=== PATIENT | male | born 1950 | race Caucasian/White ===

== ENCOUNTER 2016-08-05 06:15 | Inpatient (IN) | payer OTHER ==
[2016-07-07 13:49] VITALS: BMI 31.0
--- NOTE | 2016-07-07 14:25 | PAT Medication Instructions ---
Service Date Jul 07, 2016. Current Home Medication List Amlodipine (Norvasc), 5 MG PO QAM Aspirin (Aspirin Ec), 81 MG PO QAM Clopidogrel (Plavix), 75 MG PO QAM Coenzyme Q10 (Ubidecarenone) (Co Q10), 400 MG PO QAM Escitalopram Oxalate (Lexapro), 10 MG PO HS Fish Oil (Strum-3), 1 CAP PO QAM Isosorbide Mononitrate Ext Rel (Imdur Ext Rel), 60 MG PO QAM Lisinopril (Zestril), 5 MG PO QAM Loratadine (Claritin), 10 MG PO QAM Lorazepam (Ativan *), 0.5 MG PO DAILY PRN for Anxiety Lovastatin (Lovastatin), 1 TAB PO HS Metoprolol Succinate (Toprol Xl), 50 MG PO QPM Tramadol (Ultram), 50 MG PO Q4-6HRS PRN Zolpidem Tartrate (Ambien *), 5 MG PO HS PRN Medication Instructions For Your Scheduled Surgery Clopidogrel (Plavix), 75 MG PO QAM (hold 7 days prior to surgery per cardio instructions) - Hold the following medications 2 weeks prior to surgery: Fish Oil (Strum-3), 1 CAP PO QAM Coenzyme Q10 (Ubidecarenone) (Co Q10), 400 MG PO QAM - Hold the following medications the morning of surgery: Lisinopril (Zestril), 5 MG PO QAM Loratadine (Claritin), 10 MG PO QAM - Take the following medications the morning of surgery with a sip of water: Tramadol (Ultram), 50 MG PO Q4-6HRS PRN (can take up to four hours prior to surgery if needed) Lorazepam (Ativan *), 0.5 MG PO DAILY PRN for Anxiety Isosorbide Mononitrate Ext Rel (Imdur Ext Rel), 60 MG PO QAM Amlodipine (Norvasc), 5 MG PO QAM Aspirin (Aspirin Ec), 81 MG PO QAM - Take the following medications as scheduled the night before surgery: Lovastatin (Lovastatin), 1 TAB PO HS Metoprolol Succinate (Toprol Xl), 50 MG PO QPM Tramadol (Ultram), 50 MG PO Q4-6HRS PRN Zolpidem Tartrate (Ambien *), 5 MG PO HS PRN Lorazepam (Ativan *), 0.5 MG PO DAILY PRN for Anxiety Escitalopram Oxalate (Lexapro), 10 MG PO HS If you have any questions please call us at [phone] or [phone] ( [place]) or [phone]
--- NOTE | 2016-07-07 14:54 | DIAGNOSTIC IMAGING REPORT ---
CHEST PREADMISSION(PA/LAT) CLINICAL HISTORY: Preoperative evaluation. COMPARISON STUDY: Chest radiograph April 26, 2013. FINDINGS: Lung volumes are normal. Lungs are clear. There is no pneumothorax or pleural effusion. Cardiac size is normal. Mediastinal contours are normal. There is no evidence of pulmonary edema. IMPRESSION: No acute cardiopulmonary findings. Electronically signed by: Ladarius Garcia M.D. 07/07/2016 2:52 PM Dictated Date/Time: 07/07/2016 2:52 PM
[2016-07-07 14:56] LABS: BASO % 0.3 %; BASO ABS # 0.02 K/uL (0-0.2); COMPLETE YES; EOS % 1.3 %; HEMATOCRIT 39.6 % (42-52); LYMPH % 36.6 %; LYMPH ABS # 2.21 K/uL (1.2-3.4); MEAN CORPUSCULAR HEMOGLOBIN 34.9 pg (25-34); MEAN CORPUSCULAR HGB CONC 34.6 g/dl (32-36); MONO % 7.3 %; NEUT % 54.5 %; PLATELET COUNT 205 K/uL (130-400); RED BLOOD COUNT 3.92 M/uL (4.7-6.1); WHITE BLOOD COUNT 6.04 K/uL (4.8-10.8)
[2016-07-07 15:10] LABS: PROTHROMBIN TIME (PATIENT) 10.7 SECONDS (9.0-12.0)
[2016-07-07 15:26] LABS: URINE APPEARANCE CLEAR (CLEAR); URINE BILIRUBIN NEG (NEG); URINE COLOR YELLOW; URINE NITRITE NEG (NEG); URINE PH 5.5 (4.5-7.5); URINE SPECIFIC GRAVITY 1.021 (1.000-1.030); UROBILINOGEN NEG (NEG)
[2016-07-07 15:30] LABS: MANUAL MICROSCOPIC REQUIRED? NO; REVIEW REQ? NO
[2016-07-07 16:20] LABS: BUN/CREATININE RATIO 13.1 (10-20); CREATININE 0.96 mg/dl (0.60-1.40); POTASSIUM 4.1 mmol/L (3.5-5.1)
[2016-07-08 06:22] LABS: ESTIMATED AVERAGE GLUCOSE 120 mg/dl; HA1C FLAG Normal (Normal)
--- NOTE | 2016-08-01 15:19 | HISTORY & PHYSICAL EXAMINATION ---
DATE OF ADMISSION: 08/05/2016 CHIEF COMPLAINT: Right shoulder pain. HISTORY OF PRESENT ILLNESS: The patient is a 66-year-old male who is here for right shoulder pain. Presents with, symptoms have been gradual in onset. He has no known injury. The symptoms occur constantly and are described as aching and sharp. He has tried cortisone injections with no relief. He has also tried physical therapy with no relief. He would like to proceed with a right reversed total shoulder arthroplasty. PAST MEDICAL HISTORY: Significant for heart attack in 2013, hypertension, hypercholesterolemia, and anxiety. PAST SURGICAL HISTORY: Stent placement 4-5, left TKA, right shoulder rotator cuff repair, hernia repair, right carpal tunnel release, tonsillectomy. SOCIAL HISTORY: He drinks alcohol occasionally. Denies smoking or tobacco use. Denies IV drug use. He lives in a 1-story house. He is currently retired. FAMILY HISTORY: He has a family history of his brother and sister having heart disease. ALLERGIES: IV DYE AND SIMVASTATIN. MEDICATIONS: Citalopram 10 mg once daily, Imdur 60 mg once daily, Norvasc 5 mg once daily, Ativan 0.5 mg as needed, Ultram 50 mg as needed, aspirin 81 mg daily, Plavix 75 mg daily, Ambien 5 mg at bedtime, lisinopril 5 mg daily, lovastatin 20 mg daily, Claritin 10 mg daily, metoprolol 25 mg daily. REVIEW OF SYSTEMS: He denies headaches, fevers, chills, double vision, blurry vision, sore throat, cough, chest pain, nausea, vomiting, diarrhea, constipation, numbness, tingling, tired or urinary problems, thoughts to harm himself or harm others or depression. He is positive for joint pain and stiffness of the right shoulder. OBJECTIVE: GENERAL APPEARANCE: The patient is a 66-year-old male that is sitting in no acute distress. He is well dressed, well nourished. He is awake, alert and oriented x3. VITAL SIGNS: He is 5 foot 6 inches tall, 195 pounds. Blood pressure 118/60. HEENT: Normocephalic, atraumatic. Extraocular movements are intact. PERRLA. Mucosa was moist. No septal deviation. NECK: Supple, no lymphadenopathy, no JVD, no thyromegaly. HEART: Regular rate and rhythm. No murmurs or gallops. LUNGS: Clear to auscultation. No wheezes or rhonchi. ABDOMEN: Soft, nontender, nondistended. Normal bowel sounds, no hepatosplenomegaly. EXTREMITIES: Paying particular attention to the right upper extremity, he is able to actively flex to 90 degrees, abduct to 90 degrees, externally rotate to 45 degrees. He has diffuse tenderness. He has a positive empty can. Positive impingement. NEUROLOGIC: Cranial nerves II through XII are intact. Pulses were compared bilaterally and were equal. IMAGING: X-ray of the right shoulder demonstrates osteophyte formation, joint space narrowing. 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 PLAN: The patient is scheduled for a right reverse total shoulder arthroplasty due to his retracted rotator cuff tear. The patient has tried cortisone injections and physical therapy with no relief. He would like to proceed with a right reverse total shoulder arthroplasty. Risks and benefits were discussed and included but not limited to infection, DVT, pain, stiffness, need for revision surgery, blood vessel damage, nerve damage, PE and and anesthesia risks. The patient wishes to proceed. All questions were answered to his satisfaction. He would like to go home with outpatient physical therapy. 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 As long as they are acceptable, the following recommendations are noted. Uninterrupted continuation of metoprolol, Norvasc and Imdur throughout the perioperative period. Uninterrupted continuation of his aspirin through the perioperative period. It is okay to hold the Plavix 5 days and resume medication as soon as possible postoperatively, hold fish oils for 10 days, hold lisinopril the morning of the surgery and resuming postoperatively as hemodynamics permit. FAWN
[~2016-08-05] VITALS: Ht 167.6 cm; Wt 88.6 kg
[2016-08-05] VITALS (9 sets, daily range): BP systolic 93–124; BP diastolic 54–82; PULSE 69–92; TEMP 36.2–37; O2SAT 92–96; Ht 167.6 cm; Wt 88.6 kg
[~2016-08-05 06:15] MED LIST: AMB5 PO; AMLO-110 PO; ASPI81TA28 PO; ATV5 PO; CEFAZOLIN 2000 MG/60 ML D5W IV SCH; CLOP1TAB15 PO; CLR10 PO; COEN1CAP28 PO; CeleBREX 200 MG CAP PO SCH; DEXAMETHASONE 4 MG TAB PO SCH; GABAPENTIN 300 MG CAP PO SCH; ISOS60TA25 PO; LACTATED RINGER'S 1000ML IV SCH; LISI-729 PO; LXP/10 PO; METO-217 PO; MVC20 PO; OMEG10007 PO; OXYCODONE HCL 10 MG TABCR (OXYCONTIN) PO SCH; ROPIVACAINE 5MG/ML 30 ML 150 MG, BUPIVACAINE/EPINEPHR 0.5% MPF 30 ML, KETOROLAC TROMETH... INFIL SCH; TRAM-10 PO
[2016-08-05] MEDS: TRANEXAMIC ACID INJ 1,000 MG in SODIUM CHLORIDE 0.9% 100ML 100 ML IV SCH ×2 (06:30→10:00)
--- NOTE | 2016-08-05 06:51 | History & Physical Bridge Note ---
H&P Re-Evaluation Bridge Note: I have examined the patient, reviewed the History & Physical and in the interval since the performance of the History & Physical I have noted the following changes of clinical significance: No changes noted
[2016-08-05] MEDS ORDERED: ROCURONIUM BROMIDE 10 MG/ML 5 ML VIAL ONE (08:07)
[2016-08-05] MEDS ORDERED: MIDAZOLAM HCL 1 MG/ML 2ML VIAL ONE (08:07)
[2016-08-05] MEDS ORDERED: FENTANYL CITRATE INJ 50 MCG/1 ML 2 ML VIAL ONE (08:07)
[2016-08-05] MEDS ORDERED: PROPOFOL IV EMULSION 10 MG/ML 20 ML VIAL IV ONE (08:07)
[2016-08-05] MEDS ORDERED: LIDOCAINE HCL 2% 2 ML VIAL (20MG/ML) ONE ×4 (08:07→09:31)
[2016-08-05] MEDS ORDERED: CLONIDINE HCL 100 MCG/ML SYRINGE ONE (08:21)
[2016-08-05] MEDS ORDERED: MEPIVACAINE HCL 1.5% 30 ML VIAL ONE (08:21)
[2016-08-05] MEDS ORDERED: BUPIVACAINE 0.5 % 5 MG/1 ML PF 10ML VIAL ONE ×2 (08:21→11:51)
[2016-08-05] MEDS ORDERED: BACITRACIN 50000 UNIT VIAL ONE (10:08)
[2016-08-05] MEDS ORDERED: POVIDONE-IODINE OP SOLN 30 ML BTL ONE (10:08)
[2016-08-05] MEDS ORDERED: ORTHO JOINT ANESTHETIC ONE (10:08)
[2016-08-05] MEDS ORDERED: FLUMAZENIL 0.1 MG/1 ML 10 ML VIAL IV PRN (10:30)
[2016-08-05] MEDS ORDERED: PROMETHAZINE HCL INJ 12.5 MG in SODIUM CHLORIDE 0.9% 50ML 50 ML IV PRN (10:30)
[2016-08-05] MEDS ORDERED: LABETALOL HCL IV 5 MG/ML 20ML IV PRN (10:30)
[2016-08-05] MEDS ORDERED: EpHEDrine SULFATE INJ 50 MG/ML AMP IV PRN (10:30)
[2016-08-05] MEDS ORDERED: NALOXONE HCL 0.4 MG/1 ML VIAL/CARP IV PRN (10:30)
[2016-08-05] MEDS ORDERED: ATROPINE SULFATE 0.1 MG/ML 5ML SYR IV PRN (10:30)
[2016-08-05] MEDS ORDERED: ONDANSETRON INJ 2 MG/ML 2 ML VIAL IV PRN (10:30)
[2016-08-05] MEDS ORDERED: ONDANSETRON INJ 2 MG/ML 2 ML VIAL ONE (11:26)
[2016-08-05] MEDS ORDERED: DEXAMETHASONE SOD INJ 4 MG/ML VIAL ONE ×2 (11:26→11:52)
[2016-08-05] MEDS ORDERED: ETOMIDATE 2 MG/ML 20 ML VIAL IV ONE (11:26)
[2016-08-05] MEDS ORDERED: PHENYLEPHRINE HCL INJ 10 MG/ML VIAL ONE (11:26)
[2016-08-05] MEDS ORDERED: PHENYLEPHRINE 100MCG/ML 5ML SYR ONE (11:26)
[2016-08-05] MEDS ORDERED: SUCCINYLCHOLINE 100MG/5ML SYR IV ONE (11:28)
[2016-08-05] MEDS ORDERED: GLYCOPYRROLATE INJ 0.2 MG/ML VIAL ONE (11:48)
[2016-08-05] MEDS ORDERED: NEOSTIGMINE METHYLSULFATE 5 MG/5 ML SYR ONE (11:48)
[2016-08-05] MEDS ORDERED: EpHEDrine SULFATE 50MG/5ML SYR ONE (12:04)
--- NOTE | 2016-08-05 12:09 | [facility] Post Operative Brief Note ---
Immediate Operative Summary Operative Date August 05, 2016. Pre-Operative Diagnosis Right shoulder rotator cuff arthropathy Post-Operative Diagnosis same Procedure(s) Performed Right Reverse Total Shoulder Arthroplasty; Uncemented Surgeon Dr. Moore Trim Machine Adjuster Surgeon(s) Vijay Terrazas Pa-C Estimated Blood Loss 50ml Findings above Specimens A. right humeral head Drains 1 hemovac Anesthesia geta, interscalene Complication(s) None Disposition Recovery Room / PACU
[2016-08-05] MEDS ORDERED: MoRPHine SULFATE 2 MG/ML CARP IV PRN (12:15)
[2016-08-05] MEDS ORDERED: ZOLPIDEM TARTRATE 5 MG TAB PO PRN (12:15)
[2016-08-05] MEDS ORDERED: LORAZEPAM 0.5 MG TAB PO PRN (12:15)
[2016-08-05] MEDS ORDERED: ALUMINUM/MAGNESIUM SUSP 30 ML UDC PO PRN (12:15)
--- NOTE | 2016-08-05 13:18 | Anesthesiology Progress Note ---
Anesthesia Post Op Note Date & Time August 05, 2016 at 13:18 Vital Signs Pain Intensity: 0 Vital Signs Past 12 Hours Date Time Temp Pulse Resp B/P Pulse Ox O2 Delivery O2 Flow Rate FiO2 08/05/16 13:05 76 14 101/69 100 Nasal Cannula 2 08/05/16 12:55 72 16 108/62 100 Mask 10 08/05/16 12:45 73 14 119/60 100 Mask 10 08/05/16 12:38 36.0 77 18 127/70 96 Mask 10 08/05/16 07:04 36.7 69 18 120/82 96 Room Air Notes Mental Status: alert / awake / arousable, participated in evaluation Pt Amnestic to Procedure: Yes Nausea / Vomiting: adequately controlled Pain: adequately controlled Airway Patency, RR, SpO2: stable & adequate BP & HR: stable & adequate Hydration State: stable & adequate Anesthetic Complications: no major complications apparent
--- NOTE | 2016-08-05 13:21 | DIAGNOSTIC IMAGING REPORT ---
RIGHT SHOULDER MIN 2 VIEWS ROUTINE CLINICAL HISTORY: Post shoulder surgery Right COMPARISON: None. DISCUSSION: Findings of a total right shoulder arthroplasty. Good contact between prosthetic and underlying bone. Alignment is anatomic. Surgical drains are present. There is no evidence for soft tissue swelling. IMPRESSION: Anatomic alignment status post total right shoulder arthroplasty. Electronically signed by: Branden Gibbons M.D. 08/05/2016 1:20 PM Dictated Date/Time: 08/05/2016 1:19 PM
--- NOTE | 2016-08-05 14:20 | OPERATIVE REPORT ---
DATE OF OPERATION: 08/05/2016 PREOPERATIVE DIAGNOSIS: Right shoulder rotator cuff arthropathy. POSTOPERATIVE DIAGNOSIS: Same. PROCEDURE: Right reverse total shoulder arthroplasty. SURGEON: Dr. Moore. COMPENSATION MANAGER: Vijay Terrazas PA-C who was necessary for assistance of procedure with positioning, prepping, draping, retraction and closure. ANESTHESIA: General endotracheal anesthesia with interscalene block. SPECIMEN: Bone and tissue. COMPLICATIONS: None. ESTIMATED BLOOD LOSS: 50 mL. IMPLANTS: Exactech Equinox 15 mm stem, +0 humeral tray, +2.5 mm humeral liner, 38 mm glenosphere and standard glenoid plate. DRAINS: One medium Hemovac. INDICATIONS: The patient is a 66-year-old male with longstanding pain in the right shoulder. He has massive retracted rotator cuff tear with humeral head elevation. He has failed conservative measures including cortisone injection, physical therapy, anti-inflammatory medications. Failing conservative measures, he wished to proceed with a right reverse total shoulder arthroplasty. Risks, benefits, and alternatives of surgery including but not limited to infection, DVT, pain, stiffness, need for urgent surgery, failure to relieve all symptoms, damage to blood vessels, damage to nerves, risks of anesthesia discussed with the patient and he wished to proceed. OPERATION AND FINDINGS: PROCEDURE: The patient was identified, laterality was confirmed and marked. He received a preoperative antibiotic as well as interscalene block. He was transferred to the operating room, placed in supine position, induced with general endotracheal anesthesia. He was safely transferred to the beach chair position. Right shoulder was prepped and draped in usual sterile manner with ChloraPrep. I made a longitudinal incision just lateral to coracoid, sharply incised the skin, utilized Bovie electrocautery to achieve hemostasis. I identified the cephalic vein, mobilized this laterally with the deltoid. Dissected down through the long head of biceps tendon, excised the tendinotic portion long head of biceps tendon and released the subscapularis and dislocated the shoulder anteriorly. He had a massive retracted rotator cuff tear of supraspinatus as well as evidence of a previous rotator cuff repair with Ethibond suture. These sutures were removed. I then pinned in place humeral version cutting guide, made my humeral head resection and then sequentially reamed and sequentially broached to a size 15 stem. I placed a size 13 stem into position and then placed retractors around the glenoid. I released the inferior capsule and the anterior insertion of the triceps and the glenoid labrum, debrided the glenoid cartilage. I then drilled for the central post, bone grafted the central post for the glenoid plate, impacted this into position. I then placed 4 compression screws and glenoid plate secured to the locking caps. I then placed a 38 mm glenosphere into position and held it in place with a set screw. I then placed the definitive stem with 15 mm stem and then sequentially trialed up to a size 2.5 mm liner. I then removed the trial components and locked the definitive +0 humeral tray into position with a torque-limiting screw and impacted the +2.5 [address] liner into place and then reduced the shoulder. Soft tissues were anesthetized with an Orthomix solution, wound was thoroughly irrigated. Deep drain was placed. The deltopectoral interval was closed with interrupted #1 Ethibond sutures, subcutaneous tissue with interrupted 2-0 Vicryl suture and skin with sho. Sterile dressing was applied and sling placed. All needle and sponge counts were correct at the end of the procedure. The patient was transferred to the PACU in stable condition without apparent complication. I attest to the content of the Intraoperative Record and any orders documented therein. Any exceptio ns are noted below.
[2016-08-05] MEDS: D5W AND 1/2NSS + 20MEQ KCL 1,000 ML IV SCH (14:51)
--- NOTE | 2016-08-05 16:40 | Medical Consult ---
Consultation Date of Consultation: August 05, 2016. Attending Physician: Marcos Moore M.D. Reason for Consultation: Medical management History of Present Illness This is a 66 yo M with PMHx of hx of NC in 2013, HTN, hyperlipidemia, depression and anxiety who was admitted under orthopedics services and underwent a R reverse shoulder arthroplasty due to retrated rotator cuff tear on 08/05/[address] Moore. The patient was seen at beside with his . He reports he is doing well since surgery today- his pain is well controlled and he does not have any acute complaints. He reports there is some numbness in his right pointer finger still. He has gotten up to walk without difficulty to urinate, although has not yet passed gas or had a bowel movement. Last BM was yesterday evening. Past Medical/Surgical History NC in 2013, HTN, hyperlipidemia, anxiety Social History Smoking Status: Former Smoker Smokeless Tobacco Use: No Alcohol Use: none Drug Use: none Marital Status: Housing Status: lives with family Occupation Status: retired Allergies Coded Allergies: Iodinated Diagnostic Agents (Verified Allergy, Intermediate, Hives, ) Atorvastatin (Verified Adverse Reaction, Intermediate, muscle pain, ) muscle pain Simvastatin (Verified Adverse Reaction, Mild, muscle pains, 07/07/16) Current Inpatient Medications Current Inpatient Medications Medications (Trade) Dose Ordered Sig/Jeni Route Start Time Stop Time Status Last Admin Dose Admin Cefazolin Sodium 60 ml @ 100 mls/hr PREOP IV 08/05/16 06:00 08/05/16 18:00 08/05/16 08:19 100 MLS/HR Lactated Ringer's (Lr 1000ml) 1,000 ml @ 60 mls/hr [id number] IV 08/05/16 06:00 08/05/16 22:39 08/05/16 06:40 60 MLS/HR Celecoxib (CeleBREX CAP) 200 mg PREOP PO 08/05/16 06:00 08/05/16 18:00 08/05/16 07:20 200 MG Dexamethasone (Decadron Tab) 8 mg PREOP PO 08/05/16 06:00 08/05/16 18:00 08/05/16 07:20 8 MG Gabapentin (Neurontin Cap) 300 mg PREOP PO 08/05/16 06:00 08/05/16 18:00 08/05/16 07:20 300 MG Oxycodone HCl 10 mg 10 mg PREOP PO 08/05/16 06:00 08/05/16 18:00 08/05/16 07:20 10 MG Lactated Ringer's (Lr 1000ml) 1,000 ml @ 15 mls/hr Q24H IV 08/05/16 06:00 08/06/16 05:59 Amlodipine Besylate (Norvasc Tab) 5 mg QAM PO 08/06/16 09:00 09/05/16 08:59 Aspirin (Ecotrin Tab) 81 mg QAM PO 08/06/16 09:00 09/05/16 08:59 Clopidogrel Bisulfate (plAVix TAB) 75 mg QAM PO 08/06/16 09:00 09/05/16 08:59 Escitalopram Oxalate (Lexapro Tab) 10 mg HS PO 08/05/16 21:00 09/04/16 20:59 Isosorbide Mononitrate (Imdur Ext Rel Tab) 60 mg QAM PO 08/06/16 09:00 09/05/16 08:59 Lisinopril (Zestril Tab) 5 mg QAM PO 08/06/16 09:00 09/05/16 08:59 Loratadine (Claritin Tab) 10 mg QAM PO 08/06/16 09:00 09/05/16 08:59 Lorazepam (Ativan Tab) 0.5 mg DAILY PRN PO 08/05/16 12:15 09/04/16 12:14 Lovastatin (Mevacor Tab) 20 mg HS PO 08/05/16 21:00 09/04/16 20:59 Metoprolol Succinate (Toprol Xl Tab) 50 mg QPM PO 08/05/16 21:00 09/04/16 20:59 Zolpidem Tartrate (Ambien Tab) 5 mg QPM PRN PO 08/05/16 12:15 09/04/16 12:14 Ketorolac Tromethamine (Toradol Inj) 30 mg Q6 IV. 08/05/16 18:00 08/06/16 17:59 Diphenhydramine HCl (Benadryl Cap) 25 mg Q8 PRN PO 08/05/16 12:15 09/04/16 12:14 Al Hydroxide/Mg Hydroxide (Maalox Susp) 30 ml Q4H PRN PO 08/05/16 12:15 09/04/16 12:14 Pantoprazole Sodium 40 mg 40 mg QAM PO 08/06/16 09:00 09/05/16 08:59 Potassium Chloride/Dextrose/ Sod Cl (D5W And 1/2nss + 20meq KCl) 1,000 ml @ 100 mls/hr Q10H IV 08/05/16 14:30 09/04/16 14:29 08/05/16 14:51 100 MLS/HR Oxycodone HCl (Roxicodone Immediate Rel Tab) `1-2 TABS FOR PAIN `1 TAB... Q4H PRN PO 08/05/16 12:15 08/19/16 12:14 Acetaminophen (Tylenol Tab) 1,000 mg Q8 PO 08/05/16 22:00 09/04/16 21:59 Pregabalin (Lyrica Cap) 75 mg BID PO 08/05/16 21:00 09/04/16 20:59 Morphine Sulfate (MoRPHine SULFATE INJ) 2 mg Q2H PRN IV 08/05/16 12:15 08/19/16 12:14 Multivitamins (Multivitamin Tab) 1 tab DAILY PO 08/06/16 09:00 09/05/16 08:59 Ferrous Gluconate 324 mg 324 mg TIDM PO 08/05/16 17:45 09/04/16 17:59 Cefazolin Sodium/ Dextrose (Ancef Iv/D5 50ml) 60 ml @ 100 mls/hr Q8H IV 08/05/16 18:00 08/06/16 02:35 Review of Systems Constitutional: No chills, No fever, No sweats Eyes: No diplopia, No problem reported ENT: No sore throat, No trouble swallowing Respiratory: No cough, No dyspnea on exertion, No shortness of breath Cardiovascular: No chest pain, No palpitations Abdomen: No constipation, No diarrhea, No nausea, No pain, No vomiting Musculoskeletal: No calf pain, No muscle pain, No swelling Genitourinary - Male: No dysuria, No hematuria Neurologic: + numbness/tingling (see HPI), No balance problems, No weakness Endocrine: No fatigue Integumentary: No itch, No rash Physical Exam Date Time Temp Pulse Resp B/P Pulse Ox O2 Delivery O2 Flow Rate FiO2 08/05/16 15:56 36.7 82 19 121/69 93 Room Air 08/05/16 14:54 36.5 83 19 99/61 95 Nasal Cannula 2.0 08/05/16 14:21 36.2 82 19 93/54 93 Nasal Cannula 2.0 08/05/16 13:50 Nasal Cannula 2.0 08/05/16 13:50 36.4 83 16 103/62 92 Nasal Cannula 2.0 08/05/16 13:30 79 13 109/62 99 Nasal Cannula 2 08/05/16 13:25 76 16 101/62 98 Nasal Cannula 2 08/05/16 13:15 36.0 88 12 106/65 99 Nasal Cannula 2 08/05/16 13:05 76 14 101/69 100 Nasal Cannula 2 08/05/16 12:55 72 16 108/62 100 Mask 10 08/05/16 12:45 73 14 119/60 100 Mask 10 08/05/16 12:38 36.0 77 18 127/70 96 Mask 10 08/05/16 07:04 36.7 69 18 120/82 96 Room Air General Appearance: WD/WN, no apparent distress Head: normocephalic, atraumatic Eyes: PERRL, EOMI ENT: hearing grossly normal, pharynx normal Neck: supple, no JVD Respiratory/Chest: chest non-tender, lungs clear, normal breath sounds, no respiratory distress, no accessory muscle use Cardiovascular: regular rate, rhythm, no JVD, no murmur Abdomen/GI: normal bowel sounds, non tender, soft, no organomegaly Back: normal inspection Extremities/Musculoskelatal: no calf tenderness, no pedal edema, normal range of motion, + pertinent finding (Left arm in sling, +drain with bloody outs in place. ) Neurologic/Psych: alert, normal mood/affect Skin: normal color, warm/dry Assessment & Plan 66 yo M with PMHx of hx of NC in 2013, HTN, hyperlipidemia, depression and anxiety who was admitted under orthopedics services and underwent a R reverse shoulder arthroplasty due to retrated rotator cuff tear on 08/05/[address] Moore. S/p Right reverse shoulder arthroplasty - Analgesia and DVT ppx per primary team - plavix restarted today - Bowel regimen on board Hx of NC Hypertension - Pt was slightly hypotensive after surgical procedure today so was started on NSS 100mL/hr. Now resolved - Watch overnight and reassess in AM to see if need to hold morning antihypertensives. 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 No shoulder pain. Ate without issue. No chest pain or SOB. Agree with HPI/ROS as noted. General Appearance: WD/WN, no apparent distress Respiratory: normal breath sounds, no respiratory distress Cardiovascular: normal peripheral pulses, regular rate, rhythm Gastrointestinal: non tender, soft Extremities: non-tender, no pedal edema Neurologic/Psychiatric: alert, oriented x 3 Skin Characteristics: normal color, warm/dry Assessment/Plan Agree with plan as outlined above Doing well post-op Plavix for hx of NC, resume as soon as able Pt states possible d/c home tomorrow
[2016-08-05] MEDS: CEFAZOLIN IV 2,000 MG in DEXTROSE 5% 50ML 50 ML IV SCH (17:56)
[2016-08-05] MEDS: FERROUS GLUCONATE 324 MG TAB PO SCH (17:56)
[2016-08-05] MEDS: KETOROLAC TROMETHAMINE 30 MG/ML VIAL IV. SCH (17:57)
[2016-08-05] MEDS: OXYCODONE HCL IR 5 MG TAB (IMMEDIATE RELEASE) PO PRN (19:01)
[2016-08-05] MEDS ORDERED: METOPROLOL SUCC 50MG EXT REL TAB PO SCH (21:00)
[2016-08-05] MEDS ORDERED: LOVASTATIN 20 MG TAB PO SCH (21:00)
[2016-08-05] MEDS ORDERED: ESCITALOPRAM OXALATE 10 MG TAB PO SCH (21:00)
[2016-08-05] MEDS: PREGABALIN 75 MG CAP PO SCH (21:42)
[2016-08-05] MEDS: ACETAMINOPHEN 500 MG TAB PO SCH (21:42)
[2016-08-06] MEDS: D5W AND 1/2NSS + 20MEQ KCL 1,000 ML IV SCH (00:36)
[2016-08-06] MEDS: KETOROLAC TROMETHAMINE 30 MG/ML VIAL IV. SCH ×3 (00:37→12:19)
[2016-08-06] MEDS: CEFAZOLIN IV 2,000 MG in DEXTROSE 5% 50ML 50 ML IV SCH (01:57)
[2016-08-06] MEDS: OXYCODONE HCL IR 5 MG TAB (IMMEDIATE RELEASE) PO PRN ×3 (01:58→12:38)
[2016-08-06 03:05] VITALS: BP 118/72; PULSE 70; TEMP 36.8; O2SAT 93
[2016-08-06] MEDS: ACETAMINOPHEN 500 MG TAB PO SCH (05:54)
[2016-08-06 06:30] LABS: HEMATOCRIT 31.7 % (42-52); MEAN CELL VOLUME 103.3 fL (80-100); MEAN CORPUSCULAR HEMOGLOBIN 34.2 pg (25-34); MEAN CORPUSCULAR HGB CONC 33.1 g/dl (32-36); MEAN PLATELET VOLUME 9.7 fL (7.4-10.4); PLATELET COUNT 193 K/uL (130-400); RED BLOOD COUNT 3.07 M/uL (4.7-6.1); WHITE BLOOD COUNT 8.57 K/uL (4.8-10.8)
[2016-08-06 06:57] VITALS: BP 108/60; PULSE 68; TEMP 36.4; O2SAT 94
[2016-08-06 07:06] LABS: BUN/CREATININE RATIO 15.8 (10-20); POTASSIUM 4.9 mmol/L (3.5-5.1)
[2016-08-06 07:30] VITALS: O2SAT 94
[2016-08-06] MEDS: PREGABALIN 75 MG CAP PO SCH (08:46)
[2016-08-06] MEDS: FERROUS GLUCONATE 324 MG TAB PO SCH ×2 (08:47→12:19)
--- NOTE | 2016-08-06 08:52 | Orthopedic Progress Note ---
Orthopedic Progress Note Date of Service August 06, 2016. Subjective Post OP Day: 1 Reports: feeling well, pain controlled w PO medications, Denies: SOB, chest pain , complaints Objective N/V intact, capillary refill less than 2 sec., dressing C/D/I, A&O x3 Right shoulder Silverlon dressing in place. Right arm in sling. Right hand fingers are mobile. Sensation intact distally RUE. Date Time Temp Pulse Resp B/P Pulse Ox O2 Delivery O2 Flow Rate FiO2 08/06/16 07:30 94 Room Air 08/06/16 06:57 36.4 68 19 108/60 94 Room Air 08/06/16 03:05 36.8 70 16 118/72 93 Room Air 08/06/16 00:30 Room Air 08/05/16 22:50 37.0 81 16 124/73 94 Room Air 08/05/16 19:18 36.7 92 19 119/70 93 Room Air 08/05/16 16:53 36.9 89 18 106/64 92 Room Air 08/05/16 15:56 36.7 82 19 121/69 93 Room Air 08/05/16 15:43 93 Room Air 08/05/16 14:54 36.5 83 19 99/61 95 Nasal Cannula 2.0 08/05/16 14:21 36.2 82 19 93/54 93 Nasal Cannula 2.0 08/05/16 13:50 Nasal Cannula 2.0 08/05/16 13:50 Nasal Cannula 2.0 08/05/16 13:50 36.4 83 16 103/62 92 Nasal Cannula 2.0 08/05/16 13:30 79 13 109/62 99 Nasal Cannula 2 08/05/16 13:25 76 16 101/62 98 Nasal Cannula 2 08/05/16 13:15 36.0 88 12 106/65 99 Nasal Cannula 2 08/05/16 13:05 76 14 101/69 100 Nasal Cannula 2 08/05/16 12:55 72 16 108/62 100 Mask 10 08/05/16 12:45 73 14 119/60 100 Mask 10 08/05/16 12:38 36.0 77 18 127/70 96 Mask 10 Laboratory Results 24 Hours: Test 08/06/16 05:46 Hematocrit 31.7 % Hemoglobin 10.5 g/dL Assessment & Plan Assessment: POD #1 s/p Right reverse total shoulder arthroplasty Plan: Pain control Plan for d/c home today. Inhouse Planning Pain Management: Toradol, Morphine, Oxy IR DVT Prophylaxis: ASA Discharge Planning Discharge Planning: home Pain Management: Oxycontin, Oxy IR DVT Prophylaxis: ASA
[2016-08-06] MEDS ORDERED: OXYSR10 PO (08:56)
[2016-08-06] MEDS ORDERED: RXC5 PO (08:56)
--- NOTE | 2016-08-06 08:58 | Discharge Instructions ---
Discharge Instructions Date of Service August 06, 2016. Admission Reason for Admission: Primary Osteoarthritis Right Shoulder Discharge Discharge Diagnosis / Problem: right shoulder osteoarthritis Discharge Goals Goal(s): Decrease discomfort, Improve function Activity Recommendations Activity Limitations: per Instructions/Follow-up section . Instructions / Follow-Up Instructions / Follow-Up ACTIVITY RECOMMENDATIONS: SELF CARE INSTRUCTIONS AFTER TOTAL SHOULDER ARTHROPLASTY REVERSE A. You may do daily exercises as taught in physical therapy while in hospital. No lifting with the operative arm. B. You are to wear your sling/immobilizer at all times EXCEPT when performing your daily exercises and for hygiene purposes. C. You may perform dry, daily dressing changes. Please keep your incision covered. You may shower 48 hours after surgery. Do not apply soap or any ointment/ lotions directly over incision. Do not soak incision in bath tub/swimming pool. D. You may use ice as needed to operative shoulder. SPECIAL CARE INSTRUCTIONS: VERY IMPORTANT TO READ AND REVIEW A. There are a few signs you need to watch for after you are home. Call [facility] at [phone] if you experience any of the followin. Increased severe shoulder pain. Some pain is expected especially when you exercise. 2. Increased swelling in you shoulder or arm; pain or swelling in either upper extremity. 3. Any fluid drainage from the incision. 4. Shortness of breath or chest pain. B. Please call [facility] at [phone] if you have any questions or concerns about your operation or recovery. C. Call your physician if: 1. Temperature is greater than 101 degrees (F). 2. Pain is not relieved by prescribed pain medications. 3. Increase drainage or redness from incision. 4. Unanswered questions or concerns. D. Silverlon- This is a large adhesive bandage that contains silver ions. This helps your incision heal by fighting off bacteria and protecting it from the outside environment. You are permitted to shower with this dressing. This will remain on your incision for 7 days and then should be removed. Some visible blood or drainage through the dressing window is normal. If there is significant drainage or leaking noted before the 7 days notify your doctor's office immediately. Once removed, keep incision clean and dry. If there is any drainage or redness noted, please call your surgeon. FOLLOW UP VISIT: Please call [facility] at [phone] to schedule a follow up appointment with Dr. Moore or his PA in 12-14 days from your surgery date. Current Hospital Diet Patient's current hospital diet: Regular Diet Discharge Diet Recommended Diet: Regular Diet Procedures Procedures Performed: Right Reverse Total Shoulder Arthroplasty; Uncemented Pending Studies Studies pending at discharge: no Laboratory Results Hemoglobin A1c Test 07/07/16 14:26 Range/Units Estimated Average Glucose 120 mg/dl Hemoglobin A1c 5.8 H 4.5-5.6 % Medical Emergencies . Who to Call and When: Medical Emergencies: If at any time you feel your situation is an emergency, please call 911 immediately. . Non-Emergent Contact Non-Emergency issues call your: Surgeon Call Non-Emergent contact if: temperature is above 101, your pain is not controlled, your pain is worsening, wound has increased drainage, wound has increased redness . "Provider Documentation" section prepared by Nasir Pressley. . VTE Core Measure Inpt VTE Proph given/why not?: Other Anticoagulation
[2016-08-06] MEDS ORDERED: PANTOprazole SOD 40 MG TAB PO SCH (09:00)
[2016-08-06] MEDS ORDERED: LORATADINE 10 MG TAB PO SCH (09:00)
[2016-08-06] MEDS ORDERED: LISINOPRIL 5 MG TAB PO SCH (09:00)
[2016-08-06] MEDS ORDERED: COENZYME Q10 400 MG PO SCH (09:00)
[2016-08-06] MEDS ORDERED: MULTIVITAMIN TAB PO SCH (09:00)
[2016-08-06] MEDS ORDERED: AMLODIPINE BESYLATE 5 MG TAB PO SCH (09:00)
[2016-08-06] MEDS ORDERED: ISOSORBIDE MONONITRATE 60 MG TABCR PO SCH (09:00)
[2016-08-06] MEDS ORDERED: ASPIRIN 81 MG ECTAB PO SCH (09:00)
[2016-08-06] MEDS ORDERED: CLOPIDOGREL BISULFATE 75 MG TAB PO SCH (09:00)
[2016-08-06 09:37] VITALS: BP 138/82; PULSE 82; O2SAT 96
[2016-08-06 12:02] VITALS: BP 138/82; PULSE 82; TEMP 36.4; O2SAT 96
--- NOTE | 2016-08-11 16:14 | DISCHARGE SUMMARY ---
ADMISSION DIAGNOSIS: Primary osteoarthritis of the right shoulder. DISCHARGE DIAGNOSIS: Status post right reverse total shoulder arthroplasty. CONSULTS: None. PROCEDURES: On 08/05/2016 the patient underwent a right reverse total shoulder arthroplasty. HISTORY OF PRESENT ILLNESS: The patient is a 66-year-old male who presented to the office with right shoulder pain. The symptoms were gradual in onset with no known injury. He states that the symptoms occur constantly and is described as aching and sharp. He has tried cortisone injections with no relief as well as physical therapy. He would like to proceed with a right reverse total shoulder arthroplasty. HOSPITAL COURSE: Postop day 1, the patient was feeling well. Pain was controlled with p.o. medications. He denied complaints of chest pain, shortness of breath, lightheadedness or dizziness. His Silverlon dressing was in place. He had normal sensation of the right upper extremity. Plan was to be discharged to home on 08/06/2016. DISCHARGE CONDITION: Stable. DISPOSITION: Home with self-care. MEDICATIONS: Oxycodone 5 mg every 4 hours as needed for pain, OxyContin 10 mg p.o. every 12 hours, amlodipine 5 mg q.a.m., aspirin 81 mg q.a.m., Plavix 75 mg q.a.m., Coenzyme Q10 400 mg p.o. q.a.m., Lexapro 10 mg p.o. at bedtime, fish oil 1 capsule p.o. q.a.m., Imdur 60 mg p.o. q.a.m., lisinopril 5 mg p.o. q.a.m., Claritin 10 mg p.o. q.a.m., Ativan 0.5 mg p.o. daily as needed for anxiety, Rosuvastatin 20 mg p.o. at bedtime, Toprol-XL 50 mg p.o. q.p.m., tramadol 50 mg p.o. q. 4-6 hours as needed for pain, Ambien 5 mg p.o. at bedtime p.r.n. sleep. The patient was instructed to do daily exercises and that were taught to him in physical therapy with no lifting of the operative arm. He is to wear a sling or immobilizer at all times except when performing daily exercises and hygiene purposes. Silverlon dressing was to be taken off 7 days after the surgery. He is allowed to apply ice to the operative shoulder. He is to call [facility] if he is experiencing an increase in pain, swelling or drainage from the operative shoulder. He is to maintain a regular diet. He is to follow up in 10-[address] Moore or his PA after surgery. FAWN
== END 2016-08-06 13:20 | disposition home or self-care (01) | DRG 483 ==
LOC: ENRESERVDT → ENRESERVTM → C.ACU 06:15 → C.3E 06:50
PROVIDERS: ADMIT Orthopaedic Surgery; ATTEND Orthopaedic Surgery
PROC: 0RRJ00Z Replacement of Right Shoulder Joint with Reverse Ball and Socket Synthetic Substitute, Open Approach (ICD-10-PCS; principal; 2016-08-05 09:20)
DX: M19.011 Primary osteoarthritis, right shoulder (principal); I25.2 Old myocardial infarction; I10 Essential (primary) hypertension; E78.00 Pure hypercholesterolemia, unspecified; Z95.5 Presence of coronary angioplasty implant and graft; Z96.652 Presence of left artificial knee joint; Z79.02 Long term (current) use of antithrombotics/antiplatelets; Z79.899 Other long term (current) drug therapy

== ENCOUNTER → 2016-10-03 | Outpatient (CLI) | payer OTHER ==
[~2016-10-03] MED LIST changes: -CEFAZOLIN 2000 MG/60 ML D5W IV SCH; -CeleBREX 200 MG CAP PO SCH; -DEXAMETHASONE 4 MG TAB PO SCH; -GABAPENTIN 300 MG CAP PO SCH; -LACTATED RINGER'S 1000ML IV SCH; -OXYCODONE HCL 10 MG TABCR (OXYCONTIN) PO SCH; +OXYSR10 PO; -ROPIVACAINE 5MG/ML 30 ML 150 MG, BUPIVACAINE/EPINEPHR 0.5% MPF 30 ML, KETOROLAC TROMETH... INFIL SCH; +RXC5 PO
[2016-10-03 12:26] LABS: BASO % 0.2 %; BASO ABS # 0.01 K/uL (0-0.2); COMPLETE YES; EOS % 3.1 %; HEMATOCRIT 39.2 % (42-52); IG% 0.2 %; LYMPH % 32.1 %; LYMPH ABS # 1.47 K/uL (1.2-3.4); MEAN CELL VOLUME 101.3 fL (80-100); MEAN CORPUSCULAR HEMOGLOBIN 33.6 pg (25-34); MEAN CORPUSCULAR HGB CONC 33.2 g/dl (32-36); MEAN PLATELET VOLUME 10.2 fL (7.4-10.4); MONO % 10.9 %; NEUT % 53.5 %; PLATELET COUNT 204 K/uL (130-400); RED BLOOD COUNT 3.87 M/uL (4.7-6.1); WHITE BLOOD COUNT 4.58 K/uL (4.8-10.8)
[2016-10-03 12:40] LABS: ALT/SGPT 19 U/L (12-78); BLOOD UREA NITROGEN 20 mg/dl (7-18); BUN/CREATININE RATIO 23.6 (10-20); CARBON DIOXIDE 28 mmol/L (21-32); CHLORIDE 108 mmol/L (98-107); CHOLESTEROL 185 mg/dl (0-200); CREATININE 0.84 mg/dl (0.60-1.40); GLUCOSE 100 mg/dl (70-99); POTASSIUM 4.2 mmol/L (3.5-5.1); SODIUM 143 mmol/L (136-145)
[2016-10-03 12:45] LABS: ALB/GLOB RATIO 1.1 (0.9-2); ALKALINE PHOSPHATASE 105 U/L (45-117); AST/SGOT 13 U/L (15-37); CHOLESTEROL/HDL RATIO 3.6; HDL CHOLESTEROL 51 mg/dl; LDL CHOLESTEROL CALCULATED 111 mg/dl; PROSTATE SPECIFIC ANTIGEN 0.764 ng/ml (0.000-4.000); TRIGLYCERIDES 113 mg/dl (0-150); VERY LOW DENSITY LIPOPROT CALC 23 mg/dl
[2016-10-03 13:09] LABS: ESTIMATED AVERAGE GLUCOSE 120 mg/dl; HA1C FLAG Normal (Normal)
--- NOTE | 2016-11-01 06:27 | CODING QUERY MEDICAL NECESSITY ---
CQSUPPORTING DIAGNOSIS NEEDED A supporting diagnosis is required for the test/procedure performed on this patient in order for us to be reimbursed by the patient's insurance. Please provide a supporting diagnosis for the following test/procedure listed below next to the test name along with your signature. *If there is no additional diagnosis for this patient that would support the following test/procedure please document that below next to the test/procedure. Test(s)/Procedure(s) that require a supporting diagnosis: DOS 10/03/16 GLYCATED HEMOGLOBIN TEST COMPLETE BLOOD COUNT PROSTATE SPECIFIC ANTIGEN (PSA) TEST Provider Signature: Date: Thank you Leesa [facility] Information [facility] Once completed, please kindly fax back to [phone] For questions please call [phone]
== END | disposition home or self-care (01) ==
LOC: C.LAB 09:39
PROVIDERS: ATTEND Internal Medicine
DX: M17.11 Unilateral primary osteoarthritis, right knee (principal); R73.01 Impaired fasting glucose; D64.9 Anemia, unspecified; Z12.5 Encounter for screening for malignant neoplasm of prostate

== ENCOUNTER → 2016-11-18 | Outpatient (CLI) | payer OTHER | END | disposition home or self-care (01) | LOC: C.PATHSPEC 17:27 | PROVIDERS: ATTEND Dentist General Practice | DX: D10.1 Benign neoplasm of tongue (principal) ==

== ENCOUNTER → 2017-07-10 | Outpatient (CLI) | payer OTHER ==
[~2017-07-10] MED LIST changes: +ACET-24 PO; -AMB5 PO; +ASPI-320 PO; -ASPI81TA28 PO; -ATV5 PO; +CLB200 PO; +LORA-741 PO; -METO-217 PO; +METO50TA17 PO; +ONDA-170 PO; -OXYSR10 PO; +ZOLP5TAB PO
== END | disposition home or self-care (01) ==
LOC: C.LAB 13:42
PROVIDERS: ATTEND Internal Medicine
DX: R31.29 Other microscopic hematuria (principal)

== ENCOUNTER 2018-05-29 00:10 | Inpatient (IN) ==
[2018-05-29] MEDS ORDERED: ASPIRIN 81 MG CHEW ONE (00:22)
[2018-05-29] MEDS ORDERED: NITROGLYCERIN SL 0.4 MG/TAB TAB ONE (00:22)
[2018-05-29] MEDS ORDERED: NITROGLYCERIN SL 0.4 MG/TAB TAB SL PRN ×2 (00:31→02:37)
[2018-05-29] MEDS ORDERED: ASPIRIN 81 MG CHEW PO STA (00:31)
[2018-05-29 00:32] LABS: Basophils # (auto) 0.01 K/uL (0-0.2); Basophils % (auto) 0.2 %; Eosinophils # (auto) 0.14 K/uL (0-0.5); Eosinophils % (auto) 2.6 %; Hematocrit (blood only) 43.7 % (42-52); Hemoglobin 15.3 g/dL (14.0-18.0); Immature Granulocytes # (auto) 0.01 K/uL (0.00-0.02); Immature Granulocytes % (auto) 0.2 %; Lymphocytes # (auto) 2.08 K/uL (1.2-3.4); Lymphocytes % (auto) 39.3 %; Mean Corpuscular Volume 101.4 fL (80-100); Mean Platelet Volume 10.1 fL (7.4-10.4); Monocytes % (auto) 9.5 %; Neutrophils # (auto) 2.55 K/uL (1.4-6.5); Neutrophils % (auto) 48.2 %; Platelet Count 197 K/uL (130-400); RDW Coefficient of Variation 12.4 % (11.5-14.5); RDW Standard Deviation 45.5 fL (36.4-46.3); Red Blood Count 4.31 M/uL (4.7-6.1); White Blood Count 5.29 K/uL (4.8-10.8)
[2018-05-29] MEDS ORDERED: fentaNYL citrate 100 MCG/2 ML VIAL IV ONE ×2 (00:38→01:21)
[2018-05-29] MEDS ORDERED: fentaNYL citrate 100 MCG/2 ML VIAL ONE (00:39)
[2018-05-29 00:42] LABS: Partial Thromboplastin Ratio 0.9; Partial Thromboplastin Time 25.7 Seconds (21.0-31.0); Prothrombin Time 10.6 Seconds (9.0-12.0)
[2018-05-29 00:54] LABS: Alanine Aminotransferase 25 U/L (12-78); Albumin Level 3.7 gm/dl (3.4-5.0); Aspartate Aminotransferase 14 U/L (15-37); BUN Creatinine Ratio 22.8 (10-20); Blood Urea Nitrogen 22 mg/dl (7-18); Calcium 8.3 mg/dl (8.5-10.1); Carbon Dioxide 29 mmol/L (21-32); Chloride 108 mmol/L (98-107); Creatinine Clr Calc Pharmacy 77.8 ml/min; Est GFR (African American) 95.6; Est GFR (Non-African American) 82.5; Glucose 106 mg/dl (70-99); Sodium 142 mmol/L (136-145)
[2018-05-29 00:59] LABS: Albumin Globulin Ratio 1.1 (0.9-2); Alkaline Phosphatase 100 U/L (45-117); Bilirubin,Total 0.3 mg/dl (0.2-1); Globulin 3.5 gm/dl (2.5-4.0); Total Protein 7.2 gm/dl (6.4-8.2); Troponin I < 0.015 ng/ml (0-0.045)
[2018-05-29] MEDS ORDERED: POLYETHYLENE (MIRALAX) 17 GM PACK PO PRN (02:37)
[2018-05-29] MEDS ORDERED: TRAMADOL HCL 50 MG TABLET PO PRN (02:37)
[2018-05-29] MEDS ORDERED: LORazepam 0.5 MG TAB PO PRN (02:37)
[2018-05-29] MEDS ORDERED: fentaNYL citrate 100 MCG/2 ML VIAL IV PRN (02:37)
[2018-05-29] MEDS ORDERED: ACETAMINOPHEN 325 MG TAB PO PRN (02:37)
[2018-05-29 03:00] LABS: Basophils # (auto) 0.01 K/uL (0-0.2); Basophils % (auto) 0.2 %; Eosinophils # (auto) 0.14 K/uL (0-0.5); Eosinophils % (auto) 3.1 %; Hematocrit (blood only) 40.1 % (42-52); Hemoglobin 13.5 g/dL (14.0-18.0); Lymphocytes # (auto) 1.66 K/uL (1.2-3.4); Lymphocytes % (auto) 36.3 %; Mean Corpuscular Hgb Conc 33.7 g/dL (32-36); Mean Corpuscular Volume 101.5 fL (80-100); Mean Platelet Volume 9.8 fL (7.4-10.4); Monocytes # (auto) 0.44 K/uL (0.11-0.59); Monocytes % (auto) 9.6 %; Neutrophils # (auto) 2.32 K/uL (1.4-6.5); Neutrophils % (auto) 50.8 %; Platelet Count 169 K/uL (130-400); RDW Coefficient of Variation 12.5 % (11.5-14.5); RDW Standard Deviation 45.5 fL (36.4-46.3); Red Blood Count 3.95 M/uL (4.7-6.1); White Blood Count 4.57 K/uL (4.8-10.8)
[2018-05-29 03:16] LABS: INR 1.1 (0.9-1.1); Partial Thromboplastin Ratio 0.9; Partial Thromboplastin Time 25.1 Seconds (21.0-31.0); Prothrombin Time 10.9 Seconds (9.0-12.0)
--- NOTE | 2018-05-29 03:16 | History & Physical Report ---
Date of Service May 29, 2018 Assessment & Plan (1) Left sided chest pain: Left-sided chest pain/CAD/hypertension/history of [place]/history of coronary artery stent/left bundle branch block-- The patient will be admitted to telemetry for serial cardiac enzymes, serial EKG's, cardiac rhythm monitoring and a 2-D echocardiogram with Dopplers. Patient's pain has significantly improved after NTG SL's and fentanyl IV and aspirin 324 mg. Placed on Nitropaste 1 inch to anterior chest wall every 6 hours. Continue aspirin 81 mg daily, clopidogrel 75 mg daily, isosorbide mononitrate 60 mg every morning, lisinopril 5 mg every morning and metoprolol tartrate 50 mg p.o. every evening. If his pain recurs overnight, will start heparin drip. Consult [facility] cardiology, patient follows with Branden Aparicio. Present on Admission?: Yes (2) Left bundle branch block (LBBB): As above. Present on Admission?: Yes (3) CAD (coronary artery disease): As above. Present on Admission?: Yes (4) H/O heart artery stent: As above. Present on Admission?: Yes (5) Myocardial infarct, old: As above. Present on Admission?: Yes (6) Hypertension: As above. Present on Admission?: Yes (7) Hyperlipidemia LDL goal <70: Continue lovastatin 40 mg daily. He has been intolerant of atorvastatin in the past. Present on Admission?: Yes (8) Anxiety and depression: Continue E citalopram 15 mg at bedtime, lorazepam 0.5 mg p.o. daily as needed and zolpidem 5 mg p.o. at bedtime. Present on Admission?: Yes History of Present Illness Chief Complaint: The patient presents to the emergency department with substernal chest pain that began as he was getting ready for bed this evening. Primary Care Provider: Marcos Calderon MD The patient is a 68-year-old male with a past medical history including CAD, history of [place], history of coronary artery stent and restenosis, left bundle branch block, hypertension, hyperlipidemia, anxiety with depression, insomnia who presents to the emergency department with substernal chest pain. He has had a total of 3 sublingual nitroglycerin, and fentanyl IV x3, that brought his pain from an 8/10 down to a 1/10 and continued to improve. He reports that he has not had any change in his usual activity pattern or eating pattern, or any other precipitating factors that brought this episode of chest pain forward. He follows routinely with Branden Aparicio at [facility] cardiology. Allergies Allergy/AdvReac Type Severity Reaction Status Date / Time Iodinated Contrast- Oral and Allergy Intermediate Hives Verified 05/29/18 00:54 IV Dye Home Medications Home Medications Medication Instructions Recorded Confirmed Type amlodipine 5 mg PO HS 05/29/18 05/29/18 History aspirin 81 mg PO QAM 05/29/18 05/29/18 History clopidogrel 75 mg PO DAILY 05/29/18 05/29/18 History coenzyme Q10 [Co Q-10] 400 mg PO QAM 05/29/18 05/29/18 History escitalopram oxalate 15 mg PO HS 05/29/18 05/29/18 History isosorbide mononitrate 60 mg PO QAM 05/29/18 05/29/18 History lisinopril 5 mg PO QAM 05/29/18 05/29/18 History loratadine [Claritin] 10 mg PO QAM 05/29/18 05/29/18 History lorazepam 0.5 mg PO DAILY PRN 05/29/18 05/29/18 History lovastatin 40 mg PO HS 05/29/18 05/29/18 History metoprolol tartrate 50 mg PO QPM 05/29/18 05/29/18 History omega 1-xrm-biw-fish oil [[place]-3 1 cap PO QAM 05/29/18 05/29/18 History Fish Oil] tramadol 50 mg PO Q8 PRN 05/29/18 05/29/18 History zolpidem 5 mg PO HS 05/29/18 05/29/18 History Past Med/Surg History Medical History Myocardial infarct, old (Resolved) Acute myocardial infarction (Acute) B12 deficiency (Acute) Folate deficiency (Acute) Macrocytic anemia (Acute) Right knee DJD Rotator cuff arthropathy Family History Other Family history non-contributory Social History Preferred Language: Lithuanian Communication Ability: Effective Replacer Required: No Beliefs That Will Affect Care: None Current Living Situation: Spouse Other Information That Helps Us Care for You: No Feels Safe at Home: Yes Safety Concerns: Feels Safe At This Time Smoking Status: Never smoker Hx Alcohol Use: No Hx Substance Use: No Review of Systems The patient denies palpitations, shortness of breath, dyspnea on exertion, cough, lower extremity swelling, sore throat, fevers, chills, sweats, weight change, nausea, vomiting, diarrhea , constipation, abdominal pain, pelvic pain, blood in urine or stool, dysuria, urinary frequency or urgency, lightheadedness, dizziness, headache, memory loss, loss of consciousness, rash, abnormal bruising or bleeding, imbalance, focal or generalized weakness, numbness or tingling in arms or legs, generalized arthralgias or myalgias, back or neck pain, or night sweats. The patient himself does not report fatigue, but his reports that she has noticed him being more tired over the past few days. The review of systems is otherwise negative other than for that already noted above, and at least 10 systems have been reviewed. Physical Exam Vital Signs (Past 24 Hours): Last Vital Signs Temp 36.5 C 05/29/18 02:34 Pulse 60 05/29/18 02:34 Resp 20 05/29/18 02:34 BP 124/72 05/29/18 02:34 Pulse Ox 94 05/29/18 02:34 Physical Exam: The patient is awake, alert and oriented 3, well developed and well nourished, normocephalic and atraumatic, lying in bed and in no acute distress. HEENT--PERRL, EOMI, mucous membranes and oropharynx normal. Neck--supple. No JVD. No bruits. Thyroid normal, trachea midline, no adenopathy. Heart--normal S1 and S2. No murmurs, rubs or gallops. Lungs--clear bilaterally, no respiratory distress, no accessory muscle use. Abdomen--normal bowel sounds and soft. Nontender. Nondistended. Mildly tympanitic. Extremities--no cyanosis or clubbing. No edema. There are good distal pulses b/l. Dermatologic--normal skin turgor, normal color, no abnormal lymph nodes, no rash. Neurologic--cranial nerves II through XII grossly intact. Rheumatologic--normal range of motion. Psychiatric--normal affect. Results & Data Laboratory Results Laboratory Results WBC 4.57 K/uL (4.8-10.8) L 05/29/18 02:50 RBC 3.95 M/uL (4.7-6.1) L 05/29/18 02:50 Hgb 13.5 g/dL (14.0-18.0) L 05/29/18 02:50 Hct 40.1 % (42-52) L 05/29/18 02:50 MCV 101.5 fL (80-100) H 05/29/18 02:50 MCH 34.2 pg (25-34) H 05/29/18 02:50 MCHC 33.7 g/dL (32-36) 05/29/18 02:50 RDW Std Deviation 45.5 fL (36.4-46.3) 05/29/18 02:50 RDW Coeff of Chuck 12.5 % (11.5-14.5) 05/29/18 02:50 Plt Count 169 K/uL (130-400) 05/29/18 02:50 MPV 9.8 fL (7.4-10.4) 05/29/18 02:50 Immature Gran % (Auto) 0.0 % 05/29/18 02:50 Neut % (Auto) 50.8 % 05/29/18 02:50 Lymph % (Auto) 36.3 % 05/29/18 02:50 [place] % (Auto) 9.6 % 05/29/18 02:50 Eos % (Auto) 3.1 % 05/29/18 02:50 Baso % (Auto) 0.2 % 05/29/18 02:50 Immature Gran # (Auto) 0.00 K/uL (0.00-0.02) 05/29/18 02:50 Neut # (Auto) 2.32 K/uL (1.4-6.5) 05/29/18 02:50 Lymph # (Auto) 1.66 K/uL (1.2-3.4) 05/29/18 02:50 [place] # (Auto) 0.44 K/uL (0.11-0.59) 05/29/18 02:50 Eos # (Auto) 0.14 K/uL (0-0.5) 05/29/18 02:50 Baso # (Auto) 0.01 K/uL (0-0.2) 05/29/18 02:50 PT 10.6 Seconds (9.0-12.0) 05/29/18 00:20 INR 1.0 (0.9-1.1) 05/29/18 00:20 APTT 25.7 Seconds (21.0-31.0) 05/29/18 00:20 PTT Ratio 0.9 05/29/18 00:20 Sodium 142 mmol/L (136-145) 05/29/18 00:20 Potassium 4.0 mmol/L (3.5-5.1) 05/29/18 00:20 Chloride 108 mmol/L (98-107) H 05/29/18 00:20 Carbon Dioxide 29 mmol/L (21-32) 05/29/18 00:20 Anion Gap 5.0 (3-11) 05/29/18 00:20 BUN 22 mg/dl (7-18) H 05/29/18 00:20 Creatinine 0.95 mg/dl (0.6-1.4) 05/29/18 00:20 Est Cr Clr Drug Dosing 77.8 ml/min 05/29/18 00:20 Est GFR ( Amer) 95.6 05/29/18 00:20 Est GFR (Non-Af Amer) 82.5 05/29/18 00:20 BUN/Creatinine Ratio 22.8 (10-20) H 05/29/18 00:20 Glucose 106 mg/dl (70-99) H 05/29/18 00:20 Calcium 8.3 mg/dl (8.5-10.1) L 05/29/18 00:20 Total Bilirubin 0.3 mg/dl (0.2-1) 05/29/18 00:20 AST 14 U/L (15-37) L 05/29/18 00:20 ALT 25 U/L (12-78) 05/29/18 00:20 Alkaline Phosphatase 100 U/L (45-117) 05/29/18 00:20 Troponin I < 0.015 ng/ml (0-0.045) 05/29/18 00:20 Total Protein 7.2 gm/dl (6.4-8.2) 05/29/18 00:20 Albumin 3.7 gm/dl (3.4-5.0) 05/29/18 00:20 Globulin 3.5 gm/dl (2.5-4.0) 05/29/18 00:20 Albumin/Globulin Ratio 1.1 (0.9-2) 05/29/18 00:20 Lipase 110 U/L (73-393) 05/29/18 00:20 Code Status & VTE Plan Code Status Full code VTE Prophylaxis Plan VTE Prophylaxis will be ordered: Yes
[2018-05-29 03:29] LABS: Alanine Aminotransferase 22 U/L (12-78); Albumin Level 3.3 gm/dl (3.4-5.0); Aspartate Aminotransferase 12 U/L (15-37); BUN Creatinine Ratio 24.5 (10-20); Blood Urea Nitrogen 22 mg/dl (7-18); Calcium 7.9 mg/dl (8.5-10.1); Carbon Dioxide 29 mmol/L (21-32); Chloride 111 mmol/L (98-107); Est GFR (African American) 100.7; Est GFR (Non-African American) 86.9; Glucose 104 mg/dl (70-99); Potassium 4.2 mmol/L (3.5-5.1); Sodium 142 mmol/L (136-145)
[2018-05-29 03:32] LABS: Albumin Globulin Ratio 1.1 (0.9-2); Alkaline Phosphatase 86 U/L (45-117); Bilirubin,Total 0.3 mg/dl (0.2-1); Globulin 3.1 gm/dl (2.5-4.0); Total Protein 6.4 gm/dl (6.4-8.2); Troponin I < 0.015 ng/ml (0-0.045)
[2018-05-29] MEDS ORDERED: NITROGLYCERIN 2% OINTMENT 30GM TUBE ONE (03:37)
[2018-05-29] MEDS: NITROGLYCERIN 2% OINTMENT 30GM TUBE EXT SCH ×3 (03:42→18:02)
[2018-05-29] MEDS: MoRPHine SULFATE 2 MG/ML CARP IV STA ×2 (03:43→03:56)
--- NOTE | 2018-05-29 04:56 | Emergency Department Note ---
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 He states that this occurred while he was getting ready to bed. The patient reports that he felt similar symptoms in 2013, noting that he was diagnosed with an DC. He states that he had 2 stents placed at that time. The patient complains of nausea. He denies any abdominal pain, diaphoresis, SOB, and cough. He reports that he has been feeling sick for the past week, noting that he's had body aches. The patient states that his pain was a 10/10 in severity, but it's now an 8/10 due to the one nitroglycerin tablet he took HISTOTECHNOLOGIST SUPERVISOR. He says that the last time he took a nitroglycerin was for the DC he had in 2013. Home Medications Home Medications Medication Instructions Recorded Confirmed Type amlodipine 5 mg PO HS 05/29/18 05/29/18 History aspirin 81 mg PO QAM 05/29/18 05/29/18 History clopidogrel 75 mg PO DAILY 05/29/18 05/29/18 History coenzyme Q10 [Co Q-10] 400 mg PO QAM 05/29/18 05/29/18 History escitalopram oxalate 15 mg PO HS 05/29/18 05/29/18 History isosorbide mononitrate 60 mg PO QAM 05/29/18 05/29/18 History lisinopril 5 mg PO QAM 05/29/18 05/29/18 History loratadine [Claritin] 10 mg PO QAM 05/29/18 05/29/18 History lorazepam 0.5 mg PO DAILY PRN 05/29/18 05/29/18 History lovastatin 40 mg PO HS 05/29/18 05/29/18 History metoprolol tartrate 50 mg PO QPM 05/29/18 05/29/18 History omega 5-lmm-xcv-fish oil [[place]-3 1 cap PO QAM 05/29/18 05/29/18 History Fish Oil] tramadol 50 mg PO Q8 PRN 05/29/18 05/29/18 History zolpidem 5 mg PO HS 05/29/18 05/29/18 History Allergies Allergy/AdvReac Type Severity Reaction Status Date / Time Iodinated Contrast- Oral and Allergy Intermediate Hives Verified 05/29/18 00:54 IV Dye Past Med/Surg History Medical History Myocardial infarct, old (Resolved) Acute myocardial infarction (Acute) B12 deficiency (Acute) Folate deficiency (Acute) Macrocytic anemia (Acute) Right knee DJD Rotator cuff arthropathy Family History Other Family history non-contributory Social History Preferred Language: Honduran Communication Ability: Effective 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 and A total of 10 systems reviewed and were otherwise negative Physical Exam Vital Signs Vital Signs - 24 hr 05/29/18 00:13 05/29/18 00:19 05/29/18 00:27 Temperature 36.7 C Temperature Source Oral Sepsis Recent Fever Within 48 Hours No Sepsis Action Taken by Nursing No Action Required Pulse Rate 63 Pulse Rate [Right Finger] 67 Pulse Rhythm [Right Finger] Regular Pulse Strength Normal Pulse Strength [Right Finger] Normal Respiratory Rate 16 18 Respiratory Effort / Characteristics Non-Labored Spontaneous Non-Labored Spontaneous Respiratory Depth Normal Normal Respiratory Pattern Regular Regular Blood Pressure 156/85 H Blood Pressure [Right Arm] 120/89 Blood Pressure Mean 108 Blood Pressure Mean [Right Arm] 99 Blood Pressure Position Sitting Blood Pressure Position [Right Arm] Pulse Oximetry 95 97 96 Oxygen Delivery Method Room Air Room Air Room Air 05/29/18 00:35 05/29/18 02:00 05/29/18 02:34 Temperature 36.5 C Temperature Source Oral Sepsis Recent Fever Within 48 Hours Sepsis Action Taken by Nursing Pulse Rate Pulse Rate [Right Finger] 79 61 60 Pulse Rhythm [Right Finger] Regular Regular Pulse Strength Pulse Strength [Right Finger] Normal Normal Normal Respiratory Rate 18 20 20 Respiratory Effort / Characteristics Non-Labored Spontaneous Non-Labored Spontaneous Non-Labored Spontaneous Respiratory Depth Normal Normal Normal Respiratory Pattern Regular Regular Blood Pressure Blood Pressure [Right Arm] 109/79 144/79 H 124/72 Blood Pressure Mean Blood Pressure Mean [Right Arm] 89 100 89 Blood Pressure Position Blood Pressure Position [Right Arm] Lying Pulse Oximetry 95 98 94 Oxygen Delivery Method Room Air Room Air Room Air HEENT: Head - normocephalic and atraumatic Pupils are equal, round, and reactive to light. Extraocular eye muscles are intact, and sclera are anicteric. Nose - moist nasal mucosa without discharge. Mouth - moist buccal mucosa. Oropharynx is nonerythematous and there is no tonsillar exudate or edema noted. Neck: Supple; no JVD, nuchal rigidity, cervical lymphadenopathy, or auscultated bruits. Heart: Regular rate and rhythm. There is a normal S1 and S2 with no murmurs, clicks, or gallops appreciated. Lungs: Clear to auscultation bilaterally with no wheezes, rales, or rhonchi. Abdomen: Soft, completely nontender, nondistended, with good bowel sounds. There are no palpable pulsatile masses or hepatosplenomegaly. There is no gua rding, rigidity, or rebound noted. Extremities: No evidence of cyanosis, clubbing, or edema. There are easily palpable peripheral pulses. Skin: warm and dry with good turgor and no rashes. Skin was pale. Course 0020: Past medical records reviewed. The patient was evaluated in room A11B, and a complete history and physical examination were performed. A saline lock was initiated and labs were drawn as above. A twelve-lead EKG was obtained as de scribed above. The patient was observed on the hall monitor and pulse oximeter. 0031: Nitroglycerin SI 0.4 mg SL, Aspirin Chew 324 mg PO. A portable chest x- ray was obtained 0038: Fentanyl citrate 75 mcg IV 0042: I checked on the patient. 0047: The patient stated that he took Ambien HISTOTECHNOLOGIST SUPERVISOR. He reported that he pain was a 3/10. 0120: I checked on the patient, and he stated that his pain was a 2/10. 0121: Fentanyl citrate 50 mcg IV 0122: Dr. Dominguez, [facility] hospitalist, was paged. 0134: I spoke with Dr. Dominguez, [facility] hospitalist, about the patients case. He will further evaluate the patient. Consultations Consultation #1: I spoke with Dr. Dominguez, [facility] hospitalist, about the patients case. He will further evaluate the patient. Time: 01:34 Administered Medications Nitroglycerin (Nitro-Bid 2%) 1 inch EXT Q6 DAVID Stop: 06/28/18 05:59 Last Admin: 05/29/18 03:42 Dose: 1 inch Documented by: [id number] Discontinued Medications Aspirin (Aspirin Chew) Confirm Administered Dose 324 mg .ROUTE .STK-MED ONE Stop: 05/29/18 00:23 Last Admin: 05/29/18 00:24 Dose: 324 mg Documented by: [id number] Aspirin (Aspirin Chew) 324 mg PO NOW STA Stop: 05/29/18 00:32 Last Admin: 05/29/18 00:33 Dose: Not Given Documented by: [id number] Fentanyl Citrate (Fentanyl Citrate) 75 mcg IV NOW ONE Stop: 05/29/18 00:39 Last Admin: 05/29/18 00:42 Dose: 75 mcg Documented by: [id number] Fentanyl Citrate (Fentanyl Citrate) Confirm Administered Dose 100 mcg .ROUTE .STK-MED ONE Stop: 05/29/18 00:40 Last Admin: 05/29/18 00:43 Dose: Not Given Documented by: [id number] Fentanyl Citrate (Fentanyl Citrate) 50 mcg IV NOW ONE Stop: 05/29/18 01:22 Last Admin: 05/29/18 01:26 Dose: 50 mcg Documented by: [id number] Morphine Sulfate (Morphine Sulfate) 2 mg IV NOW STA Stop: 05/29/18 02:48 Last Admin: 05/29/18 03:56 Dose: Not Given Documented by: [id number] Nitroglycerin (Nitrostat) Confirm Administered Dose 0.4 mg .ROUTE .STK-MED ONE Stop: 05/29/18 00:23 Last Admin: 05/29/18 00:24 Dose: 0.4 mg Documented by: [id number] Nitroglycerin (Nitrostat) 0.4 mg SL PRN PRN PRN Reason: Chest Pain Stop: 06/28/18 00:30 Last Admin: 05/29/18 00:30 Dose: 0.4 mg Documented by: [id number] Nitroglycerin (Nitro-Bid 2%) Confirm Administered Dose 18 inch .ROUTE .STK-MED ONE Stop: 05/29/18 03:38 Last Admin: 05/29/18 03:44 Dose: Not Given Documented by: [id number] Medical Decision Making Differential Diagnosis The differential diagnosis includes: ACS, STEMI, aortic dissection, GERD, and costochondritis. Medical Records Attestation: I reviewed the patient's medical records. Home Medications Current Medication List: was personally reviewed by me Laboratory Data Attestation: I reviewed the patient's lab results. Result diagrams: 05/29/18 02:50 05/29/18 02:50 Lab Results 05/29/18 05/29/18 05/29/18 Range/Units 00:20 00:20 00:20 WBC 5.29 (4.8-10.8) K/uL RBC 4.31 L (4.7-6.1) M/uL Hgb 15.3 (14.0-18.0) g/dL Hct 43.7 (42-52) % MCV 101.4 H (80-100) fL MCH 35.5 H (25-34) pg MCHC 35.0 (32-36) g/dL RDW Std Deviation 45.5 (36.4-46.3) fL RDW Coeff of Chuck 12.4 (11.5-14.5) % Plt Count 197 (130-400) K/uL MPV 10.1 (7.4-10.4) fL Immature Gran % (Auto) 0.2 % Neut % (Auto) 48.2 % Lymph % (Auto) 39.3 % Hopkins % (Auto) 9.5 % Eos % (Auto) 2.6 % Baso % (Auto) 0.2 % Immature Gran # (Auto) 0.01 (0.00-0.02) K/uL Neut # (Auto) 2.55 (1.4-6.5) K/uL Lymph # (Auto) 2.08 (1.2-3.4) K/uL Hopkins # (Auto) 0.50 (0.11-0.59) K/uL Eos # (Auto) 0.14 (0-0.5) K/uL Baso # (Auto) 0.01 (0-0.2) K/uL PT 10.6 (9.0-12.0) Seconds INR 1.0 (0.9-1.1) APTT 25.7 (21.0-31.0) Seconds PTT Ratio 0.9 Sodium 142 (136-145) mmol/L Potassium 4.0 (3.5-5.1) mmol/L Chloride 108 H (98-107) mmol/L Carbon Dioxide 29 (21-32) mmol/L Anion Gap 5.0 (3-11) BUN 22 H (7-18) mg/dl Creatinine 0.95 (0.6-1.4) mg/dl Est Cr Clr Drug Dosing 77.8 ml/min Est GFR ( Amer) 95.6 Est GFR (Non-Af Amer) 82.5 BUN/Creatinine Ratio 22.8 H (10-20) Glucose 106 H (70-99) mg/dl Calcium 8.3 L (8.5-10.1) mg/dl Total Bilirubin 0.3 (0.2-1) mg/dl AST 14 L (15-37) U/L ALT 25 (12-78) U/L Alkaline Phosphatase 100 (45-117) U/L Troponin I < 0.015 (0-0.045) ng/ml Total Protein 7.2 (6.4-8.2) gm/dl Albumin 3.7 (3.4-5.0) gm/dl Globulin 3.5 (2.5-4.0) gm/dl Albumin/Globulin Ratio 1.1 (0.9-2) Lipase 110 (73-393) U/L 05/29/18 05/29/18 05/29/18 Range/Units 02:50 02:50 02:50 WBC 4.57 L (4.8-10.8) K/uL RBC 3.95 L (4.7-6.1) M/uL Hgb 13.5 L (14.0-18.0) g/dL Hct 40.1 L (42-52) % MCV 101.5 H (80-100) fL MCH 34.2 H (25-34) pg MCHC 33.7 (32-36) g/dL RDW Std Deviation 45.5 (36.4-46.3) fL RDW Coeff of Chuck 12.5 (11.5-14.5) % Plt Count 169 (130-400) K/uL MPV 9.8 (7.4-10.4) fL Immature Gran % (Auto) 0.0 % Neut % (Auto) 50.8 % Lymph % (Auto) 36.3 % Hopkins % (Auto) 9.6 % Eos % (Auto) 3.1 % Baso % (Auto) 0.2 % Immature Gran # (Auto) 0.00 (0.00-0.02) K/uL Neut # (Auto) 2.32 (1.4-6.5) K/uL Lymph # (Auto) 1.66 (1.2-3.4) K/uL Hopkins # (Auto) 0.44 (0.11-0.59) K/uL Eos # (Auto) 0.14 (0-0.5) K/uL Baso # (Auto) 0.01 (0-0.2) K/uL PT 10.9 (9.0-12.0) Seconds INR 1.1 (0.9-1.1) APTT 25.1 (21.0-31.0) Seconds PTT Ratio 0.9 Sodium 142 (136-145) mmol/L Potassium 4.2 (3.5-5.1) mmol/L Chloride 111 H (98-107) mmol/L Carbon Dioxide 29 (21-32) mmol/L Anion Gap 2.0 L (3-11) BUN 22 H (7-18) mg/dl Creatinine 0.91 (0.6-1.4) mg/dl Est Cr Clr Drug Dosing 81.0 ml/min Est GFR ( Amer) 100.7 Est GFR (Non-Af Amer) 86.9 BUN/Creatinine Ratio 24.5 H (10-20) Glucose 104 H (70-99) mg/dl Calcium 7.9 L (8.5-10.1) mg/dl Total Bilirubin 0.3 (0.2-1) mg/dl AST 12 L (15-37) U/L ALT 22 (12-78) U/L Alkaline Phosphatase 86 (45-117) U/L Troponin I < 0.015 (0-0.045) ng/ml Total Protein 6.4 (6.4-8.2) gm/dl Albumin 3.3 L (3.4-5.0) gm/dl Globulin 3.1 (2.5-4.0) gm/dl Albumin/Globulin Ratio 1.1 (0.9-2) Lipase (73-393) U/L Imaging Data Attestation: I personally reviewed and interpreted this imaging study as follows: My Impression: XRAY Chest: No cardiomegaly. Narrow mediastinum. No pulmonary consolidation. 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 Patient states that he was preparing to go to bed when the discomfort started. He has not had pain like this since 2013 when he underwent cardiac catheterization. He has not used any nitroglycerin since that time. The patient has a history of left bundle branch block. There were no acute ischemic changes noted on EKG. Patient had moderate relief of the chest discomfort with nitroglycerin and fentanyl. Patient was given oral aspirin. Cardiac enzymes were negative. Chest x-ray was unremarkable. There is a narrow mediastinum. I do not suspect an an aortic dissection. The patient is resting comfortably at this time. I discussed the case with the [facility] Hospitalist and they will evaluate for further management. Impression & Plan Left sided chest pain, Left bundle branch block (LBBB) Discharge Plan Visit Data *Final* Discharge Date/Time: 05/29/18 02:14 Chief Complaint: Chest Pain Stated Complaint: LEFT ARM/CHEST/NECK PAIN ED Provider: Nerda Diamond Discharge Problem: Left sided chest pain, Left bundle branch block (LBBB) Patient Disposition: Admitted As Inpatient Discharge Instructions Interventions: ED Discharge Assessment Last Done: 05/29/18 02:14 The scribe's documentation has been prepared under my direction and personally reviewed by me in its entirety. I confirm that the note above accurately reflects all work, treatment, procedures, and medical decision making performed by me.
--- NOTE | 2018-05-29 06:40 | XRay Report ---
XR chest 1V portable HISTORY: 68 years-old Male Chest Pain acute atypical chest pain COMPARISON: Chest radiograph 07/07/2016 TECHNIQUE: Portable AP view of the chest FINDINGS: Cardiac mediastinal and hilar silhouettes are unchanged. Calcification the thoracic aortic arch. No p neumothorax, pleural effusion, focal airspace consolidation or overt pulmonary edema. Degenerative ch anges of the spine and left shoulder. Right shoulder arthroplasty partially imaged. IMPRESSION: No acute process. The above report was generated using voice recognition software. It may contain grammatical, syntax o r spelling errors. Electronically signed by: Patrick Gonzales M.D. 05/29/2018 6:38 AM
--- NOTE | 2018-05-29 08:12 | Hospitalist Progress Note ---
Date of Service May 29, 2018 Assessment & Plan (1) Left sided chest pain: Left-sided chest pain/CAD/hypertension/history of ND/history of coronary artery stent/left bundle branch block-- The patient will be admitted to telemetry for serial cardiac enzymes, serial EKG's, cardiac rhythm monitoring and a 2-D echocardiogram with Dopplers. Patient's pain has significantly improved after NTG SL's and aspirin 324 mg. Placed on Nitropaste 1 inch to anterior chest wall every 6 hours. Continue aspirin 81 mg daily, clopidogrel 75 mg daily, isosorbide mononitrate 60 mg every morning, lisinopril 5 mg every morning and metoprolol tartrate 50 mg p.o. every evening. Consult [facility] cardiology, patient follows with Branden Aparicio. Patient was seen in echocardiogram the echocardiogram did show some subtle wall motion changes and proceeding through stratification by cardiology with catheterization on 05/30 continue medications as above until that time (2) Left bundle branch block (LBBB): As above. (3) CAD (coronary artery disease): As above. (4) H/O heart artery stent: As above. (5) Myocardial infarct, old: As above. (6) Hypertension: As above. (7) Hyperlipidemia LDL goal <70: Continue lovastatin 40 mg daily. He has been intolerant of atorvastatin in the past. (8) Anxiety and depression: Continue citalopram 15 mg at bedtime, lorazepam 0.5 mg p.o. daily as needed and zolpidem 5 mg p.o. at bedtime. Subjective He said no further chest pain since admission however he is wearing nitroglycerin paste. He is being evaluated by cardiology and likely have a cardiac catheterization on 05/30 Review of Systems ROS: well nourished well developed. No double vision blurry vision No problems with speech or swallowing She had chest discomfort to admission reminiscent of his previous ND 2013 this was associate with some jaw pain but no diaphoresis or dyspnea No Wheezing or breathing issues No abdominal pain nausea vomiting diarrhea changes in appetite or weight No burning urine urine frequency or changes in color No focal joint pain or muscle pain No skin rashes or oral lesions No unusual bruising or bleeding No focused back pain or numbness or loss of strength No changes in memory or confusion Physical Exam Vital Signs (Past 24 Hours): Last Vital Signs Temp 36.7 C 05/29/18 07:18 Pulse 62 05/29/18 07:18 Resp 17 05/29/18 07:18 BP 111/63 05/29/18 07:18 Pulse Ox 94 05/29/18 07:18 the patient appeared well nourished and normally developed. Vital signs as documented. Head exam is unremarkable. normocephalic, atraumatic Neck is without jugular venous distension, thyromegaly, or lymphademopathy Lungs are clear to auscultation and percussion. Cardiac exam reveals Rhythm is regular. First and second heart sounds normal. Abdominal exam reveals normal bowel sounds, no masses, no organomegaly Extremities are nonedematous and both pedal pulses are present Neurologic exam is A&Ox3, no focal deficits, strength is equal bilateral Psychologically seems neither anxious or depressed Skin is warm Dry without bruises or lesions
[2018-05-29] MEDS ORDERED: NON-FORMULARY MEDICATION (Coenzyme Q10 [Co Q-10] 400 MG) PO SCH (09:00)
[2018-05-29] MEDS: ISOSORBIDE MONO EXTENDED REL 60 MG TABCR PO SCH (09:52)
[2018-05-29] MEDS: LISINOPRIL 5 MG TAB PO SCH (09:52)
[2018-05-29] MEDS: LORATADINE 10 MG TAB PO SCH (09:52)
[2018-05-29] MEDS: CLOPIDOGREL BISULFATE 75 MG TAB PO SCH (09:52)
[2018-05-29] MEDS: ASPIRIN 81 MG ECTAB PO SCH (09:52)
--- NOTE | 2018-05-29 13:36 | Medical Student Progress Note ---
Date of Service May 29, 2018 Assessment & Plan (1) Unstable angina: 68yo M with a past medical history of CAD, history of IA x 3 (1987, 1994, 2013), history of coronary artery stent (2013) and restenosis, left bundle branch block (dx in ), hypertension, hyperlipidemia, anxiety with dep ression, insomnia, who presented with an episode of left arm pain starting distal moving proximal to the neck and then substernal. Described substernal pain and pressure. Some nausea, no emesis, no diaphoresis. Some reduction in pain with SL nitro. Nitro and IV fentanyl reduced pain from 8/10 to 1/10. Pain lasted two hrs in total. clinical suspicion is high for acute IA given presentation similar to 2014 IA, hx of significant heart disease (CAD, IA x 3, stent placement), risk factors (12pk-yr smoking hx, HTN and HLD on risk reducing medications, BMI of 30). Yet, EKG shows no acute changes aside from some non-specific S-T and T wave changes. Negative troponins x 2. considering ddx: PE (no SOB, tachy, decreased 02 sat), GERD (no hx of reflux, last ate 6hrs prior to event), diffuse esophageal spasm (responded to nitro, but clinical presentation not consistent with diffuse esophageal spasm). cardiology recommending echo. If new wall motion abnormalities are seen will go for cath. If not, nuclear stress echo will be next. obtain one more troponin, another EKG. Subjective 68yo M with a past medical history of CAD, history of IA x 3 (1987, 1994, 2013), history of coronary artery stent (2013) and restenosis, left bundle branch block (dx in ), hypertension, hyperlipidemia, anxiety with depression, insomnia, who presented with an episode of left arm pain starting distal moving proximal to the neck and then substernal. Described substernal pain and pressure. Some nausea, no emesis, no diaphoresis. Some reduction in pain with SL nitro. Nitro and IV fentanyl reduced pain from 8/10 to 1/10. Pain lasted two hrs in total. No cp this AM No recurrence of cp Describes current episode of cp reminds him of IA in 2013; although no diaphoresis this time Says the cp occurred "out of the blue;" was resting in his chair at 23:00; occurred suddenly; had not had anything to eat since 17:00 no f/c/n/v; remaining ROS negative Physical Exam Vital Signs (Past 24 Hours): Last Vital Signs Temp 36.7 C 05/29/18 11:11 Pulse 67 05/29/18 11:11 Resp 20 05/29/18 11:11 BP 109/62 05/29/18 11:11 Pulse Ox 95 05/29/18 11:11 Physical Exam: GENERAL: WD/WN, alter, cooperative, no acute distress HEENT: Head: Atraumatic, normocephalic. Eyes: EOMI Nose: No nasal congestion. Mouth: Moist mucous membranes, no lesions. Neck: Supple, no JVD Nervous System: Mental status: Alert and oriented x 3, good concentration. Cranial nerves IIXII grossly intact. Motor: Strength 5/5 in all muscle groups. Chest/Lung: RLL crackles no ronchi or wheezing Heart: Regular rate and rhythm. Normal S1, S2. No murmurs, rubs, or gallops. Abdomen: Soft, nontender, nondistended, BS present, Extremities: No clubbing, cyanosis, or edema.
--- NOTE | 2018-05-29 15:33 | Cardiology Consultation ---
Date of Consultation May 29, 2018 Assessment & Plan (1) Left sided chest pain: while ischemic workup is thus far unremarkable, however, symptoms appear to be his anginal equivalent will perform resting transthoracic echocardiogram if new wall motion abnormality-cath in AM if no new abnormalities-Lexiscan nuclear stress in AM cont outpatient meds (2) CAD (coronary artery disease): hx of inferior scar on most recent Lexiscan nuclear stress (3) Hypertension: controlled (4) Left bundle branch block (LBBB): chronic EKG without ischemic changes. History of Present Illness Attending Physician: Antoine Arndt MD History of Present Illness Pt is a 68 yo M w/ a hx of multiple MA w/ stents in the RCA, LAD, and diagonal, a left bundle branch block, htn, hld, and bilateral stenosis of the carotids was admitted for L. sided chest pain that radiated to the L. shoulder and arm. Pt states the pain started as he was laying in bed ready to fall asleep. Pain was accompanied by nausea, no vomiting. Pt denies pain radiating to the jaw and denies feeling SOB. Pt cannot describe the pain as sharp or dull, best describing it as continuous and feeling similar to the pain he experienced during his last MA. Pt has not had any episodes of chest pain since his last MA in 2013. Pt has been SOB intermittently, but he attributes his SOB to a cold that he had a few weeks ago. 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 Upon ER admission, pts pain was an 8/10 and became a 3/10 after given nitroglycerin. Pt was also given Fentanyl following the nitroglycerin, but attributes his pain relief to the nitroglycerin as he states the fentanyl made him lethargic. Today, pt no longer feels any chest pain or pain in the arm and shoulder. Pt is resting in bed with a nitroglycerin patch. Past Medical/Surgical History: 1. Ischemic heart disease. 1. Anterior wall myocardial infarction in 1987. Subsequent PTCA without stent of LAD lesion. 2. RCA stenting in 1992 and 1998. 3. LAD and diagonal stenting in July 2002. 4. April 25, 2013 spermatocele surgery, after holding ASA and Plavix for 10 days, complicated postoperatively an inferior wall STEMI s/p PCI with 2 drug eluting stents to the RCA. Course complicated by atrial fibrillation with a RVR during the procedure then ventricular fibrillation arrest treated with defibrillation and brief CPR. Episodes of nonsustained ventricular tachycardia observed in the ICU necessitating use of amiodarone therapy. 2. Preserved LV systolic function. 3. Chronic left bundle branch block. 4. Hypertension 5. Dyslipidemia. LDL goal < 70 mg/dL. Statin intolerance noted. 6. Small abdominal aortic aneurysm per documentation. Abdominal CT scan in April, at [facility] revealed advance atherosclerotic calcification and ectasia of the abdominal aorta measuring up to 2.6 cm in diameter. July 2017 aortic duplex with no evidence of an abdominal aortic aneurysm 7. Mild bilateral internal carotid artery disease. 8. History of asthma. 9. Osteoarthritis 1. s/p total knee arthroplasty of the left knee, August 2008. 2. Status post August 05, 2016 right reverse total shoulder arthroplasty 3. Status post May 04, 2017 right knee replacement by Dr. Fowler. 10. Hernia surgeries in 2000 and 2003. Family History: Mother with lung cancer. Father had his first MA at 36. 18 siblings in total. Positive heart problems multiple siblings including a brother who was s/p heart transplant, passing with cancer in June 2013. Social History: Reformed smoker, 1/2 ppd x 25 years. Quit in 1987. No smokeless tobacco abuse. Rare alcohol. No illegal drug use. . Retired in September 2014 after 45+ years with the [employer]. Allergies Allergy/AdvReac Type Severity Reaction Status Date / Time Iodinated Contrast- Oral and Allergy Intermediate Hives Verified 05/29/18 00:54 IV Dye Home Medications Home Medications Medication Instructions Recorded Confirmed Type amlodipine 5 mg PO HS 05/29/18 05/29/18 History aspirin 81 mg PO QAM 05/29/18 05/29/18 History clopidogrel 75 mg PO DAILY 05/29/18 05/29/18 History coenzyme Q10 [Co Q-10] 400 mg PO QAM 05/29/18 05/29/18 History escitalopram oxalate 15 mg PO HS 05/29/18 05/29/18 History isosorbide mononitrate 60 mg PO QAM 05/29/18 05/29/18 History lisinopril 5 mg PO QAM 05/29/18 05/29/18 History loratadine [Claritin] 10 mg PO QAM 05/29/18 05/29/18 History lorazepam 0.5 mg PO DAILY PRN 05/29/18 05/29/18 History lovastatin 40 mg PO HS 05/29/18 05/29/18 History metoprolol tartrate 50 mg PO QPM 05/29/18 05/29/18 History omega 3-elk-muw-fish oil [[place]-3 1 cap PO QAM 05/29/18 05/29/18 History Fish Oil] tramadol 50 mg PO Q8 PRN 05/29/18 05/29/18 History zolpidem 5 mg PO HS 05/29/18 05/29/18 History Patient History Medical History Myocardial infarct, old (Resolved) Acute myocardial infarction (Acute) B12 deficiency (Acute) Folate deficiency (Acute) Macrocytic anemia (Acute) Right knee DJD Rotator cuff arthropathy Family History Other Family history non-contributory Social History Communication Ability: Effective Beliefs That Will Affect Care: None Current Living Situation: Spouse Other Information That Helps Us Care for You: No Feels Safe at Home: Yes Safety Concerns: Feels Safe At This Time Smoking Status: Never smoker Hx Alcohol Use: No Hx Substance Use: No Review of Systems As per HPI, all other systems reviewed and unremarkable. Physical Exam Vital Signs (Past 24 Hours): Last Vital Signs Temp 37.1 C 05/29/18 15:15 Pulse 69 05/29/18 15:15 Resp 18 05/29/18 15:15 BP 101/62 05/29/18 15:15 Pulse Ox 94 05/29/18 15:15 Physical Exam: General: Awake, alert and oriented x 3. No acute distress. HEENT: Normocephalic, atraumatic. Pupils equal, round and reactive to light and accommodation. Extraocular muscles are intact. Anicteric sclera. Moist mucous membranes. Neck: No JVD. No bruit. Cardiovascular: Regular. Positive S-4. Normal S-1 and S-2. No S-3. No murmurs or rubs. Pulmonary: Clear to auscultation B/L. No rales, rhonchi or wheezing Abdomen: Bowel sounds x 4, soft. No rebound, guarding or tenderness. No organomegaly. Extremities: No clubbing, cyanosis or edema. +2 pedal pulses bilaterally. Skin: Warm and dry.
[2018-05-29] MEDS: MoRPHine SULFATE 2 MG/ML CARP IV PRN (18:01)
[2018-05-29] MEDS: ZOLPIDEM TARTRATE 5 MG TAB PO SCH (21:47)
[2018-05-29] MEDS: LOVASTATIN 20 MG TAB PO SCH (21:47)
[2018-05-29] MEDS: AMLODIPINE BESYLATE 5 MG TAB PO SCH (21:48)
[2018-05-29] MEDS: METOPROLOL TARTRATE 50 MG TAB PO SCH (21:48)
[2018-05-29] MEDS: ESCITALOPRAM OXALATE 10 MG TAB PO SCH (21:48)
[2018-05-30] MEDS: NITROGLYCERIN 2% OINTMENT 30GM TUBE EXT SCH ×3 (01:28→13:12)
[2018-05-30 05:57] LABS: Basophils # (auto) 0.01 K/uL (0-0.2); Basophils % (auto) 0.2 %; Eosinophils # (auto) 0.19 K/uL (0-0.5); Eosinophils % (auto) 3.5 %; Hematocrit (blood only) 37.5 % (42-52); Hemoglobin 12.7 g/dL (14.0-18.0); Immature Granulocytes # (auto) 0.01 K/uL (0.00-0.02); Immature Granulocytes % (auto) 0.2 %; Lymphocytes # (auto) 1.37 K/uL (1.2-3.4); Lymphocytes % (auto) 25.4 %; Mean Corpuscular Hgb Conc 33.9 g/dL (32-36); Mean Corpuscular Volume 100.8 fL (80-100); Mean Platelet Volume 9.9 fL (7.4-10.4); Monocytes # (auto) 0.64 K/uL (0.11-0.59); Monocytes % (auto) 11.9 %; Neutrophils # (auto) 3.17 K/uL (1.4-6.5); Neutrophils % (auto) 58.8 %; Platelet Count 159 K/uL (130-400); RDW Coefficient of Variation 12.7 % (11.5-14.5); RDW Standard Deviation 46.3 fL (36.4-46.3); Red Blood Count 3.72 M/uL (4.7-6.1); White Blood Count 5.39 K/uL (4.8-10.8)
[2018-05-30 06:11] LABS: INR 1.1 (0.9-1.1)
[2018-05-30 06:33] LABS: Albumin Level 3.1 gm/dl (3.4-5.0); BUN Creatinine Ratio 20.8 (10-20); Calcium 7.8 mg/dl (8.5-10.1); Creatinine Clr Calc Pharmacy 92.1 ml/min; Est GFR (African American) 107.1; Est GFR (Non-African American) 92.4; Potassium 4.1 mmol/L (3.5-5.1)
[2018-05-30 06:36] LABS: Albumin Globulin Ratio 1.1 (0.9-2); Bilirubin,Total 0.4 mg/dl (0.2-1); Globulin 2.8 gm/dl (2.5-4.0); Total Protein 5.9 gm/dl (6.4-8.2)
[2018-05-30] MEDS: CLOPIDOGREL BISULFATE 75 MG TAB PO SCH (07:47)
[2018-05-30] MEDS: LORATADINE 10 MG TAB PO SCH (07:47)
[2018-05-30] MEDS: LISINOPRIL 5 MG TAB PO SCH (07:47)
[2018-05-30] MEDS: ISOSORBIDE MONO EXTENDED REL 60 MG TABCR PO SCH (07:47)
[2018-05-30] MEDS: ASPIRIN 81 MG ECTAB PO SCH (07:47)
--- NOTE | 2018-05-30 08:40 | Hospitalist Progress Note ---
Date of Service May 30, 2018 Physical Exam Vital Signs (Past 24 Hours): Last Vital Signs Temp 36.8 C 05/30/18 07:20 Pulse 62 05/30/18 07:20 Resp 20 05/30/18 07:20 BP 111/67 05/30/18 07:20 Pulse Ox 94 05/30/18 07:20
[2018-05-30] MEDS ORDERED: fentaNYL citrate 100 MCG/2 ML VIAL ONE ×2 (10:03→12:03)
[2018-05-30] MEDS ORDERED: NiCARDipine HCL INJ 2.5 MG/ML 10 ML AMP ONE (10:03)
[2018-05-30] MEDS ORDERED: HEPARIN (PORCINE) 1000 UNIT/ML 10 ML (CATH LAB USE ONLY) ONE ×2 (10:03→11:17)
[2018-05-30] MEDS ORDERED: MIDAZOLAM HCL 1 MG/ML 2ML VIAL ONE ×2 (10:03→11:37)
[2018-05-30] MEDS ORDERED: NITROGLYCERIN/D5W 100MCG/ML 20ML SYR ONE (10:05)
[2018-05-30] MEDS ORDERED: methylPREDNISolone 125 MG/2 ML VIAL ONE (10:24)
[2018-05-30] MEDS ORDERED: raNITIdine HCl 25 MG/ML VIAL ONE (10:24)
[2018-05-30] MEDS ORDERED: DiphenhydrAMINE HCL 50 MG/ML VIAL ONE (10:24)
[2018-05-30] MEDS ORDERED: SODIUM CHLORIDE 0.9% 1000ML 1,000 ML IV SCH ×2 (10:30→12:45)
--- NOTE | 2018-05-30 11:05 | Cardiac Catheterization ---
Date of Service May 30, 2018 Cardiac Cath Report Cardiac Cath Report Procedure: 1. Left heart catheterization 2. Coronary angiography 3. Left ventriculogram History: This is a 68-year-old male patient with a long history of coronary artery disease and previous coronary stents. He presented with new onset angina. Procedure summary: After informed consent was obtained the patient was taken the cardiac catheterization lab where he was prepped and draped in the usual manner for right transradial approach. Preformed 5 Mosotho diagnostic catheters were utilized for the coronary angiograms. A 5 Mosotho pigtail catheter was utilized for the left ventriculogram. Following the procedure the patient underwent coronary intervention and then was admitted in stable condition. The patient did receive a dye prep due to allergy. ACC data: AUC score 8 Start time 10:30 AM End time 10:54 AM Aortic opening pressure 92/60 Left ventricular pressure 117/8 Aortic closing pressure 115/52 Sedation Benadryl IV fluid 100 cc normal saline Contrast 114 cc Optiray Fluoroscopy time 4.5 minutes Radiation 1348 mGy DAP 9115 cGy Right dominant system Coronary angiography: Selective injections of the left coronary artery revealed the left main trunk to be patent. The left circumflex is large and consists principally of a large lateral marginal branch. In the midportion of the artery there is a high-grade ulcerated 80-90% stenoses. In the LAD there are stents located distally. There is late in-stent restenosis reaching 80-90%. The remainder of the LAD is patent. Selective injections of the right coronary artery reveal it to be dominant. Right coronary artery has luminal irregularities but is patent. Right coronary artery also has previous stent distally. Left ventriculogram: The left ventricle is of normal size. There is hypokinesis of the proximal anterior wall with the estimated left ventricular ejection fraction of around 45-50%. The mitral valve is competent. The aortic root and ascending aorta have normal morphology. Summary: The patient has late in-stent restenosis of the LAD and a new area of high-grade stenosis in the left circumflex artery. Recommendations: The patient will be evaluated for coronary intervention on the left circumflex and LAD.
[2018-05-30] MEDS ORDERED: CLOPIDOGREL BISULFATE 300 MG TAB ONE (12:22)
--- NOTE | 2018-05-30 12:23 | Post Anesthesia Assessment ---
Date of Service May 30, 2018 Post Sedation Assessment Vital Signs Temp Pulse Pulse Resp BP BP Pulse Ox 05/30/18 08:00 59 L 05/30/18 07:20 36.8 C 62 20 111/67 94 05/30/18 03:30 36.8 C 61 16 106/62 94 05/29/18 23:44 36.6 C 60 17 96/59 L 96 05/29/18 19:33 36.7 C 70 18 118/64 92 05/29/18 15:15 37.1 C 69 18 101/62 94 Recovery Score Activity: Moves 4 extremities Respiration: Deep Breath/Cough Circulation: +/-20% PreAnes Value Consciousness: Fully Awake Oxygen Saturation: O2 needed for >90% Discharge Sedation Level of Care: Fast Track Phase II Post Sedation Plan On clinical assessment, the patient appears to have tolerated the sedation without complications. Patient is recovering as anticipated. Patient will continue to be monitored by nursing and may be discharged when sedation discharge criteria are met per below protocol. Upon Completions of procedure and additional 15 minutes continue every 5 minute vital signs and the P.A.R. score; then discharge to a Phase I or Fast Track to Phase II per the following guidelines: * Discharge Patient to appropriate Phase II area if PAR is 8 or greater or return to pre- procedure baseline. The post - procedure orders will be as directed. * If PAR score is less than 8 or not return to pre-procedure baseline then patient will follow Phase I monitoring till PAR is reached for Phase II. The Phase I may be done in procedure room or may call to secure a Phase I area. * If naloxone or flumazenil are used for reversal, hold in Phase I for continued monitoring from when last reversal dose was given for a minimum of 60 minutes or longer pending the nurse and/or physician discretion of patient condition before discharge to Phase II. Please call the Sedation Physician to re-evaluate and complete post-note for discharge to Phase II area. Do NOT discharge from procedure sedation or Phase 1 until post- sedation evaluation note is complete by procedure /sedation MD Sedation Discharge Instructions to be given to the patient at discharge to home.
--- NOTE | 2018-05-30 12:34 | Cardiac Catheterization ---
Cardiac Cath Procedure Full Procedure Date May 30, 2018 Pre-Procedure Diagnosis Pre-Procedure Diagnosis: Angina and Cardiomyopathy AUC Score AUC Score: 7 Post-Procedure Diagnosis Post-Procedure Diagnosis: Severe CAD and Successful PCI Procedure(s) Performed Procedure(s) Performed: Coronary Angiography and Drug Eluting Stent Track Manager Srini Owen MD State Tested Nursing Assistant(s) Betty Gomez Estimated Blood Loss Estimated Blood Loss: 20 Medication(s) Medication(s): Fentanyl, Heparin, Nicardipine, Nitroglycerin and Versed Summary of Findings Indication: Accelerating angina, cardiomyopathy Access: 6 Fr right radial artery Catheters: EBU 3.5 guide, guide liner Findings: For full details of patient's coronary angiography please cath report dictated by Dr. Silverio. Briefly, patient found to have severe multi-vessel disease including a 80-90 % in-stent restenosis in the mid LAD and 70-80% stenosis in mid circumflex. Decision to proceed with multivessel PCI. -- PCI -- Antithrombotic therapy: Heparin, clopidogrel Procedure: Left main cannulated with EBU 3.5 guide Whisper wire passed across lesion into distal vessel Mid LAD lesion predilated with 2.5 compliant balloon and 3.0 noncompliant balloon With the aid of a guide liner dilated lesion stented with 3.0 x 18 mm Harmony drug- eluting stent Stent post-dilated with 3.0 noncompliant balloon Post stent dilation noted to have edge dissection extending proximally from placed stent Second drug-eluting stent (3.0 x 15 mm Harmony overlapped across proximal aspect of initial stent and ostium of second diagonal Stent postdilated with stent balloon IC vasodilators administered for spasm Post procedure MOISES 3 flow, stent well expanded with minimal residual stenosis and no apparent cardiac complications. Whisper wire removed. Match Up Worker 50 wire directed into circumflex across mid segment lesion. Mid circumflex stenosis dilated with 2.5 compliant balloon Mid circumflex stented with 4.0 x 18 mm Pilo drug-eluting stent Stent postdilated with 4.0 NC balloon IC vasodilators administered for spasm Post procedure MOISES 3 flow, stent well expanded with minimal residual stenosis and no apparent cardiac complications. Arterial Closure: TR band Summary: 1. Successful PCI of mid LAD in-stent restenosis with 2 overlapping drug-eluting stents (3.0 x 18 Harmony completely overlapping prior stent, 2nd TRENTON 3.0x15 Pilo placed proximally in setting of edge dissection). 2. Successful PCI of mid circumflex with single drug-eluting stent (4.0 x 18 mm Harmony). 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 Continue dual-antiplatelet therapy for at least one year, likely indefinitely Continue statin, and ASCVD risk factor modification Consult cardiac Rehab Hemodynamics Rest Ao:: 105/55/74 Final Ao: 159/81/112 LV: -- Recommendations Recommendations: PCI without planned CABG Specimens Specimens: None Radiation Exposure (mGy) 5134 Contrast (mls) 244 Fluids (cc crystalloids) Fluids (cc crystalloids): 200 Drains Drains: None Anesthesia Moderate Procedural Complication(s) None Disposition PCU 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 Cardiac 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 Clinical evaluation leading to the procedure CAD Presenation: Unstable angina Anginal Classification: CCS III Heart Failure: No Cardiogenic Shock within 24 Hours: No Cardiac Arrest within 24 Hours: No Imaging Studies Past 6 Months: Yes Stress Studies Past 6 Months: No Diagnostic Physicians Name: Srini Owen MD Status: Elective Closure Device Percutaneous Entry Location: Radial Closure Device: Radial Band Recommendations: PCI without planned CABG PCI Indication: Unstable Angina Lesion Segment Name: Mid LAD Culprit Artery: Yes Stenosis Prior to Rx (%): 90 Chronic Total Occlusion: No IVUS: No FFR: No Pre-Procedure MOISES Flow: 3 Previously Treated Lesion: Timeframe: greater than 2 years Treated with Stent: Yes In-Stent Restenosis: Yes Stent Type: Non-TRENTON Yes Lesion Complexity: High/C Lesion Length (mm): 15 Thrombus Present: No Bifurcation Lesion: Yes Guidewire Across Lesion: Stenosis Post-Procedure (%): 0 Post-Procedure MOISES Flow: 3 Devices(s) Deployed: Yes Yes Lesion #2 Segment Name: Mid circumflex Culprit Artery: Yes Stenosis Prior to Rx (%): 70 Chronic Total Occlusion: No IVUS: No FFR: No Pre-Procedure MOISES Flow: 3 Previously Treated Lesion: No Lesion Complexity: Non-High/Non-C Lesion Length (mm): 15 Thrombus Present: No Bifurcation Lesion: No Guidewire Across Lesion: Yes Stenosis Post-Procedure (%): 0 Post-Procedure MOISES Flow: 3 Devices(s) Deployed: Yes Intraprocedure Events Significant Disection: No Perforation: No
[2018-05-30] MEDS: MoRPHine SULFATE 2 MG/ML CARP IV PRN (12:39)
--- NOTE | 2018-05-30 15:49 | Hospitalist Progress Note ---
Date of Service May 30, 2018 Assessment & Plan (1) Unstable angina: (1) Left sided chest pain: Left-sided chest pain/CAD/hypertension/history of CO/history of coronary artery stent/left bundle branch block-- Patient had an echocardiogram with suggestions of new regional wall motion left heart catheterization and stenting in the LAD and circumflex. Doing well post stent Continue aspirin 81 mg daily, clopidogrel 75 mg daily, isosorbide mononitrate 60 mg every morning, lisinopril 5 mg every morning and metoprolol tartrate 50 mg p.o. every evening. Interesting the patient had intolerance to many statins in the past and currently takes Mevacor. The patient states he is open to attempting to try different statins in the future however since he is followed by [facility] cardiology will allow them to make the choice whether to convert him from Mevacor to atorvastatin or rosuvastatin at this point time the patient will feel more comfortable speaking to his primary site specialist rather than making the change now (2) Left bundle branch block (LBBB): As above. (3) CAD (coronary artery disease): As above. (4) H/O heart artery stent: As above. (5) Myocardial infarct, old: As above. (6) Hypertension: As above. (7) Hyperlipidemia LDL goal <70: Continue lovastatin 40 mg daily. We did discuss changing to a more potent statin which would be more within the guidelines however the patient wishes to discuss this with his primary site specialist He has been intolerant of atorvastatin in the past. (8) Anxiety and depression: Continue citalopram 15 mg at bedtime, lorazepam 0.5 mg p.o. daily as needed and zolpidem 5 mg p.o. at bedtime. Subjective Patient is seen is seen status post cardiac catheterization he had entrance to his right wrist he had 3 drug-eluting stents placed to in the mid LAD 1 in the mid circumflex artery this was based upon new wall motion abnormalities seen on echocardiogram and patient having clinical symptoms consistent with his previous CO and anginal equivalent. Patient doing well post procedure is noted issues with his hand is no incidence of increased chest pain he said no shortness of breath Review of Systems ROS: well nourished well developed. No double vision blurry vision No problems with speech or swallowing No palpitations, chest pain or pressure since admission No Wheezing or breathing issues No abdominal pain nausea vomiting diarrhea changes in appetite or weight No burning urine urine frequency or changes in color No focal joint pain or muscle pain has minor pain in his cath site No skin rashes or oral lesions No unusual bruising or bleeding No focused back pain or numbness or loss of strength No changes in memory or confusion Physical Exam Vital Signs (Past 24 Hours): Last Vital Signs Temp 36.6 C 05/30/18 15:25 Pulse 80 05/30/18 15:25 Resp 16 05/30/18 15:25 BP 120/62 05/30/18 15:25 Pulse Ox 94 05/30/18 15:25 The patient appeared well nourished and normally developed. Vital signs as documented. Head exam is unremarkable. normocephalic, atraumatic Neck is without jugular venous distension, thyromegaly, or lymphademopathy Lungs are clear to auscultation and percussion. Cardiac exam reveals Rhythm is regular. First and second heart sounds normal. Abdominal exam reveals normal bowel sounds, no masses, no organomegaly Extremities are nonedematous and right hand is good distal peripheral pulses and capillary refill he also has intact sensation Neurologic exam is A&Ox3, no focal deficits, strength is equal bilateral Psychologically seems neither anxious or depressed Skin is warm Dry without bruises or lesions
--- NOTE | 2018-05-30 16:40 | Medical Student Progress Note ---
Date of Service May 30, 2018 Assessment & Plan (1) Unstable angina: 68yo M with a past medical history of CAD, history of IL x 3 (1987, 1994, 2013), history of coronary artery stent (2013) and restenosis, left bundle branch block (dx in ), hypertension, hyperlipidemia, anxiety with dep ression, insomnia, who presented with an episode of left arm pain starting distal moving proximal to the neck and then substernal. Described substernal pain and pressure. Some nausea, no emesis, no diaphoresis. Some reduction in pain with SL nitro. Nitro and IV fentanyl reduced pain from 8/10 to 1/10. Pain lasted two hrs in total. clinical suspicion is high for acute IL given presentation similar to 2014 IL, hx of significant heart disease (CAD, IL x 3, stent placement), risk factors (12pk-yr smoking hx, HTN and HLD on risk reducing medications, BMI of 30). Yet, EKG shows no acute changes aside from some non-specific S-T and T wave changes. Negative troponins x 2. echo showed new anterior wall abnormalities-- pt underwent cath and stent placement. Cardiac cath and TRENTON placement x 3 this AM; 2 overlapping stents placed in mid- LAD (80-90% stenosis) and one in circumflex (70-80% stenosis) pt will be monitored for 24hr b/f d/c antiplatelet therapy for 1 yr with TRENTON placement, but pt already on clopidogrel. discussed high intensity statin with pt, but current regime is a result of trial and error to find a statin w/o undesirable side effects Subjective 68yo M with a past medical history of CAD, history of IL x 3 (1987, 1994, 2013), history of coronary artery stent (2013) and restenosis, left bundle branch block (dx in ), hypertension, hyperlipidemia, anxiety with depression, insomnia, who presented with an episode of left arm pain starting distal moving proximal to the neck and then substernal. Described substernal pain and pressure. Some nausea, no emesis, no diaphoresis. Some reduction in pain with SL nitro. Nitro and IV fentanyl reduced pain from 8/10 to 1/10. Pain lasted two hrs in total. No recurrence of original cp Cardiac cath and TRENTON placement x 3 this AM; 2 overlapping stents placed in mid- LAD (80-90% stenosis) and one in circumflex (70-80% stenosis) 6/10 cp (no pressure) after procedure but described as pain consistent with that experienced after previous stent placement procedures. localized, no radiation of pain pain improved with morphine no n/v/sob Physical Exam Vital Signs (Past 24 Hours): Last Vital Signs Temp 36.6 C 05/30/18 15:25 Pulse 80 05/30/18 15:25 Resp 16 05/30/18 15:25 BP 120/62 05/30/18 15:25 Pulse Ox 94 05/30/18 15:25 Physical Exam: GENERAL: WD/WN, alter, cooperative, no acute distress HEENT: Head: Atraumatic, normocephalic. Eyes: EOMI Nose: No nasal congestion. Mouth: Moist mucous membranes, no lesions. Neck: Supple, no JVD Nervous System: Mental status: Alert and oriented x 3, good concentration. Cranial nerves IIXII grossly intact. Motor: Strength 5/5 in all muscle groups. Chest/Lung: RLL crackles no ronchi or wheezing Heart: Regular rate and rhythm. Normal S1, S2. No murmurs, rubs, or gallops. Abdomen: Soft, nontender, nondistended, BS present, Extremities: No clubbing, cyanosis, or edema.
--- NOTE | 2018-05-30 20:55 | Cardiology Progress Note ---
Date of Service May 30, 2018 Assessment & Plan (1) Left sided chest pain: while ischemic workup is thus far unremarkable, however, symptoms appear to be his anginal equivalent echo showed new anterior wall hypokinesis cardiac cath revealed in stent restenosis of LAD along with de sharon lesion of LCx underwent successful PCI to both (2 overlapping TRENTON to LAD and 1 to LCx). cont aspirin and plavix repeat echo in 1 month to follow wall motion (2) CAD (coronary artery disease): hx of inferior scar on most recent Lexiscan nuclear stress (3) Hypertension: controlled (4) Left bundle branch block (LBBB): chronic EKG without ischemic changes. Subjective Pt seen and examined, s/p PCI, at bedside. State that he feels well. Denies cp, sob, palpitations, lightheadedness or dizziness. Tolerate procedure well. Tele reviewed: sinus rhythm without arrhythmia or significant ectopy. Review of Systems All systems reviewed & are unremarkable except as noted in HPI & below Physical Exam Vital Signs (Past 24 Hours): Last Vital Signs Temp 36.8 C 05/30/18 18:58 Pulse 81 05/30/18 18:58 Resp 18 05/30/18 18:58 BP 113/58 L 05/30/18 18:58 Pulse Ox 95 05/30/18 18:58
[2018-05-30] MEDS: ZOLPIDEM TARTRATE 5 MG TAB PO SCH (21:38)
[2018-05-30] MEDS: METOPROLOL TARTRATE 50 MG TAB PO SCH (21:39)
[2018-05-30] MEDS: ESCITALOPRAM OXALATE 10 MG TAB PO SCH (21:39)
[2018-05-30] MEDS: LOVASTATIN 20 MG TAB PO SCH (21:39)
[2018-05-30] MEDS: AMLODIPINE BESYLATE 5 MG TAB PO SCH (21:39)
[2018-05-31 06:05] LABS: Hematocrit (blood only) 36.6 % (42-52); Hemoglobin 12.7 g/dL (14.0-18.0); Immature Granulocytes # (auto) 0.02 K/uL (0.00-0.02); Immature Granulocytes % (auto) 0.2 %; Lymphocytes # (auto) 1.02 K/uL (1.2-3.4); Lymphocytes % (auto) 10.6 %; Mean Corpuscular Hgb Conc 34.7 g/dL (32-36); Mean Corpuscular Volume 98.9 fL (80-100); Mean Platelet Volume 10.3 fL (7.4-10.4); Monocytes # (auto) 0.64 K/uL (0.11-0.59); Monocytes % (auto) 6.6 %; Neutrophils # (auto) 7.97 K/uL (1.4-6.5); Neutrophils % (auto) 82.6 %; Platelet Count 190 K/uL (130-400); RDW Coefficient of Variation 12.5 % (11.5-14.5); RDW Standard Deviation 45.3 fL (36.4-46.3); White Blood Count 9.65 K/uL (4.8-10.8)
[2018-05-31 06:18] LABS: INR 1.1 (0.9-1.1); Prothrombin Time 11.2 Seconds (9.0-12.0)
[2018-05-31 06:41] LABS: Albumin Level 3.2 gm/dl (3.4-5.0); BUN Creatinine Ratio 19.5 (10-20); Calcium 8.2 mg/dl (8.5-10.1); Creatinine Clr Calc Pharmacy 82.7 ml/min; Est GFR (African American) 102.5; Est GFR (Non-African American) 88.5; Magnesium 2.1 mg/dl (1.8-2.4)
[2018-05-31 06:44] LABS: Albumin Globulin Ratio 1.1 (0.9-2); Bilirubin,Total 0.3 mg/dl (0.2-1); Globulin 2.9 gm/dl (2.5-4.0); Total Protein 6.1 gm/dl (6.4-8.2)
[2018-05-31] MEDS: ASPIRIN 81 MG ECTAB PO SCH (07:56)
[2018-05-31] MEDS: CLOPIDOGREL BISULFATE 75 MG TAB PO SCH (07:56)
[2018-05-31] MEDS: LISINOPRIL 5 MG TAB PO SCH (07:56)
[2018-05-31] MEDS: ISOSORBIDE MONO EXTENDED REL 60 MG TABCR PO SCH (07:56)
[2018-05-31] MEDS: LORATADINE 10 MG TAB PO SCH (07:56)
--- NOTE | 2018-05-31 09:51 | Cardiology Progress Note ---
Date of Service May 31, 2018 Assessment & Plan (1) Left sided chest pain: while ischemic workup is thus far unremarkable, however, symptoms appear to be his anginal equivalent echo showed new anterior wall hypokinesis cardiac cath revealed in stent restenosis of LAD along with de sharon lesion of LCx underwent successful PCI to both (2 overlapping TRENTON to LAD and 1 to LCx). cont aspirin and plavix repeat echo in 1 month to follow wall motion and follow up with Branden Aparicio PA-C at that time, my office will arrange will increase lovastatin to 80mg daily (no other med changes) will consider addition of PCSK9 inhibitor as outpatient. (2) CAD (coronary artery disease): hx of inferior scar on most recent Lexiscan nuclear stress (3) Hypertension: controlled (4) Left bundle branch block (LBBB): chronic EKG without ischemic changes. Subjective Pt seen and examined, oob in chair eating breakfast. States that he feels well. Denies cp, sob, palpitations, lightheadedness or dizziness. tele reviewed: sinus rhythm without arrhythmia or significant ectopy. Review of Systems All systems reviewed & are unremarkable except as noted in HPI & below Physical Exam Vital Signs (Past 24 Hours): Last Vital Signs Temp 37.2 C 05/31/18 07:24 Pulse 68 05/31/18 08:00 Resp 18 05/31/18 07:24 BP 104/58 L 05/31/18 07:24 Pulse Ox 95 05/31/18 07:24 Physical Exam: General: Awake, alert and oriented x 3. No acute distress. HEENT: Normocephalic, atraumatic. Pupils equal, round and reactive to light and accommodation. Extraocular muscles are intact. Anicteric sclera. Moist mucous membranes. Neck: No JVD. No bruit. Cardiovascular: Regular. Positive S-4. Normal S-1 and S-2. No S-3. No murmurs or rubs. Pulmonary: Clear to auscultation B/L. No rales, rhonchi or wheezing Abdomen: Bowel sounds x 4, soft. No rebound, guarding or tenderness. No organomegaly. Extremities: No clubbing, cyanosis or edema. +2 pedal pulses bilaterally. Skin: Warm and dry.
--- NOTE | 2018-05-31 13:58 | Medical Student Progress Note ---
Date of Service May 31, 2018 Assessment & Plan (1) Unstable angina: 68yo M with a past medical history of CAD, history of PA x 3 (1987, 1994, 2013), history of coronary artery stent (2013) and restenosis, left bundle branch block (dx in ), hypertension, hyperlipidemia, anxiety with dep ression, insomnia, who presented with an episode of left arm pain starting distal moving proximal to the neck and then substernal. Described substernal pain and pressure. Some nausea, no emesis, no diaphoresis. Some reduction in pain with SL nitro. Nitro and IV fentanyl reduced pain from 8/10 to 1/10. Pain lasted two hrs in total. clinical suspicion is high for acute PA given presentation similar to 2014 PA, hx of significant heart disease (CAD, PA x 3, stent placement), risk factors (12pk-yr smoking hx, HTN and HLD on risk reducing medications, BMI of 30). Yet, EKG shows no acute changes aside from some non-specific S-T and T wave changes. Negative troponins x 2. echo showed new anterior wall abnormalities-- pt underwent cath and stent placement. Cardiac cath and TRENTON placement x 3 on 05/30; 2 overlapping stents placed in mid- LAD (80-90% stenosis) and one in circumflex (70-80% stenosis) pt will be d/c early this afternoon. antiplatelet therapy for 1 yr with TRENTON placement, but pt already on clopidogrel. discussed high intensity statin with pt, but current regime is a result of trial and error to find a statin w/o undesirable side effects; cardiology recommended increasing lovastatin from 40mg to 80mg Subjective 68yo M with a past medical history of CAD, history of PA x 3 (1987, 1994, 2013), history of coronary artery stent (2013) and restenosis, left bundle branch block (dx in ), hypertension, hyperlipidemia, anxiety with depression, insomnia, who presented with an episode of left arm pain starting distal moving proximal to the neck and then substernal. Described substernal pain and pressure. Some nausea, no emesis, no diaphoresis. Some reduction in pain with SL nitro. Nitro and IV fentanyl reduced pain from 8/10 to 1/10. Pain lasted two hrs in total. Pain experienced after cath and stent placement x3 has resolved. ambulating in the hallway w/o cp or sob right radial cath site w/o pain or erythema no n/v/f/c Physical Exam Vital Signs (Past 24 Hours): Last Vital Signs Temp 37.2 C 05/31/18 10:45 Pulse 74 05/31/18 10:45 Resp 18 05/31/18 10:45 BP 111/67 05/31/18 10:45 Pulse Ox 95 05/31/18 10:45 Physical Exam: GENERAL: WD/WN, alter, cooperative, no acute distress HEENT: Head: Atraumatic, normocephalic. Eyes: EOMI Nose: No nasal congestion. Mouth: Moist mucous membranes, no lesions. Neck: Supple, no JVD Nervous System: Mental status: Alert and oriented x 3, good concentration. Cranial nerves IIXII grossly intact. Motor: Strength 5/5 in all muscle groups. Chest/Lung: RLL crackles no ronchi or wheezing Heart: Regular rate and rhythm. distant heart sounds. Normal S1, S2. No murmurs, rubs, or gallops. Abdomen: Soft, nontender, nondistended, BS present, Extremities: No clubbing, cyanosis, or edema. 2+ radial pulses b/l
--- NOTE | 2018-05-31 17:18 | Discharge Summary ---
Date of Service May 31, 2018 Admission HPI Per Admitting Provider The patient is a 68-year-old male with a past medical history including CAD, history of ID, history of coronary artery stent and restenosis, left bundle branch block, hypertension, hyperlipidemia, anxiety with depression, insomnia who presents to the emergency department with substernal chest pain. He has had a total of 3 sublingual nitroglycerin, and fentanyl IV x3, that brought his pain from an 8/10 down to a 1/10 and continued to improve. He reports that he has not had any change in his usual activity pattern or eating pattern, or any other precipitating factors that brought this episode of chest pain forward. He follows routinely with Branden Aparicio at [facility] cardiology. Principal Diagnosis Unstable angina Cardiac catheterization with 2 stents in the mid LAD and one stent in the circumflex artery these are drug-eluting stents Discharge Exam Constitutional well developed and average body habitus Eyes no conjunctival abnormality and no scleral abnormality Neck normal visual inspection and trachea midline Respiratory normal respiratory effort; no respiratory distress Auscultation: lungs clear to auscultation bilaterally Cardiovascular RRR, no murmur, no edema Gastrointestinal (Abdomen) normal bowel sounds, soft, nontender, no hepatosplenomegaly Musculoskeletal no cyanosis or clubbing, extremities motor strength 5/5 Discharge Data Allergies Allergy/AdvReac Type Severity Reaction Status Date / Time Iodinated Contrast- Oral and Allergy Intermediate Hives Verified 05/29/18 00:54 IV Dye Consultations 05/29/18 02:03 ED Decision to Admit Stat 05/29/18 02:37 Consult Cardiology Routine Consult Case Management - Discharge Planning Routine 05/29/18 16:31 Consult Cardiac Catheterization Routine Procedures Performed Operation Date: 05/30/18 10:10 Actual Procedures p Cath, Left with Cors and Vent - Jasmeet Owen MD s Cineradiography w/Routine Exam - Adalberto Silverio DO s Drug Eluting Stent SGl Vessel - Jasmeet Owen MD s Drug Eluting Stent each ADDTL Vessel - Jasmeet Owen MD Ordered Studies 05/30/18 10:09 CL Cath Imgs for PACS use only Routine Hospital Course (1) Unstable angina: (1) Left sided chest pain: Left-sided chest pain/CAD/hypertension/history of ID/history of coronary artery stent/left bundle branch block--cardiac catheterization on 05/30 shows significant lesions in the LAD at the previous stenting location and also the circumflex drug-eluting stents were deployed to in the LAD which are overlapping and 1 of the circumflex Patient had an echocardiogram with suggestions of new regional wall motion left heart catheterization and stenting in the LAD and circumflex. Doing well post stent Continue aspirin 81 mg daily, clopidogrel 75 mg daily, isosorbide mononitrate 60 mg every morning, lisinopril 5 mg every morning and metoprolol tartrate 50 mg p.o. every evening. Interesting the patient had intolerance to many statins in the past and currently takes Mevacor. 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 (3) CAD (coronary artery disease): As above. (4) H/O heart artery stent: As above. (5) Myocardial infarct, old: As above. (6) Hypertension: As above. (7) Hyperlipidemia LDL goal <70: Continue lovastatin 80 mg daily. (8) Anxiety and depression: Continue citalopram 15 mg at bedtime, lorazepam 0.5 mg p.o. daily as needed and zolpidem 5 mg p.o. at bedtime. Total Time Total Time Spent Total Time Spent (In Minutes): greater than 30 minutes were required to prepare discharge Discharge Plan Discharge Items Patient Disposition: Home - Self-Care Reason For Visit: CHEST PAIN Discharge Diagnosis: unstable angina, heart cath and 3 stents placed Discharge Goals: Decrease discomfort, Diagnostic testing and Improve disease control Activity: As commented below Activity Comment: no intentional exercise until you follow up with cardiology Non-emergency contact: Primary Care Provider and Pattern Lease Inspector Call non-emergency contact if: you have any medication questions Follow-up/Referrals: Marcos Calderon MD [Primary Care Provider] - 06/06/18 8:30 am (Please, follow up at Dr. Marcos Calderon's office with his associate, Dr. Mcfarland, on MondayJune 06 at 8:30 am. *If you need to change this appointment, call the office at [phone].) Jake Porter, DO [Physician] - (Please, follow up at [facility] with Dr. Jake Porter. His nurse will call you with the appointment details. *This office is located at [address] [place] [address] in [place]. If you have any questions, call the office at [phone].) Diet: Heart Healthy Addtl Provider Instructions: please rest and be sure to follow up with cardiology to discuss a change of your mevacor to a different cholesterol lowering agent Prescriptions: Continued clopidogrel 75 mg tablet 75 mg PO DAILY RF: 0 amlodipine 5 mg tablet 5 mg PO HS RF: 0 escitalopram oxalate 10 mg tablet 15 mg PO HS RF: 0 lorazepam 0.5 mg tablet 0.5 mg PO DAILY PRN (Reason: Anxiety) RF: 0 tramadol 50 mg tablet 50 mg PO Q8 PRN (Reason: Pain) RF: 0 isosorbide mononitrate 60 mg tablet extended release 24 hr 60 mg PO QAM RF: 0 metoprolol tartrate 50 mg tablet 50 mg PO QPM RF: 0 lisinopril 5 mg tablet 5 mg PO QAM RF: 0 aspirin 81 mg Tablet,Delayed Release (Dr/Ec) 81 mg PO QAM RF: 0 zolpidem 5 mg tablet 5 mg PO HS RF: 0 loratadine [Claritin] 10 mg Tablet 10 mg PO QAM RF: 0 coenzyme Q10 [Co Q-10] 400 mg Capsule 400 mg PO QAM RF: 0 [place]-3 Fish Oil 910-1,400 mg Capsule 1 cap PO QAM RF: 0 Changed lovastatin 40 mg tablet 80 mg PO HS Qty: 60 RF: 3 Stand-Alone Forms: Call Back Authorization, [facility]/Other Patient Handouts: Foods Heart Healthy Discharge Orders: Discharge Order (Routine); Ordered 05/31/18 Ordered By: Antoine Arndt Admission Data Admit Date/Time: 05/29/18 01:55 Attending Provider: Antoine Arndt Admit Provider: Zachery Dominguez Primary Care Provider: Marcos Calderon Other Providers: Zachery Dominguez ; Philippe Patten ; Adalberto Silverio Service: Telemetry Other Interventions: Discharge Summary Assessment (RN) Last Done: 05/31/18 10:45 DC Date/Time DO NOT enter until pt leaves facility: 05/31/18 11:15
== END 2018-05-31 11:15 | disposition home or self-care (01) | DRG 247 ==
LOC: ED 00:10 → SUATTDRO 01:55 → 2S 01:55

== ENCOUNTER 2020-03-01 07:52 | Observation (INO) ==
[2020-03-01] MEDS ORDERED: ASPIRIN 81 MG CHEW PO STA (08:12)
[2020-03-01] MEDS ORDERED: ONDANSETRON INJ 2 MG/ML 2 ML VIAL IV STA (08:12)
[2020-03-01] MEDS ORDERED: fentaNYL citrate 100 MCG/2 ML VIAL IV STA (08:12)
[2020-03-01] MEDS ORDERED: NITROGLYCERIN SL 0.4 MG/TAB TAB SL STA ×2 (08:12→10:13)
--- NOTE | 2020-03-01 08:15 | Emergency Department Note ---
History of Present Illness General Chief Complaint: Chest Pain Stated Complaint: CHEST PAIN Time Seen by Provider: 03/01/20 08:05 History of Present Illness Maximum Pain Intensity: 8 This is a 69-year-old male with an extensive cardiac history that presents to the emergency department via private vehicle with complaints of "chest pain". The patient states that around 3:30 AM he awoke and went to the bathroom, and then laid back down and developed chest pain as well as pain in the left shoulder region and left side of the neck. He does note that the symptoms are similar to previous MN. The patient denies any trauma or injury. No fevers or chills. Discomfort 10/20. He follows with [facility] cardiology. Of additional note, he did develop a cough today. Patient did take 2 nitro prior to arrival with minimal relief of his discomfort. Current pain 10/20. Patient also recentl y underwent a left shoulder surgery about 1 month ago. Home Medications Medication Instructions Recorded Confirmed Type aspirin 81 mg PO QAM 05/29/18 03/01/20 History clopidogrel 75 mg PO QAM 05/29/18 03/01/20 History loratadine [Claritin] 10 mg PO QAM 05/29/18 03/01/20 History amoxicillin 500 mg capsule See Rx Instructions .ROUTE 10/02/18 03/01/20 History .COMPLEX PRN cap isosorbide mononitrate 60 mg 60 mg PO QAM #90 tab 03/25/19 03/01/20 Rx tablet,extended release 24 hr rosuvastatin 20 mg tablet 20 mg PO HS 04/10/19 03/01/20 History coenzyme Q10 400 mg capsule 400 mg PO QAM 10/30/19 03/01/20 History omega-3 fatty acids 1,000 mg 1,000 mg PO QAM 10/30/19 03/01/20 History capsule lorazepam 0.5 mg tablet 0.5 mg PO DAILY PRN #30 tab 12/12/19 03/01/20 Rx zolpidem 5 mg tablet See Rx Instructions .ROUTE 12/17/19 03/01/20 Rx .COMPLEX #90 tab escitalopram oxalate 10 mg tablet 15 mg PO HS #45 tab 02/10/20 03/01/20 Rx lisinopril 5 mg tablet 5 mg PO QAM #90 tab 11/30/20 12/20/20 Rx metoprolol tartrate 50 mg tablet 50 mg PO QPM #90 tab 02/10/20 03/01/20 Rx tramadol 50 mg tablet 50 mg PO Q8H PRN #90 tab 02/21/20 03/01/20 Rx amlodipine 5 mg PO HS 03/01/20 03/01/20 History Allergies Allergy/AdvReac Type Severity Reaction Status Date / Time Iodinated Contrast Media Allergy Intermediate Hives Verified 03/01/20 09:30 atorvastatin [From Lipitor] AdvReac Unknown . Verified 03/01/20 09:30 simvastatin [From Zocor] AdvReac Unknown . Verified 03/01/20 09:30 Past Med/Surg History Medical History (Updated 03/01/20 @ 16:59 by Hardy Hyde PA-C) Acute myocardial infarction Arteriosclerotic cardiovascular disease (ASCVD) B12 deficiency CAD (coronary artery disease) Depression Folate deficiency Hematuria, microscopic Hyperlipidemia Impaired fasting glucose Insomnia Left sided chest pain Macrocytic anemia Macrocytosis Mild intermittent asthma Myocardial infarct, old Need for hepatitis C screening test Right knee DJD Rotator cuff arthropathy Unstable angina Surgical History H/O heart artery stent drug eluting stent placed 05/30/2018 prior balloon angioplasty in 1987 after [place] History of hernia repair History of knee replacement History of total knee arthroplasty Status post reverse total arthroplasty of right shoulder Family History Unknown Acute myocardial infarction Lung cancer Atherosclerosis Other Hypertension Myocardial infarction Denies family history of Ovarian cancer Prostate cancer Diabetes Breast cancer Colorectal cancer Stroke Social History Smoking Status: Former smoker Tobacco Type: Cigarettes Second Hand Exposure: No; Hx Alcohol Use: Yes Alcohol Intake Frequency: Monthly or Less Hx Substance Use: No Preferred Language: [place] Communication Ability: Effective 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 Beliefs That Will Affect Care: None marital status: Current Living Situation: Spouse current occupational status: retired Other Information That Helps Us Care for You: No Feels Safe at Home: Yes Safety Concerns: Feels Safe At This Time Childhood Exposure to Second-Hand Smoke: Yes caffeine: Yes Dental Care, Regularly: Yes Physical Activity Frequency: 1-2 Times per Week Seatbelt Use: always Sunscreen Use: Yes Assistive Devices: Denture - Upper, Denture - Lower, Glasses and Hearing Aid - Bilateral Review of Systems A total of 10 systems reviewed and were otherwise negative Physical Exam Vital Signs Vital Signs - 24 hr 03/01/20 07:56 03/01/20 08:12 03/01/20 08:32 Temperature 36.1 C L Temperature Source Skin Pulse Rate 72 Pulse Rate [Apical] 65 Respiratory Rate 20 18 Respiratory Effort / Characteristics Non-Labored Respiratory Depth Normal Blood Pressure 146/86 H Blood Pressure [Left Arm] 144/72 H Blood Pressure Mean 106 Blood Pressure Mean [Left Arm] 96 Blood Pressure Position [Left Arm] Pulse Oximetry 95 95 89 L Oxygen Delivery Method Room Air Nasal Cannula Room Air Nasal Cannula Oxygen Flow Rate 2 0 Sepsis Recent Fever Within 48 Hours No Sepsis New/Unexplained Change in Mental Status N/A Sepsis Action Taken by Nursing No Action Required Oxygen Flow Rate - Titration 2 Pulse Oximetry Post Tiitration 95 03/01/20 08:58 03/01/20 10:00 03/01/20 11:00 Temperature Temperature Source Pulse Rate Pulse Rate [Apical] 60 70 60 Respiratory Rate 18 18 18 Respiratory Effort / Characteristics Respiratory Depth Blood Pressure Blood Pressure [Left Arm] 126/67 137/73 126/69 Blood Pressure Mean Blood Pressure Mean [Left Arm] 86 94 88 Blood Pressure Position [Left Arm] Pulse Oximetry 97 97 96 Oxygen Delivery Method Nasal Cannula Nasal Cannula Nasal Cannula Oxygen Flow Rate 2 2 2 Sepsis Recent Fever Within 48 Hours Sepsis New/Unexplained Change in Mental Status Sepsis Action Taken by Nursing Oxygen Flow Rate - Titration Pulse Oximetry Post Tiitration 03/01/20 13:41 03/01/20 13:56 03/01/20 13:57 Temperature 36.8 C 36.8 C Temperature Source Oral Oral Pulse Rate Pulse Rate [Apical] 65 66 62 Respiratory Rate 18 18 18 Respiratory Effort / Characteristics Respiratory Depth Blood Pressure Blood Pressure [Left Arm] 172/84 H 172/84 H 171/81 H Blood Pressure Mean Blood Pressure Mean [Left Arm] 113 113 111 Blood Pressure Position [Left Arm] Lying Sitting Lying Pulse Oximetry 96 96 95 Oxygen Delivery Method Room Air Room Air Oxygen Flow Rate Sepsis Recent Fever Within 48 Hours Sepsis New/Unexplained Change in Mental Status Sepsis Action Taken by Nursing Oxygen Flow Rate - Titration Pulse Oximetry Post Tiitration 03/01/20 14:00 Temperature Temperature Source Pulse Rate 63 Pulse Rate [Apical] Respiratory Rate Respiratory Effort / Characteristics Respiratory Depth Blood Pressure Blood Pressure [Left Arm] Blood Pressure Mean Blood Pressure Mean [Left Arm] Blood Pressure Position [Left Arm] Pulse Oximetry Oxygen Delivery Method Oxygen Flow Rate Sepsis Recent Fever Within 48 Hours Sepsis New/Unexplained Change in Mental Status Sepsis Action Taken by Nursing Oxygen Flow Rate - Titration Pulse Oximetry Post Tiitration VITAL SIGNS - Vital signs and nursing notes were reviewed. Stable and afebrile. GENERAL -69-year-old male appearing his stated age who is in no acute distress. Communicates well with provider and answers questions appropriately. SKIN - Without rashes. No meningeal or petechial rash. HEAD - NC/AT. CARDIAC - RRR with S1/S2. No definite murmur, rubs, or gallops appreciated. ABDOMEN - Abdominal contour normal without pulsations or visible masses. BS normoactive all four quadrants. No tenderness, palpable masses, hepatosplenomegaly, or ascites noted. EXTREMITIES - No clubbing or peripheral cyanosis. No pretibial edema present. +5/5 strength noted in UE/LE bilaterally. There is evidence of recent left shoulder surgery with well-healing surgical incisions. No evidence of infection. NEUROLOGIC - Cranial nerves II through XII grossly intact. PSYCH - A&O, and cooperates fully with examiner. Pt is very pleasant and interacts well with examiner. Course Administered Medications Clopidogrel Bisulfate (Clopidogrel Bisulfate 75 Mg Tab) 75 mg PO QAM [facility] Stop: 03/31/20 10:14 Last Admin: 03/01/20 13:00 Dose: Not Given Documented by: [id number] Sodium Chloride (Nss 1000ml) 1,000 mls @ 100 mls/hr IV .Q10H DAVID Stop: 03/01/20 21:14 Last Admin: 03/01/20 13:55 Dose: 100 mls/hr Documented by: [id number] Morphine Sulfate (Morphine Sulfate 2 Mg/Ml Carp) 1 mg IV Q3H PRN PRN Reason: Pain Stop: 03/15/20 14:01 Last Admin: 03/01/20 14:09 Dose: 1 mg Documented by: [id number] Discontinued Medications Aspirin (Aspirin 81 Mg Chew) 324 mg PO NOW STA Stop: 03/01/20 08:13 Last Admin: 03/01/20 08:18 Dose: 324 mg Documented by: [id number] Clopidogrel Bisulfate (Clopidogrel Bisulfate 300 Mg Tab) Confirm Administered Dose 300 mg .ROUTE .STK-MED ONE Stop: 03/01/20 12:00 Last Admin: 03/01/20 12:00 Dose: 300 mg Documented by: [id number] Diphenhydramine HCl (Diphenhydramine 50 Mg/Ml Vial) 50 mg IV NOW STA Stop: 03/01/20 11:20 Last Admin: 03/01/20 11:27 Dose: 50 mg Documented by: [id number] Fentanyl Citrate (Fentanyl Citrate 100 Mcg/2 Ml Vial) 50 mcg IV NOW STA Stop: 03/01/20 08:13 Last Admin: 03/01/20 08:19 Dose: 50 mcg Documented by: [id number] Fentanyl Citrate (Fentanyl Citrate 100 Mcg/2 Ml Vial) Confirm Administered [facility] Stop: 03/01/20 11:36 Last Admin: 03/01/20 13:08 Dose: 50 mcg Documented by: [id number] Heparin Sodium (Porcine) (Heparin (Porcine) 1000 Unit/Ml 10 Ml (Chief Load Dispatcher Use Only)) Confirm Administered Dose 10,000 units .ROUTE .[facility]-MED ONE Stop: 03/01/20 11:36 Last Admin: 03/01/20 13:09 Dose: 9,000 units Documented by: [id number] Heparin Sodium/Sodium Chloride (Heparin In Nss Infusion 1000 Unit/500 Ml (2 U/Ml) Bag) Confirm Administered Dose 3,000 units [facility] Stop: 03/01/20 11:37 Last Admin: 03/01/20 12:58 Dose: 3,000 units Documented by: [id number] Hydrocortisone Sodium Succinate (Hydrocortisone Sod Succinate 100 Mg/2 Ml Vial) 100 mg IV NOW STA Stop: 03/01/20 11:19 Last Admin: 03/01/20 11:28 Dose: 100 mg Documented by: [id number] Hydromorphone HCl (Hydromorphone Inj 0.5 Mg/0.5 Ml Syr) 0.5 mg IV NOW STA Stop: 03/01/20 09:18 Last Admin: 03/01/20 09:21 Dose: 0.5 mg Documented by: [id number] Famotidine (Pepcid 20mg Iv Push) 20 mg in 5 mls @ 2.5 mls/min IV NOW STA Stop: 03/01/20 11:21 Last Admin: 03/01/20 11:27 Dose: 2.5 mls/min Documented by: [id number] Isosorbide Mononitrate (Isosorbide [place] Extended Rel 60 Mg Tabcr) 60 mg PO ONE ONE Stop: 03/01/20 14:03 Last Admin: 03/01/20 15:17 Dose: 60 mg Documented by: [id number] Midazolam HCl (Midazolam Hcl 1 Mg/Ml 2ml Vial) Confirm Administered Dose 2 mg .ROUTE .STK-MED ONE Stop: 03/01/20 11:36 Last Admin: 03/01/20 13:08 Dose: 1 mg Documented by: [id number] Morphine Sulfate (Morphine Sulfate 4 Mg/Ml 1 Ml Carp\\Vial) 4 mg IV NOW STA Stop: 03/01/20 08:55 Last Admin: 03/01/20 08:57 Dose: 4 mg Documented by: [id number] Nicardipine HCl (Nicardipine Hcl Inj 2.5 Mg/Ml 10 Ml Amp) Confirm Administered Dose 25 mg .ROUTE .STK-MED ONE Stop: 03/01/20 11:36 Last Admin: 03/01/20 12:58 Dose: 25 mg Documented by: [id number] Nitroglycerin (Nitroglycerin Sl 0.4 Mg/Tab Tab) 0.4 mg SL NOW STA Stop: 03/01/20 08:13 Last Admin: 03/01/20 08:19 Dose: 0.4 mg Documented by: [id number] Nitroglycerin (Nitroglycerin Sl 0.4 Mg/Tab Tab) 0.4 mg SL NOW STA Stop: 03/01/20 10:14 Last Admin: 03/01/20 10:30 Dose: 0.4 mg Documented by: [id number] Nitroglycerin/Dextrose (Nitroglycerin/D5w 100mcg/Ml 20ml Syr) Confirm Administered Dose 2,000 mcg .ROUTE .STK-MED ONE Stop: 03/01/20 11:37 Last Admin: 03/01/20 12:58 Dose: 2,000 mcg Documented by: [id number] Ondansetron HCl (Ondansetron Inj 2 Mg/Ml 2 Ml Vial) 4 mg IV NOW STA Stop: 03/01/20 08:13 Last Admin: 03/01/20 08:18 Dose: 4 mg Documented by: [id number] Medical Decision Making Laboratory Data Result diagrams: 03/01/20 08:15 03/01/20 08:15 Labs: Lab Results 03/01/20 03/01/20 03/01/20 Range/Units 08:15 08:15 08:15 WBC 4.34 L (4.8-10.8) K/uL RBC 3.87 L (4.7-6.1) M/uL Hgb 13.3 L (14.0-18.0) g/dL Hct 40.1 L (42-52) % MCV 103.6 H (80-100) fL MCH 34.4 H (25-34) pg MCHC 33.2 (32-36) g/dL RDW Std Deviation 49.0 H (36.4-46.3) fL RDW Coeff of Chuck 13.0 (11.5-14.5) % Plt Count 192 (130-400) K/uL MPV 10.2 (7.4-10.4) fL Immature Gran % (Auto) 0.2 % Neut % (Auto) 53.3 % Lymph % (Auto) 31.3 % [place] % (Auto) 11.5 % Eos % (Auto) 3.5 % Baso % (Auto) 0.2 % Neut # (Auto) 2.31 (1.4-6.5) K/uL Lymph # (Auto) 1.36 (1.2-3.4) K/uL [place] # (Auto) 0.50 (0.11-0.59) K/uL Eos # (Auto) 0.15 (0-0.5) K/uL Baso # (Auto) 0.01 (0-0.2) K/uL Immature Gran # (Auto) 0.01 (0.00-0.02) K/uL PT 11.0 (9.0-12.0) Seconds INR 1.0 (0.9-1.1) APTT 27.3 (21.0-31.0) Seconds PTT Ratio 1.0 Activ Coag Time Kaolin (94-140) SECONDS Sodium 141 (136-145) mmol/L Potassium 4.4 (3.5-5.1) mmol/L Chloride 108 H (98-107) mmol/L Carbon Dioxide 28 (21-32) mmol/L Anion Gap 5.0 (3-11) BUN 17 (7-18) mg/dl Creatinine 0.99 (0.6-1.4) mg/dl Est Cr Clr Drug Dosing 75.4 ml/min Est GFR ( Amer) 90.3 Est GFR (Non-Af Amer) 77.9 BUN/Creatinine Ratio 17.0 (10-20) Glucose 108 H (70-99) mg/dl Calcium 8.5 (8.5-10.1) mg/dl Magnesium 2.2 (1.8-2.4) mg/dl Total Bilirubin 0.3 (0.2-1) mg/dl AST 26 (15-37) U/L ALT 28 (12-78) U/L Alkaline Phosphatase 78 (45-117) U/L Troponin I < 0.015 (0-0.045) ng/ml Total Protein 6.8 (6.4-8.2) gm/dl Albumin 3.5 (3.4-5.0) gm/dl Globulin 3.3 (2.5-4.0) gm/dl Albumin/Globulin Ratio 1.1 (0.9-2) Lipase 128 (73-393) U/L COVID-19 Eval Order SARS-CoV-2, RNA, NAAT (NEGATIVE) 03/01/20 03/01/20 03/01/20 Range/Units 09:15 09:15 10:13 WBC (4.8-10.8) K/uL RBC (4.7-6.1) M/uL Hgb (14.0-18.0) g/dL Hct (42-52) % MCV (80-100) fL MCH (25-34) pg MCHC (32-36) g/dL RDW Std Deviation (36.4-46.3) fL RDW Coeff of Chuck (11.5-14.5) % Plt Count (130-400) K/uL MPV (7.4-10.4) fL Immature Gran % (Auto) % Neut % (Auto) % Lymph % (Auto) % [place] % (Auto) % Eos % (Auto) % Baso % (Auto) % Neut # (Auto) (1.4-6.5) K/uL Lymph # (Auto) (1.2-3.4) K/uL [place] # (Auto) (0.11-0.59) K/uL Eos # (Auto) (0-0.5) K/uL Baso # (Auto) (0-0.2) K/uL Immature Gran # (Auto) (0.00-0.02) K/uL PT (9.0-12.0) Seconds INR (0.9-1.1) APTT (21.0-31.0) Seconds PTT Ratio Activ Coag Time Kaolin (94-140) SECONDS Sodium (136-145) mmol/L Potassium (3.5-5.1) mmol/L Chloride (98-107) mmol/L Carbon Dioxide (21-32) mmol/L Anion Gap (3-11) BUN (7-18) mg/dl Creatinine (0.6-1.4) mg/dl Est Cr Clr Drug Dosing ml/min Est GFR ( Amer) Est GFR (Non-Af Amer) BUN/Creatinine Ratio (10-20) Glucose (70-99) mg/dl Calcium (8.5-10.1) mg/dl Magnesium (1.8-2.4) mg/dl Total Bilirubin (0.2-1) mg/dl AST (15-37) U/L ALT (12-78) U/L Alkaline Phosphatase (45-117) U/L Troponin I < 0.015 (0-0.045) ng/ml Total Protein (6.4-8.2) gm/dl Albumin (3.4-5.0) gm/dl Globulin (2.5-4.0) gm/dl Albumin/Globulin Ratio (0.9-2) Lipase (73-393) U/L COVID-19 Eval Order Covid19 IDNow [id number] SARS-CoV-2, RNA, NAAT NEGATIVE (NEGATIVE) 03/01/20 03/01/20 Range/Units 12:44 13:01 WBC (4.8-10.8) K/uL RBC (4.7-6.1) M/uL Hgb (14.0-18.0) g/dL Hct (42-52) % MCV (80-100) fL MCH (25-34) pg MCHC (32-36) g/dL RDW Std Deviation (36.4-46.3) fL RDW Coeff of Chuck (11.5-14.5) % Plt Count (130-400) K/uL MPV (7.4-10.4) fL Immature Gran % (Auto) % Neut % (Auto) % Lymph % (Auto) % [place] % (Auto) % Eos % (Auto) % Baso % (Auto) % Neut # (Auto) (1.4-6.5) K/uL Lymph # (Auto) (1.2-3.4) K/uL [place] # (Auto) (0.11-0.59) K/uL Eos # (Auto) (0-0.5) K/uL Baso # (Auto) (0-0.2) K/uL Immature Gran # (Auto) (0.00-0.02) K/uL PT (9.0-12.0) Seconds INR (0.9-1.1) APTT (21.0-31.0) Seconds PTT Ratio Activ Coag Time Kaolin 274 H 252 H (94-140) SECONDS Sodium (136-145) mmol/L Potassium (3.5-5.1) mmol/L Chloride (98-107) mmol/L Carbon Dioxide (21-32) mmol/L Anion Gap (3-11) BUN (7-18) mg/dl Creatinine (0.6-1.4) mg/dl Est Cr Clr Drug Dosing ml/min Est GFR ( Amer) Est GFR (Non-Af Amer) BUN/Creatinine Ratio (10-20) Glucose (70-99) mg/dl Calcium (8.5-10.1) mg/dl Magnesium (1.8-2.4) mg/dl Total Bilirubin (0.2-1) mg/dl AST (15-37) U/L ALT (12-78) U/L Alkaline Phosphatase (45-117) U/L Troponin I (0-0.045) ng/ml Total Protein (6.4-8.2) gm/dl Albumin (3.4-5.0) gm/dl Globulin (2.5-4.0) gm/dl Albumin/Globulin Ratio (0.9-2) Lipase (73-393) U/L COVID-19 Eval Order SARS-CoV-2, RNA, NAAT (NEGATIVE) Imaging Data Chest x-ray: Radiologist's impression: XR chest 1V portable HISTORY: 69 years-old Male chest pain, cough acute atypical chest pain with cough COMPARISON: Chest radiograph 05/29/2018 TECHNIQUE: Portable AP view of the chest FINDINGS: Cardiac silhouette is mildly enlarged, unchanged. Calcified plaque the thoracic aorta. No pneumothorax, pleural effusion, airspace consolidation or overt pulmonary edema. Mild right hemidiaphragmatic elevation. Degenerative changes of the spine and left shoulder. Reverse right shoulder total joint arthroplasty. IMPRESSION: No acute process. ACT 112: Negative or not required by law. The above report was generated using voice recognition software. It may contain grammatical, syntax or spelling errors. Electronically signed by: Patrick Gonzales M.D. 03/01/2020 8:47 AM MDM Narrative Patient was seen and evaluated as above in room A9. Review was performed of nursing notes and vital signs. I did review pertinent previous visits and patient history. After obtaining a thorough history and physical examination the above work up was performed. He presents to us today with chest pain that began around 6:30 AM shortly after ambulating to the bathroom when he awoke. Pain radiates to the left arm and left neck. He does feel that this is similar to previous MN in regard to his symptoms. He has had 2 nitro prior to arrival. IV access established. Labs were drawn. EKG was obtained. EKG at this time reveals sinus rhythm with first-degree AV block. At a rate of 61 bpm. QTc 448. Left bundle branch block noted. This was compared to EKG of December 17, 2019. No significant change was found. It should be noted that given his history of left bundle branch block the EKG can be somewhat unhelpful. The patient was given sublingual nitroglycerin here as well as p.o. aspirin, as well as IV analgesics. Patient did have some improvement of his discomfort and rated as a 4/10. I did discuss the presentation with the attending physician as well as the on-call supply chain project manager, Dr. Owen. Laboratory studies reveal pancytopenia this is somewhat similar to previous. Patient's creatinine and li zach function tests are within normal limits. Troponin negative x2. Given the patient's extensive cardiac history it was felt that further evaluation and management in the inpatient setting is warranted. I did discuss this with Dr. Sevilla. Please refer to further documentation regarding his stay. While in the department, I personally reevaluated the patient several times and each time the patient was found to be resting comfortably. Patient was seen during the COVID-19 pandemic during a period of high volume and acuity. An order was placed for continuous cardiac monitoring. The monitor shows a rate of 61 with sinus rhythm. I attest that I have personally reviewed the patient medication list. GCS: 15 In the evaluation and treatment of this patient, the following differential diag noses were considered: MN, ASC, Dysrhythmia, Angina, Mediastinitis, GERD, Esophagitis, PE, Pneumonia, Bronchitis, Costochondritis, Rib Fracture, Zoster. Impression & Plan Unstable angina pectoris Discharge Plan Visit Data Chief Complaint: Chest Pain Stated Complaint: CHEST PAIN ED Provider: Bhavya Eubanks ED Midlevel Provider: Hardy Hyde Discharge Problem: Unstable angina pectoris Patient Disposition: Admitted As Inpatient Condition: Good Discharge Instructions Interventions: ED Discharge Assessment Last Done: 03/01/20 11:06
[2020-03-01 08:34] LABS: Basophils # (auto) 0.01 K/uL (0-0.2); Basophils % (auto) 0.2 %; Eosinophils # (auto) 0.15 K/uL (0-0.5); Eosinophils % (auto) 3.5 %; Hematocrit (blood only) 40.1 % (42-52); Hemoglobin 13.3 g/dL (14.0-18.0); Immature Granulocytes # (auto) 0.01 K/uL (0.00-0.02); Immature Granulocytes % (auto) 0.2 %; Lymphocytes # (auto) 1.36 K/uL (1.2-3.4); Lymphocytes % (auto) 31.3 %; Mean Corpuscular Hemoglobin 34.4 pg (25-34); Mean Corpuscular Hgb Conc 33.2 g/dL (32-36); Mean Corpuscular Volume 103.6 fL (80-100); Mean Platelet Volume 10.2 fL (7.4-10.4); Monocytes % (auto) 11.5 %; Neutrophils # (auto) 2.31 K/uL (1.4-6.5); Neutrophils % (auto) 53.3 %; Platelet Count 192 K/uL (130-400); Red Blood Count 3.87 M/uL (4.7-6.1); White Blood Count 4.34 K/uL (4.8-10.8)
[2020-03-01 08:42] LABS: Partial Thromboplastin Time 27.3 Seconds (21.0-31.0)
--- NOTE | 2020-03-01 08:48 | XRay Report ---
XR chest 1V portable HISTORY: 69 years-old Male chest pain, cough acute atypical chest pain with cough COMPARISON: Chest radiograph 05/29/2018 TECHNIQUE: Portable AP view of the chest FINDINGS: Cardiac silhouette is mildly enlarged, unchanged. Calcified plaque the thoracic aorta. No pneumothora x, pleural effusion, airspace consolidation or overt pulmonary edema. Mild right hemidiaphragmatic el evation. Degenerative changes of the spine and left shoulder. Reverse right shoulder total joint arth roplasty. IMPRESSION: No acute process. ACT 112: Negative or not required by law. The above report was generated using voice recognition software. It may contain grammatical, syntax o r spelling errors. Electronically signed by: Patrick Gonzales M.D. 03/01/2020 8:47 AM
[2020-03-01] MEDS ORDERED: MoRPHine SULFATE 4 MG/ML 1 ML CARP\\VIAL IV STA (08:54)
[2020-03-01 08:55] LABS: Alanine Aminotransferase 28 U/L (12-78); Albumin Level 3.5 gm/dl (3.4-5.0); Aspartate Aminotransferase 26 U/L (15-37); Blood Urea Nitrogen 17 mg/dl (7-18); Calcium 8.5 mg/dl (8.5-10.1); Carbon Dioxide 28 mmol/L (21-32); Chloride 108 mmol/L (98-107); Creatinine Clr Calc Pharmacy 75.4 ml/min; Est GFR (African American) 90.3; Est GFR (Non-African American) 77.9; Glucose 108 mg/dl (70-99); Lipase 128 U/L (73-393); Magnesium 2.2 mg/dl (1.8-2.4); Potassium 4.4 mmol/L (3.5-5.1); Sodium 141 mmol/L (136-145)
[2020-03-01 09:00] LABS: Albumin Globulin Ratio 1.1 (0.9-2); Alkaline Phosphatase 78 U/L (45-117); Bilirubin,Total 0.3 mg/dl (0.2-1); Globulin 3.3 gm/dl (2.5-4.0); Total Protein 6.8 gm/dl (6.4-8.2); Troponin I < 0.015 ng/ml (0-0.045)
[2020-03-01] MEDS ORDERED: HYDROmorphone INJ 0.5 MG/0.5 ML SYR IV STA (09:17)
--- NOTE | 2020-03-01 10:03 | Emergency Department Note ---
ED Visit Note I have personally seen and evaluated the patient with the PA. I agree with the diagnosis and management decisions and have been personally involved in the case. Upon my evaluation the patient, he was complaining of an 8/10 pain. He was given a sublingual nitroglycerin which would be his third for the day. He was also given 4 mg of IV morphine with a modest improvement of pain to a 6/10. EKGs were reviewed and significant for a left bundle branch block with no significant change from previous 12/17/2019. Patient's chest x-ray and initial t roponin are negative. Patient did require additional pain medication for relief. Dr. Owen of interventional cardiology was notified as the patient does have a significant cardiac history. A repeat troponin will be performed. Consultation with the hospitalist will be placed. Please see LLOYD Vu's notes for further details of the history, physical and visit. .
[2020-03-01] MEDS ORDERED: traMADol HCL 50 MG TABLET PO PRN (10:13)
[2020-03-01] MEDS ORDERED: HYDROCORTISONE SOD SUCCINATE 100 MG/2 ML VIAL IV STA (11:18)
[2020-03-01] MEDS ORDERED: diphenhydrAMINE 50 MG/ML VIAL IV STA (11:19)
[2020-03-01] MEDS ORDERED: FAMOTIDINE 20MG IV PUSH 20 MG/5 ML SYR IV STA (11:20)
[2020-03-01] MEDS ORDERED: fentaNYL citrate 100 MCG/2 ML VIAL ONE (11:35)
[2020-03-01] MEDS ORDERED: niCARdipine HCL INJ 2.5 MG/ML 10 ML AMP ONE (11:35)
[2020-03-01] MEDS ORDERED: HEPARIN (PORCINE) 1000 UNIT/ML 10 ML (CATH LAB USE ONLY) ONE (11:35)
[2020-03-01] MEDS ORDERED: MIDAZOLAM HCL 1 MG/ML 2ML VIAL ONE (11:35)
[2020-03-01] MEDS ORDERED: NITROGLYCERIN/D5W 100MCG/ML 20ML SYR ONE (11:36)
--- NOTE | 2020-03-01 11:37 | Cardiology Consultation ---
Date of Consultation March 01, 2020 Assessment & Plan (1) Unstable angina pectoris: Patient presents with resting chest discomfort, reminiscent of his prior anginal equivalent, with history of multivessel coronary heart disease for which she has had multiple percutaneous coronary interventions, the most recent of which took place in May,. As noted, when he presented at that time, cardiac enzymes had been negative then, similar to the pattern noted now. EKG is somewhat unhelpful as he has a chronic left bundle branch block. He is on chronic aspirin and clopidogrel and has not missed any doses. His most recent outpatient echocardiogram dated 11/05/2019 revealed low normal LVEF of 50 to 54% with septal motion consistent with left bundle branch block, but kinesis to akinesis of the basal portion of the inferior wall. Mild tricuspid valve regurgitation was noted. The patient is not in acute distress at present, and his symptoms have improved after sublingual nitroglycerin, and analgesics. Still very concerned however about the nature of his discomfort. At present, recommend proceeding with coronary angiography sooner rather than later, as this is a Monday morning, the emergency cardiac catheterization team will be activated via the "Heart Alert" protocol. Case discussed with Dr. Owen original cardiology by phone. Patient does have a contrast allergy, will therefore proceed with prophylaxis to include 100 mg of IV Solu-Cortef, 50 mg IV Benadryl, 20 mg of IV Pepcid. Mr Hyde of the ED updated. Dr Sevilla updated. Transfer from ED to telemetry placed on hold in favor of proceeding directly to catheterization lab. History of Present Illness History of Present Illness Emile Zelaya is a 69 year old male seen in cardiology consultation in the emergency department per the request of Dr Sevilla for the evaluation of unstable angina. The patient states that he was in his normal state of health yesterday, feeling well. This morning, at 6:30 AM, he awoke from sleep with discomfort in his left arm that radiated to his chest and neck and was reminiscent of his prior anginal symptoms that prompted his past cardiac stents. He has a history of chronic shoulder discomfort for which he underwent left shoulder arthroscopic subacromial decompression in December,, and does have a known history of chronic residual shoulder discomfort, but he states that this is different than his typical musculoskeletal shoulder discomfort. On arrival to the emergency department he describes having had 8-9/10 intensity discomfort, which has since decreased to 4/10 intensity having received sublingual nitroglycerin, IV fentanyl, IV morphine, and Dilaudid. At present the patient is in no acute distress. EKG reveals sinus rhythm with left bundle branch block which is a chronic finding for him. Troponin I has been negative x2 measurements thus far is performed at 8:15 AM and again at 10:13 AM. The patient is well-known to our cardiology practice. He has a history of complex multivessel coronary heart disease for which he has had multiple interventions, the most recent of which took place in May, in the setting of unstable angina and prompted PCI with placement of 2 drug-eluting stents to the LAD and 1 drug-eluting stent to the circumflex coronary artery. Additional details outlined below. Past Medical/Surgical History: 1.Ischemic heart disease. 1.Anterior wall myocardial infarction in 1987. Subsequent PTCA without stent of LAD lesion. 2.RCA stenting in 1992 and 1998. 3.LAD and diagonal stenting in July 2002. 4.April 25, 2013 spermatocele surgery, after holding ASA and Plavix for 10 days, complicated postoperatively an inferior wall STEMI s/p PCI with 2 drug eluting stents to the RCA. Course complicated by atrial fibrillation with a RVR during the procedure then ventricular fibrillation arrest treated with defibrillation and brief CPR. Episodes of nonsustained ventricular tachycardia observed in the ICU necessitating use of amiodarone therapy. 5.Presentation to [facility] May 2018 with unstable angina, status post PCI of the LAD with 2 drug-eluting stents and PCI of the left circumflex with 1 drug-eluting stent. 2.Chronic left bundle branch block. 3.Hypertension 4.Dyslipidemia. LDL goal < 70 mg/dL. Statin intolerance noted, tolerating rosuvastatin 5.Small abdominal aortic aneurysm per documentation. Abdominal CT scan in April, at [facility] revealed advance atherosclerotic calcification and ectasia of the abdominal aorta measuring up to 2.6 cm in diameter. July 2017 aortic duplex with no evidence of an abdominal aortic aneurysm 6.Mild bilateral internal carotid artery disease. 7.History of asthma. 8.Osteoarthritis 1.s/p total knee arthroplasty of the left knee, August 2008. 2.Status post August 05, 2016 right reverse total shoulder arthroplasty 3.Status post May 04, 2017 right knee replacement by Dr. Fowler. 9.Hernia surgeries in 2000 and 2003. Family History: Mother with lung cancer. Father had his first RI at 36. 18 siblings in total. Positive heart problems multiple siblings including a brother who was s/p heart transplant, passing with cancer in June 2013. Social History: Reformed smoker, 1/2 ppd x 25 years. Quit in 1987. No smokeless tobacco abuse. Rare alcohol. No illegal drug use. . Retired in September 2014 after 45+ years with the [employer]. Allergies Allergy/AdvReac Type Severity Reaction Status Date / Time Iodinated Contrast Media Allergy Intermediate Hives Verified 03/01/20 09:30 atorvastatin [From Lipitor] AdvReac Unknown . Verified 03/01/20 09:30 simvastatin [From Zocor] AdvReac Unknown . Verified 03/01/20 09:30 Home Medications Medication Instructions Recorded Confirmed Type aspirin 81 mg PO QAM 05/29/18 03/01/20 History clopidogrel 75 mg PO QAM 05/29/18 03/01/20 History loratadine [Claritin] 10 mg PO QAM 05/29/18 03/01/20 History amoxicillin 500 mg capsule See Rx Instructions .ROUTE 10/02/18 03/01/20 History .COMPLEX PRN cap isosorbide mononitrate 60 mg 60 mg PO QAM #90 tab 03/25/19 03/01/20 Rx tablet,extended release 24 hr rosuvastatin 20 mg tablet 20 mg PO HS 04/10/19 03/01/20 History coenzyme Q10 400 mg capsule 400 mg PO QAM 10/30/19 03/01/20 History omega-3 fatty acids 1,000 mg 1,000 mg PO QAM 10/30/19 03/01/20 History capsule lorazepam 0.5 mg tablet 0.5 mg PO DAILY PRN #30 tab 12/12/19 03/01/20 Rx zolpidem 5 mg tablet See Rx Instructions .ROUTE 12/17/19 03/01/20 Rx .COMPLEX #90 tab escitalopram oxalate 10 mg tablet 15 mg PO HS #45 tab 02/10/20 03/01/20 Rx lisinopril 5 mg tablet 5 mg PO QAM #90 tab 02/10/20 03/01/20 Rx metoprolol tartrate 50 mg tablet 50 mg PO QPM #90 tab 02/10/20 03/01/20 Rx tramadol 50 mg tablet 50 mg PO Q8H PRN #90 tab 02/21/20 03/01/20 Rx amlodipine 5 mg PO HS 03/01/20 03/01/20 History Patient History Medical History (Updated 03/01/20 @ 11:33 by Davis Bear DO) Acute myocardial infarction Arteriosclerotic cardiovascular disease (ASCVD) B12 deficiency CAD (coronary artery disease) Depression Folate deficiency Hematuria, microscopic Hyperlipidemia Impaired fasting glucose Insomnia Left sided chest pain Macrocytic anemia Macrocytosis Mild intermittent asthma Myocardial infarct, old Need for hepatitis C screening test Right knee DJD Rotator cuff arthropathy Unstable angina Surgical History H/O heart artery stent drug eluting stent placed 05/30/2018 prior balloon angioplasty in 1987 after RI History of hernia repair History of knee replacement History of total knee arthroplasty Status post reverse total arthroplasty of right shoulder Family History Unknown Acute myocardial infarction Lung cancer Atherosclerosis Other Hypertension Myocardial infarction Denies family history of Ovarian cancer Prostate cancer Diabetes Breast cancer Colorectal cancer Stroke Social History Smoking Status: Former smoker Tobacco Type: Cigarettes Second Hand Exposure: No; Hx Alcohol Use: Yes Alcohol Intake Frequency: Monthly or Less Hx Substance Use: No Preferred Language: Ukrainian Communication Ability: Effective Yoga Instructor Required: No Beliefs That Will Affect Care: None marital status: Current Living Situation: Spouse current occupational status: retired Feels Safe at Home: Yes Childhood Exposure to Second-Hand Smoke: Yes caffeine: Yes Dental Care, Regularly: Yes Physical Activity Frequency: 1-2 Times per Week Seatbelt Use: always Sunscreen Use: Yes Assistive Devices: None Review of Systems Review of Systems: All systems reviewed & are unremarkable except as noted in HPI & below Physical Exam Physical Exam: Temp Pulse Resp BP Pulse Ox 36.1 C L 60 18 126/69 96 03/01/20 07:56 03/01/20 11:00 03/01/20 11:00 03/01/20 11:00 03/01/20 11:00 Constitutional: WD/WN, vitals as above Respiratory: normal respiratory effort, lungs clear to auscultation Cardiovascular: RRR, no murmur, no edema Gastrointestinal (Abdomen): normal bowel sounds, soft, nontender, no hepatosplenomegaly Neurologic: PERRL, EOMI, accommodation nl, no face palsy, no dysarthria Results & Data ([facility]) Vital Signs (Past 12 Hours) Vital Signs Temp Pulse Pulse Resp BP BP Pulse Ox 03/01/20 11:00 60 18 126/69 96 03/01/20 10:00 70 18 137/73 97 03/01/20 08:58 60 18 126/67 97 03/01/20 08:32 89 L 03/01/20 08:12 65 18 144/72 H 95 03/01/20 07:56 36.1 C L 72 20 146/86 H 95 Laboratory Results Cardiac Enzymes 03/01/20 03/01/20 Range/Units 08:15 10:13 AST 26 (15-37) U/L Troponin I < 0.015 < 0.015 (0-0.045) ng/ml Coagulation 03/01/20 Range/Units 08:15 PT 11.0 (9.0-12.0) Seconds APTT 27.3 (21.0-31.0) Seconds CBC 03/01/20 Range/Units 08:15 WBC 4.34 L (4.8-10.8) K/uL RBC 3.87 L (4.7-6.1) M/uL Hgb 13.3 L (14.0-18.0) g/dL Hct 40.1 L (42-52) % Plt Count 192 (130-400) K/uL Neut # (Auto) 2.31 (1.4-6.5) K/uL Lymph # (Auto) 1.36 (1.2-3.4) K/uL Nolan # (Auto) 0.50 (0.11-0.59) K/uL Eos # (Auto) 0.15 (0-0.5) K/uL Baso # (Auto) 0.01 (0-0.2) K/uL Comprehensive Metabolic Panel 03/01/20 Range/Units 08:15 Sodium 141 (136-145) mmol/L Potassium 4.4 (3.5-5.1) mmol/L Chloride 108 H (98-107) mmol/L Carbon Dioxide 28 (21-32) mmol/L BUN 17 (7-18) mg/dl Creatinine 0.99 (0.6-1.4) mg/dl Glucose 108 H (70-99) mg/dl Calcium 8.5 (8.5-10.1) mg/dl AST 26 (15-37) U/L ALT 28 (12-78) U/L Alkaline Phosphatase 78 (45-117) U/L Total Protein 6.8 (6.4-8.2) gm/dl Albumin 3.5 (3.4-5.0) gm/dl Intake and Output 02/29/20 03/01/20 03/01/20 22:59 06:59 14:59 Other: Weight 91 kg Weight Measurement Method Chair Scale Patient Weight 03/02/20 06:59 Weight 91 kg Diagnostic Findings EKG performed 03/01/2020, 807 revealed sinus rhythm at 61 bpm with first-degree AV block, left bundle branch block, QRS duration 152 ms, unchanged compared to 12/17/2019, chronic left bundle branch block
[2020-03-01] MEDS ORDERED: CLOPIDOGREL BISULFATE 300 MG TAB ONE (11:59)
--- NOTE | 2020-03-01 12:02 | Pre Anesthesia Assessment ---
Date of Service March 01, 2020 Pre Sedation Assessment Vital Signs Temp Pulse Pulse Resp BP BP Pulse Ox 03/01/20 11:00 60 18 126/69 96 03/01/20 10:00 70 18 137/73 97 03/01/20 08:58 60 18 126/67 97 03/01/20 08:32 89 L 03/01/20 08:12 65 18 144/72 H 95 03/01/20 07:56 97.0 F L 72 20 146/86 H 95 Cardiovascular RRR, no murmur, no edema Respiratory normal respiratory effort, lungs clear to auscultation Pre-Sedation Airway Assessment Smoking Status: Former smoker Hx Sleep Apnea: No Hx Difficult Intubation: No Short, Thick Neck: No Thyromental Distance: > or= 3.5 Finger Breadths Oral Cavity: + WNL Mallampati Class: III ASA: ASA3 Procedure Planning Contraindications for Sedation: none Current Medications Reviewed: Yes Notes The planned sedation has been discussed with the patient. Informed Consent was obtained. I have identified the patient, determined the appropriateness of sedation and have assessed the patient immediately prior to the procedure. All medicine(s) and interventions are by my order.
[2020-03-01] MEDS: CLOPIDOGREL BISULFATE 75 MG TAB PO SCH (13:00)
--- NOTE | 2020-03-01 13:15 | Electrocardiogram Report ---
Test Reason : Blood Pressure : / mmHG Vent. Rate : 061 BPM Atrial Rate : 061 BPM P-R Int : 228 ms QRS Dur : 152 ms QT Int : 446 ms P-R-T Axes : 051 049 028 degrees QTc Int : 448 ms Sinus rhythm with 1st degree A-V block Left bundle branch block Abnormal ECG When compared with ECG of 17-DEC-2019 10:31, No significant change was found Confirmed by Srini Byers ([id number]) on 03/01/2020 1:15:20 PM Referred By: ED Confirmed By:Oneil Byers
--- NOTE | 2020-03-01 13:30 | Cardiac Catheterization ---
[facility] Data: Entry Level Account Executive Cardiac Status Clinical evaluation leading to the procedure CAD Presenation: Unstable angina Anginal Classification: CCS IV Heart Failure: No Cardiogenic Shock within 24 Hours: No Cardiac Arrest within 24 Hours: No Imaging Studies Past 6 Months: No Stress Studies Past 6 Months: No Diagnostic Physicians Name: Srini Owen MD Closure Device Percutaneous Entry Location: Radial Closure Device: Radial Band Recommendations: PCI without planned CABG PCI Indication: Unstable Angina Lesion Segment Name: mid LAD Culprit Artery: Yes Stenosis Prior to Rx (%): 70 Chronic Total Occlusion: No IVUS: Yes FFR: No Pre-Procedure MOISES Flow: 3 Previously Treated Lesion: No Lesion Complexity: High/C Lesion Length (mm): 30 Thrombus Present: Yes Bifurcation Lesion: Yes Guidewire Across Lesion: Stenosis Post-Procedure (%): 0 Post-Procedure MOISES Flow: 3 Devices(s) Deployed: Yes Yes Intraprocedure Events Significant Disection: No Perforation: No Cardiac Cath Procedure Full Procedure Date March 01, 2020 Pre-Procedure Diagnosis Pre-Procedure Diagnosis: Acute Coronary Syndrome AUC Score AUC Score: 8 Post-Procedure Diagnosis Post-Procedure Diagnosis: Severe CAD, Successful PCI and Normal Intracardiac Pressures Procedure(s) Performed Procedure(s) Performed: Coronary Angiography, Left Heart Cath, Drug Eluting Stent and IVUS Commissary Representative Srini Owen MD Skip Loader(s) Vincent Estimated Blood Loss Estimated Blood Loss: 15 Medication(s) Medication(s): Fentanyl, Heparin, Lidocaine 1%, Nicardipine, Nitroglycerin and Versed Summary of Findings Indication: Acute coronary syndrome/unstable angina Access: 6 Fr slender right radial artery Catheters: [place], JR4, diagnostic JL 3.5, EBU 3.5 guide Findings: LM -calcified, medium caliber, eccentric calcified plaque with 30 to 40% ostial stenosis by IVUS LAD -medium caliber vessel, 60% hazy earlymid segment disease after takeoff of D1 and prior to previous stents. Previous mid segment stents widely patent. Spasm in mid segment after stents. Distal vessel without significant disease. D2 stent widely patent. Circumflex -large caliber vessel, proximal irregularities, mid segment stent with minimal in-stent restenosis, large left PLB without significant disease. RCA -dominant, large caliber, widely patent proximal stent, latemid stent with 20 to 30% in-stent restenosis, 40 to 50% distal stenosis prior to bifurcation with PDA. PDA, PLBs without significant disease. LVEDP -9 --IVUS of LAD -- Left main cannulated with EBU 3.5 guide BMW wire placed into distal LAD [place] IVUS placed into distal LAD. Pullback revealed no significant disease in the midsegment after prior stent. Stents widely patent without significant in-stent restenosis. Severe stenosis just proximal to prior stents with acute thrombus. Heavily calcified, circumferential stenosis in mid segment just after takeoff of D1. Left main with mild to moderate ostial disease and eccentric calcified plaque. -- PCI of LAD-- Antithrombotic therapy: Heparin, clopidogrel Procedure: Mid LAD lesion predilated with 2.5 compliant balloon Dilated lesion stented with 3.5 x 38 mm [place] drug-eluting stent overlapping with proximal aspect of prior stent. Stent post-dilated with 4.0 noncompliant balloon IC vasodilators administered for spasm Repeat IVUS assessment showed well apposed, well-expanded proximal to mid stent. No apparent edge complication, left main injury. Post procedure MOISES 3 flow, stent well expanded with minimal residual stenosis and no apparent cardiac complications. Arterial Closure: TR Band Summary: 1. Multi-vessel coronary artery disease - 60-70% acute thrombotic mid LAD stenosis proximal to prior stents - Mid LAD, D2 stents widely patent - Mid circumflex stent widely patent - Proximal, mid RCA stents widely patent. - 30-40% ostial left main 2. Normal intracardiac filling pressure 3. Successful PCI of proximal to mid LAD with a single [place] overlapping proximal aspect of prior stent (3.5 x 38 mm [place]; post-dilated with 4.0 NC). Recommendations: To PCU for continued monitoring Reloaded with clopidogrel 300mg in lab head Continue extended dual-antiplatelet therapy Consult cardiac Rehab Hemodynamics Rest Ao:: 108/60/88 Final Ao: 132/60/88 LV: 118/9 Recommendations Recommendations: PCI without planned CABG Specimens Specimens: None Radiation Exposure (mGy) 3547 Contrast (mls) 120 Fluids (cc crystalloids) Fluids (cc crystalloids): 105 Drains Drains: none Anesthesia moderate Procedural Complication(s) None Disposition PCU I attest to the content of the Intraoperative Record and any orders documented therein. Any exceptions are noted below. ZhaogangG Card Cath Procedure Codes Cardiac Catheterization Procedure 1: Cardiovascular Cath Procedures: 55061 Coronaries and LHC (+/-LV) Therapeutic Services & Ancillary Proc Procedure 1: Cardiovascular Tx and Anc Procedures: 78955 IV Ultrasound (Coronary or Graft) Moderate Sedation Procedure 1: Sedation/Anesthesia: 47103 Mod Sedation by the same physician;Init15 Min Child Age 5 & Up Procedure 2: Sedation/Anesthesia: 20539 Mod Sedation by the same physician; Ea [id number] Minutes Stenting Procedure 1: Cardiovascular Stent Procedures: 39789 Perc transcatheter placement of intracoronary stent(s), with ang PG Care Time/CCT Total # of Minutes Spent Total Time Spent with Patient: Total time spent is greater than 50% in coordination of care (as documented) at patient's floor/unit and/or counseling patient:
[2020-03-01] MEDS ORDERED: SODIUM CHLORIDE 0.9% 1000ML 1,000 ML IV SCH (13:45)
--- NOTE | 2020-03-01 13:54 | Communication Note ---
Date of Service: March 01, 2020 I called pt's spouse and updated her on cardiac catheterization results and transfer to PCU room 242-1. Visitation limited due to COVID-19 policies, th tyshawnfore provided her update by phone.
[2020-03-01] MEDS ORDERED: ISOSORBIDE MONO EXTENDED REL 30 MG TABCR PO ONE (14:00)
[2020-03-01] MEDS ORDERED: MoRPHine SULFATE 2 MG/ML CARP IV PRN (14:02)
[2020-03-01] MEDS ORDERED: ISOSORBIDE MONO EXTENDED REL 60 MG TABCR PO ONE (14:02)
[2020-03-01] MEDS ORDERED: INFLUENZA ADMINISTRATION CHARGE ONE (14:06)
[2020-03-01] MEDS ORDERED: INFLUENZA VACCINE HIGH DOSE 65+ 0.7 ML SYR IM ONE (14:06)
--- NOTE | 2020-03-01 14:20 | Post Anesthesia Assessment ---
Date of Service March 01, 2020 Post Sedation Assessment Vital Signs Temp Pulse Pulse Resp BP BP Pulse Ox 03/01/20 14:00 63 03/01/20 13:57 98.2 F 62 18 171/81 H 95 03/01/20 13:56 66 18 172/84 H 96 03/01/20 13:41 98.2 F 65 18 172/84 H 96 03/01/20 11:00 60 18 126/69 96 03/01/20 10:00 70 18 137/73 97 03/01/20 08:58 60 18 126/67 97 03/01/20 08:32 89 L 03/01/20 08:12 65 18 144/72 H 95 03/01/20 07:56 97.0 F L 72 20 146/86 H 95 Recovery Score Activity: Moves 4 extremities Respiration: Deep Breath/Cough Circulation: +/-20% PreAnes Value Consciousness: Fully Awake Oxygen Saturation: O2 needed for >90% Discharge Sedation Level of Care: Fast Track Phase II Post Sedation Plan On clinical assessment, the patient appears to have tolerated the sedation without complications. Patient is recovering as anticipated. Patient will continue to be monitored by nursing and may be discharged when sedation discharge criteria are met per below protocol. Upon Completions of procedure up to 15 minutes continue every 5 minute vital signs and the P.A.R. score; then discharge to a Phase I or Fast Track to Phase II per the following guidelines: * Discharge Patient to appropriate Phase II area if PAR is 8 or greater or return to pre- procedure baseline. The post - procedure orders will be as directed. * If PAR score is less than 8 or not return to pre-procedure baseline then patient will follow Phase I monitoring till PAR is reached for Phase II. The Phase I may be done in procedure room or may call to secure a Phase I area. * If naloxone or flumazenil are used for reversal, hold in Phase I for continued monitoring from when last reversal dose was given for a minimum of 60 minutes or longer pending the nurse and/or physician discretion of patient condition before discharge to Phase II. Please call the Sedation Physician to re-evaluate and complete post-note for discharge to Phase II area. Do NOT discharge from procedure sedation or Phase 1 until post- sedation evaluation note is complete by procedure /sedation MD Sedation Discharge Instructions to be given to the patient at discharge to home.
[2020-03-01] MEDS ORDERED: ESCITALOPRAM OXALATE 10 MG TAB PO SCH (21:00)
[2020-03-01] MEDS ORDERED: amLODIPine BESYLATE 5 MG TAB PO SCH (21:00)
[2020-03-01] MEDS ORDERED: METOPROLOL TARTRATE 50 MG TAB PO SCH (21:00)
[2020-03-01] MEDS ORDERED: ROSUVASTATIN CALCIUM 20 MG TAB PO SCH (21:00)
--- NOTE | 2020-03-01 22:18 | Hospitalist Progress Note ---
Date of Service March 01, 2020 Assessment & Plan Admission and Anticipated Discharge Date Admission Date: March 01, 2020 Results & Data Results & Data ([facility]) Vital Signs (Past 12 Hours) Vital Signs Temp Pulse Pulse Resp BP Pulse Ox 03/01/20 19:07 36.8 C 65 18 112/60 94 03/01/20 18:26 70 142/70 H 95 03/01/20 17:26 85 130/66 93 03/01/20 16:34 75 03/01/20 16:26 68 18 130/74 93 03/01/20 15:26 18 152/77 H 93 03/01/20 14:56 63 155/78 H 92 03/01/20 14:45 75 03/01/20 14:26 67 16 163/79 H 93 03/01/20 14:11 62 18 171/81 H 96 03/01/20 14:00 63 03/01/20 13:57 36.8 C 62 18 171/81 H 95 03/01/20 13:56 66 18 172/84 H 96 03/01/20 13:41 36.8 C 65 18 172/84 H 96 03/01/20 11:00 60 18 126/69 96 PG Care Time/CCT Total # of Minutes Spent Total Time Spent with Patient: Total time spent is greater than 50% in coordination of care (as documented) at patient's floor/unit and/or counseling patient: Coding
--- NOTE | 2020-03-01 22:21 | History & Physical Report ---
Date of Service March 01, 2020 Assessment & Plan (1) Unstable angina pectoris: Patient will be admitted for unstable angina. Vikas consult cardio. May need an emergent cardiac cath. will resume home meds. will order another dose of nitro. First set of troponin was negative. (2) Hyperlipidemia: Will resume home meds. (3) Hypertension: will resume home meds. Admission and Anticipated Discharge Date Admission Date: March 01, 2020 History of Present Illness Chief Complaint: left sided chest pain Primary Care Provider: Marcos Calderon MD Emile Zelaya is a 69 year old male arrives to the hospital for left sided chest pain. The patient reports feeling well but this morning after going to the bathroom, as he was walking back, he had sharp pain in his left arm that radiated to his left shoulder and chest. He reports this is similar to his previous episodes of chest pain. This is accompanied by SOB. Patient reports he continues to have chest pain. Pain has improved with ni troglycerin but it has not gone away. Patient has history of 3 stents in the past: 2 drug-eluting stents to the LAD and 1 drug-eluting stent to the circumflex coronary artery. Allergies Allergy/AdvReac Type Severity Reaction Status Date / Time Iodinated Contrast Media Allergy Intermediate Hives Verified 03/01/20 09:30 atorvastatin [From Lipitor] AdvReac Unknown . Verified 03/01/20 09:30 simvastatin [From Zocor] AdvReac Unknown . Verified 03/01/20 09:30 Home Medications Medication Instructions Recorded Confirmed Type aspirin 81 mg PO QAM 05/29/18 03/01/20 History clopidogrel 75 mg PO QAM 05/29/18 03/01/20 History loratadine [Claritin] 10 mg PO QAM 05/29/18 03/01/20 History amoxicillin 500 mg capsule See Rx Instructions .ROUTE 10/02/18 03/01/20 History .COMPLEX PRN cap isosorbide mononitrate 60 mg 60 mg PO QAM #90 tab 03/25/19 03/01/20 Rx tablet,extended release 24 hr rosuvastatin 20 mg tablet 20 mg PO HS 04/10/19 03/01/20 History coenzyme Q10 400 mg capsule 400 mg PO QAM 10/30/19 03/01/20 History omega-3 fatty acids 1,000 mg 1,000 mg PO QAM 10/30/19 03/01/20 History capsule lorazepam 0.5 mg tablet 0.5 mg PO DAILY PRN #30 tab 12/12/19 03/01/20 Rx zolpidem 5 mg tablet See Rx Instructions .ROUTE 12/17/19 03/01/20 Rx .COMPLEX #90 tab escitalopram oxalate 10 mg tablet 15 mg PO HS #45 tab 02/10/20 03/01/20 Rx lisinopril 5 mg tablet 5 mg PO QAM #90 tab 02/10/20 03/01/20 Rx metoprolol tartrate 50 mg tablet 50 mg PO QPM #90 tab 02/10/20 03/01/20 Rx tramadol 50 mg tablet 50 mg PO Q8H PRN #90 tab 02/21/20 03/01/20 Rx amlodipine 5 mg PO HS 03/01/20 03/01/20 History Past Med/Surg History Medical History Acute myocardial infarction Arteriosclerotic cardiovascular disease (ASCVD) B12 deficiency CAD (coronary artery disease) Depression Folate deficiency Hematuria, microscopic Hyperlipidemia Impaired fasting glucose Insomnia Left sided chest pain Macrocytic anemia Macrocytosis Mild intermittent asthma Myocardial infarct, old Need for hepatitis C screening test Right knee DJD Rotator cuff arthropathy Unstable angina Surgical History H/O heart artery stent drug eluting stent placed 05/30/2018 prior balloon angioplasty in 1987 after [place] History of hernia repair History of knee replacement History of total knee arthroplasty Status post reverse total arthroplasty of right shoulder Family History Unknown Acute myocardial infarction Lung cancer Atherosclerosis Other Hypertension Myocardial infarction Denies family history of Ovarian cancer Prostate cancer Diabetes Breast cancer Colorectal cancer Stroke Social History Smoking Status: Former smoker Tobacco Type: Cigarettes Second Hand Exposure: No; Hx Alcohol Use: Yes Alcohol Intake Frequency: Monthly or Less Hx Substance Use: No Preferred Language: Moldovan Communication Ability: Effective Edger Liner Required: No Beliefs That Will Affect Care: None marital status: Current Living Situation: Spouse current occupational status: retired Other Information That Helps Us Care for You: No Feels Safe at Home: Yes Safety Concerns: Feels Safe At This Time Childhood Exposure to Second-Hand Smoke: Yes caffeine: Yes Dental Care, Regularly: Yes Physical Activity Frequency: 1-2 Times per Week Seatbelt Use: always Sunscreen Use: Yes Assistive Devices: None Review of Systems Constitutional: no fever and no sweats Eyes: no diplopia Ear, Nose, Mouth, Throat: no ear trauma Respiratory: no change in sputum Cardiovascular: + chest pain, + chest pain with activity and + dyspnea at rest Gastrointestinal: no abdominal pain and no bloating Genitourinary: no urinary frequency Musculoskeletal: no radicular pain Integumentary: no rash and no lesions Neurologic: no falls Psychiatric: no behavioral changes and no hopelessness Endocrine: no polydipsia Hematologic / Lymphatic: no coagulopathy Allergy / Immunological: no GI upset with certain foods and no seasonal rhinorrhea Physical Exam Constitutional: WD/WN, vitals as above Eyes: PERRL, conjunctivae normal, anicteric sclerae ENMT: external ear and nose normal, oropharynx normal Neck: trachea midline, no thyromegaly Respiratory: normal respiratory effort, lungs clear to auscultation Cardiovascular: RRR, no murmur, no edema Gastrointestinal (Abdomen): normal bowel sounds, soft, nontender, no hepatosplenomegaly Musculoskeletal: Head/Neck/Chest: + head abnormal to inspection Skin: no rashes, warm and dry Neurologic: PERRL, EOMI, accommodation nl, no face palsy, no dysarthria Psychiatric: A+Ox3, euthymic affect Lymphatic: no cervical or axillary lymphadenopathy Results & Data Results & Data ([facility]) Vital Signs (Past 12 Hours) Vital Signs Temp Pulse Pulse Resp BP Pulse Ox 03/01/20 19:07 36.8 C 65 18 112/60 94 03/01/20 18:26 70 142/70 H 95 03/01/20 17:26 85 130/66 93 03/01/20 16:34 75 03/01/20 16:26 68 18 130/74 93 03/01/20 15:26 18 152/77 H 93 03/01/20 14:56 63 155/78 H 92 03/01/20 14:45 75 03/01/20 14:26 67 16 163/79 H 93 03/01/20 14:11 62 18 171/81 H 96 03/01/20 14:00 63 03/01/20 13:57 36.8 C 62 18 171/81 H 95 03/01/20 13:56 66 18 172/84 H 96 03/01/20 13:41 36.8 C 65 18 172/84 H 96 03/01/20 11:00 60 18 126/69 96 PG Care Time/CCT Total # of Minutes Spent Total Time Spent with Patient: Total time spent is greater than 50% in coordination of care (as documented) at patient's floor/unit and/or counseling patient: Coding Level of Care Code 13633 Initial Inpt Care Lvl 3 Diagnoses Unstable angina pectoris I20.0 Hyperlipidemia E78.5 Hyperlipidemia type: unspecified Hypertension I10 Hypertension type: essential hypertension Time Spent (min) 55 (1) Hyperlipidemia Hyperlipidemia type: unspecified Qualified Code(s): E78.5 - Hyperlipidemia, unspecified (2) Hypertension Hypertension type: essential hypertension Qualified Code(s): I10 - Essential (primary) hypertension
[2020-03-02] MEDS ORDERED: ZOLPIDEM TARTRATE 5 MG TAB PO PRN (00:03)
[2020-03-02 07:44] LABS: Basophils # (auto) 0.01 K/uL (0-0.2); Basophils % (auto) 0.1 %; Eosinophils % (auto) 1.4 %; Hematocrit (blood only) 35.2 % (42-52); Hemoglobin 11.5 g/dL (14.0-18.0); Immature Granulocytes # (auto) 0.01 K/uL (0.00-0.02); Immature Granulocytes % (auto) 0.1 %; Lymphocytes # (auto) 1.36 K/uL (1.2-3.4); Lymphocytes % (auto) 18.8 %; Mean Corpuscular Hgb Conc 32.7 g/dL (32-36); Mean Corpuscular Volume 104.1 fL (80-100); Mean Platelet Volume 10.1 fL (7.4-10.4); Monocytes % (auto) 8.3 %; Neutrophils # (auto) 5.15 K/uL (1.4-6.5); Neutrophils % (auto) 71.3 %; Platelet Count 173 K/uL (130-400); RDW Coefficient of Variation 12.9 % (11.5-14.5); RDW Standard Deviation 48.7 fL (36.4-46.3); Red Blood Count 3.38 M/uL (4.7-6.1); White Blood Count 7.23 K/uL (4.8-10.8)
[2020-03-02] MEDS: CLOPIDOGREL BISULFATE 75 MG TAB PO SCH (08:19)
[2020-03-02 08:23] LABS: BUN Creatinine Ratio 16.9 (10-20); Creatinine Clr Calc Pharmacy 79.7 ml/min; Est GFR (African American) 97.4; Est GFR (Non-African American) 84.1; Potassium 4.1 mmol/L (3.5-5.1)
[2020-03-02 08:40] LABS: Albumin Globulin Ratio 1.1 (0.9-2); Bilirubin,Total 0.3 mg/dl (0.2-1); Globulin 2.8 gm/dl (2.5-4.0); Total Protein 5.8 gm/dl (6.4-8.2); Troponin I 6.14 ng/ml (0-0.045)
[2020-03-02] MEDS ORDERED: lisinopril 5 MG TAB PO SCH (09:00)
[2020-03-02] MEDS ORDERED: OMEGA-3 (PURIFIED FISH OIL) 1 GM CAP PO SCH (09:00)
[2020-03-02] MEDS ORDERED: HEPARIN SOD 5,000 UNIT/0.5 ML VIAL SQ SCH (09:00)
[2020-03-02] MEDS ORDERED: LORATADINE 10 MG TAB PO SCH (09:00)
[2020-03-02] MEDS ORDERED: ISOSORBIDE MONO EXTENDED REL 60 MG TABCR PO SCH (09:00)
[2020-03-02] MEDS ORDERED: ASPIRIN 81 MG ECTAB PO SCH (09:00)
--- NOTE | 2020-03-02 11:03 | Cardiology Progress Note ---
Date of Service March 02, 2020 Assessment & Plan (1) NSTEMI (non-ST elevated myocardial infarction): Patient presented with symptoms of unstable angina. Underwent emergent cardiac catheterization 03/02/20 with findings of at 60% hazy early-mid segment thrombotic LAD lesion which was assess via IVUS. The previously placed LAD, diagonal, circumflex and RCA stents were patent. Underwent successful complex PCI of proximal to mid LAD with a single [place] overlapping proximal aspect of prior stent (3.5 x 38 mm [place]; post-dilated with 4.0 NC). -Post procedure , symptoms had resolved. -Some degree of spasm of the distal LAD noted at time of cardiac cath, for which ongoing treatment with prior to hospital doses of Imdur and amlodipine to be continued. Continue chronic ASA 81 mg daily, clopidogrel 75 mg daily. (2) Left bundle branch block (LBBB): Chronic LBBB. Echo performed 03/02/20 reveals stable findings, LVEF ~50%, abnormal septal motion consistent with LBBB, chronic RCA territory wall motion abnormality. (3) Hypertension: BP elevated immediately post procedure yesterday. Improved now. Continue SEGREGATOR metoprolol, lisinopril, Imdur, amlodipine (4) Hyperlipidemia LDL goal <70: LDL ideally controlled at 61 mg /dl 12/17/19. Continue rosuvastatin 20 mg. DISPOSITION: -ambulate in strauss this am. -Troponin trended up to 6 ng/ml this am- not surprising given the IVUS findings. -Repeat Troponin at 12 noon. If patient feeling well and troponin is stable, will consider discharge later today. Admission and Anticipated Discharge Date Admission Date: March 01, 2020 Subjective Patient seen and examined. No recurrent angina overnight or thus far this am. Telemetry reveals SR in the 70s without arrhythmia. Review of Systems Review of Systems: All systems reviewed & are unremarkable except as noted in HPI & below Physical Exam Physical Exam: Temp Pulse Resp BP Pulse Ox 36.5 C 64 18 114/68 95 03/02/20 07:54 03/02/20 08:00 03/02/20 07:54 03/02/20 07:54 03/02/20 07:54 Constitutional: WD/WN, vitals as above Respiratory: normal respiratory effort, lungs clear to auscultation Cardiovascular: RRR, no murmur, no edema Vessels: no JVD Mild ecchymosis surrounding right radial access site. Gastrointestinal (Abdomen): normal bowel sounds, soft, nontender, no hepatosplenomegaly Neurologic: PERRL, EOMI, accommodation nl, no face palsy, no dysarthria Results & Data ([facility]) Vital Signs (Past 12 Hours) Vital Signs Temp Pulse Pulse Resp BP BP Pulse Ox 03/02/20 08:00 64 03/02/20 07:54 36.5 C 62 18 114/68 95 03/02/20 04:14 36.8 C 63 18 100/63 98 03/01/20 23:32 36.8 C 63 18 111/61 94 Laboratory Results Cardiac Enzymes 03/02/20 Range/Units 06:55 AST 50 H (15-37) U/L Troponin I 6.140 H* (0-0.045) ng/ml CBC 03/02/20 Range/Units 06:55 WBC 7.23 (4.8-10.8) K/uL RBC 3.38 L (4.7-6.1) M/uL Hgb 11.5 L (14.0-18.0) g/dL Hct 35.2 L (42-52) % Plt Count 173 (130-400) K/uL Neut # (Auto) 5.15 (1.4-6.5) K/uL Lymph # (Auto) 1.36 (1.2-3.4) K/uL [place] # (Auto) 0.60 H (0.11-0.59) K/uL Eos # (Auto) 0.10 (0-0.5) K/uL Baso # (Auto) 0.01 (0-0.2) K/uL Comprehensive Metabolic Panel 03/02/20 Range/Units 06:55 Sodium 140 (136-145) mmol/L Potassium 4.1 (3.5-5.1) mmol/L Chloride 106 (98-107) mmol/L Carbon Dioxide 28 (21-32) mmol/L BUN 16 (7-18) mg/dl Creatinine 0.93 (0.6-1.4) mg/dl Glucose 95 (70-99) mg/dl Calcium 8.0 L (8.5-10.1) mg/dl AST 50 H (15-37) U/L ALT 22 (12-78) U/L Alkaline Phosphatase 68 (45-117) U/L Total Protein 5.8 L (6.4-8.2) gm/dl Albumin 3.0 L (3.4-5.0) gm/dl Intake and Output 03/01/20 03/02/20 03/02/20 22:59 06:59 14:59 Intake Total 1200 / 1400 100 / 1400 Output Total 350 / 700 Balance 850 / 700 100 / 700 Intake: IV 1000 / 1000 Nss 1000ML 1,000 ml @ 100 mls/ 1000 / 1000 hr IV .Q10H [facility] Rx#:[id number] Oral 200 / 400 100 / 400 Output: Urine 350 / 700 Other: Weight 89.6 kg Weight Measurement Method Standing Scale (1) Hypertension Hypertension type: essential hypertension Qualified Code(s): I10 - Essential (primary) hypertension
--- NOTE | 2020-03-02 11:58 | Electrocardiogram Report ---
Test Reason : Blood Pressure : / mmHG Vent. Rate : 060 BPM Atrial Rate : 060 BPM P-R Int : 202 ms QRS Dur : 154 ms QT Int : 454 ms P-R-T Axes : 045 007 016 degrees QTc Int : 454 ms Normal sinus rhythm Left bundle branch block Abnormal ECG When compared with ECG of 01-MAR-2020 08:07, No significant change was found Confirmed by Beau Ortiz ([id number]) on 03/02/2020 11:58:16 AM Referred By: REFERRED SELF Confirmed By:Beau Ortiz
--- NOTE | 2020-03-02 13:54 | Communication Note ---
Date of Service: March 02, 2020 Patient reassessed. SR on telemetry without arrhythmia. EKG performed in follow up at 13:03 revealed SR at 73 with LBBB, unchanged compared to prior. Troponin I 6.14 this am at 6:55 , 7.65 on repeat at 11:48 am. Patient has been walking in the hallway with no recurrent angina. Echo with stable findings. Impression: Despite mild elevation in troponin, patient doing well clinically with multiple markers of reassurance. Plan: stable for discharge to home on medication program as discussed in my progress note this am. Has cardio follow up 05/22/20, I will request another visit in 2-3 weeks.
--- NOTE | 2020-03-03 15:54 | Electrocardiogram Report ---
Test Reason : Blood Pressure : / mmHG Vent. Rate : 073 BPM Atrial Rate : 073 BPM P-R Int : 200 ms QRS Dur : 146 ms QT Int : 426 ms P-R-T Axes : 043 034 038 degrees QTc Int : 469 ms Normal sinus rhythm Left bundle branch block Abnormal ECG When compared with ECG of 01-MAR-2020 13:29, No significant change was found Confirmed by Beau Ortiz ([id number]) on 03/03/2020 3:54:12 PM Referred By: REFERRED SELF Confirmed By:Beau Ortiz
--- NOTE | 2020-03-09 15:26 | Discharge Summary ---
Date of Service March 02, 2020 Admission HPI Per Admitting Provider Emile Zelaya is a 69 year old male arrives to the hospital for left sided chest pain. The patient reports feeling well but this morning after going to the bathroom, as he was walking back, he had sharp pain in his left arm that radiated to his left shoulder and chest. He reports this is similar to his previous episodes of chest pain. This is accompanied by SOB. Patient reports he continues to have chest pain. Pain has improved with nitroglycerin but it has not gone away. Patient has history of 3 stents in the past: 2 drug-eluting stents to the LAD and 1 drug-eluting stent to the circumflex coronary artery. Principal Diagnosis unstable angina Discharge Exam Constitutional WD/WN, vitals as above Eyes PERRL, conjunctivae normal, anicteric sclerae ENMT external ear and nose normal, oropharynx normal Neck trachea midline, no thyromegaly Respiratory normal respiratory effort, lungs clear to auscultation Cardiovascular RRR, no murmur, no edema Gastrointestinal (Abdomen) normal bowel sounds, soft, nontender, no hepatosplenomegaly Musculoskeletal Head/Neck/Chest: + head abnormal to inspection Skin no rashes, warm and dry Neurologic PERRL, EOMI, accommodation nl, no face palsy, no dysarthria Psychiatric A+Ox3, euthymic affect Lymphatic no cervical or axillary lymphadenopathy Discharge Data Allergies Allergy/AdvReac Type Severity Reaction Status Date / Time Iodinated Contrast Media Allergy Intermediate Hives Verified 03/01/20 09:30 atorvastatin [From Lipitor] AdvReac Unknown . Verified 03/01/20 09:30 simvastatin [From Zocor] AdvReac Unknown . Verified 03/01/20 09:30 Consultations 03/01/20 09:13 ED Decision to Admit Stat 03/01/20 11:07 Consult Cardiology Routine 03/01/20 13:43 Consult Cardiac Rehabilitation Routine Procedures Performed Operation Date: 03/01/20 11:40 Actual Procedures s Cineradiography w/Routine Exam - Jasmeet Owen MD s Drug Eluting Stent SGl Vessel - Jasmeet Owen MD s IVUS Coronary Single Vessel - Jasmeet Owen MD p Cath, Left with Cors and Vent - Jasmeet Owen MD Ordered Studies 03/01/20 11:41 CL Cath Imgs for PACS use only Stat 03/01/20 13:19 CL IVUS Coronary Single Vessel Routine Hospital Course (1) Unstable angina pectoris: Patient presented with symptoms of unstable angina. Underwent emergent cardiac catheterization 03/02/20 with findings of at 60% hazy early-mid segment thrombotic LAD lesion which was assess via IVUS. The previously placed LAD, diagonal, circumflex and RCA stents were patent. AAppreciate input from CARDIO. Underwent successful complex PCI of proximal to mid LAD with a single [place] overlapping proximal aspect of prior stent (3.5 x 38 mm [place]; post-dilated with 4.0 NC). -Post procedure , symptoms had resolved. -Some degree of spasm of the distal LAD noted at time of cardiac cath, for which ongoing treatment with prior to hospital doses of Imdur and amlodipine to be continued. Continue chronic ASA 81 mg daily, clopidogrel 75 mg daily. (2) Left bundle branch block (LBBB): Chronic LBBB. Echo performed 03/02/20 reveals stable findings, LVEF ~50%, abnormal septal motion consistent with LBBB, chronic RCA territory wall motion abnormality. Given that patient had mild elevation of troponin, and he is doing well ambulated halls. Cardio felt he was ready for discharge. Will recommend close followup with cardio in 2-3 weeks. (2) Hyperlipidemia: Will resume home meds. (3) Hypertension: will resume home meds. Total Time Total Time Spent Total Time Spent (In Minutes): 32 Discharge Plan Discharge Items Patient Disposition: Home - Self-Care Reason For Visit: CHEST PAIN Discharge Diagnosis: chest pain Condition on Discharge: Good Activity: Resume your previous activity Non-emergency contact: Primary Care Provider Call non-emergency contact if: you have any medication questions Follow-up/Referrals: Marcos Calderon MD [Primary Care Provider] - Diet: Heart Healthy Addtl Attending Provider Instructions: Home Care: * Take your medications exactly as directed. Don't skip doses. * Remember that recovery after a heart attack takes time. Plan to rest for at lease 4-8 weeks while you recover. Then return to normal activity when your doctor says it's okay. * Ask your doctor about joining a heart rehabilitation program. * Tell your doctor if you are feeling depressed. Feelings of sadness are common after a heart attack, but it is important that you speak to someone if you are feeling overwhelmed by these feelings. * If you are having chest pain, call 911 for an ambulance. Do NOT drive yourself to the hospital. * Ask your family members to learn CPR. * Learn to take your own blood pressure and pulse. Keep a record of your results. Ask your doctor when you should seek emergency medical attention. He or she will tell you which blood pressure reading is dangerous. Lifestyle Changes: * Maintain a healthy weight. Get help to lose any extra pounds. * Cut back on salt. * Limit canned, dried, packaged, and fast foods. * Don't add salt to your food. * Season foods with herbs instead of salt when you cook. * Break the smoking habit. Enroll in a stop-smoking program to improve your chances of success. * Limit fatty foods. * Ask your doctor about having your lipid levels checked regularly. * Build up your activity according to your doctor's recommendation. * Ask your doctor when it's okay to resume sexual activity. * Tell your doctor about any erectile dysfunction (ED) medication you are taking. Some ED medications are not safe if you take certain heart medications. * Try to manage stress. Follow Up: It is important for you to keep your follow up appointments with your medical provider. Pending Studies at Discharge: No Stand-Alone Forms: My [facility], Smoking Cessation Medications and DC Order Prescriptions: Continued isosorbide mononitrate 60 mg tablet extended release 24 hr 60 mg PO QAM Qty: 90 RF: 3 lorazepam 0.5 mg tablet 0.5 mg PO DAILY PRN (Reason: anxiety) Qty: 30 RF: 0 zolpidem 5 mg tablet See Rx Instructions .ROUTE .COMPLEX Qty: 90 RF: 1 escitalopram oxalate 10 mg tablet 15 mg PO HS Qty: 45 RF: 6 lisinopril 5 mg tablet 5 mg PO QAM Qty: 90 RF: 3 metoprolol tartrate 50 mg tablet 50 mg PO QPM Qty: 90 RF: 3 tramadol 50 mg tablet 50 mg PO Q8H PRN (Reason: Pain) Qty: 90 RF: 1 rosuvastatin 20 mg tablet 20 mg PO HS RF: 0 amoxicillin 500 mg capsule See Rx Instructions .ROUTE .COMPLEX PRN (Reason: Prior to Dental Appointment) RF: 0 omega-3 fatty acids [Fish Oil Concentrate] 1,000 mg capsule 1,000 mg PO QAM RF: 0 amlodipine 5 mg tablet 5 mg PO HS RF: 0 clopidogrel 75 mg tablet 75 mg PO QAM RF: 0 aspirin 81 mg Tablet,Delayed Release (Dr/Ec) 81 mg PO QAM RF: 0 loratadine [Claritin] 10 mg Tablet 10 mg PO QAM RF: 0 coenzyme Q10 [Co Q-10] 400 mg capsule 400 mg PO QAM RF: 0 Discharge Orders: Discharge Order (Routine); Ordered 03/02/20 Ordered By: Emile Sevilla Admission Data Admit Date/Time: 03/01/20 14:02 Attending Provider: Emile Sevilla Admit Provider: Emile Sevilla Primary Care Provider: Marcos Calderon Other Providers: Emile Sevilla ; Davis Bear Other Interventions: Discharge Summary Assessment (RN) Last Done: 03/02/20 15:33 Coding Level of Care Code D/C Day Management >30 mins Diagnoses Unstable angina pectoris I20.0 Hyperlipidemia E78.5 Hyperlipidemia type: unspecified Hypertension I10 Hypertension type: essential hypertension Time Spent (min) 32
== END 2020-03-02 16:08 | disposition home or self-care (01) | DRG 247 ==
LOC: ED 07:52 → CC 10:26 → 2S 10:26

== ENCOUNTER 2020-06-13 10:25 | Inpatient (IN) ==
[2020-06-13] MEDS ORDERED: NITROGLYCERIN 2% OINTMENT 30GM TUBE EXT STA (10:48)
--- NOTE | 2020-06-13 10:51 | Emergency Department Note ---
Impression & Plan Chest pain, NSTEMI (non-ST elevated myocardial infarction) ED Provider Note NAME: TRAVIS HOLT AGE: 70 SEX: M : 1950 ARRIVES VIA: Walk-In INFORMANT: Patient, ED PROVIDER(S): Parker Nguyen MD CHIEF COMPLAINT: chest pain HPI: This is a 70-year-old male who presents emergency department complaining of chest pain that radiates up into his jaw and his arm that started at 2 AM this morning. The patient reports he initially took nitro for the pain and this resolved the pain however the pain has come back. He reports nothing seems to make the pain better or worse except for the nitro. He describes the pain as a burning sensation. The patient reports he has had similar pain previously when he has needed stents. ROS: See above HPI for pertinent positives & negatives. A total of 10 systems reviewed and were otherwise negative. PAST MEDICAL HISTORY: See Below PAST SURGICAL HISTORY: See Below FAMILY HISTORY: See Below SOCIAL HISTORY: See Below HOME MEDICATIONS: See Below ALLERGIES: See Below VITALS: See Below PHYSICAL EXAMINATION: VITAL SIGNS - Vital signs and nursing notes were reviewed. GENERAL - 70-year-old male appearing stated age who is in no acute distress. Communicates well with provider and answers questions appropriately. SKIN - Without rashes. HEAD - NC/AT. EYES - PERRL with EOMI bilaterally. Sclera anicteric. Palpebral conjunctiva pink and moist with no injection noted. EARS - No deformities of external structures noted on gross examination bilaterally. NOSE - Midline and without cyanosis. No epistaxis or purulent drainage noted. Septum midline without deviation or septal hematoma noted. MOUTH/OROPHARYNX - Without perioral cyanosis. Buccal mucosa pink and moist and without leukoplakia. Tongue midline with equal elevation of palate bilaterally. No tonsillar hypertrophy, erythema, or exudates noted. dentition noted. NECK - Neck with FROM. Supple to palpation. lymphadenopathy noted. No nuchal rigidity. LUNGS - Chest wall symmetric without accessory muscle use, intercostals retractions, or central cyanosis. Normal vesicular breath sounds CTA B/L. No wheezes, rales, or rhonchi appreciated. CARDIAC - RRR with S1/S2. No murmur, rubs, or gallops appreciated. ABDOMEN - Abdominal contour without pulsations or visible masses. BS normoactive all four quadrants. No tenderness, palpable masses, hepatosplenomegaly, or ascites noted. EXTREMITIES - No clubbing or peripheral cyanosis. No pretibial edema present. +3/5 radial, posterior tibial, and dorsalis pedis pulses palpated throughout. +5/5 strength noted in UE/LE bilaterally. NEUROLOGIC - Cranial nerves II through XII grossly intact. Sensory intact to light touch throughout. Patellar reflexes +2/4. PSYCH - A&Ox3 and cooperates fully with examiner. Pt is very pleasant and interacts well with examiner. MEDICAL DECISION MAKING: Patient was seen and evaluated as above in room A3. Review was performed of nursing notes and vital signs. I did review pertinent previous visits and patient history. After obtaining a thorough history and physical examination the above work up was performed. This 70-year-old male who presents emergency department complaining of chest pain. The patient was originally pain-free when he arrived in the emergency department however the chest pain did come back despite receiving nitroglycerin ointment. Based on this the patient was then given morphine as well as Zofran. Due to the complicated nature of the patient's past medical history I did discuss the case with the satellite television installer on-call and noted that the patient's troponin is not 0. The decision was made to take the patient to the cardiac Route Salesperson. Prior to the Route Salesperson the patient was pretreated with Solu-Medrol Pepcid as well as Benadryl due to the patient's dye allergy. While in the department, I personally reevaluated the patient several times and each time the patient was found to be resting comfortably. The patient was educated upon management, educated upon todays findings/results, educated upon importance of follow up from today's visit, educated upon symptoms in which to return, had questions answered prior to discharge, verbalized understanding, and was discharged home in good condition. An order was placed for continuous cardiac monitoring. The monitor shows a rate of 79 with Normal SInus rhythm. The patient was evaluated during a period of high volume and high acuity during the global COVID-19 pandemic, and that diagnosis was suspected/considered upon their initial presentation. Their evaluation, treatment and testing was consis tent with current guidelines for patients who present with complaints or symptoms that may be related to COVID-19. Patient was seen while provider was wearing PPE. Triage Nursing notes reviewed. Prior medical records reviewed Vital Signs: reviewed and remarkable for no significant abnormalities Differential diagnosis: Cardiac ischemia, aortic dissection, pulmonary embolism, pneumothorax, pneumonia, pericarditis, myocarditis, esophageal rupture, GERD, cholecystitis, pancreatitis, musculoskeletal, as well as other pathologies. ER treatment provided: See below Diagnostics interpreted by me: ECG: Normal sinus rhythm left bundle branch block QTC is 461 ventricular rate of [address] elevation or depression EKG is compared to April 06, 2020 no significant change was found Laboratory studies: As stated above and show below. Imaging studies: See below Consultation(s): Cardiology, interventional cardiology, Internal Medicine Critical Care: I have personally spent greater than 30 minutes of critical care time in the direct management of this patient. This includes bedside care, interpretation of diagnostic studies, and testing, discussion with consultants, patient, and family members, and other required patient management activities. This 30 minutes is in excess of all separately billable procedures. Past Med/Surg History Medical History Acute myocardial infarction Anxiety and depression Arteriosclerotic cardiovascular disease (ASCVD) B12 deficiency CAD (coronary artery disease) Depression Folate deficiency Hematuria, microscopic Hyperlipidemia Hypertension Impaired fasting glucose Insomnia Left bundle branch block (LBBB) Left sided chest pain Macrocytic anemia Macrocytosis Mild intermittent asthma Myocardial infarct, old Need for hepatitis C screening test Right knee DJD Rotator cuff arthropathy Unstable angina Surgical History H/O heart artery stent drug eluting stent placed 05/30/2018 prior balloon angioplasty in 1987 after [place] History of hernia repair History of knee replacement History of total knee arthroplasty Status post reverse total arthroplasty of right shoulder Family History Unknown Acute myocardial infarction Lung cancer Atherosclerosis Other Hypertension Myocardial infarction Denies family history of Ovarian cancer Prostate cancer Diabetes Breast cancer Colorectal cancer Stroke Social History Smoking Status: Former smoker Tobacco Type: Cigarettes Second Hand Exposure: No; Hx Alcohol Use: Yes Alcohol Intake Frequency: Monthly or Less Hx Substance Use: No Preferred Language: Yi Communication Ability: Effective Egg Gatherer Required: No Beliefs That Will Affect Care: None marital status: Current Living Situation: Spouse current occupational status: retired Other Information That Helps Us Care for You: No Feels Safe at Home: Yes Safety Concerns: Feels Safe At This Time Childhood Exposure to Second-Hand Smoke: Yes caffeine: Yes Dental Care, Regularly: Yes Physical Activity Frequency: 1-2 Times per Week Seatbelt Use: always Sunscreen Use: Yes Assistive Devices: Denture - Upper, Denture - Lower, Hearing Aid - Left and Hearing Aid - Right Allergies Allergies Allergy/AdvReac Type Severity Reaction Status Date / Time Iodinated Contrast Media Allergy Intermediate Hives Verified 06/13/20 11:28 atorvastatin [From Lipitor] AdvReac Unknown . Verified 06/13/20 11:28 simvastatin [From Zocor] AdvReac Unknown . Verified 06/13/20 11:28 Home Meds Home Medications Medication Instructions Recorded Confirmed aspirin 81 mg PO QAM 05/29/18 06/13/20 clopidogrel 75 mg PO QAM 05/29/18 06/13/20 loratadine [Claritin] 10 mg PO QAM 05/29/18 06/13/20 amoxicillin 500 mg capsule See Rx Instructions .ROUTE 10/02/18 06/13/20 .COMPLEX PRN cap rosuvastatin 20 mg tablet 20 mg PO HS 04/10/19 06/13/20 coenzyme Q10 400 mg capsule 400 mg PO QAM 10/30/19 06/13/20 omega-3 fatty acids 1,000 mg 1,000 mg PO QAM 10/30/19 06/13/20 capsule amlodipine 5 mg PO HS 03/01/20 06/13/20 zolpidem 5 mg tablet 5 mg PO HS 05/07/20 06/13/20 Previous Rx's Medication Instructions Recorded escitalopram oxalate 10 mg tablet 15 mg PO HS #45 tab 02/10/20 lisinopril 5 mg tablet 5 mg PO QAM #90 tab 02/10/20 metoprolol tartrate 50 mg tablet 50 mg PO QPM #90 tab 02/10/20 isosorbide mononitrate 60 mg 60 mg PO QAM #90 tab 03/23/20 tablet,extended release 24 hr famotidine 20 mg PO BID #20 tab 04/06/20 tramadol 50 mg tablet 50 mg PO Q8H PRN #90 tab 04/20/20 lorazepam 0.5 mg tablet 0.5 mg PO DAILY PRN #30 tab 05/18/20 Results & Data (ED) Vital Signs Vital Signs - 24 hr 06/13/20 10:35 06/13/20 13:34 06/13/20 13:42 Temperature 36.7 C 37 C Temperature Source Oral Oral Pulse Rate 91 H Pulse Rate from SpO2 Sensor Respiratory Rate 18 16 Respiratory Effort / Characteristics Non-Labored Spontaneous Respiratory Depth Normal Respiratory Pattern Regular Blood Pressure 108/68 78/56 L Blood Pressure [Left Arm] 78/56 L Blood Pressure Mean 81 63 Blood Pressure Mean [Left Arm] 63 Blood Pressure Position [Left Arm] Lying Pulse Oximetry 97 93 Oxygen Delivery Method Room Air Room Air Sepsis Recent Fever Within 48 Hours No Sepsis New/Unexplained Change in Mental Status N/A Sepsis Action Taken by Nursing No Action Required 06/13/20 13:43 06/13/20 13:45 06/13/20 13:49 Temperature 37 C Temperature Source Oral Pulse Rate 67 70 76 Pulse Rate from SpO2 Sensor 66 69 75 Respiratory Rate 16 17 17 Respiratory Effort / Characteristics Respiratory Depth Respiratory Pattern Blood Pressure 130/71 144/68 H Blood Pressure [Left Arm] Blood Pressure Mean 90 93 Blood Pressure Mean [Left Arm] Blood Pressure Position [Left Arm] Pulse Oximetry 94 92 92 Oxygen Delivery Method Sepsis Recent Fever Within 48 Hours Sepsis New/Unexplained Change in Mental Status Sepsis Action Taken by Nursing 06/13/20 14:00 06/13/20 14:04 Temperature 37 C Temperature Source Oral Pulse Rate 71 79 Pulse Rate from SpO2 Sensor 71 78 Respiratory Rate 16 17 Respiratory Effort / Characteristics Respiratory Depth Respiratory Pattern Blood Pressure 142/98 H Blood Pressure [Left Arm] Blood Pressure Mean 112 Blood Pressure Mean [Left Arm] Blood Pressure Position [Left Arm] Pulse Oximetry 91 91 Oxygen Delivery Method Sepsis Recent Fever Within 48 Hours Sepsis New/Unexplained Change in Mental Status Sepsis Action Taken by Nursing Laboratory Data Result diagrams: 06/13/20 10:45 06/13/20 10:45 Lab Results 06/13/20 06/13/20 06/13/20 Range/Units 10:45 10:45 10:45 WBC 7.02 (4.8-10.8) K/uL RBC 4.34 L (4.7-6.1) M/uL Hgb 15.0 (14.0-18.0) g/dL Hct 44.3 (42-52) % MCV 102.1 H (80-100) fL MCH 34.6 H (25-34) pg MCHC 33.9 (32-36) g/dL RDW Std Deviation 47.8 H (36.4-46.3) fL RDW Coeff of Chuck 12.8 (11.5-14.5) % Plt Count 196 (130-400) K/uL MPV 10.2 (7.4-10.4) fL Immature Gran % (Auto) 0.3 % Neut % (Auto) 64.0 % Lymph % (Auto) 26.4 % Edmonson % (Auto) 7.5 % Eos % (Auto) 1.7 % Baso % (Auto) 0.1 % Neut # (Auto) 4.49 (1.4-6.5) K/uL Lymph # (Auto) 1.85 (1.2-3.4) K/uL [place]on # (Auto) 0.53 (0.11-0.59) K/uL Eos # (Auto) 0.12 (0-0.5) K/uL Baso # (Auto) 0.01 (0-0.2) K/uL Immature Gran # (Auto) 0.02 (0.00-0.02) K/uL PT 10.5 (9.0-12.0) Seconds INR 1.0 (0.9-1.1) APTT 25.1 (21.0-31.0) Seconds PTT Ratio 1.0 Activ Coag Time Kaolin (94-140) SECONDS Sodium 140 (136-145) mmol/L Potassium 4.2 (3.5-5.1) mmol/L Chloride 110 H (98-107) mmol/L Carbon Dioxide 25 (21-32) mmol/L Anion Gap 5.0 (3-11) BUN 25 H (7-18) mg/dl Creatinine 1.01 (0.6-1.4) mg/dl Est Cr Clr Drug Dosing Not Reportable Est GFR ( Amer) 87.6 Est GFR (Non-Af Amer) 75.5 BUN/Creatinine Ratio 24.9 H (10-20) Glucose 119 H (70-99) mg/dl Calcium 8.6 (8.5-10.1) mg/dl Total Bilirubin 0.4 (0.2-1) mg/dl AST 11 L (15-37) U/L ALT 21 (12-78) U/L Alkaline Phosphatase 79 (45-117) U/L Total Creatine Kinase 130 (39-308) U/L CK-MB (CK-2) 1.7 (0.5-3.6) ng/ml CK/CKMB % Calc 1.3 (0-3.0) Troponin I 0.016 (0-0.045) ng/ml Total Protein 7.2 (6.4-8.2) gm/dl Albumin 3.7 (3.4-5.0) gm/dl Globulin 3.5 (2.5-4.0) gm/dl Albumin/Globulin Ratio 1.1 (0.9-2) Lipase 75 (73-393) U/L COVID-19 Eval Order SARS-CoV-2 (PCR) (Negative) Influenza Type A (PCR) (Neg) Influenza Type B (PCR) (Neg) RSV (RT-PCR) (Neg) 06/13/20 06/13/20 06/13/20 Range/Units 10:55 10:55 13:15 WBC (4.8-10.8) K/uL RBC (4.7-6.1) M/uL Hgb (14.0-18.0) g/dL Hct (42-52) % MCV (80-100) fL MCH (25-34) pg MCHC (32-36) g/dL RDW Std Deviation (36.4-46.3) fL RDW Coeff of Chuck (11.5-14.5) % Plt Count (130-400) K/uL MPV (7.4-10.4) fL Immature Gran % (Auto) % Neut % (Auto) % Lymph % (Auto) % Ed[place] % (Auto) % Eos % (Auto) % Baso % (Auto) % Neut # (Auto) (1.4-6.5) K/uL Lymph # (Auto) (1.2-3.4) K/uL [place] # (Auto) (0.11-0.59) K/uL Eos # (Auto) (0-0.5) K/uL Baso # (Auto) (0-0.2) K/uL Immature Gran # (Auto) (0.00-0.02) K/uL PT (9.0-12.0) Seconds INR (0.9-1.1) APTT (21.0-31.0) Seconds PTT Ratio Activ Coag Time Kaolin 230 H (94-140) SECONDS Sodium (136-145) mmol/L Potassium (3.5-5.1) mmol/L Chloride (98-107) mmol/L Carbon Dioxide (21-32) mmol/L Anion Gap (3-11) BUN (7-18) mg/dl Creatinine (0.6-1.4) mg/dl Est Cr Clr Drug Dosing Est GFR ( Amer) Est GFR (Non-Af Amer) BUN/Creatinine Ratio (10-20) Glucose (70-99) mg/dl Calcium (8.5-10.1) mg/dl Total Bilirubin (0.2-1) mg/dl AST (15-37) U/L ALT (12-78) U/L Alkaline Phosphatase (45-117) U/L Total Creatine Kinase (39-308) U/L CK-MB (CK-2) (0.5-3.6) ng/ml CK/CKMB % Calc (0-3.0) Troponin I (0-0.045) ng/ml Total Protein (6.4-8.2) gm/dl Albumin (3.4-5.0) gm/dl Globulin (2.5-4.0) gm/dl Albumin/Globulin Ratio (0.9-2) Lipase (73-393) U/L COVID-19 Eval Order CovFluRsv at [facility] SARS-CoV-2 (PCR) NEGATIVE (Negative) Influenza Type A (PCR) Negative (Neg) Influenza Type B (PCR) Negative (Neg) RSV (RT-PCR) Negative (Neg) Administered Medications Discontinued Medications Aspirin (Aspirin 81 Mg Chew) 243 mg PO NOW STA Stop: 06/13/20 12:03 Last Admin: 06/13/20 12:13 Dose: Not Given Documented by: [id number] Aspirin (Aspirin Chew 324 Mg) Confirm Administered Dose 324 mg .ROUTE .STK-MED ONE Stop: 06/13/20 12:06 Last Admin: 06/13/20 12:07 Dose: 243 mg Documented by: [id number] Diphenhydramine HCl (Diphenhydramine 50 Mg/Ml Vial) 50 mg IV NOW STA Stop: 06/13/20 12:06 Last Admin: 06/13/20 12:13 Dose: Not Given Documented by: [id number] Diphenhydramine HCl (Diphenhydramine 50 Mg/Ml Vial) Confirm Administered Dose 50 mg .ROUTE .[facility] ONE Stop: 06/13/20 12:10 Last Admin: 06/13/20 12:10 Dose: 50 mg Documented by: [id number] Famotidine (Famotidine 20mg/5ml Iv Push) Confirm Administered Dose 20 mg IV .Aras ONE Stop: 06/13/20 12:10 Last Admin: 06/13/20 12:10 Dose: 20 mg Documented by: [id number] Hydrocortisone Sodium Succinate (Hydrocortisone Sod Succinate 100 Mg/2 Ml Vial) 100 mg IV NOW STA Stop: 06/13/20 12:05 Last Admin: 06/13/20 12:13 Dose: Not Given Documented by: [id number] Hydrocortisone Sodium Succinate (Hydrocortisone Sod Succinate 100 Mg/2 Ml Vial) Confirm Administered Dose 100 mg .ROUTE .Aras ONE Stop: 06/13/20 12:10 Last Admin: 06/13/20 12:10 Dose: 100 mg Documented by: [id number] Famotidine (Pepcid 20mg Iv Push) 20 mg in 5 mls @ 2.5 mls/min IV NOW STA Stop: 06/13/20 12:06 Last Admin: 06/13/20 12:13 Dose: Not Given Documented by: [id number] Morphine Sulfate (Morphine Sulfate 10 Mg/Ml Carp/Vial) 8 mg IV NOW STA Stop: 06/13/20 11:18 Last Admin: 06/13/20 11:33 Dose: 8 mg Documented by: [id number] Nitroglycerin (Nitroglycerin 2% Ointment 30gm Tube) 1 inch EXT NOW STA Stop: 06/13/20 10:49 Last Admin: 06/13/20 10:59 Dose: 1 inch Documented by: [id number] Ondansetron HCl (Ondansetron Inj 2 Mg/Ml 2 Ml Vial) 4 mg IV NOW STA Stop: 06/13/20 11:18 Last Admin: 06/13/20 11:32 Dose: 4 mg Documented by: [id number] Ticagrelor (Ticagrelor 90 Mg Tab) Confirm Administered Dose 180 mg PO .Aras ONE Stop: 06/13/20 13:12 Last Admin: 06/13/20 13:28 Dose: 180 mg Documented by: [id number] Imaging Data Radiologist's Impression: Chest X-Ray 06/13/20 10:47 XR chest 1V portable CLINICAL HISTORY: Atypical chest pain COMPARISON STUDY: 04/06/2020 FINDINGS: The cardiac and mediastinal contours remain stable. There is no failure. There is no focal pulmonary consolidation. There are no pleural effusions. There are postsurgical changes of a reverse total right shoulder arthroplasty.[ IMPRESSION: No active disease in the chest. ACT 112: Negative or not required by law. Electronically signed by: Ra Correia M.D. 06/13/2020 10:58 AM Discharge Plan Visit Data Chief Complaint: Cardiac Assessment Stated Complaint: CHEST PAIN,SOB ED Provider: Parker Nguyen Discharge Problem: Chest pain, NSTEMI (non-ST elevated myocardial infarction) Patient Disposition: Admitted As Inpatient Discharge Instructions Interventions: ED Discharge Assessment Last Done: 06/13/20 12:45 Discharge Problem: Chest pain Qualifiers: Chest pain type: unspecified Qualified Code(s): R07.9 - Chest pain, unspecified
--- NOTE | 2020-06-13 11:00 | XRay Report ---
XR chest 1V portable CLINICAL HISTORY: Atypical chest pain COMPARISON STUDY: 04/06/2020 FINDINGS: The cardiac and mediastinal contours remain stable. There is no failure. There is no focal pulmonary consolidation. There are no pleural effusions. There are postsurgical changes of a reverse total right shoulder arthroplasty.[ IMPRESSION: No active disease in the chest. ACT 112: Negative or not required by law. Electronically signed by: Ra Correia M.D. 06/13/2020 10:58 AM
[2020-06-13 11:02] LABS: Basophils # (auto) 0.01 K/uL (0-0.2); Basophils % (auto) 0.1 %; Eosinophils # (auto) 0.12 K/uL (0-0.5); Eosinophils % (auto) 1.7 %; Hematocrit (blood only) 44.3 % (42-52); Immature Granulocytes # (auto) 0.02 K/uL (0.00-0.02); Immature Granulocytes % (auto) 0.3 %; Lymphocytes # (auto) 1.85 K/uL (1.2-3.4); Lymphocytes % (auto) 26.4 %; Mean Corpuscular Hemoglobin 34.6 pg (25-34); Mean Corpuscular Hgb Conc 33.9 g/dL (32-36); Mean Corpuscular Volume 102.1 fL (80-100); Mean Platelet Volume 10.2 fL (7.4-10.4); Monocytes # (auto) 0.53 K/uL (0.11-0.59); Monocytes % (auto) 7.5 %; Neutrophils # (auto) 4.49 K/uL (1.4-6.5); Platelet Count 196 K/uL (130-400); RDW Coefficient of Variation 12.8 % (11.5-14.5); RDW Standard Deviation 47.8 fL (36.4-46.3); Red Blood Count 4.34 M/uL (4.7-6.1); White Blood Count 7.02 K/uL (4.8-10.8)
[2020-06-13] MEDS ORDERED: ONDANSETRON INJ 2 MG/ML 2 ML VIAL IV STA (11:17)
[2020-06-13] MEDS ORDERED: MoRPHine SULFATE 10 MG/ML CARP/VIAL IV STA (11:17)
[2020-06-13 11:19] LABS: Alanine Aminotransferase 21 U/L (12-78); Albumin Level 3.7 gm/dl (3.4-5.0); Aspartate Aminotransferase 11 U/L (15-37); BUN Creatinine Ratio 24.9 (10-20); Blood Urea Nitrogen 25 mg/dl (7-18); Calcium 8.6 mg/dl (8.5-10.1); Carbon Dioxide 25 mmol/L (21-32); Chloride 110 mmol/L (98-107); Est GFR (African American) 87.6; Est GFR (Non-African American) 75.5; Glucose 119 mg/dl (70-99); Lipase 75 U/L (73-393); Potassium 4.2 mmol/L (3.5-5.1); Sodium 140 mmol/L (136-145)
[2020-06-13 11:21] LABS: Partial Thromboplastin Time 25.1 Seconds (21.0-31.0); Prothrombin Time 10.5 Seconds (9.0-12.0)
[2020-06-13 11:24] LABS: Albumin Globulin Ratio 1.1 (0.9-2); Alkaline Phosphatase 79 U/L (45-117); Bilirubin,Total 0.4 mg/dl (0.2-1); Creatine Kinase 130 U/L (39-308); Creatine Kinase MB 1.7 ng/ml (0.5-3.6); Globulin 3.5 gm/dl (2.5-4.0); Total Protein 7.2 gm/dl (6.4-8.2); Troponin I 0.016 ng/ml (0-0.045)
[2020-06-13 11:57] LABS: Influenza A virus by PCR Negative (Neg); Influenza B virus by PCR Negative (Neg); RSV by PCR Negative (Neg); SARS CoV2 RNA(COVID-19) InHosp NEGATIVE (Negative)
[2020-06-13] MEDS ORDERED: ASPIRIN 81 MG CHEW PO STA (12:02)
[2020-06-13] MEDS ORDERED: HYDROCORTISONE SOD SUCCINATE 100 MG/2 ML VIAL IV STA (12:04)
[2020-06-13] MEDS ORDERED: FAMOTIDINE 20MG IV PUSH 20 MG/5 ML SYR IV STA (12:05)
[2020-06-13] MEDS ORDERED: ASPIRIN CHEW 324 MG ONE (12:05)
[2020-06-13] MEDS ORDERED: diphenhydrAMINE 50 MG/ML VIAL IV STA (12:05)
[2020-06-13] MEDS ORDERED: HYDROCORTISONE SOD SUCCINATE 100 MG/2 ML VIAL ONE (12:09)
[2020-06-13] MEDS ORDERED: diphenhydrAMINE 50 MG/ML VIAL ONE (12:09)
[2020-06-13] MEDS ORDERED: FAMOTIDINE 20MG/5ML IV PUSH IV ONE (12:09)
--- NOTE | 2020-06-13 12:20 | History & Physical Report ---
Date of Service June 13, 2020 Assessment & Plan (1) Acute coronary syndrome: Heart alert called. Patient taken emergently to cardiac cath. Discussed findings with Dr Bear - recommended admission to ICU. Cardiac cath - ruptures mid LAD plaque responsible for ACS s/p PCI with TRENTON to distal LAD ASA, started on Brilinta (switched from clopidogrel) Metoprolol tartrate 50mg PO HS (consider BID dosing or switching to succinate) Lisinopril 5mg PO daily Rosuvastatin 20mg PO daily Appreciate ICU and cardiology management of this complex patient (2) Hypertension: Continue his usual medications with amlodipine 5mg HS, ISMN ER 60mg PO daily, lisinopril 5mg PO daily and metoprolol tartrate 50mg PO daily (3) Left bundle branch block (LBBB): Chronic (4) Anxiety and depression: Lexapro 15mg PO HS (5) Macrocytosis: B12 def. listed but not on supplementation Consider repeating as outpatient if not recently performed (6) Hyperlipidemia: Continue rosuvastatin 20mg PO HS, consider increasing to 40mg regardless of LDL given continued plaque ruptures. 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 Pain is substernal in the center of his chest radiating to his left jaw, left arm with shortness of breath, started while walking to the bathroom at 3am this morning, severity 8/10, currently 2/10 when seen. He has a history of 9 stents placed, most recently in February 2020 He has an extensive coronary artery disease history starting in 1987 with an anterior wall myocardial infarction and subsequent PTCA without stent of an LAD lesion. RCA stenting in 1992 and 1998, LAD and diagonal stenting in July 2002. 2014 inferior wall STEMI after holding aspirin and Plavix for 10 days for a surgery requiring 2 drug-eluting stents to RCA. Complicated by ventricular fibrillation arrest. Most recently presented to the ER in February 2020 with unstable angina and NSTEMI. Catheterization revealed a 60% early mid segment thrombotic LAD lesion requiring PCI of the proximal to mid LAD with a single drug-eluting stent. The patient has a chronic left bundle branch block. Of note the patient was seen in the ER in March 2020 with cardiac sounding chest pain and negative troponins x2 at that time. He was given a regimen for reflux at that time including a GI cocktail, Compazine 5 mg, famotidine 20 mg IV although also given nitroglycerin at that time but per note his symptoms do not improve with this. He feels his pain in February, and now are all very similar. In the ER he is having continued chest pain, initial troponin negative. Dr Bear (cardiology) already contacted and has seen patient and heart alert called when seen. Allergies Allergy/AdvReac Type Severity Reaction Status Date / Time Iodinated Contrast Media Allergy Intermediate Hives Verified 06/13/20 11:28 atorvastatin [From Lipitor] AdvReac Unknown . Verified 06/13/20 11:28 simvastatin [From Zocor] AdvReac Unknown . Verified 06/13/20 11:28 Home Medications Medication Instructions Recorded Confirmed Type aspirin 81 mg PO QAM 05/29/18 06/13/20 History clopidogrel 75 mg PO QAM 05/29/18 06/13/20 History loratadine [Claritin] 10 mg PO QAM 05/29/18 06/13/20 History amoxicillin 500 mg capsule See Rx Instructions .ROUTE 10/02/18 06/13/20 History .COMPLEX PRN cap rosuvastatin 20 mg tablet 20 mg PO HS 04/10/19 06/13/20 History coenzyme Q10 400 mg capsule 400 mg PO QAM 10/30/19 06/13/20 History omega-3 fatty acids 1,000 mg 1,000 mg PO QAM 10/30/19 06/13/20 History capsule escitalopram oxalate 10 mg tablet 15 mg PO HS #45 tab 02/10/20 06/13/20 Rx lisinopril 5 mg tablet 5 mg PO QAM #90 tab 02/10/20 06/13/20 Rx metoprolol tartrate 50 mg tablet 50 mg PO QPM #90 tab 02/10/20 06/13/20 Rx amlodipine 5 mg PO HS 03/01/20 06/13/20 History isosorbide mononitrate 60 mg 60 mg PO QAM #90 tab 03/23/20 06/13/20 Rx tablet,extended release 24 hr famotidine 20 mg PO BID #20 tab 01/25/21 04/03/21 Rx tramadol 50 mg tablet 50 mg PO Q8H PRN #90 tab 04/20/20 06/13/20 Rx zolpidem 5 mg tablet 5 mg PO HS 05/07/20 06/13/20 History lorazepam 0.5 mg tablet 0.5 mg PO DAILY PRN #30 tab 05/18/20 06/13/20 Rx Past Med/Surg History Medical History Acute myocardial infarction Anxiety and depression Arteriosclerotic cardiovascular disease (ASCVD) B12 deficiency CAD (coronary artery disease) Depression Folate deficiency Hematuria, microscopic Hyperlipidemia Hypertension Impaired fasting glucose Insomnia Left bundle branch block (LBBB) Left sided chest pain Macrocytic anemia Macrocytosis Mild intermittent asthma Myocardial infarct, old Need for hepatitis C screening test Right knee DJD Rotator cuff arthropathy Unstable angina Surgical History H/O heart artery stent drug eluting stent placed 05/30/2018 prior balloon angioplasty in 1987 after [place] History of hernia repair History of knee replacement History of total knee arthroplasty Status post reverse total arthroplasty of right shoulder Family History Unknown Acute myocardial infarction Lung cancer Atherosclerosis Other Hypertension Myocardial infarction Denies family history of Ovarian cancer Prostate cancer Diabetes Breast cancer Colorectal cancer Stroke Social History Smoking Status: Former smoker Tobacco Type: Cigarettes Second Hand Exposure: No; Hx Alcohol Use: Yes Alcohol Intake Frequency: Monthly or Less Hx Substance Use: No Preferred Language: Slovak Communication Ability: Effective 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: No Beliefs That Will Affect Care: None marital status: Current Living Situation: Spouse current occupational status: retired Other Information That Helps Us Care for You: No Feels Safe at Home: Yes Safety Concerns: Feels Safe At This Time Childhood Exposure to Second-Hand Smoke: Yes caffeine: Yes Dental Care, Regularly: Yes Physical Activity Frequency: 1-2 Times per Week Seatbelt Use: always Sunscreen Use: Yes Assistive Devices: Denture - Upper, Hearing Aid - Left and Hearing Aid - Right Physical Exam Constitutional: well developed, well nourished and + obese; no acute distress Eyes: + anicteric sclerae; normal pupil size ENMT: external ear and nose normal, oropharynx normal Neck: trachea midline Respiratory: normal respiratory effort, lungs clear to auscultation Cardiovascular: RRR, no murmur, no edema Gastrointestinal (Abdomen): normal bowel sounds, soft, nontender, no hepatosplenomegaly Musculoskeletal: no cyanosis or clubbing, extremities motor strength 5/5 Skin: no rashes, warm and dry Neurologic: moves all extremities and awake; not confused Psychiatric: A+Ox3, euthymic affect Results & Data Results & Data ([facility]) Vital Signs (Past 12 Hours) Vital Signs Temp Pulse Resp BP Pulse Ox 06/13/20 10:35 36.7 C 91 H 18 108/68 97 Diagnostic Findings XR chest 1V portable IMPRESSION: No active disease in the chest. US venous doppler LE BI IMPRESSION: No evidence of lower extremity DVT Medications Administered ER Medications Given: Nitro 2% 1 inch paste Morphine 8mg IV Ondansetron 4mg IV Aspirin 243mg PO ECG Indication: chest pain Rate (beats per minute): 77 Rhythm: normal sinus Findings: + other (modified Sgarbossa's criteria not met) and + LBBB Comparison ECG Date: from (Apr 06, 2020) Change: no significant change Code Status & VTE Plan Code Status Full VTE Prophylaxis Plan VTE Prophylaxis will be ordered: Yes PG Care Time/CCT Total # of Minutes Spent Total Time Spent with Patient: Total time spent is greater than 50% in coordination of care (as documented) at patient's floor/unit and/or counseling patient: Coding Level of Care Code 19820 Initial Inpt Care Lvl 3 Diagnoses Acute coronary syndrome I24.9 Hypertension I10 Hypertension type: essential hypertension Left bundle branch block (LBBB) I44.7 Anxiety and depression F41.9; F32.9 Macrocytosis D75.89 Hyperlipidemia E78.5 Hyperlipidemia type: unspecified DVT prophylaxis Z29.9 (1) Hyperlipidemia Hyperlipidemia type: unspecified Qualified Code(s): E78.5 - Hyperlipidemia, unspecified (2) Hypertension Hypertension type: essential hypertension Qualified Code(s): I10 - Essential (primary) hypertension
[2020-06-13] MEDS ORDERED: niCARdipine HCL INJ 2.5 MG/ML 10 ML AMP ONE (12:29)
[2020-06-13] MEDS ORDERED: HEPARIN (PORCINE) 1000 UNIT/ML 10 ML (CATH LAB USE ONLY) ONE (12:29)
[2020-06-13] MEDS ORDERED: fentaNYL citrate 100 MCG/2 ML VIAL ONE (12:30)
[2020-06-13] MEDS ORDERED: MIDAZOLAM HCL 1 MG/ML 2ML VIAL ONE (12:30)
[2020-06-13] MEDS ORDERED: NITROGLYCERIN/D5W 100MCG/ML 20ML SYR ONE (12:30)
[2020-06-13] MEDS ORDERED: PHENYLEPHRINE HCL INJ 10 MG/ML VIAL (CATH LAB USE ONLY) ONE (12:45)
--- NOTE | 2020-06-13 13:03 | Cardiology Consultation ---
Date of Consultation June 13, 2020 Assessment & Plan (1) Unstable angina pectoris: Patient with symptoms of chest, neck, arm discomfort , similar to his prior angina. Has been on chronic ASA and clopidogrel. Abrupt onset, 3 am and has persisted. EKG without acute changes. Troponin not undetectable, but not elevated. Recommend emergent cardiac catheterization. slab polisher activated per "Heart Alert" protocol. Case discussed with the interventional cardiology provider senior contracts administrator. Will accompany patient to the catheterizaiton lab. History of Present Illness History of Present Illness Mr Zelaya is a 70 year old male seen in emergent cardiology consultation in the ED per the request of Dr Nguyen for the evaluation of chest discomfort. Pt describes acute onset of left chest , neck, shoulder, and arm discomfort at 3 am when he got up to use the bathroom, 8/10 severity. Discomfort improved to a 2/10 after IV morphine, nitropaste, and zofran. BP well controlled. He feels symptoms are similar to those noted at time of presentation in 03/01/20 at which time complex PCI performed for a thrombotic LAD occlusion as noted below. Past Medical/Surgical History: 1.Ischemic heart disease. Anterior wall myocardial infarction in 1987. Subsequent PTCA without stent of LAD lesion. RCA stenting in 1992 and 1998. LAD and diagonal stenting in July 2002. April 25, 2013 spermatocele surgery, after holding ASA and Plavix for 10 days, complicated postoperatively an inferior wall STEMI s/p PCI with 2 drug eluting stents to the RCA. Course complicated by atrial fibrillation with a RVR during the procedure then ventricular fibrillation arrest treated with defibrillation and brief CPR. Episodes of nonsustained ventricular tachycardia observed in the ICU necessitating use of amiodarone therapy. Presentation to [facility] [address] May 2018 with unstable angina, status post PCI of the LAD with 2 drug-eluting stents and PCI of the left circumflex with 1 drug-eluting stent. 03/01/2020:60-70% hazy ,acute thrombotic mid LAD stenosis proximal to prior stents Successful PCI of proximal to mid LAD with a single TRENTON overlapping proximal aspect of prior stent (3.5 x 38 mm Pilo; post-dilated with 4.0 NC). 2.Chronic left bundle branch block, LVEF , 50% 3.Hypertension 4.Dyslipidemia. LDL goal < 70 mg/dL. Statin intolerance noted, tolerating rosuvastatin 5.Small abdominal aortic aneurysm per documentation. Abdominal CT scan in April, at [facility] [address] revealed advance atherosclerotic calcification and ectasia of the abdominal aorta measuring up to 2.6 cm in diameter. July 2017 aortic duplex with no evidence of an abdominal aortic aneurysm 6.Mild bilateral internal carotid artery disease. 7.History of asthma. 8.Osteoarthritis 1.s/p total knee arthroplasty of the left knee, August 2008. 2.Status post August 05, 2016 right reverse total shoulder arthroplasty 3.Status post May 04, 2017 right knee replacement by Dr. Fowler. 9.Hernia surgeries in 2000 and 2003. Allergies Allergy/AdvReac Type Severity Reaction Status Date / Time Iodinated Contrast Media Allergy Intermediate Hives Verified 06/13/20 11:28 atorvastatin [From Lipitor] AdvReac Unknown . Verified 06/13/20 11:28 simvastatin [From Zocor] AdvReac Unknown . Verified 06/13/20 11:28 Home Medications Medication Instructions Recorded Confirmed Type aspirin 81 mg PO QAM 05/29/18 06/13/20 History clopidogrel 75 mg PO QAM 05/29/18 06/13/20 History loratadine [Claritin] 10 mg PO QAM 05/29/18 06/13/20 History amoxicillin 500 mg capsule See Rx Instructions .ROUTE 10/02/18 06/13/20 History .COMPLEX PRN cap rosuvastatin 20 mg tablet 20 mg PO HS 04/10/19 06/13/20 History coenzyme Q10 400 mg capsule 400 mg PO QAM 10/30/19 06/13/20 History omega-3 fatty acids 1,000 mg 1,000 mg PO QAM 10/30/19 06/13/20 History capsule escitalopram oxalate 10 mg tablet 15 mg PO HS #45 tab 02/10/20 06/13/20 Rx lisinopril 5 mg tablet 5 mg PO QAM #90 tab 02/10/20 06/13/20 Rx metoprolol tartrate 50 mg tablet 50 mg PO QPM #90 tab 02/10/20 06/13/20 Rx amlodipine 5 mg PO HS 03/01/20 06/13/20 History isosorbide mononitrate 60 mg 60 mg PO QAM #90 tab 03/23/20 06/13/20 Rx tablet,extended release 24 hr famotidine 20 mg PO BID #20 tab 04/06/20 06/13/20 Rx tramadol 50 mg tablet 50 mg PO Q8H PRN #90 tab 04/20/20 06/13/20 Rx zolpidem 5 mg tablet 5 mg PO HS 05/07/20 06/13/20 History lorazepam 0.5 mg tablet 0.5 mg PO DAILY PRN #30 tab 05/18/20 06/13/20 Rx Patient History Medical History Acute myocardial infarction Anxiety and depression Arteriosclerotic cardiovascular disease (ASCVD) B12 deficiency CAD (coronary artery disease) Depression Folate deficiency Hematuria, microscopic Hyperlipidemia Hypertension Impaired fasting glucose Insomnia Left bundle branch block (LBBB) Left sided chest pain Macrocytic anemia Macrocytosis Mild intermittent asthma Myocardial infarct, old Need for hepatitis C screening test Right knee DJD Rotator cuff arthropathy Unstable angina Surgical History H/O heart artery stent drug eluting stent placed 05/30/2018 prior balloon angioplasty in 1987 after [place] History of hernia repair History of knee replacement History of total knee arthroplasty Status post reverse total arthroplasty of right shoulder Family History Unknown Acute myocardial infarction Lung cancer Atherosclerosis Other Hypertension Myocardial infarction Denies family history of Ovarian cancer Prostate cancer Diabetes Breast cancer Colorectal cancer Stroke Social History Smoking Status: Never smoker Tobacco Type: Cigarettes Second Hand Exposure: No; Hx Alcohol Use: Yes Alcohol Intake Frequency: Monthly or Less Hx Substance Use: No Preferred Language: Nigerian Communication Ability: Effective Financial Systems Administrator Required: No Beliefs That Will Affect Care: None marital status: Current Living Situation: Spouse current occupational status: retired Feels Safe at Home: Yes Childhood Exposure to Second-Hand Smoke: Yes caffeine: Yes Dental Care, Regularly: Yes Physical Activity Frequency: 1-2 Times per Week Seatbelt Use: always Sunscreen Use: Yes Assistive Devices: None Review of Systems Review of Systems: All systems reviewed & are unremarkable except as noted in HPI & below Physical Exam Physical Exam: Temp Pulse Resp BP Pulse Ox 36.7 C 91 H 18 108/68 97 06/13/20 10:35 06/13/20 10:35 06/13/20 10:35 06/13/20 10:35 06/13/20 10:35 Constitutional: WD/WN, vitals as above Respiratory: normal respiratory effort, lungs clear to auscultation Cardiovascular: RRR, no murmur, no edema Gastrointestinal (Abdomen): normal bowel sounds, soft, nontender, no hepatosplenomegaly Neurologic: PERRL, EOMI, accommodation nl, no face palsy, no dysarthria Results & Data ([facility]) Vital Signs (Past 12 Hours) Vital Signs Temp Pulse Resp BP Pulse Ox 06/13/20 10:35 36.7 C 91 H 18 108/68 97 Laboratory Results Cardiac Enzymes 06/13/20 Range/Units 10:45 AST 11 L (15-37) U/L CK-MB (CK-2) 1.7 (0.5-3.6) ng/ml Troponin I 0.016 (0-0.045) ng/ml Coagulation 06/13/20 Range/Units 10:45 PT 10.5 (9.0-12.0) Seconds APTT 25.1 (21.0-31.0) Seconds CBC 06/13/20 Range/Units 10:45 WBC 7.02 (4.8-10.8) K/uL RBC 4.34 L (4.7-6.1) M/uL Hgb 15.0 (14.0-18.0) g/dL Hct 44.3 (42-52) % Plt Count 196 (130-400) K/uL Neut # (Auto) 4.49 (1.4-6.5) K/uL Lymph # (Auto) 1.85 (1.2-3.4) K/uL [place] # (Auto) 0.53 (0.11-0.59) K/uL Eos # (Auto) 0.12 (0-0.5) K/uL Baso # (Auto) 0.01 (0-0.2) K/uL Comprehensive Metabolic Panel 06/13/20 Range/Units 10:45 Sodium 140 (136-145) mmol/L Potassium 4.2 (3.5-5.1) mmol/L Chloride 110 H (98-107) mmol/L Carbon Dioxide 25 (21-32) mmol/L BUN 25 H (7-18) mg/dl Creatinine 1.01 (0.6-1.4) mg/dl Glucose 119 H (70-99) mg/dl Calcium 8.6 (8.5-10.1) mg/dl AST 11 L (15-37) U/L ALT 21 (12-78) U/L Alkaline Phosphatase 79 (45-117) U/L Total Protein 7.2 (6.4-8.2) gm/dl Albumin 3.7 (3.4-5.0) gm/dl Diagnostic Findings EKG performed at 11:32 revealed SR at 75 bpm with LBBB, first degree AV block, unchanged compared to prior.
[2020-06-13] MEDS ORDERED: NITROGLYCERIN/D5W 100 MCG/ML BTL ONE ×3 (13:10→13:13)
[2020-06-13] MEDS ORDERED: TICAGRELOR 90 MG TAB PO ONE (13:11)
--- NOTE | 2020-06-13 13:24 | Pre Anesthesia Assessment ---
Date of Service June 13, 2020 Pre Sedation Assessment Vital Signs Temp Pulse Resp BP Pulse Ox 06/13/20 10:35 36.7 C 91 H 18 108/68 97 Pre-Sedation Airway Assessment Smoking Status: Never smoker Hx Sleep Apnea: No Hx Difficult Intubation: No Notes The planned sedation has been discussed with the patient. Informed Consent was obtained. I have identified the patient, determined the appropriateness of sedation and have assessed the patient immediately prior to the procedure. All medicine(s) and interventions are by my order.
--- NOTE | 2020-06-13 13:25 | Post Anesthesia Assessment ---
Date of Service June 13, 2020 Post Sedation Assessment Vital Signs Temp Pulse Resp BP Pulse Ox 06/13/20 10:35 36.7 C 91 H 18 108/68 97 Discharge Sedation Level of Care: Higher Level of Care Post Sedation Plan On clinical assessment, the patient appears to have tolerated the sedation without complications. Patient is recovering as anticipated. Patient will continue to be monitored by nursing and may be discharged when sedation discharge criteria are met per below protocol. Upon Completions of procedure up to 15 minutes continue every 5 minute vital sig ns and the P.A.R. score; then discharge to a Phase I or Fast Track to Phase II per the following guidelines: * Discharge Patient to appropriate Phase II area if PAR is 8 or greater or return to pre- procedure baseline. The post - procedure orders will be as directed. * If PAR score is less than 8 or not return to pre-procedure baseline then patient will follow Phase I monitoring till PAR is reached for Phase II. The Phase I may be done in procedure room or may call to secure a Phase I area. * If naloxone or flumazenil are used for reversal, hold in Phase I for continued monitoring from when last reversal dose was given for a minimum of 60 minutes or longer pending the nurse and/or physician discretion of patient condition before discharge to Phase II. Please call the Sedation Physician to re-evaluate and complete post-note for discharge to Phase II area. Do NOT discharge from procedure sedation or Phase 1 until post- sedation evaluation note is complete by procedure /sedation MD Sedation Discharge Instructions to be given to the patient at discharge to home.
--- NOTE | 2020-06-13 13:30 | Cardiac Catheterization ---
[facility] Data: Counter Molder Cardiac Status Clinical evaluation leading to the procedure CAD Presenation: Unstable angina Diagnostic Physicians Name: Adalberto Drake MD Closure Device Recommendations: None (Given the recurrent events on Plavix, will switch to Brilinta Beta-saúl High intensity statin Cardiac rehab will be of tremendous benefit for this individual) Cardiac Cath Procedure Full Procedure Date June 13, 2020 Pre-Procedure Diagnosis Pre-Procedure Diagnosis: Acute Coronary Syndrome AUC Score AUC Score: 8 Post-Procedure Diagnosis Post-Procedure Diagnosis: Severe CAD, Successful PCI and Normal Intracardiac Pressures Procedure(s) Performed Procedure(s) Performed: Coronary Angiography, Left Heart Cath, Drug Eluting Stent and IVUS Seasonal Driver Adalberto Drake MD Cardiac catheterization Percutaneous coronary prevention of the LAD Indication unstable angina Patient was brought to the cardiac Counter Molder urgently Patient was prepped and draped in sterile fashion Conscious sedation was administered Local anesthetic was administered to the right radial site Using the Seldinger technique, a 6 Kittitian sheath was secured into the right radial artery using a micropuncture needle. 6 Kittitian JR4 was used for hemodynamic measurement and right coronary angiography An EBU 3.5 guide catheter was used for left coronary angiography and percutaneous core intervention of the LAD Hemodynamics Left ventricle 123/0/5 Aortic pressure 104/54/139 Coronary angiography Right coronary system Dominance The very proximal RCA is free of disease A patent stent is visualized in the proximal to mid RCA There is a portion of the RCA that is unstented that area is free of disease A patent stent is visualized in the mid to distal RCA The PDA and the PLV branches have mild luminal irregularities Left coronary system The left main is of normal caliber, it is short in length It bifurcates into the LAD and the circumflex The proximal circumflex is free of disease A patent stent is visualized in the midportion of the circumflex The distal circumflex and its small obtuse marginal branch are free of disease. A patent stent is visualized in the proximal LAD further stents are visualized in the mid LAD The distal edge of the mid LAD stent appears hazy with a 50 to 60% luminal narrowing however this lesion has characteristics suggestive of a ruptured plaque. In my clinical judgment this seems to be the culprit lesion The distal LAD has mild luminal irregularities The 2 diagonal branches are generally free of disease Intervention Heparin was given to achieve therapeutic ACT DAPT was administered An EBU 3.5 guide was used to engage the left main followed by successfully wiring the LAD using a run-through wire Direct stenting was performed using a 3.0 x 15 mm Medtronic Pilo stent with resolution of the stenosis Some spasm was noted distal to the newly deployed stent which resolved with intracoronary nitroglycerin 2 orthogonal shots without a wire across showed appropriate stent apposition no loss of paralysis dissections or perforations TR band was then used to secure hemostasis. Conclusion Ruptured mid LAD plaque responsible for acute coronary syndrome; successful PCI as described above Patent RCA stents Patent circumflex and proximal LAD stents Recommendation Given the recurrent events on Plavix, will switch to Brilinta Beta-saúl High intensity statin Cardiac rehab will be of tremendous benefit for this individual Estimated Blood Loss Estimated Blood Loss: None (5cc) Summary of Findings Adalberto Drake MD Cardiac catheterization Percutaneous coronary prevention of the LAD Indication unstable angina Patient was brought to the cardiac Counter Molder urgently Patient was prepped and draped in sterile fashion Conscious sedation was administered Local anesthetic was administered to the right radial site Using the Seldinger technique, a 6 Kittitian sheath was secured into the right radial artery using a micropuncture needle. 6 Kittitian JR4 was used for hemodynamic measurement and right coronary angiography An EBU 3.5 guide catheter was used for left coronary angiography and percutaneous core intervention of the LAD Hemodynamics Left ventricle 123/0/5 Aortic pressure 104/54/139 Coronary angiography Right coronary system Dominance The very proximal RCA is free of disease A patent stent is visualized in the proximal to mid RCA There is a portion of the RCA that is unstented that area is free of disease A patent stent is visualized in the mid to distal RCA The PDA and the PLV branches have mild luminal irregularities Left coronary system The left main is of normal caliber, it is short in length It bifurcates into the LAD and the circumflex The proximal circumflex is free of disease A patent stent is visualized in the midportion of the circumflex The distal circumflex and its small obtuse marginal branch are free of disease. A patent stent is visualized in the proximal LAD further stents are visualized in the mid LAD The distal edge of the mid LAD stent appears hazy with a 50 to 60% luminal narrowing however this lesion has characteristics suggestive of a ruptured plaque. In my clinical judgment this seems to be the culprit lesion The distal LAD has mild luminal irregularities The 2 diagonal branches are generally free of disease Intervention Heparin was given to achieve therapeutic ACT DAPT was administered An EBU 3.5 guide was used to engage the left main followed by successfully wiring the LAD using a run-through wire Direct stenting was performed using a 3.0 x 15 mm Medtronic Pilo stent with resolution of the stenosis Some spasm was noted distal to the newly deployed stent which resolved with intracoronary nitroglycerin 2 orthogonal shots without a wire across showed appropriate stent apposition no loss of paralysis dissections or perforations TR band was then used to secure hemostasis. Conclusion Ruptured mid LAD plaque responsible for acute coronary syndrome; successful PCI as described above Patent RCA stents Patent circumflex and proximal LAD stents Recommendation Given the recurrent events on Plavix, will switch to Brilinta Beta-saúl High intensity statin Cardiac rehab will be of tremendous benefit for this individual Hemodynamics Rest Ao:: 117/59/103 Final Ao: 104/54/139 LV: 123/0/5 Recommendations Recommendations: None (Given the recurrent events on Plavix, will switch to Brilinta Beta-saúl High intensity statin Cardiac rehab will be of tremendous benefit for this individual) Radiation Exposure (mGy) 1253 Contrast (mls) 105 I attest to the content of the Intraoperative Record and any orders documented therein. Any exceptions are noted below. PG Care Time/CCT Total # of Minutes Spent Total Time Spent with Patient: Total time spent is greater than 50% in coordination of care (as documented) at patient's floor/unit and/or counseling patient:
--- NOTE | 2020-06-13 13:58 | Critical Care Consultation ---
Date of Consultation June 13, 2020 Assessment & Plan (1) Unstable angina pectoris: 70-year-old male with complex coronary artery history including multiple stents who was admitted due to CC of central, substernal chest pain radiating to his left jaw and left arm with shortness of breath. Neuro CAM ICU: NEGATIVE Sedation: None - Patient neurologically intact currently. No acute neuro concerns. Cardiac - S/p PCI w/ drug-eluting stent placement at [id number] LAD - Plavix discontinued in favor of Brilinta - Continue ASA - Continue beta saúl--will continue tartrate for now but likely switch to succinate going forward - Continue high-intensity statin - Continue home hypertension meds - Will obtain echocardiogram Respiratory - Saturating well on room air. No current respiratory concerns. GI - Heart healthy diet--no GI concerns currently. Renal/Lytes - No renal concerns currently. No significant electrolyte derangement. - Replace lytes as needed. - No concerns at this time. Endo No concerns currently. BSG management per ICU protocol. Heme - Stable H&H. No current concerns. ID - No concerns for infection at this point. Integumentary No concerns currently DVT Prophylaxis - Lovenox 40mg SQ daily Dispo: Remain in ICU for post-cardiac procedure monitoring Thank you for allowing us to be part of this patient's care. Please refer to Dr. Moreau's documentation for any further recommendations. (2) Anxiety and depression: (3) Hypertension: Supervising Physician Co-Signing Physician Notes Dr. Perdue was the resident-physician during care of patient. I separately evaluated patient for mcmahon portions of the history and the exam. I was present during the critical portion of medical decision making, and I discussed the case with the resident. I generally agree with the findings and plan except for any additions/exceptions noted. 70-year-old male presenting to the hospital with STEMI and underwent PCI to the mid to distal LAD. Currently on nitroglycerin drip which has been weaned off. We will escalate therapy from aspirin and Plavix to aspirin and Brilinta. Continue beta-blockade and high intensity statin. Discussed with bioinformaticist at bedside, Dr. Weber. Patient is hemodynamically stable. Obtain echocardiogram. We will restart metoprolol, but likely switch to succinate. Continue isosorbide mononitrate 60 mg every morning, rosuvastatin 20 mg, amlodipine 5 mg nightly and lisinopril 5 mg daily. Remain in the ICU for 12 to 24 hours to monitor for post STEMI complications. History of Present Illness Attending Physician: Davis Bear DO History of Present Illness Emile Zelaya is a 70-year-old male with complex coronary artery history including multiple stents who was admitted due to CC of central, substernal chest pain radiating to his left jaw and left arm with shortness of breath. Also reported nausea with this event. Took two doses of nitroglycerin at home, which he says helped to some degree but did not fully resolve the pain. He was seen by cardiology who recommended cardiac catheterization emergently. He underwent PCI with placement of drug eluting stent at [id number] LAD. Was on nitroglycerin drip on arrival to ICU, which has since been weaned off. He tolerated the procedure well and is denying any further symptoms. Says his chest pain is now resolved and not feeling short of breath. Allergies Allergy/AdvReac Type Severity Reaction Status Date / Time Iodinated Contrast Media Allergy Intermediate Hives Verified 06/13/20 11:28 atorvastatin [From Lipitor] AdvReac Unknown . Verified 06/13/20 11:28 simvastatin [From Zocor] AdvReac Unknown . Verified 06/13/20 11:28 Home Medications Medication Instructions Recorded Confirmed Type aspirin 81 mg PO QAM 05/29/18 06/13/20 History clopidogrel 75 mg PO QAM 05/29/18 06/13/20 History loratadine [Claritin] 10 mg PO QAM 05/29/18 06/13/20 History amoxicillin 500 mg capsule See Rx Instructions .ROUTE 10/02/18 06/13/20 History .COMPLEX PRN cap rosuvastatin 20 mg tablet 20 mg PO HS 04/10/19 06/13/20 History coenzyme Q10 400 mg capsule 400 mg PO QAM 10/30/19 06/13/20 History omega-3 fatty acids 1,000 mg 1,000 mg PO QAM 10/30/19 06/13/20 History capsule escitalopram oxalate 10 mg tablet 15 mg PO HS #45 tab 02/10/20 06/13/20 Rx lisinopril 5 mg tablet 5 mg PO QAM #90 tab 02/10/20 06/13/20 Rx metoprolol tartrate 50 mg tablet 50 mg PO QPM #90 tab 02/10/20 06/13/20 Rx amlodipine 5 mg PO HS 03/01/20 06/13/20 History isosorbide mononitrate 60 mg 60 mg PO QAM #90 tab 03/23/20 06/13/20 Rx tablet,extended release 24 hr famotidine 20 mg PO BID #20 tab 04/06/20 06/13/20 Rx tramadol 50 mg tablet 50 mg PO Q8H PRN #90 tab 04/20/20 06/13/20 Rx zolpidem 5 mg tablet 5 mg PO HS 05/07/20 06/13/20 History lorazepam 0.5 mg tablet 0.5 mg PO DAILY PRN #30 tab 05/18/20 06/13/20 Rx Patient History Medical History Acute myocardial infarction Anxiety and depression Arteriosclerotic cardiovascular disease (ASCVD) B12 deficiency CAD (coronary artery disease) Depression Folate deficiency Hematuria, microscopic Hyperlipidemia Hypertension Impaired fasting glucose Insomnia Left bundle branch block (LBBB) Left sided chest pain Macrocytic anemia Macrocytosis Mild intermittent asthma Myocardial infarct, old Need for hepatitis C screening test Right knee DJD Rotator cuff arthropathy Unstable angina Surgical History H/O heart artery stent drug eluting stent placed 05/30/2018 prior balloon angioplasty in 1987 after [place] History of hernia repair History of knee replacement History of total knee arthroplasty Status post reverse total arthroplasty of right shoulder Family History Unknown Acute myocardial infarction Lung cancer Atherosclerosis Other Hypertension Myocardial infarction Denies family history of Ovarian cancer Prostate cancer Diabetes Breast cancer Colorectal cancer Stroke Social History Smoking Status: Former smoker Tobacco Type: Cigarettes Second Hand Exposure: No; Hx Alcohol Use: Yes Alcohol Intake Frequency: Monthly or Less Hx Substance Use: No Preferred Language: Chinese Communication Ability: Effective Customer Service Trainer Required: No Beliefs That Will Affect Care: None marital status: Current Living Situation: Spouse current occupational status: retired Other Information That Helps Us Care for You: No Feels Safe at Home: Yes Safety Concerns: Feels Safe At This Time Childhood Exposure to Second-Hand Smoke: Yes caffeine: Yes Dental Care, Regularly: Yes Physical Activity Frequency: 1-2 Times per Week Seatbelt Use: always Sunscreen Use: Yes Assistive Devices: Denture - Upper, Denture - Lower, Hearing Aid - Left and Hearing Aid - Right Review of Systems Review of Systems: All systems reviewed & are unremarkable except as noted in Subjective Physical Exam Constitutional: WD/WN, vitals as above + obese; no acute distress Eyes: PERRL, conjunctivae normal, anicteric sclerae ENMT: external ear and nose normal, oropharynx normal Neck: trachea midline, no thyromegaly normal visual inspection Respiratory: normal respiratory effort, lungs clear to auscultation Cardiovascular: RRR, no murmur, no edema Heart Sounds: normal S1 and normal S2 Gastrointestinal (Abdomen): normal bowel sounds, soft, nontender, no hepatosplenomegaly Musculoskeletal: no cyanosis or clubbing, extremities motor strength 5/5 Skin: no rashes, warm and dry Neurologic: patellar DTR's 2+ bilat, sensation intact CN's II-XI intact bilaterally Psychiatric: A+Ox3, euthymic affect Results & Data Results & Data ([facility]) Vital Signs (Past 12 Hours) Vital Signs Temp Pulse Resp BP BP Pulse Ox 06/13/20 13:42 37 C 16 78/56 L 93 06/13/20 10:35 36.7 C 91 H 18 108/68 97 Resident Activity Tracking Resident Involvement: Resident Care Provided Care Provided: Adult Hospital Medicine (1) Hypertension Hypertension type: essential hypertension Qualified Code(s): I10 - Essential (primary) hypertension
--- NOTE | 2020-06-13 14:02 | Billing Data ---
Date of Service June 13, 2020 Coding Level of Care Code 56828 Initial Inpt Care Lvl 3
[2020-06-13] MEDS ORDERED: ICU PROTOCOL FOR HYPERGLYCEMIA PRN (15:10)
[2020-06-13] MEDS ORDERED: traMADol HCL 50 MG TABLET PO PRN (15:10)
--- NOTE | 2020-06-13 16:44 | Communication Note ---
Date of Service: June 13, 2020 Pt reassessed in ICU post cardiac cath, PCI. CP resolved. BP stable. Tolerated contrast well.
--- NOTE | 2020-06-13 17:48 | Ultrasound Report ---
US venous doppler LE BI CLINICAL HISTORY: Pt c/o b/l leg pain COMPARISON STUDY: 09/05/2008 FINDINGS: Real-time and color flow Doppler imaging were performed. Flow was seen within the femoral, popliteal and calf veins with no intraluminal thrombus demonstrated. The saphenous vein is patent. IMPRESSION: No evidence of lower extremity DVT ACT 112: Negative or not required by law. Electronically signed by: Ra Correia M.D. 06/13/2020 5:47 PM
[2020-06-13] MEDS: FAMOTIDINE 20 MG TAB PO SCH (20:47)
[2020-06-13] MEDS ORDERED: METOPROLOL TARTRATE 50 MG TAB PO SCH (21:00)
[2020-06-13] MEDS ORDERED: ROSUVASTATIN CALCIUM 20 MG TAB PO SCH (21:00)
[2020-06-13] MEDS ORDERED: amLODIPine BESYLATE 5 MG TAB PO SCH (21:00)
[2020-06-13] MEDS ORDERED: ESCITALOPRAM OXALATE 10 MG TAB PO SCH (21:00)
[2020-06-13] MEDS ORDERED: ZOLPIDEM TARTRATE 5 MG TAB PO SCH (22:00)
[2020-06-14] MEDS: TICAGRELOR 90 MG TAB PO SCH ×2 (01:27→11:55)
[2020-06-14 05:30] LABS: Basophils # (auto) 0.01 K/uL (0-0.2); Basophils % (auto) 0.2 %; Eosinophils # (auto) 0.08 K/uL (0-0.5); Eosinophils % (auto) 1.3 %; Hematocrit (blood only) 37.3 % (42-52); Hemoglobin 12.7 g/dL (14.0-18.0); Immature Granulocytes # (auto) 0.01 K/uL (0.00-0.02); Immature Granulocytes % (auto) 0.2 %; Lymphocytes # (auto) 1.84 K/uL (1.2-3.4); Lymphocytes % (auto) 30.3 %; Mean Corpuscular Hemoglobin 34.7 pg (25-34); Mean Corpuscular Volume 101.9 fL (80-100); Mean Platelet Volume 9.9 fL (7.4-10.4); Monocytes # (auto) 0.69 K/uL (0.11-0.59); Monocytes % (auto) 11.3 %; Neutrophils # (auto) 3.45 K/uL (1.4-6.5); Neutrophils % (auto) 56.7 %; Platelet Count 174 K/uL (130-400); RDW Standard Deviation 47.3 fL (36.4-46.3); Red Blood Count 3.66 M/uL (4.7-6.1); White Blood Count 6.08 K/uL (4.8-10.8)
[2020-06-14 06:03] LABS: BUN Creatinine Ratio 22.8 (10-20); Creatinine Clr Calc Pharmacy 80.4 ml/min; Est GFR (African American) 99.3; Est GFR (Non-African American) 85.7; Magnesium 2.2 mg/dl (1.8-2.4); Potassium 4.1 mmol/L (3.5-5.1)
[2020-06-14 06:08] LABS: Phosphorus 2.9 mg/dl (2.5-4.9); Troponin I 0.033 ng/ml (0-0.045)
--- NOTE | 2020-06-14 08:12 | Electrocardiogram Report ---
Test Reason : Blood Pressure : / mmHG Vent. Rate : 077 BPM Atrial Rate : 077 BPM P-R Int : 204 ms QRS Dur : 150 ms QT Int : 408 ms P-R-T Axes : 047 -09 070 degrees QTc Int : 461 ms Normal sinus rhythm Left bundle branch block Abnormal ECG When compared with ECG of 06-APR-2020 09:11, No significant change was found Confirmed by Kody Macedo ([id number]) on 06/14/2020 8:12:09 AM Referred By: REFERRED SELF Confirmed By:Kody Macedo
--- NOTE | 2020-06-14 08:12 | Electrocardiogram Report ---
Test Reason : Blood Pressure : / mmHG Vent. Rate : 075 BPM Atrial Rate : 075 BPM P-R Int : 202 ms QRS Dur : 150 ms QT Int : 418 ms P-R-T Axes : 038 -18 036 degrees QTc Int : 466 ms Normal sinus rhythm Left bundle branch block Abnormal ECG When compared with ECG of 13-JUN-2020 10:39, No significant change was found Confirmed by Kody Macedo ([id number]) on 06/14/2020 8:12:16 AM Referred By: REFERRED SELF Confirmed By:Kody Macedo
[2020-06-14] MEDS: FAMOTIDINE 20 MG TAB PO SCH (08:26)
[2020-06-14] MEDS ORDERED: LORATADINE 10 MG TAB PO SCH (09:00)
[2020-06-14] MEDS ORDERED: ASPIRIN 81 MG ECTAB PO SCH (09:00)
[2020-06-14] MEDS ORDERED: lisinopril 5 MG TAB PO SCH (09:00)
[2020-06-14] MEDS ORDERED: ENOXAPARIN INJ 40 MG/0.4 ML SYR SQ SCH (09:00)
[2020-06-14] MEDS ORDERED: ISOSORBIDE MONO EXTENDED REL 60 MG TABCR PO SCH (09:00)
[2020-06-14] MEDS ORDERED: TICAGRELOR 90 MG Homepack PO STA (09:44)
--- NOTE | 2020-06-14 09:44 | Cardiology Progress Note ---
Date of Service June 14, 2020 Assessment & Plan (1) Unstable angina pectoris: s/p emergent cardiac cath, [place] for thrombotic mid LAD lesion consistent with acute plaque rupture. EKG this am reveals SR , LBBB, unchanged compared to prior. Echo reveals abnormal septal motion, otherwise normal, LVEF 55%. DC lovenox, ambulate in unit to ensure no exertional angina. If no angina with walking trial, stable for discharge on ASA 81 mg daily, Brilinta 90 mg BID. Brilinta replaces clopidogrel. 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 Discussed with Dr Schultz. Admission and Anticipated Discharge Date Admission Date: June 13, 2020 Subjective Patient seen in follow up of chest pain. Feels well. CP resolved. Telemetry reveals SR , no arrhythmias. Review of Systems Review of Systems: All systems reviewed & are unremarkable except as noted in HPI & below Physical Exam Physical Exam: Temp Pulse Resp BP Pulse Ox 36.8 C 67 18 119/66 94 06/14/20 03:45 06/14/20 09:00 06/14/20 09:00 06/14/20 08:45 06/14/20 09:00 Constitutional: WD/WN, vitals as above Respiratory: normal respiratory effort, lungs clear to auscultation Cardiovascular: RRR, no murmur, no edema R radial access, without hematoma Gastrointestinal (Abdomen): normal bowel sounds, soft, nontender, no hepatosplenomegaly Neurologic: patellar DTR's 2+ bilat, sensation intact and PERRL, EOMI, accommodation nl, no face palsy, no dysarthria Results & Data ([facility]) Vital Signs (Past 12 Hours) Vital Signs Temp Pulse Resp BP Pulse Ox 06/14/20 09:00 67 18 94 06/14/20 08:45 67 119/66 92 06/14/20 08:35 112 H 22 123/59 L 94 06/14/20 08:00 77 16 95 06/14/20 07:45 75 15 134/65 94 06/14/20 07:00 58 L 06/14/20 05:45 56 L 12 101/50 L 92 06/14/20 04:45 54 L 12 90/51 L 92 06/14/20 03:45 36.8 C 52 L 15 121/65 95 06/14/20 02:45 54 L 13 99/45 L 94 06/14/20 02:00 58 L 14 92 06/14/20 01:45 62 20 112/65 94 06/14/20 00:45 56 L 16 111/60 94 06/13/20 23:45 64 20 92/59 L 93 06/13/20 22:45 62 16 112/70 94 06/13/20 21:45 67 17 128/68 94 Laboratory Results Cardiac Enzymes 06/13/20 06/14/20 Range/Units 10:45 05:10 AST 11 L (15-37) U/L CK-MB (CK-2) 1.7 (0.5-3.6) ng/ml Troponin I 0.016 0.033 (0-0.045) ng/ml Coagulation 06/13/20 Range/Units 10:45 PT 10.5 (9.0-12.0) Seconds APTT 25.1 (21.0-31.0) Seconds Lipids 06/14/20 Range/Units 05:10 Triglycerides 143 (0-150) mg/dl Cholesterol 131 (0-200) mg/dl HDL Cholesterol 45 mg/dl Cholesterol/HDL Ratio 3 CBC 06/13/20 06/14/20 Range/Units 10:45 05:10 WBC 7.02 6.08 (4.8-10.8) K/uL RBC 4.34 L 3.66 L (4.7-6.1) M/uL Hgb 15.0 12.7 L (14.0-18.0) g/dL Hct 44.3 37.3 L (42-52) % Plt Count 196 174 (130-400) K/uL Neut # (Auto) 4.49 3.45 (1.4-6.5) K/uL Lymph # (Auto) 1.85 1.84 (1.2-3.4) K/uL [place] # (Auto) 0.53 0.69 H (0.11-0.59) K/uL Eos # (Auto) 0.12 0.08 (0-0.5) K/uL Baso # (Auto) 0.01 0.01 (0-0.2) K/uL Comprehensive Metabolic Panel 06/13/20 06/14/20 Range/Units 10:45 05:10 Sodium 140 140 (136-145) mmol/L Potassium 4.2 4.1 (3.5-5.1) mmol/L Chloride 110 H 108 H (98-107) mmol/L Carbon Dioxide 25 27 (21-32) mmol/L BUN 25 H 21 H (7-18) mg/dl Creatinine 1.01 0.91 (0.6-1.4) mg/dl Glucose 119 H 93 (70-99) mg/dl Calcium 8.6 8.0 L (8.5-10.1) mg/dl AST 11 L (15-37) U/L ALT 21 (12-78) U/L Alkaline Phosphatase 79 (45-117) U/L Total Protein 7.2 (6.4-8.2) gm/dl Albumin 3.7 (3.4-5.0) gm/dl Intake and Output 06/13/20 06/14/20 06/14/20 22:59 06:59 14:59 Intake Total 450 / 700 250 / 700 200 / 200 Output Total 650 / 850 200 / 850 400 / 400 Balance -200 / -150 50 / -150 -200 / -200 Intake: Oral 450 / 700 250 / 700 200 / 200 Output: Urine 650 / 850 200 / 850 Other 400 / 400 Other: Weight 88.6 kg Weight Measurement Method Built in [facility]
--- NOTE | 2020-06-14 10:45 | Critical Care Progress Note ---
Date of Service June 14, 2020 Assessment & Plan (1) Acute coronary syndrome: Patient is stable status post PCI. No further chest pain. Continue aspirin, Brilinta, home antihypertensive regimen, and high-dose statin with rosuvastatin 20 mg. Cardiology following. Stable for transfer to floor with telemetry at this time. ICU will sign off. Thank you for the consultation. (2) Unstable angina pectoris: (3) NSTEMI (non-ST elevated myocardial infarction): (4) Arteriosclerotic cardiovascular disease (ASCVD): Admission and Anticipated Discharge Date Admission Date: June 13, 2020 Subjective Patient seen and examined this morning. He is ambulating around the ICU. No complaints. Vital signs stable. Review of Systems Review of Systems: All systems reviewed & are unremarkable except as noted in HPI & below Physical Exam Constitutional: WD/WN, vitals as above + obese; no acute distress Eyes: PERRL, conjunctivae normal, anicteric sclerae ENMT: external ear and nose normal, oropharynx normal Neck: trachea midline, no thyromegaly normal visual inspection Respiratory: normal respiratory effort, lungs clear to auscultation Cardiovascular: RRR, no murmur, no edema Heart Sounds: normal S1 and normal S2 Gastrointestinal (Abdomen): normal bowel sounds, soft, nontender, no hepatosplenomegaly Musculoskeletal: no cyanosis or clubbing, extremities motor strength 5/5 Skin: no rashes, warm and dry Neurologic: patellar DTR's 2+ bilat, sensation intact CN's II-XI intact bilaterally Psychiatric: A+Ox3, euthymic affect Results & Data Results & Data ([facility]) Vital Signs (Past 12 Hours) Vital Signs Temp Pulse Resp BP Pulse Ox 06/14/20 09:57 98.6 F 06/14/20 09:45 69 9 L 102/61 93 06/14/20 09:00 67 18 94 06/14/20 08:45 67 119/66 92 06/14/20 08:35 112 H 22 123/59 L 94 06/14/20 08:00 77 16 95 06/14/20 07:45 75 15 134/65 94 06/14/20 07:00 58 L 06/14/20 05:45 56 L 12 101/50 L 92 06/14/20 04:45 54 L 12 90/51 L 92 06/14/20 03:45 98.2 F 52 L 15 121/65 95 06/14/20 02:45 54 L 13 99/45 L 94 06/14/20 02:00 58 L 14 92 06/14/20 01:45 62 20 112/65 94 06/14/20 00:45 56 L 16 111/60 94 06/13/20 23:45 64 20 92/59 L 93 06/13/20 22:45 62 16 112/70 94 I reviewed the vital signs, labs and imaging Coding Level of Care Code 56184 Subseq Hosp Care Lvl 2 Diagnoses Acute coronary syndrome I24.9 Unstable angina pectoris I20.0 NSTEMI (non-ST elevated myocardial infarction) I21.4 Arteriosclerotic cardiovascular disease (ASCVD) I25.10
--- NOTE | 2020-06-14 12:58 | Discharge Summary ---
Date of Service June 14, 2020 Admission HPI Per Admitting Provider Emile Zelaya is a 70-year-old male with complex coronary artery history who presents to the ER with chest pain since 3 AM this morning. Pain is substernal in the center of his chest radiating to his left jaw, left arm with shortness of breath, started while walking to the bathroom at 3am this morning, severity 8/10, currently 2/10 when seen. He has a history of 9 stents placed, most recently in February 2020 He has an extensive coronary artery disease history starting in 1987 with an anterior wall myocardial infarction and subsequent PTCA without stent of an LAD lesion. RCA stenting in 1992 and 1998, LAD and diagonal stenting in July 2002. 2014 inferior wall STEMI after holding aspirin and Plavix for 10 days for a surgery requiring 2 drug-eluting stents to RCA. Complicated by ventricular fibrillation arrest. Most recently presented to the ER in February 2020 with unstable angina and NSTEMI. Catheterization revealed a 60% early mid segment thrombotic LAD lesion requiring PCI of the proximal to mid LAD with a single drug-eluting stent. The patient has a chronic left bundle branch block. Of note the patient was seen in the ER in March 2020 with cardiac sounding chest pain and negative troponins x2 at that time. He was given a regimen for reflux at that time including a GI cocktail, Compazine 5 mg, famotidine 20 mg IV although also given nitroglycerin at that time but per note his symptoms do not improve with this. He feels his pain in February, March and now are all very similar. In the ER he is having continued chest pain, initial troponin negative. Dr Bear (cardiology) already contacted and has seen patient and heart alert called when seen. Admission Exam Per Admitting Provider Constitutional: well developed, well nourished and + obese; no acute distress Eyes: + anicteric sclerae; normal pupil size ENMT: external ear and nose normal, oropharynx normal Neck: trachea midline Respiratory: normal respiratory effort, lungs clear to auscultation Cardiovascular: RRR, no murmur, no edema Gastrointestinal (Abdomen): normal bowel sounds, soft, nontender, no hepatosplenomegaly Musculoskeletal: no cyanosis or clubbing, extremities motor strength 5/5 Skin: no rashes, warm and dry Neurologic: moves all extremities and awake; not confused Psychiatric: A+Ox3, euthymic affect Principal Diagnosis Acute coronary syndrome status post emergent cardiac catheterization with drug- eluting stent placement to distal LAD Discharge Exam GENERAL : No acute distress EYES: No icterus, gaze conjugate NOSE: No evidence of epistaxis MOUTH: No lesions or candidiasis NECK: Supple LUNGS: CTA B/L, no wheezes, rales or rhonchi HEART: Regular, rate controlled ABDOMEN: Soft, NT, ND, BS Present EXTREMITIES: No LE edema, pedal pulses intact NEURO: A&OX3 Discharge Data Allergies Allergy/AdvReac Type Severity Reaction Status Date / Time Iodinated Contrast Media Allergy Intermediate Hives Verified 06/13/20 11:28 atorvastatin [From Lipitor] AdvReac Unknown . Verified 06/13/20 11:28 simvastatin [From Zocor] AdvReac Unknown . Verified 06/13/20 11:28 Consultations 06/13/20 11:33 Consult Cardiology Stat 06/13/20 12:08 ED Decision to Admit Stat 06/13/20 15:10 Consult Potline Monitor Routine Procedures Performed Operation Date: 06/13/20 12:35 Actual Procedures s Cineradiography w/Routine Exam - Jasmeet Owen MD p Aspiration/PCI w/TRENTON for Stemi - Jasmeet Owen MD Ordered Studies 06/13/20 12:00 US venous doppler LE BI Stat 06/13/20 12:36 CL Cath Imgs for PACS use only Stat Hospital Course (1) Acute coronary syndrome: (1) Acute coronary syndrome: Heart alert called and patient taken emergently to cardiac cath. Cardiac cath - ruptures mid LAD plaque responsible for ACS PCI with TRENTON to distal LAD ASA, started on Brilinta (switched from clopidogrel) Metoprolol Lisinopril 5mg PO daily Rosuvastatin 20mg PO daily (2) Hypertension: Continue his usual medications with amlodipine 5mg HS, ISMN ER 60mg PO daily, lisinopril 5mg PO daily and metoprolol tartrate (3) Left bundle branch block (LBBB): Chronic (4) Anxiety and depression: Lexapro 15mg PO HS (5) Macrocytosis: B12 def. 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 You had a stent placed to your left anterior descending artery (LAD) of your heart. You are also being placed on a new medication named Brilinta to keep the stents form developing clots. It is very important that you take all medications strictly as prescribed to avoid further heart attacks or problems with your stents working properly. Please keep all appointments will all of your doctors. Do not use any tobacco products. Pending Studies at Discharge: No Stand-Alone Forms: My [employer], Smoking Cessation Medications and DC Order Prescriptions: New Brilinta 90 mg Tablet 90 mg PO BID Qty: 60 RF: 0 Continued escitalopram oxalate 10 mg tablet 15 mg PO HS Qty: 45 RF: 6 lisinopril 5 mg tablet 5 mg PO QAM Qty: 90 RF: 3 metoprolol tartrate 50 mg tablet 50 mg PO QPM Qty: 90 RF: 3 isosorbide mononitrate 60 mg tablet extended release 24 hr 60 mg PO QAM Qty: 90 RF: 3 rosuvastatin 20 mg tablet 20 mg PO HS RF: 0 amoxicillin 500 mg capsule See Rx Instructions .ROUTE .COMPLEX PRN (Reason: Prior to Dental Appointment) RF: 0 omega-3 fatty acids [Fish Oil Concentrate] 1,000 mg capsule 1,000 mg PO QAM RF: 0 amlodipine 5 mg tablet 5 mg PO HS RF: 0 aspirin 81 mg Tablet,Delayed Release (Dr/Ec) 81 mg PO QAM RF: 0 loratadine [Claritin] 10 mg Tablet 10 mg PO QAM RF: 0 coenzyme Q10 [Co Q-10] 400 mg capsule 400 mg PO QAM RF: 0 Discontinued clopidogrel 75 mg tablet 75 mg PO QAM RF: 0 No Action zolpidem 5 mg tablet See Rx Instructions .ROUTE .COMPLEX Qty: 90 RF: 1 tramadol 50 mg tablet 50 mg PO Q8H PRN (Reason: Pain) Qty: 90 RF: 1 lorazepam 0.5 mg tablet 0.5 mg PO DAILY PRN (Reason: anxiety) Qty: 30 RF: 0 Discharge Orders: Discharge Order (Routine); Ordered 06/14/20 Ordered By: Germán Redd/Other Patient Handouts: Heart Attack: Leaving the Hospital, Ticagrelor oral tablet Admission Data Admit Date/Time: 06/13/20 14:06 Attending Provider: Brian Schultz Admit Provider: Damir Sierra Primary Care Provider: Marcos Calderon Other Providers: Davis Bear ; Damir Sierra ; Benjy Moreau Other Interventions: Discharge Summary Assessment (RN) Last Done: 06/14/20 13:14 Supervising Physician Co-Signing Physician Notes Patient seen and examined at bedside. Obtained brief history and physical examination. I agree with ROMAN Og. Patient will be discharged. Patient admitted with ACS. PCI with TRENTON to distal LAD Will discharge on the following: ASA, started on Brilinta (switched from clopidogrel) Metoprolol Lisinopril 5mg PO daily Rosuvastatin 20mg PO daily Coding Level of Care Code D/C Day Management >30 mins Diagnoses Acute coronary syndrome I24.9 Time Spent (min) 35
--- NOTE | 2020-06-14 13:25 | Electrocardiogram Report ---
Test Reason : Blood Pressure : / mmHG Vent. Rate : 079 BPM Atrial Rate : 079 BPM P-R Int : 192 ms QRS Dur : 146 ms QT Int : 406 ms P-R-T Axes : 033 032 075 degrees QTc Int : 465 ms Poor data quality, interpretation may be adversely affected Normal sinus rhythm Left bundle branch block Abnormal ECG When compared with ECG of 13-JUN-2020 11:32, No significant change Confirmed by Kody Macedo ([id number]) on 06/14/2020 1:24:52 PM Referred By: REFERRED SELF Confirmed By:Kody Macedo
--- NOTE | 2020-06-14 13:43 | Electrocardiogram Report ---
Test Reason : Blood Pressure : / mmHG Vent. Rate : 059 BPM Atrial Rate : 059 BPM P-R Int : 264 ms QRS Dur : 164 ms QT Int : 468 ms P-R-T Axes : 065 049 058 degrees QTc Int : 463 ms Sinus bradycardia with 1st degree A-V block Left bundle branch block Abnormal ECG When compared with ECG of 13-JUN-2020 11:32, MA interval has increased Confirmed by Kody Macedo ([id number]) on 06/14/2020 1:42:58 PM Referred By: REFERRED SELF Confirmed By:Kody Macedo
[2020-06-14] MEDS ORDERED: ZOLPIDEM TARTRATE 5 MG TAB PO SCH (21:00)
== END 2020-06-14 13:50 | disposition home or self-care (01) | DRG 247 ==
LOC: ED 10:25 → 1E 12:45 → CC 12:45 → SUATTDRO 14:06 → 1E 14:06

== ENCOUNTER 2020-11-06 09:36 | Inpatient (IN) ==
[2020-11-06] MEDS ORDERED: SODIUM CHLORIDE 0.9% 1000ML 1,000 ML IV SCH (10:15)
[2020-11-06 10:16] LABS: White Blood Count 8.56 K/uL (4.8-10.8)
[2020-11-06 10:17] LABS: Basophils # (auto) 0.01 K/uL (0-0.2); Basophils % (auto) 0.1 %; Eosinophils # (auto) 0.05 K/uL (0-0.5); Eosinophils % (auto) 0.6 %; Hematocrit (blood only) 30.2 % (42-52); Hemoglobin 10.6 g/dL (14.0-18.0); Immature Granulocytes # (auto) 0.01 K/uL (0.00-0.02); Immature Granulocytes % (auto) 0.1 %; Lymphocytes # (auto) 2.33 K/uL (1.2-3.4); Lymphocytes % (auto) 27.2 %; Mean Corpuscular Hemoglobin 36.4 pg (25-34); Mean Corpuscular Hgb Conc 35.1 g/dL (32-36); Mean Corpuscular Volume 103.8 fL (80-100); Monocytes # (auto) 0.41 K/uL (0.11-0.59); Monocytes % (auto) 4.8 %; Neutrophils # (auto) 5.75 K/uL (1.4-6.5); Neutrophils % (auto) 67.2 %; Platelet Count 223 K/uL (130-400); RDW Coefficient of Variation 12.5 % (11.5-14.5); RDW Standard Deviation 46.8 fL (36.4-46.3); Red Blood Count 2.91 M/uL (4.7-6.1)
[2020-11-06 10:29] LABS: INR 1.1 (0.9-1.1); Partial Thromboplastin Ratio 0.8; Partial Thromboplastin Time 20.8 Seconds (21.0-31.0); Prothrombin Time 10.9 Seconds (9.0-12.0)
[2020-11-06] MEDS ORDERED: SODIUM CHLORIDE 0.9% 1000ML 500 ML IV ONE (10:29)
[2020-11-06] MEDS ORDERED: PANTOprazole 80 MG in DEXTROSE 5% 100 ML IV STA (10:29)
[2020-11-06 10:32] LABS: Alanine Aminotransferase 18 U/L (12-78); Albumin Level 3.3 gm/dl (3.4-5.0); Aspartate Aminotransferase 10 U/L (15-37); BUN Creatinine Ratio 40.9 (10-20); Blood Urea Nitrogen 42 mg/dl (7-18); Calcium 8.2 mg/dl (8.5-10.1); Carbon Dioxide 25 mmol/L (21-32); Chloride 108 mmol/L (98-107); Creatinine Clr Calc Pharmacy 68.9 ml/min; Est GFR (African American) 84.5 ml/min; Est GFR (Non-African American) 72.9 ml/min; Glucose 221 mg/dl (70-99); Potassium 4.3 mmol/L (3.5-5.1); Sodium 140 mmol/L (136-145)
[2020-11-06] MEDS ORDERED: SODIUM CHLORIDE 0.9% 250 ML IV PRN ×2 (10:35→12:50)
[2020-11-06 10:37] LABS: Albumin Globulin Ratio 1.1 (0.9-2); Alkaline Phosphatase 58 U/L (45-117); Bilirubin,Total 0.3 mg/dl (0.2-1); Total Protein 6.3 gm/dl (6.4-8.2); Troponin I < 0.015 ng/ml (0-0.045)
[2020-11-06] MEDS ORDERED: diphenhydrAMINE 50 MG/ML VIAL IV STA (10:46)
--- NOTE | 2020-11-06 11:02 | XRay Report ---
XR chest 1V portable CLINICAL HISTORY: Chest Pain COMPARISON STUDY: Chest radiograph June 13, 2020. FINDINGS: Lung volumes are normal. Lungs are clear. There is no pneumothorax or pleural effusion. Car diac size is normal. Mediastinal contours are normal. There is no evidence for pulmonary edema. A rev erse total right shoulder arthroplasty is partially imaged. IMPRESSION: No acute cardiopulmonary findings. ACT 112: Negative or not required by law. Electronically signed by: Ladarius Garcia M.D. 11/06/2020 11:01 AM
[2020-11-06] MEDS ORDERED: OPTIRAY 320 125ml IV ONE (11:22)
--- NOTE | 2020-11-06 11:35 | CT Scan Report ---
CT ANGIOGRAPHY OF THE CHEST DISSECTION PROTOCOL CLINICAL HISTORY: Chest pain. Syncope. Evaluate for dissection. COMPARISON STUDY: Chest radiograph June 13, 2020 and chest radiograph performed earlier today. TECHNIQUE: Patient was premedicated for IV dye allergy as per ER protocol. Before and following the I V administration of 119 mL of Optiray, helical axial images of the chest were obtained. Maximal inte nsity projections and sagittal and coronal reformats were viewed on an independent 3D workstation. I V contrast was administered without complication. Automated exposure control was utilized for the st udy. A dose lowering technique was utilized adhering to the principles of ALARA. CT DOSE: 1105.54 mGycm FINDINGS: Caliber of the thoracic aorta is normal. There is no intramural hematoma or thoracic aorti c dissection. There is extensive coronary artery calcification. There is evidence for an old infarct of the interventricular septum. No pulmonary emboli are identified. There is no thoracic lymphadenopa thy. No pneumothorax or pleural effusion is noted. There are no suspicious pulmonary nodules. No cons olidation is identified to suggest pneumonia. No acute fracture is identified within visualized porti ons of the bony thorax. Upper abdomen is unremarkable. IMPRESSION: 1. No thoracic aortic dissection. 2. No pulmonary emboli identified. 3. Extensive coronary artery calcification. Old infarct of the interventricular septum. ACT 112: Negative or not required by law. Electronically signed by: Ladarius Garcia M.D. 11/06/2020 11:33 AM
--- NOTE | 2020-11-06 11:39 | History & Physical Report ---
Date of Service November 06, 2020 Assessment & Plan (1) Acute coronary syndrome: Plan: 70 y/o M Hx HTN, HLD, depression, LBBB, CAD - multiple MIs and multiple stents. Presenting with central CP radiating to the L arm and neck. He denies SOB, nausea, diaphoresis. He states that the symptoms were similar to prior MIs. The pt responded to NTG in the ER, however, his blood pressure significantly decreased into the 70s before recovering with IVF. He had a bowel movement which was reported as melanotic by the attending nurse. Initial labs are notable for hyperglycemia and macrocytic anemia with a hemoglobin of 10.6. He was sent for a CTA to r/o dissection which proved negative. It is noted that the pt recently transitioned from Brilinta to Effient. 1) CAD/CP - the pt has proceeded to the rn cardiac cath almost invariably when presenting for CP, and has subsequently been stented. Currently his first trop is negative and an EKG is unchanged although he does have an LBBB limiting diagnostic utility. We cannot currently anticoagulate the pt due to a likely ac tive bleed. He will cont a statin and beta saúl if tolerated. We have held Effient and ASA. Cardiology consult is pending on admission. 2) GI bleed - PPi provided, IVF, NPO, GI service contacted. He should likely proceed for endoscopy if deemed stable by cardiology. 3) HTN, HLD - cont statin - all antihypertensives asdie from his beta saúl with parameters held due to hypotension with administration of NTG and active bleeding. 4) Depression - cont Lexapro Full code - SCDs Total time for this admit including review of labs, meds, imaging, records - discussion with pt and ER attending - including critical care time - 50 min (2) GI bleed: (3) Hyperlipidemia: (4) Depression: (5) Anxiety and depression: History of Present Illness Chief Complaint: Chest pain Primary Care Provider: Marcos Calderon MD 70 y/o M Hx HTN, HLD, depression, LBBB, CAD - multiple MIs and multiple stents. Presenting with central CP radiating to the L arm and neck. He denies SOB, nausea, diaphoresis. He states that the symptoms were similar to prior MIs. The pt responded to NTG in the ER, however, his blood pressure significantly decreased into the 70s before recovering with IVF. He had a bowel movement which was reported as melanotic by the attending nurse. Initial labs are notable for hyperglycemia and macrocytic anemia with a hemoglobin of 10.6. He was sent for a CTA to r/o dissection which proved negative. It is noted that the pt recently transitioned from Brilinta to Effient. PMH: 1) HTN 2) HLD 3) Depression 4) CAD - 1987 - ant wall [place] - LAD stent - 1992 - RCA stent - 1998 - RCA stent - 2002 - LAD/diagonal stent - 2013 - inf [place] - 2 x RCA stents - 2018 - 2 LAD stents, 1 L circ stent - 2019 - mid LAD stent Surgical: 1) Hernia repair 2000, 2003 2) L TKA 2016 3) R total shoulder 2016 4) R TKA 2017 Social: Quit smoking 2017, does not drink alcohol. Family: Father - had first TX age 36 Mother - lung CA Multiple siblings with CAD Allergies Allergy/AdvReac Type Severity Reaction Status Date / Time Iodinated Contrast Media Allergy Intermediate Hives Verified 11/06/20 12:06 atorvastatin [From Lipitor] AdvReac Unknown . Verified 11/06/20 12:06 simvastatin [From Zocor] AdvReac Unknown . Verified 11/06/20 12:06 Home Medications Medication Instructions Recorded Confirmed Type aspirin 81 mg tablet,delayed 81 mg PO QAM 05/29/18 11/06/20 History release (Aspirin Low Dose) loratadine 10 mg tablet (Claritin) 10 mg PO QAM 05/29/18 11/06/20 History amoxicillin 500 mg capsule See Rx Instructions .ROUTE 10/02/18 11/06/20 History .COMPLEX PRN cap rosuvastatin 20 mg tablet (Crestor) 20 mg PO HS 04/10/19 11/06/20 History coenzyme Q10 400 mg capsule (Co 400 mg PO QAM 10/30/19 11/06/20 History Q-10) omega-3 fatty acids 1,000 mg 1,000 mg PO QAM 10/30/19 11/06/20 History capsule (Fish Oil Concentrate) isosorbide mononitrate 60 mg 60 mg PO QAM #90 tab 03/23/20 11/06/20 Rx tablet,extended release 24 hr amlodipine 5 mg tablet (Norvasc) 5 mg PO HS 11/06/20 11/06/20 History escitalopram oxalate 10 mg tablet 15 mg PO HS 11/06/20 11/06/20 History (Lexapro) lisinopril 5 mg tablet (Zestril) 5 mg PO QAM 11/06/20 11/06/20 History lorazepam 0.5 mg tablet (Ativan) 0.5 mg PO DAILY PRN 11/06/20 11/06/20 History metoprolol tartrate 50 mg tablet 50 mg PO QPM 11/06/20 11/06/20 History (Lopressor) prasugrel 10 mg tablet (Effient) 10 mg PO QAM 11/06/20 11/06/20 History tramadol 50 mg tablet (Ultram) 50 mg PO Q8H PRN 11/06/20 11/06/20 History zolpidem 5 mg tablet (Ambien) 5 mg PO HS 11/06/20 11/06/20 History Past Med/Surg History Medical History (Updated 11/06/20 @ 13:02 by Robin Lopez MD) Acute myocardial infarction Arteriosclerotic cardiovascular disease (ASCVD) B12 deficiency CAD (coronary artery disease) Chest pain Depression Folate deficiency Hematuria, microscopic Hyperlipidemia Hypertension Impaired fasting glucose Insomnia Left bundle branch block (LBBB) Left sided chest pain Macrocytic anemia Macrocytosis Mild intermittent asthma Myocardial infarct, old Need for hepatitis C screening test Right knee DJD Rotator cuff arthropathy Unstable angina Surgical History H/O heart artery stent drug eluting stent placed 05/30/2018 prior balloon angioplasty in 1987 after [place] History of hernia repair History of knee replacement History of total knee arthroplasty Status post reverse total arthroplasty of right shoulder Family History Unknown Acute myocardial infarction Lung cancer Atherosclerosis Other Hypertension Myocardial infarction Denies family history of Ovarian cancer Prostate cancer Diabetes Breast cancer Colorectal cancer Stroke Social History Smoking Status: Unknown if ever smoked Tobacco Type: Cigarettes Second Hand Exposure: No; Hx Alcohol Use: Yes Alcohol Intake Frequency: Monthly or Less Hx Substance Use: No Preferred Language: Malian Communication Ability: Effective Automotive Parts Manager Required: No Beliefs That Will Affect Care: None marital status: Current Living Situation: Spouse current occupational status: retired Feels Safe at Home: Yes Childhood Exposure to Second-Hand Smoke: Yes caffeine: Yes Dental Care, Regularly: Yes Physical Activity Frequency: 1-2 Times per Week Seatbelt Use: always Sunscreen Use: Yes Assistive Devices: Denture - Upper, Hearing Aid - Left and Hearing Aid - Right Review of Systems Review of Systems: Gen: Denies fevers, night sweats, rigors, fatigue, malaise, weight loss/gain ENT: Denies congestion, throat pain, hearing loss Eyes: Denies acute visual changes CV: Denies CP, palpitations Pulmonary: Denies SOB, cough, wheezing GI: Melanotic stool reported in the ER Neuro: Denies acute or unilateral weakness, acute gait impairment, headache or acute visual changes Musculoskeletal: Denies joint pain, inflammation Endocrine: Denies polydipsia, polyuria Skin: Denies acute rashes or ulcers Physical Exam Physical Exam: General: AAO x 3, no distress ENT: No erythema or exudates, no thrush Eyes: VILLA, EOMI Head and neck: Normocephalic, atraumatic, No JVD, neck is supple. Chest/heart: Nontender, S1,2, RRR, no murmurs, no gallops Lungs: CTAB, no wheezing or crackles Abdomen: Nontender, nondistended, BS+ Neuro: AAO x 3, speech is clear, no unilateral weakness or loss of sensation, coordination intact Musculoskeletal: No joint inflammation, muscle tenderness, FROM Skin: No acute rashes or ulcers Extremities: No clubbing, cyanosis, edema Results & Data Results & Data ([facility]) Vital Signs (Past 12 Hours) Vital Signs Temp Pulse Resp BP Pulse Ox 11/06/20 10:12 106 H 16 95 11/06/20 09:55 98.1 F 105 H 15 99/70 L 95 PG Care Time/CCT Total # of Minutes Spent Total Time Spent with Patient: Total time spent is greater than 50% in coordination of care (as documented) at patient's floor/unit and/or counseling patient: Coding Level of Care Code 95745 Initial Inpt Care Lvl 3 Diagnoses Acute coronary syndrome I24.9 GI bleed K92.2 Hyperlipidemia E78.5 Hyperlipidemia type: unspecified Depression F32.9 Anxiety and depression F41.9; F32.9 (1) Hyperlipidemia Hyperlipidemia type: unspecified Qualified Code(s): E78.5 - Hyperlipidemia, unspecified
[2020-11-06] MEDS: PANTOprazole 40 MG in DEXTROSE 5% 100 ML IV SCH ×4 (11:44→20:08)
--- NOTE | 2020-11-06 13:19 | Gastrointestinal Consultation ---
Date of Consultation November 06, 2020 Supervising Physician Co-Signing Physician Notes I performed a history and physical examination of the patient today, including specifically on physical exam - soft abdomen. I have discussed the patient's management with the advanced practitioner. Please refer to the nurse practitioner's note for the documented findings and plan of care. Urgent EGD today Patient was explained in detail regarding risks, benefits, limitations and alternatives of the above endoscopic procedure. Risks of intravenous sedation used for procedure were also explained. Risks include, but not limited to perforation, bleeding, infection, respiratory distress, cardiac arrest and . Patient is also aware about the possibility of missed lesion. Patient's questions were answered. The patient verbalized understanding the information and agreed to undergo the procedure. History of Present Illness Reason for Consultation: Melena Requesting Physician: Dr. Bhavya Eubanks Attending Physician: Dr. Zunilda Gallardo History of Present Illness Pt is a 70 y/o male w PMHx of LBBB, NSTEMI, HLD, HTN, CAD s/p drug eluting stent placements who presented to ED today w c/o L sided CP w radiation to L arm and up his neck associated w diaphoresis. He received Nitroglycerin SL on his way to ED and felt better. It's noted that his stool in ED was black thus GI called for possible GI bleeding. He is currently on Effient (changed recently from Brill inta due to angiospasm symptoms), ASA 81mg daily. Denies any NSAIDs, any hx of GI ulcers. Colonoscopies in 2006 and 2016 w signs of int hemorrhoids but otherwise unremarkable. Labs reviewed: Hgb 10 (previously 12), Plt 223, INR 1.1, BUN 42, Cr 1. Troponin normal. VS w tachycardia. BP initially dropped after nitroglycerin administration, normal now. ASSESSMENT/PLAN: Pt is a 70 yo male w hx of extensive cardiac hx, who presented w angina symptoms seen for anemia and suspected GI bleeding. - Monitor blood ct and transfuse prn - Keep NPO - PPI bolus and gtt - Recommend EGD evaluation, pending Cardiology evaluation and clearance Allergies Allergy/AdvReac Type Severity Reaction Status Date / Time Iodinated Contrast Media Allergy Intermediate Hives Verified 11/06/20 13:54 atorvastatin [From Lipitor] AdvReac Unknown . Verified 11/06/20 13:54 simvastatin [From Zocor] AdvReac Unknown . Verified 11/06/20 13:54 Home Medications Medication Instructions Recorded Confirmed Type aspirin 81 mg tablet,delayed 81 mg PO QAM 05/29/18 11/06/20 History release (Aspirin Low Dose) loratadine 10 mg tablet (Claritin) 10 mg PO QAM 05/29/18 11/06/20 History amoxicillin 500 mg capsule See Rx Instructions .ROUTE 10/02/18 11/06/20 History .COMPLEX PRN cap rosuvastatin 20 mg tablet (Crestor) 20 mg PO HS 04/10/19 11/06/20 History coenzyme Q10 400 mg capsule (Co 400 mg PO QAM 10/30/19 11/06/20 History Q-10) omega-3 fatty acids 1,000 mg 1,000 mg PO QAM 10/30/19 11/06/20 History capsule (Fish Oil Concentrate) isosorbide mononitrate 60 mg 60 mg PO QAM #90 tab 03/23/20 11/06/20 Rx tablet,extended release 24 hr amlodipine 5 mg tablet (Norvasc) 5 mg PO HS 11/06/20 11/06/20 History escitalopram oxalate 10 mg tablet 15 mg PO HS 11/06/20 11/06/20 History (Lexapro) lisinopril 5 mg tablet (Zestril) 5 mg PO QAM 11/06/20 11/06/20 History lorazepam 0.5 mg tablet (Ativan) 0.5 mg PO DAILY PRN 11/06/20 11/06/20 History metoprolol tartrate 50 mg tablet 50 mg PO QPM 11/06/20 11/06/20 History (Lopressor) prasugrel 10 mg tablet (Effient) 10 mg PO QAM 11/06/20 11/06/20 History tramadol 50 mg tablet (Ultram) 50 mg PO Q8H PRN 11/06/20 11/06/20 History zolpidem 5 mg tablet (Ambien) 5 mg PO HS 11/06/20 11/06/20 History Patient History Medical History Acute myocardial infarction Arteriosclerotic cardiovascular disease (ASCVD) B12 deficiency CAD (coronary artery disease) Chest pain Depression Folate deficiency Hematuria, microscopic Hyperlipidemia Hypertension Impaired fasting glucose Insomnia Left bundle branch block (LBBB) Left sided chest pain Macrocytic anemia Macrocytosis Mild intermittent asthma Myocardial infarct, old Need for hepatitis C screening test Right knee DJD Rotator cuff arthropathy Unstable angina Surgical History H/O heart artery stent drug eluting stent placed 05/30/2018 prior balloon angioplasty in 1988 after [place] History of hernia repair History of knee replacement History of total knee arthroplasty Status post reverse total arthroplasty of right shoulder Family History Unknown Acute myocardial infarction Lung cancer Atherosclerosis Other Hypertension Myocardial infarction Denies family history of Ovarian cancer Prostate cancer Diabetes Breast cancer Colorectal cancer Stroke Social History Smoking Status: Unknown if ever smoked Tobacco Type: Cigarettes Second Hand Exposure: No; Hx Alcohol Use: Yes Alcohol Intake Frequency: Monthly or Less Hx Substance Use: No Preferred Language: Spanish Communication Ability: Effective Global Transportation Manager Required: No Beliefs That Will Affect Care: None marital status: Current Living Situation: Spouse current occupational status: retired Feels Safe at Home: Yes Childhood Exposure to Second-Hand Smoke: Yes caffeine: Yes Dental Care, Regularly: Yes Physical Activity Frequency: 1-2 Times per Week Seatbelt Use: always Sunscreen Use: Yes Assistive Devices: Denture - Upper, Hearing Aid - Left and Hearing Aid - Right Review of Systems Review of Systems: All systems reviewed & are unremarkable except as noted in HPI & below Constitutional: as per Subjective / HPI Physical Exam Constitutional: WD/WN, vitals as above well groomed, cooperative and comfortable Eyes: PERRL, conjunctivae normal, anicteric sclerae ENMT: external ear and nose normal, oropharynx normal Respiratory: normal respiratory effort, lungs clear to auscultation Cardiovascular: RRR, no murmur, no edema Gastrointestinal (Abdomen): normal bowel sounds, soft, nontender, no hepatosplenomegaly Skin: no rashes, warm and dry no jaundice Psychiatric: A+Ox3, euthymic affect Lymphatic: no lymphedema Results & Data ([facility]) Vital Signs (Past 12 Hours) Vital Signs Temp Pulse Resp BP BP Pulse Ox 11/06/20 11:27 15 115/70 94 11/06/20 10:12 106 H 16 95 11/06/20 09:55 36.7 C 105 H 15 99/70 L 95
--- NOTE | 2020-11-06 13:19 | Critical Care Consultation ---
Date of Consultation November 06, 2020 Assessment & Plan (1) Admitted to intensive care unit: Emile Zelaya is a 70 yo male with PMHx significant for CAD with multiple PCIs/stents (on Aspirin/Prasugrel), LBBB, HTN, HLD and depression who was admitted to [facility] on 11/06 for acute-onset chest pain and acute GI bleed. Neuro - [facility] ICU: NEGATIVE - Depression/Anxiety - continue home Lexapro and PRN Ativan - close monitoring while in ICU Cardiac - 1. Unstable angina. Acute-onset chest pain with typical ACS symptoms, improvement with Nitro in the ED. EKG without ST/T changes but questionable utility given chronic LBBB, and initial Troponin negative although it was initially negative on previous two hospitalizations that resulted in PCI with intervention. Unable to start anti-coagulation or perform PCI at this time, due to acute GI bleed. - continue home statin - will hold BB for now given hypotension, but plan to re-start as soon as tolerated - hold Aspirin and Prasugrel in setting of GI bleed - Cardiology consulted - appreciate recs - patient may require PCI during this hospitalization, once GI bleed is stabilized 2. Symptomatic hypotension, likely due to acute GI bleed with possible contribution from IN as well. - received 2L NSS boluses in the ED, with mild improvement in BPs to 100s/60s - continue with 2 units pRBCs - may require initiation of vasopressors if hypotension worsens - maintain MAP >65 3. HTN/HLD - continue statin as stated above - hold home Amlodipine/Imdur/Lisinopril/BB in setting of hypotension Respiratory - No respiratory concerns at this time. - supplemental oxygen if needed to maintain SpO2 >90% GI - Acute GI bleed, suspect upper bleed given melanotic stool. Patient presented hemodynamically unstable but is improving with IVFs and blood transfusion. - continue with 2units pRBCs as stated above - received Protonix 80mg IV loading dose, continue with 40mg IV BID - hold home Aspirin/Prasugrel as stated above - GI consulted - appreciate recs - NPO for emergent EGD to evaluate and treat suspected upper GI bleed RENAL/LYTES - No significant electrolyte derangement. - Replace lytes as needed. - No concerns at this time. - strict I/Os ENDO - No history of diabetes or thyroid disease. HEME - Acute blood loss anemia secondary to GI bleed. - continue with 2units pRBCs as stated above - monitor H/H closely (Q6H) - transfuse as necessary for Hgb <10 in this patient with ACS and hemodynamic instability ID - No concerns for infection at this point. - Monitor fever curve. LINES/IV ACCESS - PIVs intact. DVT PROPHYLAXIS - Hold chemoprophylaxis due to acute GI bleed. SCDs Disposition: admit to ICU Thank you for allowing us to be part of this patient's care. Please refer to Dr. Townsend's documentation for any further recommendations. (2) Acute coronary syndrome: (3) GI bleed: (4) Hypertension: (5) Hyperlipidemia: (6) Anxiety and depression: Supervising Physician Co-Signing Physician Notes Dr. Dunlap was resident physician during care of patient. I separately evaluated patient for mcmahon portions of the history and the exam. I was present during the critical portion of medical decision making, and I discussed the case with the resident. I generally agree with the findings and plan. Patient receiving bolus of crystalloid and blood during my evaluation he was hypotensive which improved with treatment. Facilitated discussion between gastroenterology and cardiology patient will be heading to GI suite prior to cardiac Dental Scheduling Coordinator with anticipation that patient would need to be fully anticoagulated and if there is a culprit lesion it will be better to have this under control prior to anticoagulation given the initial troponins are negative and EKG does not demonstrate significant ST elevation IN. Patient is critically ill. History of Present Illness Reason for Consultation: GI bleed, hypotension, CAD Requesting Physician: Dr. Lopez Attending Physician: Dr. Lopez History of Present Illness Emile Zelaya is a 70 yo male with PMHx significant for CAD with multiple PCIs/stents (on Aspirin/Prasugrel), LBBB, HTN, HLD and depression who presented to [facility] on 11/06 for substernal chest pain radiating to his left arm and neck. Patient reports acute onset of above symptoms when he woke up this morning, which were similar in character to prior MIs. Also reports nausea, lightheadedness/dizziness and "passing out" when he tried getting up. His , who assisted with the history, reports that she heard a thud in the bedroom and found her on the floor. They both deny head trauma or other trauma. Patient's chest pain and other symptoms persisted for "several hours" and continued until he arrived at the ED. Of note he has had PCIx7 with 10 TRENTON placed over the last 23 years; last PCI was in June of this year DESx1 to LAD. In the ED the patient received Nitroglycerine x1 that improved chest pain but led to subsequent hypotension to 70s/50s which improved with several NSS boluses. Patient also had a melanotic stool in the ED. He denies previous melena/hematochezia although he admits to increased loose BMs over the last week. He transitioned from Brilinta to Prasugrel on 07/15/2020 due to dyspnea, and has been taking DAPT daily as prescribed. No recent use of NSAIDs. Laboratory evaluation significant for Hgb 10.6 (normal baseline in 06/2020), MCV 103.8, PT/PTT/INR WNL, CMP/electrolytes WNL. EKG showing sinus tachycardia with chronic LBBB. Initial Troponin negative. CTA chest negative for aortic dissection and PE. CXR unremarkable. Patient was given NSS total 2L boluses, Protonix 80mg IV loading dose and started on 40mg IV BID for suspected upper GIB. Was also started on pRBCs. NPO for emergent EGD, given symptomatic hypotension. The ICU was consulted for close hemodynamic monitoring in this hemodynamically unstable patient with acute blood loss anemia and ACS. Allergies Allergy/AdvReac Type Severity Reaction Status Date / Time Iodinated Contrast Media Allergy Intermediate Hives Verified 11/06/20 13:54 atorvastatin [From Lipitor] AdvReac Unknown . Verified 11/06/20 13:54 simvastatin [From Zocor] AdvReac Unknown . Verified 11/06/20 13:54 Home Medications Medication Instructions Recorded Confirmed Type aspirin 81 mg tablet,delayed 81 mg PO QAM 05/29/18 11/06/20 History release (Aspirin Low Dose) loratadine 10 mg tablet (Claritin) 10 mg PO QAM 05/29/18 11/06/20 History amoxicillin 500 mg capsule See Rx Instructions .ROUTE 10/02/18 11/06/20 History .COMPLEX PRN cap rosuvastatin 20 mg tablet (Crestor) 20 mg PO HS 04/10/19 11/06/20 History coenzyme Q10 400 mg capsule (Co 400 mg PO QAM 10/30/19 11/06/20 History Q-10) omega-3 fatty acids 1,000 mg 1,000 mg PO QAM 10/30/19 11/06/20 History capsule (Fish Oil Concentrate) isosorbide mononitrate 60 mg 60 mg PO QAM #90 tab 03/23/20 11/06/20 Rx tablet,extended release 24 hr amlodipine 5 mg tablet (Norvasc) 5 mg PO HS 11/06/20 11/06/20 History escitalopram oxalate 10 mg tablet 15 mg PO HS 11/06/20 11/06/20 History (Lexapro) lisinopril 5 mg tablet (Zestril) 5 mg PO QAM 11/06/20 11/06/20 History lorazepam 0.5 mg tablet (Ativan) 0.5 mg PO DAILY PRN 11/06/20 11/06/20 History metoprolol tartrate 50 mg tablet 50 mg PO QPM 11/06/20 11/06/20 History (Lopressor) prasugrel 10 mg tablet (Effient) 10 mg PO QAM 11/06/20 11/06/20 History tramadol 50 mg tablet (Ultram) 50 mg PO Q8H PRN 11/06/20 11/06/20 History zolpidem 5 mg tablet (Ambien) 5 mg PO HS 11/06/20 11/06/20 History Patient History Medical History Acute myocardial infarction Arteriosclerotic cardiovascular disease (ASCVD) B12 deficiency CAD (coronary artery disease) Chest pain Depression Folate deficiency Hematuria, microscopic Hyperlipidemia Hypertension Impaired fasting glucose Insomnia Left bundle branch block (LBBB) Left sided chest pain Macrocytic anemia Macrocytosis Mild intermittent asthma Myocardial infarct, old Need for hepatitis C screening test Right knee DJD Rotator cuff arthropathy Unstable angina Surgical History H/O heart artery stent drug eluting stent placed 05/30/2018 prior balloon angioplasty in 1987 after [place] History of hernia repair History of knee replacement History of total knee arthroplasty Status post reverse total arthroplasty of right shoulder Family History Unknown Acute myocardial infarction Lung cancer Atherosclerosis Other Hypertension Myocardial infarction Denies family history of Ovarian cancer Prostate cancer Diabetes Breast cancer Colorectal cancer Stroke Social History Smoking Status: Unknown if ever smoked Tobacco Type: Cigarettes Second Hand Exposure: No; Hx Alcohol Use: Yes Alcohol Intake Frequency: Monthly or Less Hx Substance Use: No Preferred Language: Kinyarwanda Communication Ability: Effective Regional Engagement Consultant Required: No Beliefs That Will Affect Care: None marital status: Current Living Situation: Spouse current occupational status: retired Feels Safe at Home: Yes Childhood Exposure to Second-Hand Smoke: Yes caffeine: Yes Dental Care, Regularly: Yes Physical Activity Frequency: 1-2 Times per Week Seatbelt Use: always Sunscreen Use: Yes Assistive Devices: Denture - Upper, Hearing Aid - Left and Hearing Aid - Right Review of Systems Review of Systems: All systems reviewed & are unremarkable except as noted in HPI & below Physical Exam Physical Exam: General: A&Ox3. Lethargic/sleepy but easily arousable. HEENT: Atraumatic, normocephalic. Pale conjunctiva. Pulm: CTAB A&P. -wheezes, -rales, -rhonchi. Symmetrical chest rise. No increase work of breathing. No respiratory distress. Cardiac: RRR, -mrg. Radial pulses intact and symmetrical. Chest: no pain on palpation of chest wall Abdominal: soft but mild epigastric tenderness, non-distended, BS x 4 Skin: pale skin but warm, dry and no rash Results & Data Results & [facility] ([facility]) Vital Signs (Past 12 Hours) Vital Signs Temp Pulse Resp BP BP Pulse Ox 11/06/20 13:13 36.7 C 100 H 16 86/60 L 96 11/06/20 11:27 15 115/70 94 11/06/20 10:12 106 H 16 95 11/06/20 09:55 36.7 C 105 H 15 99/70 L 95 Resident Activity Tracking Resident Involvement: Resident Care Provided Care Provided: Adult Hospital Medicine (1) Hyperlipidemia Hyperlipidemia type: unspecified Qualified Code(s): E78.5 - Hyperlipidemia, unspecified (2) Hypertension Hypertension type: essential hypertension Qualified Code(s): I10 - Essential (primary) hypertension
--- NOTE | 2020-11-06 13:55 | Cardiology Consultation ---
Date of Consultation November 06, 2020 Assessment & Plan (1) Unstable angina pectoris: (2) GI bleed: Patient presents with symptoms reminiscent of his previous angina. Serial EKGs performed revealing sinus tachycardia and chronic left bundle branch block relatively unchanged compared to previous with the exception of interval development of sinus tachycardia. CT of the chest reveals no thoracic aortic dissection or pulmonary emboli. He has had intermittent hypotension, blood pressure now improved after fluid bolus and a unit of packed red blood cells is also transfusing. His initial troponin I is undetectable, of note, at the time of his other recent presentations in February, and again in June,, his initial troponin was also negative at that time. The patient denies any subjective symptoms of gastrointestinal bleeding recently at home, given his chronic dual antiplatelet therapy with aspirin and prasugrel, upper GI bleed is certainly a possibility. His hemoglobin is down 2 points to 10.6 having previously been found to have hemoglobin levels of 15 and 12.7 on his previous admission in June. At present, recommend proceeding for emergent EGD that is hemodynamically stabilized to see if there is a bleeding source amenable to intervention. I anticipate cardiac catheterization may still be necessary as is symptoms are suggestive of recurrent plaque rupture event, reminiscent of the previous 2 cardiac catheterizations. Further medication recommendations will be forthcoming after the EGD results, but I anticipate likelihood of needing to continue his chronic dual antiplatelet therapy given his past history of multiple stents with recurrent plaque rupture. Case discussed with Dr Harding of anesthesia, Dr. Townsend of [facility] care, Dr Lopez of [facility] service and Dr Owen of interventional cardiology. History of Present Illness History of Present Illness Mr Zelaya is a 70 year old male who is seen in emergent cardiology consultation per the request of Dr Lopez for the evaluation of unstable angina with chronic left bundle branch block. The patient has a history of complex coronary heart disease and has been assessed by the undersigned on 2 previous recent hospitalizations dating back to February 2020 and June, with details as outlined below. He states that he has been in his regular state of health recently. He has been tolerating dual antiplatelet therapy with aspirin and prasugrel without any subjective symptoms to suggest previous bleeding or recent angina. This morning he woke up and went to use the bathroom. He states that he sat on the commode. He did not have a bowel movement, but developed severe 11/10 chest discomfort reminiscent of his previous angina. This was new, and he has not been having such symptoms recently prior to today. His initial vital signs on arrival today included a blood pressure of 99/70. He however was observed to have a dark brown bowel movement that was Hemoccult positive, and subsequently, became hypotensive with systolic blood pressure translate down to the 60-70 range as per nursing in the emergency room's report provided to me. At the time of my assessment in room C5, systolic blood pressure reading observed by the undersigned was 90 and then 100 mmHg, currently receiving a fluid bolus, and receiving a transfusion of a unit of packed red blood cells. At present the patient states his chest discomfort is down to a 4/10. His respiratory status is stable. He is lying completely supine, with no subjective symptoms of orthopnea. Past Medical/Surgical History: 1.Ischemic heart disease. Anterior wall myocardial infarction in 1987. Subsequent PTCA without stent of LAD lesion. RCA stenting in 1992 and 1998. LAD and diagonal stenting in July 2002. April 25, 2013 spermatocele surgery, after holding ASA and Plavix for 10 days, complicated postoperatively an inferior wall STEMI s/p PCI with 2 drug eluting stents to the RCA. Course complicated by atrial fibrillation with a RVR during the procedure then ventricular fibrillation arrest treated with defibrillation and brief CPR. Episodes of nonsustained ventricular tachycardia observed in the ICU necessitating use of amiodarone therapy. Presentation to [facility] May 2018 with unstable angina, status post PCI of the LAD with 2 drug-eluting stents and PCI of the left circumflex with 1 drug-eluting stent. 03/01/2020:60-70% hazy ,acute thrombotic mid LAD stenosis proximal to prior stents Successful PCI of proximal to mid LAD with a single TRENTON overlapping proximal aspect of prior stent (3.5 x 38 mm Costa; post-dilated with 4.0 NC). 06/14/20, recurrent presentation with unstable angina cardiac catheterization revealed 50 to 60% hazy luminal narrowing at the distal edge of the mid LAD stent was felt to be an acute plaque rupture and patient underwent direct stenting utilizing a 3 x 15 mm Medtronic Costa stent. 2.Chronic left bundle branch block, LVEF , 50% 3.Hypertension 4.Dyslipidemia. LDL goal < 70 mg/dL. Statin intolerance noted, tolerating rosuvastatin 5.Small abdominal aortic aneurysm per documentation. Abdominal CT scan in April, at [facility] revealed advance atherosclerotic calcification and ectasia of the abdominal aorta measuring up to 2.6 cm in diameter. July 2017 aortic duplex with no evidence of an abdominal aortic aneurysm 6.Mild bilateral internal carotid artery disease. Allergies Allergy/AdvReac Type Severity Reaction Status Date / Time Iodinated Contrast Media Allergy Intermediate Hives Verified 11/06/20 13:54 atorvastatin [From Lipitor] AdvReac Unknown . Verified 11/06/20 13:54 simvastatin [From Zocor] AdvReac Unknown . Verified 11/06/20 13:54 Home Medications Medication Instructions Recorded Confirmed Type aspirin 81 mg tablet,delayed 81 mg PO QAM 05/29/18 11/06/20 History release (Aspirin Low Dose) loratadine 10 mg tablet (Claritin) 10 mg PO QAM 05/29/18 11/06/20 History amoxicillin 500 mg capsule See Rx Instructions .ROUTE 10/02/18 11/06/20 History .COMPLEX PRN cap rosuvastatin 20 mg tablet (Crestor) 20 mg PO HS 04/10/19 11/06/20 History coenzyme Q10 400 mg capsule (Co 400 mg PO QAM 10/30/19 11/06/20 History Q-10) omega-3 fatty acids 1,000 mg 1,000 mg PO QAM 10/30/19 11/06/20 History capsule (Fish Oil Concentrate) isosorbide mononitrate 60 mg 60 mg PO QAM #90 tab 03/23/20 11/06/20 Rx tablet,extended release 24 hr amlodipine 5 mg tablet (Norvasc) 5 mg PO HS 11/06/20 11/06/20 History escitalopram oxalate 10 mg tablet 15 mg PO HS 11/06/20 11/06/20 History (Lexapro) lisinopril 5 mg tablet (Zestril) 5 mg PO QAM 11/06/20 11/06/20 History lorazepam 0.5 mg tablet (Ativan) 0.5 mg PO DAILY PRN 11/06/20 11/06/20 History metoprolol tartrate 50 mg tablet 50 mg PO QPM 11/06/20 11/06/20 History (Lopressor) prasugrel 10 mg tablet (Effient) 10 mg PO QAM 11/06/20 11/06/20 History tramadol 50 mg tablet (Ultram) 50 mg PO Q8H PRN 11/06/20 11/06/20 History zolpidem 5 mg tablet (Ambien) 5 mg PO HS 11/06/20 11/06/20 History Patient History Medical History Acute myocardial infarction Arteriosclerotic cardiovascular disease (ASCVD) B12 deficiency CAD (coronary artery disease) Chest pain Depression Folate deficiency Hematuria, microscopic Hyperlipidemia Hypertension Impaired fasting glucose Insomnia Left bundle branch block (LBBB) Left sided chest pain Macrocytic anemia Macrocytosis Mild intermittent asthma Myocardial infarct, old Need for hepatitis C screening test Right knee DJD Rotator cuff arthropathy Unstable angina Surgical History H/O heart artery stent drug eluting stent placed 05/30/2018 prior balloon angioplasty in 1987 after [place] History of hernia repair History of knee replacement History of total knee arthroplasty Status post reverse total arthroplasty of right shoulder Family History Unknown Acute myocardial infarction Lung cancer Atherosclerosis Other Hypertension Myocardial infarction Denies family history of Ovarian cancer Prostate cancer Diabetes Breast cancer Colorectal cancer Stroke Social History Smoking Status: Unknown if ever smoked Tobacco Type: Cigarettes Second Hand Exposure: No; Hx Alcohol Use: Yes Alcohol Intake Frequency: Monthly or Less Hx Substance Use: No Preferred Language: Sudanese Communication Ability: Effective Business Attorney Required: No Beliefs That Will Affect Care: None marital status: Current Living Situation: Spouse current occupational status: retired Feels Safe at Home: Yes Childhood Exposure to Second-Hand Smoke: Yes caffeine: Yes Dental Care, Regularly: Yes Physical Activity Frequency: 1-2 Times per Week Seatbelt Use: always Sunscreen Use: Yes Assistive Devices: Denture - Upper, Hearing Aid - Left and Hearing Aid - Right Review of Systems Review of Systems: All systems reviewed & are unremarkable except as noted in HPI & below Physical Exam Physical Exam: Temp Pulse Resp BP Pulse Ox 37 C 95 H 14 101/63 96 11/06/20 13:30 11/06/20 13:30 11/06/20 13:30 11/06/20 13:30 11/06/20 13:30 Constitutional: + ill appearing Respiratory: normal respiratory effort, lungs clear to auscultation Cardiovascular: RRR, no murmur, no edema Gastrointestinal (Abdomen): non tender Neurologic: PERRL, EOMI, accommodation nl, no face palsy, no dysarthria Results & Data ([facility]) Vital Signs (Past 12 Hours) Vital Signs Temp Pulse Resp BP BP Pulse Ox 11/06/20 13:30 37 C 95 H 14 101/63 96 11/06/20 13:18 37 C 98 H 14 87/57 L 94 11/06/20 13:13 36.7 C 100 H 16 86/60 L 96 11/06/20 11:27 15 115/70 94 11/06/20 10:12 106 H 16 95 11/06/20 09:55 36.7 C 105 H 15 99/70 L 95 Laboratory Results Cardiac Enzymes 11/06/20 Range/Units 09:51 AST 10 L (15-37) U/L Troponin I < 0.015 (0-0.045) ng/ml Coagulation 11/06/20 Range/Units 09:51 PT 10.9 (9.0-12.0) Seconds APTT 20.8 L (21.0-31.0) Seconds CBC 11/06/20 Range/Units 09:51 WBC 8.56 (4.8-10.8) K/uL RBC 2.91 L (4.7-6.1) M/uL Hgb 10.6 L (14.0-18.0) g/dL Hct 30.2 L (42-52) % Plt Count 223 (130-400) K/uL Neut # (Auto) 5.75 (1.4-6.5) K/uL Lymph # (Auto) 2.33 (1.2-3.4) K/uL Dunn # (Auto) 0.41 (0.11-0.59) K/uL Eos # (Auto) 0.05 (0-0.5) K/uL Baso # (Auto) 0.01 (0-0.2) K/uL Comprehensive Metabolic Panel 11/06/20 Range/Units 09:51 Sodium 140 (136-145) mmol/L Potassium 4.3 (3.5-5.1) mmol/L Chloride 108 H (98-107) mmol/L Carbon Dioxide 25 (21-32) mmol/L BUN 42 H (7-18) mg/dl Creatinine 1.04 (0.6-1.4) mg/dl Glucose 221 H (70-99) mg/dl Calcium 8.2 L (8.5-10.1) mg/dl AST 10 L (15-37) U/L ALT 18 (12-78) U/L Alkaline Phosphatase 58 (45-117) U/L Total Protein 6.3 L (6.4-8.2) gm/dl Albumin 3.3 L (3.4-5.0) gm/dl Intake and Output 11/05/20 11/06/20 11/06/20 22:59 06:59 14:59 Intake Total 600 / 600 Balance 600 / 600 Intake: IV 600 / 600 PANTOprazole 80 mg In Dextrose 100 / 100 5% 100 ml @ 400 mls/hr IV ONE STA Rx#:[id number] Sodium Chloride 0.9% 1000ML 500 500 / 500 ml @ 999 mls/hr IV .Q31M ONE Rx#:[id number] Intake (Blood Product) Amt 0 / 0 Packed Cells, Leukoreduced 0 / 0 Unit [id number] Other: Weight 86 kg Weight Measurement Method Built in [facility] Patient Weight 11/07/20 06:59 Weight 86 kg
--- NOTE | 2020-11-06 14:12 | Anesthesiology Consultation ---
Date of Service November 06, 2020 Assessment & Plan Chart Review Chart Review: Acceptable Risk for Surgery and Patient NOT seen in Pre Admission Testing Consults Requested none ASA [id number] Proposed Anesthesia Anesthesia Type: MAC Risk / Benefits Reviewed With: PT / POA / Parent / Guardian, Accepts Plan and Informed Consent Obtained History Surgery Operation Date: 11/06/20 10:20 Proposed Procedures p Esophagogastroduodenoscopy Sonia Gallardo MD Operation Date: 11/06/20 16:00 Proposed Procedures p Esophagogastroduodenoscopy Dr Gallardo - Zunilda Gallardo MD Height/Weight Height: 5 ft 6 in Weight: 86 kg Allergies Allergy/AdvReac Type Severity Reaction Status Date / Time Iodinated Contrast Media Allergy Intermediate Hives Verified 11/06/20 13:54 atorvastatin [From Lipitor] AdvReac Unknown . Verified 11/06/20 13:54 simvastatin [From Zocor] AdvReac Unknown . Verified 11/06/20 13:54 Medications Home Medications Medication Instructions Recorded Confirmed Last Taken aspirin 81 mg tablet,delayed 81 mg PO QAM 05/29/18 11/06/20 11/06/20 release (Aspirin Low Dose) loratadine 10 mg tablet (Claritin) 10 mg PO QAM 05/29/18 11/06/20 11/06/20 amoxicillin 500 mg capsule See Rx Instructions .ROUTE 10/02/18 11/06/20 Unknown .COMPLEX PRN cap rosuvastatin 20 mg tablet (Crestor) 20 mg PO HS 04/10/19 11/06/20 11/05/20 coenzyme Q10 400 mg capsule (Co 400 mg PO QAM 10/30/19 11/06/20 11/06/20 Q-10) omega-3 fatty acids 1,000 mg 1,000 mg PO QAM 10/30/19 11/06/20 11/06/20 capsule (Fish Oil Concentrate) isosorbide mononitrate 60 mg 60 mg PO QAM #90 tab 03/23/20 11/06/20 11/06/20 tablet,extended release 24 hr amlodipine 5 mg tablet (Norvasc) 5 mg PO HS 11/06/20 11/06/20 11/05/20 escitalopram oxalate 10 mg tablet 15 mg PO HS 11/06/20 11/06/20 11/05/20 (Lexapro) lisinopril 5 mg tablet (Zestril) 5 mg PO QAM 11/06/20 11/06/20 11/06/20 lorazepam 0.5 mg tablet (Ativan) 0.5 mg PO DAILY PRN 11/06/20 11/06/20 11/04/20 metoprolol tartrate 50 mg tablet 50 mg PO QPM 11/06/20 11/06/20 11/05/20 (Lopressor) prasugrel 10 mg tablet (Effient) 10 mg PO QAM 11/06/20 11/06/20 11/06/20 tramadol 50 mg tablet (Ultram) 50 mg PO Q8H PRN 11/06/20 11/06/20 11/05/20 zolpidem 5 mg tablet (Ambien) 5 mg PO HS 11/06/20 11/06/20 11/05/20 Active Medications Generic Name Dose Route Start Last Admin Trade Name Freq PRN Reason Stop Dose Admin Sodium Chloride 1,000 mls @ 125 mls/hr 11/06/20 10:15 11/06/20 11:39 Nss 1000ml IV 12/06/20 10:14 125 mls/hr .Q8H DAVID Administration Pantoprazole Sodium 40 mg/ 100 mls @ 20 mls/hr 11/06/20 10:45 11/06/20 11:44 Dextrose IV 12/06/20 10:44 8 mg/hr Q5H DAVID 20 mls/hr Administration 8 MG/HR Past Medical History Medical History Acute myocardial infarction Arteriosclerotic cardiovascular disease (ASCVD) B12 deficiency CAD (coronary artery disease) Chest pain Depression Folate deficiency Hematuria, microscopic Hyperlipidemia Hypertension Impaired fasting glucose Insomnia Left bundle branch block (LBBB) Left sided chest pain Macrocytic anemia Macrocytosis Mild intermittent asthma Myocardial infarct, old Need for hepatitis C screening test Right knee DJD Rotator cuff arthropathy Unstable angina Exercise / Class Metabolic Activity II 4-5 Yardwork/Stairs/Walk up hill Past Family History Family History Unknown Acute myocardial infarction Lung cancer Atherosclerosis Other Hypertension Myocardial infarction Denies family history of Ovarian cancer Prostate cancer Diabetes Breast cancer Colorectal cancer Stroke Past Surgical History Surgical History H/O heart artery stent drug eluting stent placed 05/30/2018 prior balloon angioplasty in 1988 after [place] History of hernia repair History of knee replacement History of total knee arthroplasty Status post reverse total arthroplasty of right shoulder Past Anesthesia History No Hx of Anesthesia Complications and No Family Hx of Anesthesia Complications History of PONV No Hx of PONV and No Hx of Motion Sickness Social History Smoking Status: Unknown if ever smoked Hx Alcohol Use: Yes alcohol intake frequency: holidays/special occasions only Hx Substance Use: No substance use type: does not use Physical Exam Vital Signs Last Vital Signs Temp 37 C 11/06/20 13:30 Pulse 95 H 11/06/20 13:30 Resp 14 11/06/20 13:30 BP 101/63 11/06/20 13:30 Pulse Ox 96 11/06/20 13:30 ENMT Mouth: no dentition abnormality Thyromental Distance: > or= 3.5 Finger Breadths Mallampati Class: II Neck normal visual inspection Respiratory normal respiratory effort Auscultation: lungs clear to auscultation bilaterally Cardiovascular Rate/Rhythm: regular rate and regular rhythm Psychiatric Orientation: alert Testing Laboratory Results 11/06/20 09:51 11/06/20 09:51 PT 10.9 Seconds (9.0-12.0) 11/06/20 09:51 INR 1.1 (0.9-1.1) 11/06/20 09:51 APTT 20.8 Seconds (21.0-31.0) L 11/06/20 09:51 Blood Type A Positive 11/06/20 10:52 Antibody Screen NEGATIVE 11/06/20 10:52
[2020-11-06] MEDS ORDERED: LIDOCAINE 2% 2 ML VIAL/AMP(20MG/ML) INFIL ONE (14:22)
[2020-11-06] MEDS ORDERED: PROPOFOL IV EMULSION 10 MG/ML 20 ML VIAL IV ONE (14:22)
--- NOTE | 2020-11-06 14:54 | History & Physical Bridge Note ---
Date of Service November 06, 2020 History & Physical Bridge Note I have examined the patient, reviewed the History & Physical and in the interval since the performance of the History & Physical I have noted the following changes of clinical significance: no changes noted
--- NOTE | 2020-11-06 15:09 | Billing Data ---
Date of Service November 06, 2020 Coding Level of Care Code Critical Care 1st 30-74 mins Time Spent (min) 60 Comment I have personally spent 60 minutes of critical care time in the direct management of this
[2020-11-06] MEDS ORDERED: GLUCAGON FOR INJ 1 MG VIAL ONE (15:25)
[2020-11-06] MEDS ORDERED: PHENYLEPHRINE 100MCG/ML 5ML SYR ONE (15:25)
--- NOTE | 2020-11-06 15:33 | GI REPORT ---
Patient Name: Emile Zelaya Procedure Date: 11/06/2020 2:20 PM Date of : 1950 Admit Type: Emergency Department Age: 70 Gender: Male Attending MD: Zunilda Gallardo MD Procedure: Upper GI endoscopy Providers: Zunilda Gallardo MD Referring MD: Norberto Townsend Indications: Melena Medicines: Propofol per Anesthesia Complications: No immediate complications. Estimated Blood Loss: Estimated blood loss: none. Procedure: Pre-Anesthesia Assessment: - Prior to the procedure, a History and Physical was performed, and patient medications, allergies and sensitivities were reviewed. The patient's tolerance of previous anesthesia was reviewed. - The risks and benefits of the procedure and the sedation options and risks were discussed with the patient. All questions were answered and informed consent was obtained. - Patient identification and proposed procedure were verified prior to the procedure by the physician and the nurse. The procedure was verified in the procedure room. - Pre-procedure physical examination revealed no contraindications to sedation. After obtaining informed consent, the endoscope was passed under direct vision. Throughout the procedure, the patient's blood pressure, pulse, and oxygen saturations were monitored continuously. The Endoscope was introduced through the mouth, and advanced to the second part of duodenum. The upper GI endoscopy was accomplished without difficulty. The patient tolerated the procedure well. Findings: The examined esophagus was normal. The entire examined stomach was normal. Red blood was found in the duodenal bulb and in the second portion of the duodenum. One oozing cratered duodenal ulcer with a visible vessel was found in the duodenal bulb sweep. The lesion was 12 mm in largest dimension. Area was successfully injected with 4 mL of a 1:10,000 solution of epinephrine for hemostasis. Coagulation for hemostasis using bipolar probe was successful. For hemostasis, two hemostatic clips were successfully placed (MR conditional). There was no bleeding at the end of the procedure. Impression: - Normal esophagus. - Normal stomach. - Blood in the duodenum. - Oozing duodenal ulcer with a visible vessel. Injected with Epi. Treated with bipolar cautery. Clips (MR conditional) were placed. Recommendation: - Return patient to ICU for ongoing care. - NPO today then clear liquid diet tomorrow. - Use a proton pump inhibitor IV daily for 3 days then change to PO BID. - Ideally would prefer to hold DAPT for few days however in view of his high cardiac risk due to CAD would continue DAPT and closely monitor for rebleeding. Zunilda Gallardo MD 11/06/2020 3:32:36 PM This report has been signed electronically. Note Initiated On: 11/06/2020 2:20 PM Number of Addenda: 0 I attest to the content of the Intraoperative Record and orders documented therein, exceptions below {[id number]}
--- NOTE | 2020-11-06 15:42 | Communication Note ---
Date of Service: November 06, 2020 Patient reassessed in ICU post EGD , s/p cauterization / clipping of bleeding duodenal ulcer. BP now 113 mm Hg. Still with ongoing chest pain. Given history of past recurrent acute stent thrombosis - still believe best next step is to proceed to coronary angiography . Had contrast for CTA earlier today. Required 300 mcg of phenylephrine for BP support during EGD. Plan : Continue ASA , Prasugrel. Protonix gtt cardiac cath, intervention if necessary.
[2020-11-06] MEDS ORDERED: ICU PROTOCOL FOR HYPERGLYCEMIA PRN (15:45)
[2020-11-06] MEDS ORDERED: niCARdipine HCL INJ 2.5 MG/ML 10 ML AMP ONE (15:45)
--- NOTE | 2020-11-06 15:45 | Anesthesiology Progress Note ---
Date of Service November 06, 2020 Anesthesia Post Procedure Vital Signs Vital Signs: Temp Pulse Pulse Resp BP BP Pulse Ox 11/06/20 14:51 84/60 L 11/06/20 14:45 99/67 L 11/06/20 14:26 98.6 F 78 14 105/68 95 11/06/20 14:24 98.8 F 92 H 18 105/69 100 11/06/20 14:10 98.6 F 77 17 107/72 11/06/20 14:08 98.2 F 93 H 16 118/88 98 11/06/20 14:01 98.2 F 93 H 16 118/88 98 11/06/20 13:30 98.6 F 95 H 14 101/63 96 11/06/20 13:18 98.6 F 98 H 14 87/57 L 94 11/06/20 13:13 98.1 F 100 H 16 86/60 L 96 11/06/20 13:10 98.6 F 77 14 108/72 11/06/20 11:27 15 115/70 94 11/06/20 10:12 106 H 16 95 11/06/20 09:55 98.1 F 105 H 15 99/70 L 95 Pain Intensity Left Chest: Pain Intensity: 7 Transfer of Care Handoff Completed per policy Notes Mental Status: alert / awake / arousable and participated in evaluation Patient Amnestic to Procedure: Yes Nausea / Vomiting: adequately controlled Pain: adequately controlled Airway Patency, RR, SpO2: stable & adequate BP & HR: stable & adequate Hydration State: stable & adequate Anesthetic Complications: no major complications apparent and Pt Satisfied with anesthetic care
[2020-11-06] MEDS ORDERED: NITROGLYCERIN/D5W 100MCG/ML 20ML SYR ONE (15:46)
[2020-11-06] MEDS ORDERED: fentaNYL citrate 100 MCG/2 ML VIAL ONE (16:00)
[2020-11-06] MEDS ORDERED: HEPARIN (PORCINE) 1000 UNIT/ML 10 ML (CATH LAB USE ONLY) ONE (16:00)
[2020-11-06] MEDS ORDERED: MIDAZOLAM HCL 1 MG/ML 2ML VIAL ONE (16:00)
[2020-11-06] MEDS ORDERED: diphenhydrAMINE 50 MG/ML VIAL ONE (16:06)
[2020-11-06] MEDS ORDERED: methylPREDNISolone 125 MG/2 ML VIAL ONE (16:06)
--- NOTE | 2020-11-06 16:36 | Post Anesthesia Assessment ---
Date of Service November 06, 2020 Post Sedation Assessment Vital Signs Temp Pulse Pulse Resp BP BP Pulse Ox 11/06/20 15:20 84 16 116/56 L 98 11/06/20 14:51 84/60 L 11/06/20 14:45 99/67 L 11/06/20 14:26 98.6 F 78 14 105/68 95 11/06/20 14:24 98.8 F 92 H 18 105/69 100 11/06/20 14:10 98.6 F 77 17 107/72 11/06/20 14:08 98.2 F 93 H 16 118/88 98 11/06/20 14:01 98.2 F 93 H 16 118/88 98 11/06/20 13:30 98.6 F 95 H 14 101/63 96 11/06/20 13:18 98.6 F 98 H 14 87/57 L 94 11/06/20 13:13 98.1 F 100 H 16 86/60 L 96 11/06/20 13:10 98.6 F 77 14 108/72 11/06/20 11:27 15 115/70 94 11/06/20 10:12 106 H 16 95 11/06/20 09:55 98.1 F 105 H 15 99/70 L 95 Recovery Score Activity: Moves 4 extremities Respiration: Deep Breath/Cough Circulation: +/-20% PreAnes Value Consciousness: Fully Awake Oxygen Saturation: > 92% On Room Air Post Anesthesia Score: 10 Discharge Sedation Level of Care: Fast Track Phase II Post Sedation Plan On clinical assessment, the patient appears to have tolerated the sedation without complications. Patient is recovering as anticipated. Patient will continue to be monitored by nursing and may be discharged when sedation discharge criteria are met per below protocol. Upon Completions of procedure up to 15 minutes continue every 5 minute vital signs and the P.A.R. score; then discharge to a Phase I or Fast Track to Phase II per the following guidelines: * Discharge Patient to appropriate Phase II area if PAR is 8 or greater or return to pre- procedure baseline. The post - procedure orders will be as directed. * If PAR score is less than 8 or not return to pre-procedure baseline then patient will follow Phase I monitoring till PAR is reached for Phase II. The Phase I may be done in procedure room or may call to secure a Phase I area. * If naloxone or flumazenil are used for reversal, hold in Phase I for continued monitoring from when last reversal dose was given for a minimum of 60 minutes or longer pending the nurse and/or physician discretion of patient condition before discharge to Phase II. Please call the Sedation Physician to re-evaluate and complete post-note for discharge to Phase II area. Do NOT discharge from procedure sedation or Phase 1 until post- sedation evaluation note is complete by procedure /sedation MD Sedation Discharge Instructions to be given to the patient at discharge to home.
--- NOTE | 2020-11-06 16:45 | Communication Note ---
Date of Service: November 06, 2020 Cardiac cath films reviewed with Dr. Owen in the catheterization control room. Patient stents are patent. Systolic blood pressure above 100 mm Hg. Continue protonix gtt. Resume ASA , prasugrel tomorrow. Will differ timing of next H / Hct to ICU team for coordination. Dr Hackett assuming our cardio service tonight and tomorrow.
--- NOTE | 2020-11-06 16:50 | Cardiac Catheterization ---
[facility] Data: Chore Tender Cardiac Status Clinical evaluation leading to the procedure CAD Presenation: Unstable angina Anginal Classification: CCS IV Heart Failure: No Cardiogenic Shock within 24 Hours: No Cardiac Arrest within 24 Hours: No Imaging Studies Past 6 Months: Yes Stress Studies Past 6 Months: No Diagnostic Physicians Name: Srini Owen MD Status: Urgent Closure Device Percutaneous Entry Location: Radial Closure Device: Radial Band Recommendations: Medical Therapy and/or Counseling Intraprocedure Events Significant Disection: No Perforation: No Cardiac Cath Procedure Full Procedure Date November 06, 2020 Pre-Procedure Diagnosis Pre-Procedure Diagnosis: Angina AUC Score AUC Score: 8 Post-Procedure Diagnosis Post-Procedure Diagnosis: Severe CAD and Normal Intracardiac Pressures Procedure(s) Performed Procedure(s) Performed: Coronary Angiography, Left Heart Cath and Ultrasound Guided Vascular Access Operations Support Manager Srini Owen MD Pen Tender(s) Simon Estimated Blood Loss Estimated Blood Loss: 5 Medication(s) Medication(s): Diphenhydramine, Fentanyl, Lidocaine 1% and Versed Medication(s): Solumedrol Summary of Findings Indication: unstable angina Access: 6 Fr slender right radial artery under ultrasound guidance Catheters: Gause LM -calcified, medium caliber, eccentric calcified plaque with 20-30% stenosis LAD -medium caliber vessel, proximal to mid stents widely patent. Spasm in mid segment after stents. Distal vessel without significant disease. Medium D1 without disease. D2 stent widely patent. Circumflex -large caliber vessel, proximal irregularities, mid segment stent with minimal in-stent restenosis, large left PLB without significant disease. RCA -dominant, large caliber, widely patent proximal stent, latemid stent with 20 to 30% in-stent restenosis, 40 to 50% distal stenosis prior to bifurcation with PDA. PDA, PLBs without significant disease. LVEDP - 8 Arterial Closure: TR Band Summary: 1. Stable multivessel coronary artery disease - Widely patent proximal to mid LAD stents. D2 stent patent. - Mid circumflex stent widely patent - Proximal, mid RCA stents widely patent. - 30% ostial left main 2. Normal intracardiac filling pressure Recommendations: To ICU for continued monitoring and UGIB management. Continue DAPT as able post ACS and stenting 4 months ago. Hemodynamics Rest Ao:: 106/61/82 Final Ao: 115/62/82 LV: 98/8 Recommendations Recommendations: Medical Therapy and/or Counseling Specimens Specimens: None Radiation Exposure (mGy) 931 Contrast (mls) 40 Fluids (cc crystalloids) Fluids (cc crystalloids): 65 Drains Drains: none Anesthesia moderate [id number] Procedural Complication(s) None Disposition ICU I attest to the content of the Intraoperative Record and any orders documented therein. Any exceptions are noted below. [facility] Card Cath Procedure Codes Cardiac Catheterization Procedure 1: Cardiovascular Cath Procedures: 87949 Coronaries and LHC (+/-LV) Therapeutic Services & Ancillary Proc Procedure 1: Cardiovascular Tx and Anc Procedures: 52562 Ultrasonic Guidance Vascular Access Moderate Sedation Procedure 1: Sedation/Anesthesia: 31857 Mod Sedation by the same physician;Init15 Min Child Age 5 & Up Procedure 2: Sedation/Anesthesia: 87745 Mod Sedation by the same physician; Ea [id number] Minutes PG Care Time/CCT Total # of Minutes Spent Total Time Spent with Patient: Total time spent is greater than 50% in coordination of care (as documented) at patient's floor/unit and/or counseling patient:
--- NOTE | 2020-11-06 18:36 | Emergency Department Note ---
History of Present Illness General Chief complaint: Cardiac Assessment Time Seen by Provider: 11/06/20 10:13 Source: patient and RN notes reviewed Mode of arrival: EMS Limitations: no limitations History of Present Illness Provider complaint: Chest pain radiating into the left arm Maximum Pain Intensity: 7 This patient is a 70-year-old male who presents to the emergency department with complaints of substernal chest pain rating into the left shoulder. Patient states he sat down to have a bowel movement when he noticed the pain. He has an extensive cardiac history with multiple stents and called for an ambulance. Patient did have aspirin and nitroglycerin x3 prior to arrival. Of note the patient's brother did pass away this week from a heart attack and he states he he has been having a great deal of anxiety. He denies is any fever, chills, shortness of breath, vomiting or diarrhea. The patient does state that he needs the bedpan fairly quickly and feels too weak to get up to go to the bathroom. Home Medications Medication Instructions Recorded Confirmed Type aspirin 81 mg tablet,delayed 81 mg PO QAM 05/29/18 11/06/20 History release (Aspirin Low Dose) loratadine 10 mg tablet (Claritin) 10 mg PO QAM 05/29/18 11/06/20 History amoxicillin 500 mg capsule See Rx Instructions .ROUTE 10/02/18 11/06/20 History .COMPLEX PRN cap rosuvastatin 20 mg tablet (Crestor) 20 mg PO HS 04/10/19 11/06/20 History coenzyme Q10 400 mg capsule (Co 400 mg PO QAM 10/30/19 11/06/20 History Q-10) omega-3 fatty acids 1,000 mg 1,000 mg PO QAM 10/30/19 11/06/20 History capsule (Fish Oil Concentrate) isosorbide mononitrate 60 mg 60 mg PO QAM #90 tab 03/23/20 11/06/20 Rx tablet,extended release 24 hr amlodipine 5 mg tablet (Norvasc) 5 mg PO HS 11/06/20 11/06/20 History escitalopram oxalate 10 mg tablet 15 mg PO HS 11/06/20 11/06/20 History (Lexapro) lisinopril 5 mg tablet (Zestril) 5 mg PO QAM 11/06/20 11/06/20 History lorazepam 0.5 mg tablet (Ativan) 0.5 mg PO DAILY PRN 11/06/20 11/06/20 History metoprolol tartrate 50 mg tablet 50 mg PO QPM 11/06/20 11/06/20 History (Lopressor) prasugrel 10 mg tablet (Effient) 10 mg PO QAM 11/06/20 11/06/20 History tramadol 50 mg tablet (Ultram) 50 mg PO Q8H PRN 11/06/20 11/06/20 History zolpidem 5 mg tablet (Ambien) 5 mg PO HS 11/06/20 11/06/20 History Allergies Allergy/AdvReac Type Severity Reaction Status Date / Time Iodinated Contrast Media Allergy Intermediate Hives Verified 11/06/20 13:54 atorvastatin [From Lipitor] AdvReac Unknown . Verified 11/06/20 13:54 simvastatin [From Zocor] AdvReac Unknown . Verified 11/06/20 13:54 Past Med/Surg History Medical History Acute myocardial infarction Arteriosclerotic cardiovascular disease (ASCVD) B12 deficiency CAD (coronary artery disease) Chest pain Depression Folate deficiency Hematuria, microscopic Hyperlipidemia Hypertension Impaired fasting glucose Insomnia Left bundle branch block (LBBB) Left sided chest pain Macrocytic anemia Macrocytosis Mild intermittent asthma Myocardial infarct, old Need for hepatitis C screening test Right knee DJD Rotator cuff arthropathy Unstable angina Surgical History H/O heart artery stent drug eluting stent placed 05/30/2018 prior balloon angioplasty in 1987 after [place] History of hernia repair History of knee replacement History of total knee arthroplasty Status post reverse total arthroplasty of right shoulder Family History Unknown Acute myocardial infarction Lung cancer Atherosclerosis Other Hypertension Myocardial infarction Denies family history of Ovarian cancer Prostate cancer Diabetes Breast cancer Colorectal cancer Stroke Social History Smoking Status: Former smoker Tobacco Type: Cigarettes Second Hand Exposure: No; Hx Alcohol Use: No Hx Substance Use: No Preferred Language: Greek Communication Ability: Effective Fifth Grade Teacher Required: No Beliefs That Will Affect Care: None marital status: Current Living Situation: Spouse current occupational status: retired Feels Safe at Home: Yes Childhood Exposure to Second-Hand Smoke: Yes caffeine: Yes Dental Care, Regularly: Yes Physical Activity Frequency: 1-2 Times per Week Seatbelt Use: always Sunscreen Use: Yes Assistive Devices: Denture - Upper, Hearing Aid - Left and Hearing Aid - Right Review of Systems See HPI for pertinent positives & negatives. and A total of 10 systems reviewed and were otherwise negative Physical Exam Vital Signs Vital Signs - 24 hr 11/06/20 09:55 11/06/20 10:12 11/06/20 11:27 Temperature 36.7 C Temperature Source Oral Pulse Rate 105 H 106 H Pulse Rhythm Regular Respiratory Rate 15 16 15 Blood Pressure 99/70 L Blood Pressure [Right Arm] 115/70 Blood Pressure Mean 79 Blood Pressure Mean [Right Arm] 85 Pulse Oximetry 95 95 94 Oxygen Delivery Method Room Air Room Air Room Air Sepsis Recent Fever Within 48 Hours No Sepsis New/Unexplained Change in Mental Status No Sepsis Action Taken by Nursing No Action Required Vital signs reviewed. General: Somewhat ill-appearing 70-year-old male, anxious but in no distress HEENT: No scleral icterus, PERRLA, neck supple. Atraumatic. Pale conjunctiva. Cardiovascular: Regular rate and rhythm, no extra sounds. Pulmonary: Clear to auscultation bilaterally, normal work of breathing. On nasal cannula oxygen. Abdomen: Soft, nontender, nondistended, positive bowel sounds. Musculoskeletal: Atraumatic, no peripheral edema. Neurologic: Patient awake alert and oriented x 3 Skin: Warm, dry, no rash Course Administered Medications Pantoprazole Sodium 40 mg/ (Dextrose) 100 mls @ 20 mls/hr IV Q5H [facility] Stop: 12/06/20 15:59 Last Admin: 11/06/20 16:37 Dose: 8 mg/hr, 20 mls/hr Documented by: [id number] Discontinued Medications Diphenhydramine HCl (Diphenhydramine 50 Mg/Ml Vial) 50 mg IV NOW STA Stop: 11/06/20 10:47 Last Admin: 11/06/20 10:57 Dose: 50 mg Documented by: [id number] Diphenhydramine HCl (Diphenhydramine 50 Mg/Ml Vial) Confirm Administered Dose 50 mg .ROUTE .STK-MED ONE Stop: 11/06/20 16:07 Last Admin: 11/06/20 17:15 Dose: Not Given Documented by: [id number] Epinephrine HCl (Epinephrine 1.5" Ndl 0.1 Mg/Ml Syr) Confirm Administered Dose 1 mg IV .STK-MED ONE Stop: 11/06/20 15:28 Last Admin: 11/06/20 17:13 Dose: Not Given Documented by: [id number] Fentanyl Citrate (Fentanyl Citrate 100 Mcg/2 Ml Vial) Confirm Administered Dose 100 mcg .ROUTE .STK-MED ONE Stop: 11/06/20 16:01 Last Increment: 11/06/20 16:36 Dose: 25 mcg Documented by: [id number] Glucagon (Glucagon For Inj 1 Mg Vial) Confirm Administered Dose 1 mg .ROUTE .STK-MED ONE Stop: 11/06/20 15:26 Last Admin: 11/06/20 17:13 Dose: Not Given Documented by: [id number] Heparin Sodium (Porcine) (Heparin (Porcine) 1000 Unit/Ml 10 Ml (Pocket Grinder Operator Use Only)) Confirm Administered Dose 10,000 units .ROUTE .STK-MED ONE Stop: 11/06/20 16:01 Last Admin: 11/06/20 16:36 Dose: Not Given Documented by: [id number] Sodium Chloride (Nss 1000ml) 1,000 mls @ 125 mls/hr IV .Q8H [facility] Stop: 12/06/20 10:14 Last Infusion: 11/06/20 17:14 Dose: 0 mls/hr Documented by: [id number] Admin: 11/06/20 11:39 Dose: 125 mls/hr Documented by: [id number] Sodium Chloride (Nss 1000ml) 500 mls @ 999 mls/hr IV .Q31M ONE Stop: 11/06/20 10:59 Last Infusion: 11/06/20 11:30 Dose: 0 mls/hr Documented by: [id number] Admin: 11/06/20 10:43 Dose: 999 mls/hr Documented by: [id number] Pantoprazole Sodium 80 mg/ (Dextrose) 100 mls @ 400 mls/hr IV ONE STA Stop: 11/06/20 10:43 Last Infusion: 11/06/20 11:41 Dose: 0 mls/hr Documented by: [id number] Admin: 11/06/20 11:26 Dose: 400 mls/hr Documented by: [id number] Pantoprazole Sodium 40 mg/ (Dextrose) 100 mls @ 20 mls/hr IV Q5H [facility] Stop: 12/06/20 10:44 Last Admin: 11/06/20 15:48 Dose: Not Given Documented by: [id number] Infusion: 11/06/20 15:48 Dose: 0 mg/hr, 0 mls/hr Documented by: [id number] Admin: 11/06/20 11:44 Dose: 8 mg/hr, 20 mls/hr Documented by: [id number] Ioversol (Optiray 320 125ml) 119 ml IV ONCE ONE Stop: 11/06/20 11:23 Last Admin: 11/06/20 11:22 Dose: 119 ml Documented by: [id number] Lidocaine HCl (Lidocaine 2% 2 Ml Vial/Amp(20mg/Ml)) Confirm Administered Dose 4 ml INFIL .STK-MED ONE Stop: 11/06/20 14:23 Last Admin: 11/06/20 16:36 Dose: 4 ml Documented by: [id number] Methylprednisolone (Methylprednisolone 125 Mg/2 Ml Vial) Confirm Administered Dose 125 mg .ROUTE .STK-MED ONE Stop: 11/06/20 16:07 Last Admin: 11/06/20 17:15 Dose: Not Given Documented by: [id number] Midazolam HCl (Midazolam Hcl 1 Mg/Ml 2ml Vial) Confirm Administered Dose 2 mg .ROUTE .STK-MED ONE Stop: 11/06/20 16:01 Last Increment: 11/06/20 16:37 Dose: 1 mg Documented by: [id number] Nicardipine HCl (Nicardipine Hcl Inj 2.5 Mg/Ml 10 Ml Amp) Confirm Administered Dose 25 mg .ROUTE .STK-MED ONE Stop: 11/06/20 15:46 Last Admin: 11/06/20 16:36 Dose: 25 mg Documented by: [id number] Nitroglycerin/Dextrose (Nitroglycerin/D5w 100mcg/Ml 20ml Syr) Confirm Administered Dose 2,000 mcg .ROUTE .STK-MED ONE Stop: 11/06/20 15:47 Last Admin: 11/06/20 16:36 Dose: 2,000 mcg Documented by: [id number] Phenylephrine HCl (Phenylephrine 100mcg/Ml 5ml Syr) Confirm Administered Dose 100 mcg .ROUTE .STK-MED ONE Stop: 11/06/20 15:26 Last Admin: 11/06/20 17:13 Dose: Not Given Documented by: [id number] Propofol (Propofol Iv Emulsion 10 Mg/Ml 20 Ml Vial) Confirm Administered Dose 200 mg IV .STK-MED ONE Stop: 11/06/20 14:23 Last Admin: 11/06/20 17:13 Dose: Not Given Documented by: [id number] Critical Care Time Critical Care Time: Yes (45) Total Critical Care Time: 50 I have personally spent greater than 50 minutes of critical care time in the direct management of this patient. This includes bedside care, interpretation of diagnostic studies, and testing, discussion with consultants, patient, and family members, and other required patient management activities. This 50 minutes is in excess of all separately billable procedures. Medical Decision Making Differential Diagnosis Cardiac ischemia, aortic dissection, pulmonary embolism, pneumothorax, pneumonia, pericarditis, myocarditis, esophageal rupture, GERD, cholecystitis, pancreatitis, musculoskeletal, as well as other pathologies. Medical Records Attestation: I reviewed the patient's medical records. Home Medications Current Medication List: was personally reviewed by me Laboratory Data Attestation: I reviewed the patient's lab results. Result diagrams: 11/06/20 09:51 11/06/20 09:51 Lab Results 11/06/20 11/06/20 11/06/20 Range/Units 09:51 09:51 09:51 WBC 8.56 (4.8-10.8) K/uL RBC 2.91 L (4.7-6.1) M/uL Hgb 10.6 L (14.0-18.0) g/dL Hct 30.2 L (42-52) % MCV 103.8 H (80-100) fL MCH 36.4 H (25-34) pg MCHC 35.1 (32-36) g/dL RDW Std Deviation 46.8 H (36.4-46.3) fL RDW Coeff of Chuck 12.5 (11.5-14.5) % Plt Count 223 (130-400) K/uL MPV 10.0 (7.4-10.4) fL Immature Gran % (Auto) 0.1 % Neut % (Auto) 67.2 % Lymph % (Auto) 27.2 % Hutchinson % (Auto) 4.8 % Eos % (Auto) 0.6 % Baso % (Auto) 0.1 % Neut # (Auto) 5.75 (1.4-6.5) K/uL Lymph # (Auto) 2.33 (1.2-3.4) K/uL Hutchinson # (Auto) 0.41 (0.11-0.59) K/uL Eos # (Auto) 0.05 (0-0.5) K/uL Baso # (Auto) 0.01 (0-0.2) K/uL Immature Gran # (Auto) 0.01 (0.00-0.02) K/uL PT 10.9 (9.0-12.0) Seconds INR 1.1 (0.9-1.1) APTT 20.8 L (21.0-31.0) Seconds PTT Ratio 0.8 Sodium 140 (136-145) mmol/L Potassium 4.3 (3.5-5.1) mmol/L Chloride 108 H (98-107) mmol/L Carbon Dioxide 25 (21-32) mmol/L Anion Gap 7.0 (3-11) BUN 42 H (7-18) mg/dl Creatinine 1.04 (0.6-1.4) mg/dl Est Cr Clr Drug Dosing 68.9 ml/min Est GFR ( Amer) 84.5 ml/min Est GFR (Non-Af Amer) 72.9 ml/min BUN/Creatinine Ratio 40.9 H (10-20) Glucose 221 H (70-99) mg/dl Calcium 8.2 L (8.5-10.1) mg/dl Total Bilirubin 0.3 (0.2-1) mg/dl AST 10 L (15-37) U/L ALT 18 (12-78) U/L Alkaline Phosphatase 58 (45-117) U/L Troponin I < 0.015 (0-0.045) ng/ml Total Protein 6.3 L (6.4-8.2) gm/dl Albumin 3.3 L (3.4-5.0) gm/dl Globulin 3.0 (2.5-4.0) gm/dl Albumin/Globulin Ratio 1.1 (0.9-2) COVID-19 Eval Order SARS-CoV-2 (PCR) (Negative) Blood Type Antibody Screen Crossmatch 11/06/20 11/06/20 11/06/20 Range/Units 10:48 10:48 10:52 WBC (4.8-10.8) K/uL RBC (4.7-6.1) M/uL Hgb (14.0-18.0) g/dL Hct (42-52) % MCV (80-100) fL MCH (25-34) pg MCHC (32-36) g/dL RDW Std Deviation (36.4-46.3) fL RDW Coeff of Chuck (11.5-14.5) % Plt Count (130-400) K/uL MPV (7.4-10.4) fL Immature Gran % (Auto) % Neut % (Auto) % Lymph % (Auto) % Hutchinson % (Auto) % Eos % (Auto) % Baso % (Auto) % Neut # (Auto) (1.4-6.5) K/uL Lymph # (Auto) (1.2-3.4) K/uL Hutchinson # (Auto) (0.11-0.59) K/uL Eos # (Auto) (0-0.5) K/uL Baso # (Auto) (0-0.2) K/uL Immature Gran # (Auto) (0.00-0.02) K/uL PT (9.0-12.0) Seconds INR (0.9-1.1) APTT (21.0-31.0) Seconds PTT Ratio Sodium (136-145) mmol/L Potassium (3.5-5.1) mmol/L Chloride (98-107) mmol/L Carbon Dioxide (21-32) mmol/L Anion Gap (3-11) BUN (7-18) mg/dl Creatinine (0.6-1.4) mg/dl Est Cr Clr Drug Dosing ml/min Est GFR ( Amer) ml/min Est GFR (Non-Af Amer) ml/min BUN/Creatinine Ratio (10-20) Glucose (70-99) mg/dl Calcium (8.5-10.1) mg/dl Total Bilirubin (0.2-1) mg/dl AST (15-37) U/L ALT (12-78) U/L Alkaline Phosphatase (45-117) U/L Troponin I (0-0.045) ng/ml Total Protein (6.4-8.2) gm/dl Albumin (3.4-5.0) gm/dl Globulin (2.5-4.0) gm/dl Albumin/Globulin Ratio (0.9-2) COVID-19 Eval Order Covid19 at [facility] SARS-CoV-2 (PCR) NEGATIVE (Negative) Blood Type A Positive Antibody Screen NEGATIVE Crossmatch See Detail Imaging Data Radiologist's Impression: Chest X-Ray 11/06/20 10:08 XR chest 1V portable CLINICAL HISTORY: Chest Pain COMPARISON STUDY: Chest radiograph June 13, 2020. FINDINGS: Lung volumes are normal. Lungs are clear. There is no pneumothorax or pleural effusion. Cardiac size is normal. Mediastinal contours are normal. There is no evidence for pulmonary edema. A reverse total right shoulder arthroplasty is partially imaged. IMPRESSION: No acute cardiopulmonary findings. ACT 112: Negative or not required by law. Electronically signed by: Ladarius Garcia M.D. 11/06/2020 11:01 AM Chest CTA 11/06/20 10:29 CT ANGIOGRAPHY OF THE CHEST DISSECTION PROTOCOL CLINICAL HISTORY: Chest pain. Syncope. Evaluate for dissection. COMPARISON STUDY: Chest radiograph June 13, 2020 and chest radiograph performed earlier today. TECHNIQUE: Patient was premedicated for IV dye allergy as per ER protocol. Before and following the IV administration of 119 mL of Optiray, helical axial images of the chest were obtained. Maximal intensity projections and sagittal and coronal reformats were viewed on an independent 3D workstation. IV contrast was administered without complication. Automated exposure control was utilized for the study. A dose lowering technique was utilized adhering to the principles of ALARA. CT DOSE: 1105.54 mGycm FINDINGS: Caliber of the thoracic aorta is normal. There is no intramural hematoma or thoracic aortic dissection. There is extensive coronary artery calcification. There is evidence for an old infarct of the interventricular septum. No pulmonary emboli are identified. There is no thoracic lymphadenopathy. No pneumothorax or pleural effusion is noted. There are no suspicious pulmonary nodules. No consolidation is identified to suggest pneumonia. No acute fracture is identified within visualized portions of the bony thorax. Upper abdomen is unremarkable. IMPRESSION: 1. No thoracic aortic dissection. 2. No pulmonary emboli identified. 3. Extensive coronary artery calcification. Old infarct of the interventricular septum. ACT 112: Negative or not required by law. Electronically signed by: Ladarius Garcia M.D. 11/06/2020 11:33 AM ECG Data Attestation: I personally reviewed and interpreted this ECG as follows: Indication: + chest pain Rate (beats per minute): 104 Rhythm: + sinus tachycardia ECG Intervals/blocks: + Left bundle branch block and + Prolonged QT ECG Bannister: + Normal ECG ST segments: + Nonspecific ST abnormalities ECG Findings: no PACs or no PVCs Comparison ECG Date: from (June 14, 2020) Change: the following changes noted (First-degree AV block is no longer presen t.) Blood Pressure Blood Pressure Findings: Low blood pressure Blood Pressure Disposition: further management by hospitalist MDM Narrative This patient was evaluated and appeared to be somewhat ill. IV access was obtained and laboratory work was drawn. An order for cardiac monitoring was placed in the patient's in a sinus tachycardia at 106 bpm. IV fluid was established and the patient was bolused with 500 mL of normal saline solution. Patient was typed and crossed for 2 units of PRBCs. Patient's stool was guaiac positive and melanotic. A Protonix bolus with drip was initiated. Troponin was negative. EKGs were compared and the patient does not seem to have significant cardiac change. Patient's blood pressure dropped to systolic pressures of 80s. Patient was consented for blood transfusion and 1 unit PRBCs was ordered for transfusion. I suspect the patient is having angina secondary to anemia from the upper GI bleed. He is on antiplatelet therapy. Patient was informed of the findings and plan and agrees. The hospitalist service was consulted as well as gastroenterology. Impression & Plan UGIB (upper gastrointestinal bleed), Left bundle branch block (LBBB) Discharge Plan Visit Data Chief Complaint: Cardiac Assessment ED Provider: Bhavya Eubanks Discharge Problem: UGIB (upper gastrointestinal bleed), Left bundle branch block (LBBB) Patient Disposition: Admitted As Inpatient Discharge Instructions Interventions: ED Discharge Assessment Last Done: 11/06/20 14:26
[2020-11-06 18:57] LABS: Hematocrit (blood only) 31.3 % (42-52); Hemoglobin 10.6 g/dL (14.0-18.0)
--- NOTE | 2020-11-06 19:56 | Communication Note ---
Date of Service: November 06, 2020 Called by bedside nursing regarding patient having enlargement and swelling of left knee. Patient is status post left total knee arthroplasty in 2008. States that he had fallen onto and bent over on this knee when he fell prior to hospitalization. Only following being in the hospital did he realize that it was starting to become more painful and tender. On my presentation to bedside, patient with good range of motion of left knee. Palpable intra-articular effusion. No surrounding erythema, or hyperthermia. AP and lateral knee x-rays ordered demonstrating small to moderate joint effusion, with intact left total knee arthroplasty. We discussed utilization of heating pad and ice as needed for joint effusion. Resident Activity Tracking Resident Involvement: Resident Care Provided Care Provided: Adult [facility] Medicine
[2020-11-06] MEDS: traMADol HCL 50 MG TABLET PO PRN (20:06)
[2020-11-06] MEDS: METOPROLOL TARTRATE 50 MG TAB PO SCH (20:07)
[2020-11-06] MEDS: ESCITALOPRAM OXALATE 10 MG TAB PO SCH (20:07)
[2020-11-06] MEDS: ROSUVASTATIN CALCIUM 20 MG TAB PO SCH (20:08)
--- NOTE | 2020-11-06 20:15 | XRay Report ---
XR knee LT 1 or 2V routine CLINICAL HISTORY: Left knee effusion s/p TKA COMPARISON STUDY: Left knee 09/04/2008. FINDINGS: There is a left total knee arthroplasty. The hardware appears intact. No abnormal periprost hetic lucency. There is mild anterior soft tissue swelling and a small to moderate effusion. Mild vas cular calcifications are noted. Faint sclerotic foci within the distal femur appears to represent a b one infarct. Mild periosteal thickening along the distal medial shaft of the left femur. No acute fra cture or dislocation. IMPRESSION: 1. 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 2. Small to moderate joint effusion and mild anterior soft tissue swelling. 3. Left total knee arthroplasty. The hardware appears intact. 4. No acute fractures. 5. Mild periosteal thickening along the distal medial left femur. This is nonspecific but could repre sent stress related changes. A follow-up nonemergent MRI could be used for further evaluation. ACT 112: Negative or not required by law. Electronically signed by: Daniel Chapa M.D. 11/06/2020 8:14 PM
[2020-11-06] MEDS: ZOLPIDEM TARTRATE 5 MG TAB PO SCH (21:57)
[2020-11-06] MEDS ORDERED: PANTOprazole 40 MG in SYRINGE 0 ML IV SCH (23:00)
[2020-11-07] MEDS ORDERED: ACETAMINOPHEN 1000 MG/100 ML IV IV ONE ×2 (01:04→01:06)
[2020-11-07] MEDS: PANTOprazole 40 MG in DEXTROSE 5% 100 ML IV SCH ×5 (01:09→20:28)
[2020-11-07 05:22] LABS: Hematocrit (blood only) 27.1 % (42-52); Hemoglobin 9.2 g/dL (14.0-18.0); Lymphocytes # (auto) 0.85 K/uL (1.2-3.4); Lymphocytes % (auto) 11.7 %; Mean Corpuscular Hemoglobin 33.9 pg (25-34); Mean Corpuscular Hgb Conc 33.9 g/dL (32-36); Monocytes # (auto) 0.12 K/uL (0.11-0.59); Monocytes % (auto) 1.6 %; Neutrophils # (auto) 6.31 K/uL (1.4-6.5); Neutrophils % (auto) 86.7 %; Platelet Count 171 K/uL (130-400); RDW Coefficient of Variation 16.2 % (11.5-14.5); RDW Standard Deviation 59.2 fL (36.4-46.3); Red Blood Count 2.71 M/uL (4.7-6.1); White Blood Count 7.28 K/uL (4.8-10.8)
[2020-11-07 05:47] LABS: Alanine Aminotransferase 15 U/L (12-78); Albumin Globulin Ratio 1.2 (0.9-2); Albumin Level 2.9 gm/dl (3.4-5.0); Aspartate Aminotransferase 11 U/L (15-37); BUN Creatinine Ratio 31.4 (10-20); Bilirubin,Total 0.4 mg/dl (0.2-1); Blood Urea Nitrogen 32 mg/dl (7-18); Calcium 7.9 mg/dl (8.5-10.1); Carbon Dioxide 22 mmol/L (21-32); Chloride 113 mmol/L (98-107); Creatinine Clr Calc Pharmacy 69.6 ml/min; Est GFR (African American) 85.5 ml/min; Est GFR (Non-African American) 73.8 ml/min; Globulin 2.5 gm/dl (2.5-4.0); Glucose 145 mg/dl (70-99); Magnesium 2.1 mg/dl (1.8-2.4); Potassium 4.1 mmol/L (3.5-5.1); Sodium 140 mmol/L (136-145); Total Protein 5.4 gm/dl (6.4-8.2)
[2020-11-07 05:50] LABS: Alkaline Phosphatase 48 U/L (45-117); Phosphorus 3.2 mg/dl (2.5-4.9); Troponin I < 0.015 ng/ml (0-0.045)
[2020-11-07 06:35] LABS: Estimated Average Glucose 126 mg/dl
[2020-11-07] MEDS: LORazepam 0.5 MG TAB PO PRN (06:38)
--- NOTE | 2020-11-07 07:27 | Electrocardiogram Report ---
Test Reason : Blood Pressure : / mmHG Vent. Rate : 104 BPM Atrial Rate : 104 BPM P-R Int : 188 ms QRS Dur : 152 ms QT Int : 380 ms P-R-T Axes : 035 -02 114 degrees QTc Int : 499 ms Sinus tachycardia Left bundle branch block Abnormal ECG When compared with ECG of 14-JUN-2020 05:21, VT interval has decreased Vent. rate has increased BY 45 BPM Nonspecific T wave abnormality now evident in Inferior leads Confirmed by Beau Ortiz ([id number]) on 11/07/2020 7:27:19 AM Referred By: REFERRED SELF Confirmed By:Beau Ortiz
--- NOTE | 2020-11-07 07:28 | Electrocardiogram Report ---
Test Reason : Blood Pressure : / mmHG Vent. Rate : 109 BPM Atrial Rate : 109 BPM P-R Int : 154 ms QRS Dur : 140 ms QT Int : 370 ms P-R-T Axes : 011 007 099 degrees QTc Int : 498 ms Sinus tachycardia Left bundle branch block Abnormal ECG When compared with ECG of 06-NOV-2020 09:44, (unconfirmed) No significant change was found Confirmed by Beau Ortiz ([id number]) on 11/07/2020 7:28:30 AM Referred By: Confirmed By:Beau Ortiz
--- NOTE | 2020-11-07 07:40 | Electrocardiogram Report ---
Test Reason : Blood Pressure : / mmHG Vent. Rate : 094 BPM Atrial Rate : 094 BPM P-R Int : 190 ms QRS Dur : 144 ms QT Int : 406 ms P-R-T Axes : 037 -05 113 degrees QTc Int : 507 ms Normal sinus rhythm Left bundle branch block Abnormal ECG When compared with ECG of 06-NOV-2020 10:12, (unconfirmed) No significant change was found Confirmed by Beau Ortiz ([id number]) on 11/07/2020 7:40:22 AM Referred By: REFERRED SELF Confirmed By:Beau Ortiz
[2020-11-07] MEDS ORDERED: PRASugrel TAB 10 MG TAB PO SCH (09:00)
[2020-11-07] MEDS: ASPIRIN 81 MG ECTAB PO SCH (09:23)
--- NOTE | 2020-11-07 09:39 | Critical Care Progress Note ---
Date of Service November 07, 2020 Assessment & Plan (1) Admitted to intensive care unit: Plan: Emile Zelaya is a 70 yo male with PMHx significant for CAD with multiple PCIs/stents (on Aspirin/Prasugrel), LBBB, HTN, HLD and depression who was admitted to [facility] on 11/06 for acute-onset chest pain and acute GI bleed. Neuro - [facility] ICU: NEGATIVE - Depression/Anxiety - continue home Lexapro and PRN Ativan - close monitoring while in ICU Cardiac - 1. Chest pain: Noncardiac. - continue home statin -Restart BB - Prasugrel and 81 mg aspirin - Cardiology consulted - appreciate recs 2. Symptomatic hypotension, resolved 3. HTN/HLD - continue statin as stated above -Restart amlodipine/Imdur/Lisinopril/BB in setting of hypotension Respiratory - No respiratory concerns at this time. - supplemental oxygen if needed to maintain SpO2 >90% GI - Acute GI bleed, improved. - crecieved 2units pRBCs as stated above - received Protonix drip -Full liquid diet - EGD reviewed from yesterday RENAL/LYTES - No significant electrolyte derangement. - Replace lytes as needed. - D/C rao ENDO - No history of diabetes or thyroid disease. HEME - Acute blood loss anemia secondary to GI bleed. - continue with 2units pRBCs as stated above - monitor H/H closely (Q6H) ID - No concerns for infection at this point. - Monitor fever curve. LINES/IV ACCESS - PIVs intact. DVT PROPHYLAXIS - Hold chemoprophylaxis due to acute GI bleed. SCDs Disposition: Stable for downgrade out of ICU (2) Acute coronary syndrome: (3) GI bleed: (4) Hypertension: (5) Hyperlipidemia: (6) Anxiety and depression: Admission and Anticipated Discharge Date Admission Date: November 06, 2020 Subjective Chest pain only present when moving otherwise feels significantly improved compared to yesterday Review of Systems Review of Systems: Positive chest pain with movement Physical Exam Physical Exam: General: Alert. nontoxic. Skin: Warm, dry, Head: Atraumatic Ears, nose, mouth and throat: airway patent Cardiovascular: Normal peripheral perfusion Respiratory: no respiratory distress Gastrointestinal: Non distended Musculoskeletal: No deformity Results & Data Results & Data ([facility]) Vital Signs (Past 12 Hours) Vital Signs Temp Pulse Pulse Resp BP BP Pulse Ox 11/07/20 08:00 36.9 C 83 83 20 124/64 94 11/07/20 07:00 36.9 C 84 20 125/64 94 11/07/20 02:30 74 13 115/56 L 93 11/07/20 02:00 72 16 102/59 L 96 11/07/20 01:30 76 14 105/59 L 95 11/07/20 01:00 79 12 109/58 L 95 11/07/20 00:30 76 14 111/56 L 95 11/07/20 00:00 76 11/06/20 23:59 76 14 111/56 L 95 11/06/20 23:30 75 16 91/44 L 92 11/06/20 23:00 76 19 87/39 L 91 11/06/20 22:30 79 13 93/57 L 97 11/06/20 21:59 87 20 109/64 97 11/06/20 21:30 86 16 106/66 94 Laboratory Results 11/07/20 11/07/20 11/07/20 Range/Units 04:01 04:01 04:01 WBC 7.28 (4.8-10.8) K/uL RBC 2.71 L (4.7-6.1) M/uL Hgb 9.2 L (14.0-18.0) g/dL Hct 27.1 L (42-52) % MCV 100.0 (80-100) fL MCH 33.9 (25-34) pg MCHC 33.9 (32-36) g/dL RDW Std Deviation 59.2 H (36.4-46.3) fL RDW Coeff of Chuck 16.2 H (11.5-14.5) % Plt Count 171 (130-400) K/uL MPV 10.0 (7.4-10.4) fL Immature Gran % (Auto) 0.0 % Neut % (Auto) 86.7 % Lymph % (Auto) 11.7 % Hopkins % (Auto) 1.6 % Eos % (Auto) 0.0 % Baso % (Auto) 0.0 % Neut # (Auto) 6.31 (1.4-6.5) K/uL Lymph # (Auto) 0.85 L (1.2-3.4) K/uL Hopkins # (Auto) 0.12 (0.11-0.59) K/uL Eos # (Auto) 0.00 (0-0.5) K/uL Baso # (Auto) 0.00 (0-0.2) K/uL Immature Gran # (Auto) 0.00 (0.00-0.02) K/uL PT (9.0-12.0) Seconds INR (0.9-1.1) APTT (21.0-31.0) Seconds PTT Ratio Sodium 140 (136-145) mmol/L Potassium 4.1 (3.5-5.1) mmol/L Chloride 113 H (98-107) mmol/L Carbon Dioxide 22 (21-32) mmol/L Anion Gap 5.0 (3-11) BUN 32 H (7-18) mg/dl Creatinine 1.03 (0.6-1.4) mg/dl Est Cr Clr Drug Dosing 69.6 ml/min Est GFR ( Amer) 85.5 ml/min Est GFR (Non-Af Amer) 73.8 ml/min BUN/Creatinine Ratio 31.4 H (10-20) Glucose 145 H (70-99) mg/dl POC Glucose (70-99) mg/dl Estimat Average Glucose mg/dl Hemoglobin A1c (4.5-5.6) % Calcium 7.9 L (8.5-10.1) mg/dl Phosphorus 3.2 (2.5-4.9) mg/dl Magnesium 2.1 (1.8-2.4) mg/dl Total Bilirubin 0.4 (0.2-1) mg/dl AST 11 L (15-37) U/L ALT 15 (12-78) U/L Alkaline Phosphatase 48 (45-117) U/L Troponin I < 0.015 (0-0.045) ng/ml Total Protein 5.4 L (6.4-8.2) gm/dl Albumin 2.9 L (3.4-5.0) gm/dl Globulin 2.5 (2.5-4.0) gm/dl Albumin/Globulin Ratio 1.2 (0.9-2) Vitamin B12 (193-986) pg/ml Nasal Screen MRSA (PCR) (Negative) COVID-19 Eval Order SARS-CoV-2 (PCR) (Negative) Hepatitis C Ab Screen Neg (Neg) Blood Type Antibody Screen Crossmatch 11/06/20 11/06/20 11/06/20 Range/Units 23:45 23:45 18:46 WBC (4.8-10.8) K/uL RBC (4.7-6.1) M/uL Hgb 9.8 L 10.6 L (14.0-18.0) g/dL Hct 31.3 L (42-52) % MCV (80-100) fL MCH (25-34) pg MCHC (32-36) g/dL RDW Std Deviation (36.4-46.3) fL RDW Coeff of Chuck (11.5-14.5) % Plt Count (130-400) K/uL MPV (7.4-10.4) fL Immature Gran % (Auto) % Neut % (Auto) % Lymph % (Auto) % Hopkins % (Auto) % Eos % (Auto) % Baso % (Auto) % Neut # (Auto) (1.4-6.5) K/uL Lymph # (Auto) (1.2-3.4) K/uL Hopkins # (Auto) (0.11-0.59) K/uL Eos # (Auto) (0-0.5) K/uL Baso # (Auto) (0-0.2) K/uL Immature Gran # (Auto) (0.00-0.02) K/uL PT (9.0-12.0) Seconds INR (0.9-1.1) APTT (21.0-31.0) Seconds PTT Ratio Sodium (136-145) mmol/L Potassium (3.5-5.1) mmol/L Chloride (98-107) mmol/L Carbon Dioxide (21-32) mmol/L Anion Gap (3-11) BUN (7-18) mg/dl Creatinine (0.6-1.4) mg/dl Est Cr Clr Drug Dosing ml/min Est GFR ( Amer) ml/min Est GFR (Non-Af Amer) ml/min BUN/Creatinine Ratio (10-20) Glucose (70-99) mg/dl POC Glucose (70-99) mg/dl Estimat Average Glucose mg/dl Hemoglobin A1c (4.5-5.6) % Calcium (8.5-10.1) mg/dl Phosphorus (2.5-4.9) mg/dl Magnesium (1.8-2.4) mg/dl Total Bilirubin (0.2-1) mg/dl AST (15-37) U/L ALT (12-78) U/L Alkaline Phosphatase (45-117) U/L Troponin I < 0.015 (0-0.045) ng/ml Total Protein (6.4-8.2) gm/dl Albumin (3.4-5.0) gm/dl Globulin (2.5-4.0) gm/dl Albumin/Globulin Ratio (0.9-2) Vitamin B12 (193-986) pg/ml Nasal Screen MRSA (PCR) (Negative) COVID-19 Eval Order SARS-CoV-2 (PCR) (Negative) Hepatitis C Ab Screen (Neg) Blood Type Antibody Screen Crossmatch 11/06/20 11/06/20 11/06/20 Range/Units 18:46 18:46 18:46 WBC (4.8-10.8) K/uL RBC (4.7-6.1) M/uL Hgb (14.0-18.0) g/dL Hct (42-52) % MCV (80-100) fL MCH (25-34) pg MCHC (32-36) g/dL RDW Std Deviation (36.4-46.3) fL RDW Coeff of Chuck (11.5-14.5) % Plt Count (130-400) K/uL MPV (7.4-10.4) fL Immature Gran % (Auto) % Neut % (Auto) % Lymph % (Auto) % Hopkins % (Auto) % Eos % (Auto) % Baso % (Auto) % Neut # (Auto) (1.4-6.5) K/uL Lymph # (Auto) (1.2-3.4) K/uL Hopkins # (Auto) (0.11-0.59) K/uL Eos # (Auto) (0-0.5) K/uL Baso # (Auto) (0-0.2) K/uL Immature Gran # (Auto) (0.00-0.02) K/uL PT (9.0-12.0) Seconds INR (0.9-1.1) APTT (21.0-31.0) Seconds PTT Ratio Sodium (136-145) mmol/L Potassium (3.5-5.1) mmol/L Chloride (98-107) mmol/L Carbon Dioxide (21-32) mmol/L Anion Gap (3-11) BUN (7-18) mg/dl Creatinine (0.6-1.4) mg/dl Est Cr Clr Drug Dosing ml/min Est GFR ( Amer) ml/min Est GFR (Non-Af Amer) ml/min BUN/Creatinine Ratio (10-20) Glucose (70-99) mg/dl POC Glucose (70-99) mg/dl Estimat Average Glucose 126 mg/dl Hemoglobin A1c 6.0 H (4.5-5.6) % Calcium (8.5-10.1) mg/dl Phosphorus (2.5-4.9) mg/dl Magnesium (1.8-2.4) mg/dl Total Bilirubin (0.2-1) mg/dl AST (15-37) U/L ALT (12-78) U/L Alkaline Phosphatase (45-117) U/L Troponin I < 0.015 (0-0.045) ng/ml Total Protein (6.4-8.2) gm/dl Albumin (3.4-5.0) gm/dl Globulin (2.5-4.0) gm/dl Albumin/Globulin Ratio (0.9-2) Vitamin B12 246 (193-986) pg/ml Nasal Screen MRSA (PCR) (Negative) COVID-19 Eval Order SARS-CoV-2 (PCR) (Negative) Hepatitis C Ab Screen (Neg) Blood Type Antibody Screen Crossmatch 11/06/20 11/06/20 11/06/20 Range/Units 18:46 17:25 17:04 WBC (4.8-10.8) K/uL RBC (4.7-6.1) M/uL Hgb Cancelled (14.0-18.0) g/dL Hct (42-52) % MCV (80-100) fL MCH (25-34) pg MCHC (32-36) g/dL RDW Std Deviation (36.4-46.3) fL RDW Coeff of Chuck (11.5-14.5) % Plt Count (130-400) K/uL MPV (7.4-10.4) fL Immature Gran % (Auto) % Neut % (Auto) % Lymph % (Auto) % Hopkins % (Auto) % Eos % (Auto) % Baso % (Auto) % Neut # (Auto) (1.4-6.5) K/uL Lymph # (Auto) (1.2-3.4) K/uL Hopkins # (Auto) (0.11-0.59) K/uL Eos # (Auto) (0-0.5) K/uL Baso # (Auto) (0-0.2) K/uL Immature Gran # (Auto) (0.00-0.02) K/uL PT (9.0-12.0) Seconds INR (0.9-1.1) APTT (21.0-31.0) Seconds PTT Ratio Sodium (136-145) mmol/L Potassium (3.5-5.1) mmol/L Chloride (98-107) mmol/L Carbon Dioxide (21-32) mmol/L Anion Gap (3-11) BUN (7-18) mg/dl Creatinine (0.6-1.4) mg/dl Est Cr Clr Drug Dosing ml/min Est GFR ( Amer) ml/min Est GFR (Non-Af Amer) ml/min BUN/Creatinine Ratio (10-20) Glucose (70-99) mg/dl POC Glucose 120 H (70-99) mg/dl Estimat Average Glucose mg/dl Hemoglobin A1c (4.5-5.6) % Calcium (8.5-10.1) mg/dl Phosphorus (2.5-4.9) mg/dl Magnesium (1.8-2.4) mg/dl Total Bilirubin (0.2-1) mg/dl AST (15-37) U/L ALT (12-78) U/L Alkaline Phosphatase (45-117) U/L Troponin I (0-0.045) ng/ml Total Protein (6.4-8.2) gm/dl Albumin (3.4-5.0) gm/dl Globulin (2.5-4.0) gm/dl Albumin/Globulin Ratio (0.9-2) Vitamin B12 (193-986) pg/ml Nasal Screen MRSA (PCR) Negative (Negative) COVID-19 Eval Order SARS-CoV-2 (PCR) (Negative) Hepatitis C Ab Screen (Neg) Blood Type Antibody Screen Crossmatch 11/06/20 11/06/20 11/06/20 Range/Units 10:52 10:48 10:48 WBC (4.8-10.8) K/uL RBC (4.7-6.1) M/uL Hgb (14.0-18.0) g/dL Hct (42-52) % MCV (80-100) fL MCH (25-34) pg MCHC (32-36) g/dL RDW Std Deviation (36.4-46.3) fL RDW Coeff of Chuck (11.5-14.5) % Plt Count (130-400) K/uL MPV (7.4-10.4) fL Immature Gran % (Auto) % Neut % (Auto) % Lymph % (Auto) % Hopkins % (Auto) % Eos % (Auto) % Baso % (Auto) % Neut # (Auto) (1.4-6.5) K/uL Lymph # (Auto) (1.2-3.4) K/uL Hopkins # (Auto) (0.11-0.59) K/uL Eos # (Auto) (0-0.5) K/uL Baso # (Auto) (0-0.2) K/uL Immature Gran # (Auto) (0.00-0.02) K/uL PT (9.0-12.0) Seconds INR (0.9-1.1) APTT (21.0-31.0) Seconds PTT Ratio Sodium (136-145) mmol/L Potassium (3.5-5.1) mmol/L Chloride (98-107) mmol/L Carbon Dioxide (21-32) mmol/L Anion Gap (3-11) BUN (7-18) mg/dl Creatinine (0.6-1.4) mg/dl Est Cr Clr Drug Dosing ml/min Est GFR ( Amer) ml/min Est GFR (Non-Af Amer) ml/min BUN/Creatinine Ratio (10-20) Glucose (70-99) mg/dl POC Glucose (70-99) mg/dl Estimat Average Glucose mg/dl Hemoglobin A1c (4.5-5.6) % Calcium (8.5-10.1) mg/dl Phosphorus (2.5-4.9) mg/dl Magnesium (1.8-2.4) mg/dl Total Bilirubin (0.2-1) mg/dl AST (15-37) U/L ALT (12-78) U/L Alkaline Phosphatase (45-117) U/L Troponin I (0-0.045) ng/ml Total Protein (6.4-8.2) gm/dl Albumin (3.4-5.0) gm/dl Globulin (2.5-4.0) gm/dl Albumin/Globulin Ratio (0.9-2) Vitamin B12 (193-986) pg/ml Nasal Screen MRSA (PCR) (Negative) COVID-19 Eval Order Covid19 at [facility] SARS-CoV-2 (PCR) NEGATIVE (Negative) Hepatitis C Ab Screen (Neg) Blood Type A Positive Antibody Screen NEGATIVE Crossmatch See Detail 11/06/20 11/06/20 11/06/20 Range/Units 09:51 09:51 09:51 WBC 8.56 (4.8-10.8) K/uL RBC 2.91 L (4.7-6.1) M/uL Hgb 10.6 L (14.0-18.0) g/dL Hct 30.2 L (42-52) % MCV 103.8 H (80-100) fL MCH 36.4 H (25-34) pg MCHC 35.1 (32-36) g/dL RDW Std Deviation 46.8 H (36.4-46.3) fL RDW Coeff of Chuck 12.5 (11.5-14.5) % Plt Count 223 (130-400) K/uL MPV 10.0 (7.4-10.4) fL Immature Gran % (Auto) 0.1 % Neut % (Auto) 67.2 % Lymph % (Auto) 27.2 % Hopkins % (Auto) 4.8 % Eos % (Auto) 0.6 % Baso % (Auto) 0.1 % Neut # (Auto) 5.75 (1.4-6.5) K/uL Lymph # (Auto) 2.33 (1.2-3.4) K/uL Hopkins # (Auto) 0.41 (0.11-0.59) K/uL Eos # (Auto) 0.05 (0-0.5) K/uL Baso # (Auto) 0.01 (0-0.2) K/uL Immature Gran # (Auto) 0.01 (0.00-0.02) K/uL PT 10.9 (9.0-12.0) Seconds INR 1.1 (0.9-1.1) APTT 20.8 L (21.0-31.0) Seconds PTT Ratio 0.8 Sodium 140 (136-145) mmol/L Potassium 4.3 (3.5-5.1) mmol/L Chloride 108 H (98-107) mmol/L Carbon Dioxide 25 (21-32) mmol/L Anion Gap 7.0 (3-11) BUN 42 H (7-18) mg/dl Creatinine 1.04 (0.6-1.4) mg/dl Est Cr Clr Drug Dosing 68.9 ml/min Est GFR ( Amer) 84.5 ml/min Est GFR (Non-Af Amer) 72.9 ml/min BUN/Creatinine Ratio 40.9 H (10-20) Glucose 221 H (70-99) mg/dl POC Glucose (70-99) mg/dl Estimat Average Glucose mg/dl Hemoglobin A1c (4.5-5.6) % Calcium 8.2 L (8.5-10.1) mg/dl Phosphorus (2.5-4.9) mg/dl Magnesium (1.8-2.4) mg/dl Total Bilirubin 0.3 (0.2-1) mg/dl AST 10 L (15-37) U/L ALT 18 (12-78) U/L Alkaline Phosphatase 58 (45-117) U/L Troponin I < 0.015 (0-0.045) ng/ml Total Protein 6.3 L (6.4-8.2) gm/dl Albumin 3.3 L (3.4-5.0) gm/dl Globulin 3.0 (2.5-4.0) gm/dl Albumin/Globulin Ratio 1.1 (0.9-2) Vitamin B12 (193-986) pg/ml Nasal Screen MRSA (PCR) (Negative) COVID-19 Eval Order SARS-CoV-2 (PCR) (Negative) Hepatitis C Ab Screen (Neg) Blood Type Antibody Screen Crossmatch Coding Level of Care Code 06508 Subseq Hosp Care Lvl 3 Diagnoses Admitted to intensive care unit Z78.9 Acute coronary syndrome I24.9 GI bleed K92.2 Hypertension I10 Hypertension type: essential hypertension Hyperlipidemia E78.5 Hyperlipidemia type: unspecified Anxiety and depression F41.9; F32.9 (1) Hypertension Hypertension type: essential hypertension Qualified Code(s): I10 - Essential (primary) hypertension (2) Hyperlipidemia Hyperlipidemia type: unspecified Qualified Code(s): E78.5 - Hyperlipidemia, unspecified
[2020-11-07] MEDS ORDERED: lisinopril 5 MG TAB PO SCH (09:45)
--- NOTE | 2020-11-07 10:03 | Cardiology Progress Note ---
Date of Service November 07, 2020 Assessment & Plan (1) UGIB (upper gastrointestinal bleed): (2) Arteriosclerotic cardiovascular disease (ASCVD): Plan: Repeat hemoglobin trending downward slightly today. Received 1 unit of packed red blood cells yesterday. No overt symptoms/signs of GI blood loss. Dual antiplatelet therapy continued cautiously due to complex cardiovascular history with multivessel plaque rupture and stenting. Patient continues to report atypical chest discomfort reproducible with palpation. Cardiac catheterization without evidence of obstructive disease. Patent stents reported. Analgesics as per internal medicine. Monitor daily hemoglobin. Admission and Anticipated Discharge Date Admission Date: November 06, 2020 Subjective Patient seen and examined at the bedside. Notes continued chest soreness. Pain is reproducible with palpation. Denies abdominal pain, nausea, or vomiting. No diarrhea, melena, or hematochezia. He is n.p.o. AURA globin remained stable overnight. Dual antiplatelet therapy continued. Cardiac catheterization performed yesterday demonstrating stable moderate diffuse coronary disease. EGD with evidence of active bleeding duodenal ulcer status post clip, and cauterization. Review of Systems Review of Systems: All systems reviewed & are unremarkable except as noted in Subjective Physical Exam Constitutional: well developed and well nourished; no acute distress Respiratory: normal respiratory effort; no respiratory distress, no labored breathing and no retractions Auscultation: no crackles, no rales, no rhonchi and no wheezes Cardiovascular: Rate/Rhythm: regular rate and regular rhythm Heart Sounds: normal S1 and normal S2; no murmur Vessels: radial pulses present; no JVD and no carotid bruit Gastrointestinal (Abdomen): Inspection/Auscultation: normal bowel sounds; abdomen not distended Percussion/Palpation: abdomen soft; abdomen nontender, no guarding and abdomen not rigid Neurologic: CN's II-XI intact bilaterally and moves all extremities; no focal motor deficits Motor/Sensory: no tremor Psychiatric: A+Ox3, euthymic affect Results & Data ([facility]) Vital Signs (Past 12 Hours) Vital Signs Temp Pulse Pulse Resp BP BP Pulse Ox 11/07/20 08:00 36.9 C 83 83 20 124/64 94 11/07/20 07:00 36.9 C 84 20 125/64 94 11/07/20 02:30 74 13 115/56 L 93 11/07/20 02:00 72 16 102/59 L 96 11/07/20 01:30 76 14 105/59 L 95 11/07/20 01:00 79 12 109/58 L 95 11/07/20 00:30 76 14 111/56 L 95 11/07/20 00:00 76 11/06/20 23:59 76 14 111/56 L 95 11/06/20 23:30 75 16 91/44 L 92 11/06/20 23:00 76 19 87/39 L 91 11/06/20 22:30 79 13 93/57 L 97 11/06/20 21:59 87 20 109/64 97
[2020-11-07] MEDS: traMADol HCL 50 MG TABLET PO PRN ×3 (10:23→18:12)
[2020-11-07] MEDS: ISOSORBIDE MONO EXTENDED REL 60 MG TABCR PO SCH (10:51)
[2020-11-07] MEDS: amLODIPine BESYLATE 5 MG TAB PO SCH (10:52)
[2020-11-07] MEDS: ACETAMINOPHEN 325 MG TAB PO SCH ×3 (11:59→23:55)
[2020-11-07] MEDS ORDERED: MoRPHine SULFATE 2 MG/ML CARP IV STA (18:28)
[2020-11-07] MEDS: METOPROLOL TARTRATE 50 MG TAB PO SCH (20:25)
[2020-11-07] MEDS: ESCITALOPRAM OXALATE 10 MG TAB PO SCH (20:25)
[2020-11-07] MEDS: ROSUVASTATIN CALCIUM 20 MG TAB PO SCH (20:25)
[2020-11-07] MEDS: ZOLPIDEM TARTRATE 5 MG TAB PO SCH (20:25)
--- NOTE | 2020-11-07 22:20 | Hospitalist Progress Note ---
Date of Service November 07, 2020 Assessment & Plan (1) Acute coronary syndrome: Plan: 70 y/o M Hx HTN, HLD, depression, LBBB, CAD - multiple MIs and multiple stents. Presenting with central CP radiating to the L arm and neck. He denies SOB, nausea, diaphoresis. He states that the symptoms were similar to prior MIs. The pt responded to NTG in the ER, however, his blood pressure significantly decreased into the 70s before recovering with IVF. He had a bowel movement which was reported as melanotic by the attending nurse. Initial labs are notable for hyperglycemia and macrocytic anemia with a hemoglobin of 10.6. He was sent for a CTA to r/o dissection which proved negative. It is noted that the pt recently transitioned from Brilinta to Effient. 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 Currently his first trop is negative and an EKG is unchanged although he does have an LBBB limiting diagnostic utility. We cannot currently anticoagulate the pt due to a likely ac tive bleed. He will cont a statin and beta saúl if tolerated. We have held Effient and ASA. Cardiology consult is pending on admission. on 11/07 Summary of cardiac cath: 1. Stable multivessel coronary artery disease - Widely patent proximal to mid LAD stents. D2 stent patent. - Mid circumflex stent widely patent - Proximal, mid RCA stents widely patent. - 30% ostial left main 2. Normal intracardiac filling pressure Patient will be transferred out of ICU. Patient continues to have chest pain, however, this appears to be non cardiac. Oxycodone is ordered. 2) GI bleed - PPi provided, IVF, NPO, GI service contacted. He should likely proceed for endoscopy if deemed stable by cardiology. 3) HTN, HLD - cont statin - all antihypertensives asdie from his beta saúl with parameters held due to hypotension with administration of NTG and active bleeding. 4) Depression - cont Lexapro Full code - SCDs Total time for this admit including review of labs, meds, imaging, records - d iscussion with pt and ER attending - including critical care time - 50 min (2) GI bleed: (3) Hyperlipidemia: (4) Depression: (5) Anxiety and depression: Admission and Anticipated Discharge Date Admission Date: November 06, 2020 Subjective Patient reports that he continues to have chest pain, however his pain is reprocucidible. It is midsternum, sharp, constant and raidates to his neck. Review of Systems Review of Systems: All systems reviewed & are unremarkable except as noted in HPI & below Physical Exam Physical Exam: General: AAO x 3, no distress ENT: No erythema or exudates, no thrush Eyes: VILLA, EOMI Head and neck: Normocephalic, atraumatic, No JVD, neck is supple. Chest/heart: Nontender, S1,2, RRR, no murmurs, no gallops Lungs: CTAB, no wheezing or crackles Abdomen: Nontender, nondistended, BS+ Neuro: AAO x 3, speech is clear, no unilateral weakness or loss of sensation, coordination intact Musculoskeletal: No joint inflammation, muscle tenderness, FROM Skin: No acute rashes or ulcers Extremities: No clubbing, cyanosis, edema Results & Data Results & Data ([facility]) Vital Signs (Past 12 Hours) Vital Signs Temp Pulse Pulse Resp BP BP Pulse Ox 11/07/20 19:08 37.0 C 100 H 16 128/64 96 11/07/20 16:07 37.1 C 91 H 16 127/69 95 11/07/20 15:27 92 H 11/07/20 13:35 37.1 C 95 H 20 109/63 97 11/07/20 13:32 94 H 11/07/20 12:42 99 H 19 109/59 L 11/07/20 11:41 94 H 9 L 124/63 96 11/07/20 10:42 100 H 120/79 99 PG Care Time/CCT Total # of Minutes Spent Total Time Spent with Patient: Total time spent is greater than 50% in coordination of care (as documented) at patient's floor/unit and/or counseling patient: Coding Level of Care Code 89186 Subseq Hosp Care Lvl 2 Diagnoses Acute coronary syndrome I24.9 GI bleed K92.2 Hyperlipidemia E78.5 Hyperlipidemia type: unspecified Depression F32.9 Anxiety and depression F41.9; F32.9 Time Spent (min) 25 (1) Hyperlipidemia Hyperlipidemia type: unspecified Qualified Code(s): E78.5 - Hyperlipidemia, u nspecified
[2020-11-08] MEDS: traMADol HCL 50 MG TABLET PO PRN ×2 (00:15→06:22)
[2020-11-08] MEDS: PANTOprazole 40 MG in DEXTROSE 5% 100 ML IV SCH ×5 (02:00→22:20)
[2020-11-08] MEDS: ACETAMINOPHEN 325 MG TAB PO SCH ×4 (04:45→23:41)
[2020-11-08] MEDS ORDERED: DICLOFENAC SOD 1% GEL 100 GM TUBE EXT PRN (05:55)
[2020-11-08 06:12] LABS: Hematocrit (blood only) 21.3 % (42-52); Hemoglobin 7.1 g/dL (14.0-18.0); Mean Corpuscular Hgb Conc 33.3 g/dL (32-36); Mean Corpuscular Volume 101.9 fL (80-100); Mean Platelet Volume 9.4 fL (7.4-10.4); Platelet Count 144 K/uL (130-400); RDW Standard Deviation 58.6 fL (36.4-46.3); Red Blood Count 2.09 M/uL (4.7-6.1); White Blood Count 6.31 K/uL (4.8-10.8)
[2020-11-08 06:36] LABS: BUN Creatinine Ratio 43.3 (10-20); Calcium 7.8 mg/dl (8.5-10.1); Creatinine Clr Calc Pharmacy 91.3 ml/min; Est GFR (African American) 105.6 ml/min; Est GFR (Non-African American) 91.1 ml/min; Potassium 3.7 mmol/L (3.5-5.1)
--- NOTE | 2020-11-08 07:53 | Electrocardiogram Report ---
Test Reason : Blood Pressure : / mmHG Vent. Rate : 093 BPM Atrial Rate : 093 BPM P-R Int : 208 ms QRS Dur : 156 ms QT Int : 412 ms P-R-T Axes : 046 002 149 degrees QTc Int : 512 ms Normal sinus rhythm Left bundle branch block Abnormal ECG When compared with ECG of 06-NOV-2020 13:30, No significant change was found Confirmed by Jose Jolly ([id number]) on 11/08/2020 7:52:55 AM Referred By: REFERRED SELF Confirmed By:Jose Jolly
[2020-11-08] MEDS: ASPIRIN 81 MG ECTAB PO SCH (08:11)
[2020-11-08] MEDS: ISOSORBIDE MONO EXTENDED REL 60 MG TABCR PO SCH (08:12)
[2020-11-08 08:55] LABS: Basophils # (auto) 0.01 K/uL (0-0.2); Basophils % (auto) 0.2 %; Eosinophils # (auto) 0.02 K/uL (0-0.5); Eosinophils % (auto) 0.3 %; Hemoglobin 7.7 g/dL (14.0-18.0); Immature Granulocytes # (auto) 0.02 K/uL (0.00-0.02); Immature Granulocytes % (auto) 0.3 %; Lymphocytes # (auto) 2.07 K/uL (1.2-3.4); Lymphocytes % (auto) 33.9 %; Mean Corpuscular Hemoglobin 34.4 pg (25-34); Mean Corpuscular Hgb Conc 33.5 g/dL (32-36); Mean Corpuscular Volume 102.7 fL (80-100); Mean Platelet Volume 9.6 fL (7.4-10.4); Monocytes # (auto) 0.32 K/uL (0.11-0.59); Monocytes % (auto) 5.2 %; Neutrophils # (auto) 3.66 K/uL (1.4-6.5); Neutrophils % (auto) 60.1 %; Platelet Count 151 K/uL (130-400); RDW Coefficient of Variation 15.9 % (11.5-14.5); RDW Standard Deviation 58.7 fL (36.4-46.3); Red Blood Count 2.24 M/uL (4.7-6.1)
[2020-11-08] MEDS: FAMOTIDINE 20 MG in SYRINGE 3 ML IV SCH ×2 (09:06→20:15)
[2020-11-08] MEDS: MoRPHine SULFATE 2 MG/ML CARP IV PRN ×2 (09:07→19:17)
[2020-11-08 09:38] LABS: RBC Morphology Unremarkable
--- NOTE | 2020-11-08 10:46 | Cardiology Progress Note ---
Date of Service November 08, 2020 Assessment & Plan (1) UGIB (upper gastrointestinal bleed): (2) Arteriosclerotic cardiovascular disease (ASCVD): (3) Anemia due to blood loss: Plan: Repeat hemoglobin trending down to 7.1gm/dL today without overt signs/symptoms of blood loss. Previously noted chest discomfort has improved. Follow H&H closely. Consider transfusion with any further drop of hemoglobin. Hold prasugrel today. Continue aspirin. Await input from gastroenterology regarding possible repeat endoscopy. No cardiovascular contraindication to procedure. No further cardiovascular testing or intervention at this time. Case discussed with hospitalist. Monitor daily hemoglobin. Admission and Anticipated Discharge Date Admission Date: November 06, 2020 Subjective Patient feeling better from a cardiovascular standpoint. Denies signs/symptoms of GI blood loss. Hemoglobin has trended down 2 g. Previously noted chest dis comfort has resolved. Repeat ECG and bedside echocardiogram yesterday without evidence of ischemia. Cardiac enzymes undetectable. Review of Systems Review of Systems: All systems reviewed & are unremarkable except as noted in Subjective Physical Exam Constitutional: well developed and well nourished; no acute distress Respiratory: normal respiratory effort; no respiratory distress, no labored breathing and no retractions Auscultation: no crackles, no rales, no rhonchi and no wheezes Cardiovascular: Rate/Rhythm: regular rate and regular rhythm Heart Sounds: normal S1 and normal S2; no murmur Vessels: radial pulses present; no JVD and no carotid bruit Gastrointestinal (Abdomen): Inspection/Auscultation: normal bowel sounds; abdomen not distended Percussion/Palpation: abdomen soft; abdomen nontender, no guarding and abdomen not rigid Neurologic: CN's II-XI intact bilaterally and moves all extremities; no focal motor deficits Motor/Sensory: no tremor Psychiatric: A+Ox3, euthymic affect Results & Data ([facility]) Vital Signs (Past 12 Hours) Vital Signs Temp Pulse Pulse Resp BP BP Pulse Ox 11/08/20 07:50 36.7 C 63 18 105/65 96 11/08/20 07:17 62 11/08/20 03:20 36.8 C 70 18 104/60 97 11/07/20 23:17 36.8 C 71 17 109/64 95
[2020-11-08 12:08] LABS: Hematocrit (blood only) 22.4 % (42-52); Hemoglobin 7.3 g/dL (14.0-18.0)
[2020-11-08] MEDS: amLODIPine BESYLATE 5 MG TAB PO SCH (13:10)
[2020-11-08 16:03] LABS: Hematocrit (blood only) 21.2 % (42-52); Hemoglobin 7.1 g/dL (14.0-18.0)
[2020-11-08 20:00] LABS: Hematocrit (blood only) 21.4 % (42-52); Hemoglobin 7.2 g/dL (14.0-18.0)
[2020-11-08] MEDS: METOPROLOL TARTRATE 50 MG TAB PO SCH (20:15)
[2020-11-08] MEDS: ROSUVASTATIN CALCIUM 20 MG TAB PO SCH (20:15)
[2020-11-08] MEDS: ZOLPIDEM TARTRATE 5 MG TAB PO SCH (20:15)
[2020-11-08] MEDS: ESCITALOPRAM OXALATE 10 MG TAB PO SCH (20:15)
--- NOTE | 2020-11-08 20:52 | Hospitalist Progress Note ---
Date of Service November 08, 2020 Assessment & Plan (1) Acute coronary syndrome: Plan: 70 y/o M Hx HTN, HLD, depression, LBBB, CAD - multiple MIs and multiple stents. Presenting with central CP radiating to the L arm and neck. He denies SOB, nausea, diaphoresis. He states that the symptoms were similar to prior MIs. The pt responded to NTG in the ER, however, his blood pressure significantly decreased into the 70s before recovering with IVF. He had a bowel movement which was reported as melanotic by the attending nurse. Initial labs are notable for hyperglycemia and macrocytic anemia with a hemoglobin of 10.6. He was sent for a CTA to r/o dissection which proved negative. It is noted that the pt recently transitioned from Brilinta to Effient. 1) CAD/CP - the pt has proceeded to the lab clerk almost invariably when presenting for CP, and has subsequently been stented. Currently his first trop is negative and an EKG is unchanged although he does have an LBBB limiting diagnostic utility. We cannot currently anticoagulate the pt due to a likely ac tive bleed. He will cont a statin and beta saúl if tolerated. We have held Effient and ASA. Cardiology consult is pending on admission. on 11/07 Summary of cardiac cath: 1. Stable multivessel coronary artery disease - Widely patent proximal to mid LAD stents. D2 stent patent. - Mid circumflex stent widely patent - Proximal, mid RCA stents widely patent. - 30% ostial left main 2. Normal intracardiac filling pressure Patient will be transferred out of ICU. Patient continues to have chest pain, however, this appears to be non cardiac. Oxycodone is ordered. On 11/08 pain has subsided - HTN, HLD - cont statin - all antihypertensives asdie from his beta saúl with parameters held due to hypotension with administration of NTG and active bleeding. Full code - SCDs Total time for this admit including review of labs, meds, imaging, records - discussion with pt and ER attending - including critical care time - 50 min (2) GI bleed: Plan: Patient with acute blood loss anemia. Hemoglobin dropped 2 points in past 24 hours. Level at 7. will contnue to monitor, transfuse f it decreases further. GI service contacted. On PPI , famotidine, sucralfate (3) Hyperlipidemia: Plan: contnue statin (4) Depression: Plan: controlled (5) Anxiety and depression: Plan: cont Lexapro controlled Admission and Anticipated Discharge Date Admission Date: November 06, 2020 Subjective 70 yo male reports feeling well. Denies any change in his stools Review of Systems Review of Systems: All systems reviewed & are unremarkable except as noted in HPI & below Physical Exam Physical Exam: General: AAO x 3, no distress ENT: No erythema or exudates, no thrush Eyes: VILLA, EOMI Head and neck: Normocephalic, atraumatic, No JVD, neck is supple. Chest/heart: Nontender, S1,2, RRR, no murmurs, no gallops Lungs: CTAB, no wheezing or crackles Abdomen: Nontender, nondistended, BS+ Neuro: AAO x 3, speech is clear, no unilateral weakness or loss of sensation, coordination intact Musculoskeletal: No joint inflammation, muscle tenderness, FROM Skin: No acute rashes or ulcers Extremities: No clubbing, cyanosis, edema Results & Data Results & Data ([facility]) Vital Signs (Past 12 Hours) Vital Signs Temp Pulse Pulse Resp BP Pulse Ox 11/08/20 19:19 36.9 C 86 18 121/66 95 11/08/20 15:52 36.9 C 74 16 133/70 94 11/08/20 15:40 83 11/08/20 11:53 36.5 C 75 16 102/56 L 97 PG Care Time/CCT Total # of Minutes Spent Total Time Spent with Patient: Total time spent is greater than 50% in coordination of care (as documented) at patient's floor/unit and/or counseling patient: Coding Level of Care Code 42684 Subseq Hosp Care Lvl 2 Diagnoses Acute coronary syndrome I24.9 GI bleed K92.2 Hyperlipidemia E78.5 Hyperlipidemia type: unspecified Depression F32.9 Anxiety and depression F41.9; F32.9 (1) Hyperlipidemia Hyperlipidemia type: unspecified Qualified Code(s): E78.5 - Hyperlipidemia, unspecified
[2020-11-09] MEDS: PANTOprazole 40 MG in DEXTROSE 5% 100 ML IV SCH ×2 (03:12→09:02)
[2020-11-09] MEDS: ACETAMINOPHEN 325 MG TAB PO SCH ×2 (05:52→12:05)
[2020-11-09 07:09] LABS: Hematocrit (blood only) 21.1 % (42-52); Hemoglobin 7.2 g/dL (14.0-18.0); Mean Corpuscular Hemoglobin 34.6 pg (25-34); Mean Corpuscular Hgb Conc 34.1 g/dL (32-36); Mean Corpuscular Volume 101.4 fL (80-100); Mean Platelet Volume 9.6 fL (7.4-10.4); Platelet Count 141 K/uL (130-400); RDW Coefficient of Variation 15.3 % (11.5-14.5); RDW Standard Deviation 55.4 fL (36.4-46.3); Red Blood Count 2.08 M/uL (4.7-6.1); White Blood Count 4.87 K/uL (4.8-10.8)
[2020-11-09 07:42] LABS: BUN Creatinine Ratio 19.1 (10-20); Calcium 7.8 mg/dl (8.5-10.1); Creatinine Clr Calc Pharmacy 76.4 ml/min; Est GFR (African American) 94.3 ml/min; Est GFR (Non-African American) 81.3 ml/min; Potassium 3.8 mmol/L (3.5-5.1)
[2020-11-09 07:48] LABS: Ferritin 111.4 ng/ml (8-388)
[2020-11-09] MEDS: ASPIRIN 81 MG ECTAB PO SCH (09:05)
[2020-11-09] MEDS: amLODIPine BESYLATE 5 MG TAB PO SCH (09:05)
[2020-11-09] MEDS: ISOSORBIDE MONO EXTENDED REL 60 MG TABCR PO SCH (09:05)
[2020-11-09] MEDS: FAMOTIDINE 20 MG in SYRINGE 3 ML IV SCH (09:27)
[2020-11-09] MEDS: traMADol HCL 50 MG TABLET PO PRN (09:28)
[2020-11-09] MEDS: LORazepam 0.5 MG TAB PO PRN (10:27)
[2020-11-09] MEDS ORDERED: SODIUM CHLORIDE 0.9% 250 ML IV PRN (10:42)
--- NOTE | 2020-11-09 11:06 | Cardiology Progress Note ---
Date of Service November 09, 2020 Assessment & Plan (1) UGIB (upper gastrointestinal bleed): (2) Arteriosclerotic cardiovascular disease (ASCVD): (3) Anemia due to blood loss: Plan: Hemoglobin remains stable. Restart prasugrel today. Continue other cardiovascular medications including aspirin as previously ordered. No further inpatient cardiology testing or intervention at this time. Outpatient cardiology follow-up as scheduled. Admission and Anticipated Discharge Date Admission Date: November 06, 2020 Subjective Patient seen and examined at bedside. Previously noted chest pain has resolved. No signs/symptoms of melena or hematochezia. Previously noted dark stools have begun to lighten. Hemoglobin stable. Telemetry reveals a sinus rhythm. No dysrhythmias. Prasugrel placed on hold yesterday due to drop in hemoglobin. Review of Systems Review of Systems: All systems reviewed & are unremarkable except as noted in Subjective Physical Exam Constitutional: well developed and well nourished; no acute distress Respiratory: normal respiratory effort; no respiratory distress, no labored breathing and no retractions Auscultation: no crackles, no rales, no rhonchi and no wheezes Cardiovascular: Rate/Rhythm: regular rate and regular rhythm Heart Sounds: normal S1 and normal S2; no murmur Vessels: radial pulses present; no JVD and no carotid bruit Gastrointestinal (Abdomen): Inspection/Auscultation: normal bowel sounds; abdomen not distended Percussion/Palpation: abdomen soft; abdomen nontender, no guarding and abdomen not rigid Neurologic: CN's II-XI intact bilaterally and moves all extremities; no focal motor deficits Motor/Sensory: no tremor Psychiatric: A+Ox3, euthymic affect Results & Data ([facility]) Vital Signs (Past 12 Hours) Vital Signs Temp Pulse Resp BP BP Pulse Ox 11/09/20 07:31 37.1 C 69 16 103/49 L 96 11/09/20 05:56 107/65 11/09/20 03:09 36.8 C 59 L 18 92/52 L 95
[2020-11-09] MEDS ORDERED: PRASugrel TAB 10 MG TAB PO ONE (11:15)
--- NOTE | 2020-11-09 11:31 | Gastroenterology Progress Note ---
Date of Service November 09, 2020 Assessment & Plan (1) Anemia due to blood loss: (2) UGIB (upper gastrointestinal bleed): (3) Duodenal ulcer: Plan: Pt is a 70 yo male w hx of extensive cardiac hx, who presented w angina symptoms seen for anemia and black stools. EGD 11/06 showed bleeding duodenal ulcer treated w bipolar cautery, injected w epinephrine, clipped Stools not as black and no abd pain, n/v per pt's report. Hgb around 7 in the last few days - Monitor blood ct and transfuse prn - Advance diet to soft as tolerated - DC PPI gtt; change to PPI IV BID.On DC, may change to PPI BID PO form for at least 8 weeks then once daily indefinitely - Add Carafate 1g QID x 2 week - GI to sign off; pls recall prn Admission and Anticipated Discharge Date Admission Date: November 06, 2020 Supervising Physician Co-Signing Physician Notes I have seen and examined the patient and discussed the management with ANTONIO Medina. S/p egd on Monday with findings of a large duodenal ulcer treated as above. Agree with further plan of care as above. Subjective Pt reports stools yesterday not as black. Denies abd pain, n/v. Hgb in 7s in last few days Review of Systems Review of Systems: All systems reviewed & are unremarkable except as noted in HPI & below Physical Exam Constitutional: WD/WN, vitals as above well groomed, cooperative and comfortable Eyes: PERRL, conjunctivae normal, anicteric sclerae ENMT: external ear and nose normal, oropharynx normal Respiratory: normal respiratory effort, lungs clear to auscultation Cardiovascular: RRR, no murmur, no edema Gastrointestinal (Abdomen): normal bowel sounds, soft, nontender, no hepatosplenomegaly Skin: no rashes, warm and dry no jaundice Psychiatric: A+Ox3, euthymic affect Lymphatic: no lymphedema Results & Data ([facility]) Vital Signs (Past 12 Hours) Vital Signs Temp Pulse Resp BP BP Pulse Ox 11/09/20 07:31 37.1 C 69 16 103/49 L 96 11/09/20 05:56 107/65 11/09/20 03:09 36.8 C 59 L 18 92/52 L 95
[2020-11-09] MEDS: SUCRALFATE 1 GM/10 ML UDC PO SCH ×2 (14:13→17:08)
--- NOTE | 2020-11-09 17:46 | Discharge Summary ---
Date of Service November 09, 2020 Admission HPI Per Admitting Provider 70 y/o M Hx HTN, HLD, depression, LBBB, CAD - multiple MIs and multiple stents. Presenting with central CP radiating to the L arm and neck. He denies SOB, nausea, diaphoresis. He states that the symptoms were similar to prior MIs. The pt responded to NTG in the ER, however, his blood pressure significantly decreased into the 70s before recovering with IVF. He had a bowel movement which was reported as melanotic by the attending nurse. Initial labs are notable for hyperglycemia and macrocytic anemia with a hemoglobin of 10.6. He was sent for a CTA to r/o dissection which proved negative. It is noted that the pt recently transitioned from Brilinta to Effient. PMH: 1) HTN 2) HLD 3) Depression 4) CAD - 1987 - ant wall SD - LAD stent - 1992 - RCA stent - 1998 - RCA stent - 2002 - LAD/diagonal stent - 2013 - inf SD - 2 x RCA stents - 2018 - 2 LAD stents, 1 L circ stent - 2019 - mid LAD stent Surgical: 1) Hernia repair 2003 2) L TKA 2016 3) R total shoulder 2016 4) R TKA 2017 Social: Quit smoking 2017, does not drink alcohol. Family: Father - had first SD age 36 Mother - lung CA Multiple siblings with CAD Principal Diagnosis Duodenal ulcer Discharge Exam Constitutional WD/WN, vitals as above Eyes EOM intact bilaterally; no conjunctival abnormality ENMT external ear and nose normal, oropharynx normal Neck trachea midline, no thyromegaly normal visual inspection Respiratory normal respiratory effort, lungs clear to auscultation no respiratory distress Cardiovascular RRR, no murmur, no edema Gastrointestinal (Abdomen) Inspection/Auscultation: abdomen normal to inspection; abdomen not distended Musculoskeletal no cyanosis or clubbing, extremities motor strength 5/5 Skin no rashes, warm and dry Neurologic moves all extremities and awake Psychiatric Orientation: alert, oriented to person and cooperative Discharge Data Allergies Allergy/AdvReac Type Severity Reaction Status Date / Time Iodinated Contrast Media Allergy Intermediate Hives Verified 11/06/20 13:54 atorvastatin [From Lipitor] AdvReac Unknown . Verified 11/06/20 13:54 simvastatin [From Zocor] AdvReac Unknown . Verified 11/06/20 13:54 Consultations 11/06/20 11:09 ED Decision to Admit Stat 11/06/20 11:59 Consult Gastroenterology Stat 11/06/20 15:45 Consult [place] [employer] Routine 11/08/20 10:04 Consult Cardiology Routine Procedures Performed Operation Date: 11/06/20 04:00 Actual Procedures p Cath, Left with Cors and Vent - Jasmeet Owen MD s Cineradiography w/Routine Exam - Jasmeet Owen MD s Ultrasound Vascular Access - Jasmeet Owen MD Operation Date: 11/06/20 10:20 <No data on this case meets the specified criteria> Operation Date: 11/06/20 16:00 Actual Procedures p EGD Hemostasis - Zunilda Gallardo MD s Injection Therapy / Sclerotherapy - Zunilda Gallardo MD Ordered Studies 11/06/20 10:29 CT angio chest dissec wo/w con Stat 11/06/20 15:49 CL Cath Imgs for PACS use only Routine Hospital Course (1) Acute coronary syndrome: 70 y/o M Hx HTN, HLD, depression, LBBB, CAD - multiple MIs and multiple stents. Presenting with central CP radiating to the L arm and neck. He denies SOB, nausea, diaphoresis. He states that the symptoms were similar to prior MIs. The pt responded to NTG in the ER, however, his blood pressure significantly decreased into the 70s before recovering with IVF. He had a bowel movement which was reported as melanotic by the attending nurse. Initial labs are notable for hyperglycemia and macrocytic anemia with a hemoglobin of 10.6. He was sent for a CTA to r/o dissection which proved negative. It is noted that the pt recently transitioned from Brilinta to Effient. 1) CAD/CP - the pt has proceeded to the microbiology lab assistant almost invariably when presenting for CP, and has subsequently been stented. Currently his first trop is negative and an EKG is unchanged although he does have an LBBB limiting diagnostic utility. We cannot currently anticoagulate the pt due to a likely active bleed. He will cont a statin and beta saúl if tolerated. We have held Effient and ASA. Cardiology consult is pending on admission. on 11/07 Summary of cardiac cath: 1. Stable multivessel coronary artery disease - Widely patent proximal to mid LAD stents. D2 stent patent. - Mid circumflex stent widely patent - Proximal, mid RCA stents widely patent. - 30% ostial left main 2. Normal intracardiac filling pressure Patient will be transferred out of ICU. Patient continues to have chest pain, however, this appears to be non cardiac. Oxycodone is ordered. On 11/08 pain has subsided (2) GI bleed: Patient with acute blood loss anemia. - EGD on 11/06 showed a duodenal ulcer. This was injected and clipped by Dr. Gallardo. - PPI PO BID x 8 weeks along with carafate QID x 2 weeks. - Discussed with GI. Stable for discharge. - Did give 1 unit PRBCs on 11/09. However, hgb had been stable x 48 hours. I don't think he was still acutely bleeding (his BMs were moving more toward brown from black), but this will top him up and help with iron stores. (3) Hyperlipidemia: contnue statin (4) Depression: controlled (5) Anxiety and depression: cont Lexapro controlled Total Time Total Time Spent Total Time Spent (In Minutes): 35 Discharge Plan Discharge Items Patient Disposition: Home - Self-Care Reason For Visit: GI BLEED W/CP,HYPOTENSION Discharge Diagnosis: Duodenal (small intestine) ulcer Activity: Resume your previous activity Non-emergency contact: Primary Care Provider and [employer] Call non-emergency contact if: your symptoms worsen Follow-up/Referrals: Marcos Calderon MD [Primary Care Provider] - Antoine Hackett DO [[employer]] - (Please follow up with your lead java j2ee developer in 1-2 weeks to be sure you are doing well.) Diet: Heart Healthy Addtl Attending Provider Instructions: You were admitted to the hospital with bleeding in your small intestine (in a portion called the duodenum). This bleeding caused your blood levels (hemoglobin) to drop. In the end, we gave you 2 units of blood. The GI team did a scope (EGD) which found the ulcer and also treated it with a clip to stop further bleeding. You will need to take pantoprazole (an acid blocking medication) twice per day for 2 months, then daily after that indefinitely. For 2 weeks, you are also to t shanita "Carafate" which helps coat the stomach and intestine and allows it to heal. The GI team doesn't believe you need a repeat EGD, so you don't need to see them again unless you have more pain, dark stools, nausea, vomiting, or other concerning symptoms. While you were here, the cardiology team saw you, and recommended that you continue your aspirin and Prasugrel to help keep your cardiac stents open and healthy. The GI team was ok with this given they felt they improved/fixed the bleeding in your GI tract. Please follow up with your PCP in 1-2 weeks. You should also see your lead java j2ee developer as well to be sure your heart is doing well. Pending Studies at Discharge: No Stand-Alone Forms: My [facility] [employer], Smoking Cessation Medications and DC Order Prescriptions: New pantoprazole 40 mg tablet,delayed release (DR/EC) 40 mg PO BID Qty: 60 RF: 1 sucralfate [Carafate] 1 gram tablet 1 g PO ACHS 14 Days Qty: 28 RF: 0 Continued isosorbide mononitrate 60 mg tablet extended release 24 hr 60 mg PO QAM Qty: 90 RF: 3 rosuvastatin [Crestor] 20 mg tablet 20 mg PO HS RF: 0 amoxicillin 500 mg capsule See Rx Instructions .ROUTE .COMPLEX PRN (Reason: Prior to Dental Appointment) RF: 0 omega-3 fatty acids [Fish Oil Concentrate] 1,000 mg capsule 1,000 mg PO QAM RF: 0 aspirin [Aspirin Low Dose] 81 mg Tablet,Delayed Release (Dr/Ec) 81 mg PO QAM RF: 0 loratadine [Claritin] 10 mg Tablet 10 mg PO QAM RF: 0 coenzyme Q10 [Co Q-10] 400 mg capsule 400 mg PO QAM RF: 0 prasugrel [Effient] 10 mg tablet 10 mg PO QAM RF: 0 amlodipine [Norvasc] 5 mg tablet 5 mg PO HS RF: 0 tramadol [Ultram] 50 mg tablet 50 mg PO Q8H PRN (Reason: Pain) RF: 0 lorazepam [Ativan] 0.5 mg tablet 0.5 mg PO DAILY PRN (Reason: anxiety) RF: 0 metoprolol tartrate [Lopressor] 50 mg tablet 50 mg PO QPM RF: 0 lisinopril [Zestril] 5 mg tablet 5 mg PO QAM RF: 0 zolpidem [Ambien] 5 mg tablet 5 mg PO HS RF: 0 escitalopram oxalate [Lexapro] 10 mg tablet 15 mg PO HS RF: 0 Discharge Orders: Discharge Order (Routine); Ordered 11/09/20 Ordered By: Benjamin Redd/Other Patient Handouts: A1C, Prediabetes, 5 Steps for Eating Healthier Admission Data Admit Date/Time: 11/06/20 12:38 Attending Provider: Benjamin Guerrero Admit Provider: Robin Lopez Primary Care Provider: Marcos Calderon Other Providers: Robin Lopez ; Zunilda Gallardo ; Norberto Townsend ; Antoine Hackett Other Interventions: Discharge Summary Assessment (RN) Last Done: 11/09/20 16:45 Coding Level of Care Code D/C DAY MANAGEMENT >30 MINS Diagnoses Acute coronary syndrome I24.9 GI bleed K92.2 Hyperlipidemia E78.5 Hyperlipidemia type: unspecified Depression F32.9 Anxiety and depression F41.9; F32.9
[2020-11-09] MEDS ORDERED: PANTOprazole 40 MG in SYRINGE 0 ML IV SCH (21:00)
== END 2020-11-09 18:11 | disposition home or self-care (01) | DRG 286 ==
LOC: ED 09:36 → SUATTDRO 12:38 → 1E 12:38 → 2N 11-07 11:34
DX: F41.8 Other specified anxiety disorders; D62 Acute posthemorrhagic anemia; I10 Essential (primary) hypertension; Z95.5 Presence of coronary angioplasty implant and graft; Z91.041 Radiographic dye allergy status; I44.7 Left bundle-branch block, unspecified; E78.5 Hyperlipidemia, unspecified; F32.9 Major depressive disorder, single episode, unspecified; I25.2 Old myocardial infarction; Z96.611 Presence of right artificial shoulder joint; I25.110 Atherosclerotic heart disease of native coronary artery with unstable angina pectoris; Z96.652 Presence of left artificial knee joint; K26.4 Chronic or unspecified duodenal ulcer with hemorrhage; Z87.891 Personal history of nicotine dependence; Z79.82 Long term (current) use of aspirin

== ENCOUNTER 2021-10-12 15:22 | Inpatient (IN) ==
--- NOTE | 2021-10-12 15:44 | ED Triage Note ---
Date of Service October 12, 2021 History of Present Illness This patient was briefly evaluated while in triage. An abbreviated physical exam was performed. This patient is a 71-year-old Male that presents to the ED with complaints of "abd pain". He notes sharp pains on the right side. It started a few days ago, it went away for a little while but returned today. Hx of kidney stones. No hematuria. Physical Exam GENERAL: 71 year old male. In no acute distress. SKIN: No lesions or rashes. HEART: Regular rate and rhythm. LUNGS: Clear to auscultation. ABDOMEN: Bowel sounds normoactive. No guarding or rigidity. R sided abd TTP noted. NEURO: Alert and oriented. No deficits. MUSCULOSKELETAL: No deformities to inspection of the extremities. PSYCH: Patient is pleasant and answers all questions appropriately. Initial orders for labs and / or imaging were placed and patient was placed in the waiting area until a bed is available. Please see further documentation for the full ED course.
[2021-10-12 16:25] LABS: Basophils # (auto) 0.02 K/uL (0-0.2); Basophils % (auto) 0.2 %; Eosinophils # (auto) 0.11 K/uL (0-0.50); Eosinophils % (auto) 1.2 %; Hemoglobin 13.8 g/dl (14.0-18.0); Immature Granulocytes # (auto) 0.03 K/uL (0.00-0.02); Immature Granulocytes % (auto) 0.3 %; Lymphocytes # (auto) 1.92 K/uL (1.2-3.4); Lymphocytes % (auto) 21.4 %; Mean Corpuscular Hemoglobin 34.8 pg (25.0-34.0); Mean Corpuscular Hgb Conc 33.7 g/dL (32.0-36.0); Mean Corpuscular Volume 103.5 fL (80.0-100.0); Mean Platelet Volume 9.9 fL (9.4-12.4); Monocytes # (auto) 0.81 K/uL (0.24-0.82); Neutrophils # (auto) 6.07 K/uL (1.4-6.5); Neutrophils % (auto) 67.9 %; Platelet Count 185 K/uL (130-400); RDW Coefficient of Variation 11.9 % (11.5-14.5); RDW Standard Deviation 45.6 fL (36.4-46.3); Red Blood Count 3.96 M/uL (4.63-6.08); White Blood Count 8.96 K/ul (4.8-10.8)
[2021-10-12 16:34] LABS: Appearance Urine Clear (Clear); Bacteria Urine Automated Negative (Negative); Bilirubin Urine Negative (Negative); Blood Urine Trace (Negative); Cast Urine Automated 0 /lpf (0-5); Color Urine Yellow; Glucose Urine UA Negative (Negative); Ketones Urine Negative (Negative); Leukocyte Esterase Urine Negative (Negative); Nitrite Urine Negative (Negative); Protein Urine Negative (Negative); RBC Urine Automated 0-4 /hpf (0-4); Specific Gravity Urine 1.015 (1.000-1.030); Urobilinogen Urine Negative (Negative); WBC Urine Automated 0 /hpf (0-5); pH Urine 5.5 (4.5-7.5)
[2021-10-12 16:53] LABS: Albumin Globulin Ratio 1.5 (0.9-2); Albumin Level 4.3 gm/dl (3.4-5.0); Bilirubin,Total 0.5 mg/dl (0.2-1.0); Calcium 9.4 mg/dl (8.5-10.1); Creatinine Clr Calc Pharmacy 77.7 ml/min; Est GFR (African American) 96.1 ml/min; Est GFR (Non-African American) 82.9 ml/min; Globulin 2.8 gm/dl (2.5-4.0); Potassium 4.1 mmol/L (3.5-5.1); Total Protein 7.1 gm/dl (6.0-8.3)
[2021-10-12] MEDS ORDERED: ONDANSETRON INJ 2 MG/ML 2 ML VIAL IV STA (16:55)
[2021-10-12] MEDS ORDERED: KETOROLAC TROMETHAMINE 15 MG/ML VIAL IV STA (16:55)
[2021-10-12] MEDS ORDERED: SODIUM CHLORIDE 0.9% 1000ML 500 ML IV ONE (16:55)
[2021-10-12] MEDS ORDERED: MoRPHine SULFATE 2 MG/ML CARP IV STA (16:55)
--- NOTE | 2021-10-12 17:07 | Emergency Department Note ---
Impression & Plan Right sided abdominal pain, Duodenitis, History of gastric ulcer, Anemia ED Provider Note NAME: TRAVIS HOLT AGE: 71 SEX: M : 1950 ARRIVES VIA: Walk-In INFORMANT: [Patient] ED PROVIDER(S): [Germán Preston MD] CHIEF COMPLAINT: Right sided abdominal pain HISTORY OF PRESENT ILLNESS: The patient is a 71-year-old male who has had right-sided abdominal pain for a few days. It seemed better yesterday but then, today, returned. It has been constant all day at a 7/10. He has had some nausea without vomiting. He has not had a fever. There has been no cough or congestion or shortness of breath. No current urinary complaints, no urgency or frequency. No diarrhea. The patient believes that last week he noticed burning when he urinated 1 time, that resolved and has not been present since. The patient has a distant history of kidney stones, he is concerned about this possibility. He presents for evaluation. REVIEW OF SYSTEMS: See HPI for pertinent positives and negatives. A total of ten systems were reviewed and were otherwise negative. PMHx/PSHx: See Below SOCIAL HISTORY: See Below. PHYSICAL EXAM: GENERAL: Patient is in no acute distress. HEENT: No acute trauma, normocephalic atraumatic, mucous membranes moist, no nasal congestion, no scleral icterus. NECK: No stridor, no adenopathy, no meningismus, trachea is midline. LUNGS: Clear to auscultation bilaterally, no wheeze, no rhonchi, breath sounds equal. HEART: Without murmurs gallops or rubs, regular rate and rhythm. ABDOMEN: Soft, tender along the entire right side of the abdomen, no peritonitis. EXTREMITIES: No cyanosis or edema, full range of motion of all the joints without pain or difficulty, no signs for acute trauma. NEUROLOGIC: Oriented x 3, no acute motor or sensory deficits, no focal weakness. SKIN: No rash, no jaundice, no diaphoresis. DIFFERENTIAL DIAGNOSIS: Appendicitis, testicular torsion, diverticulitis, UTI, obstruction, mesenteric ischemia, aortic pathology, inflammatory bowel disease, renal colic, PUD, pancreatitis, biliary pathology, hernia, volvulus, constipation, as well as other pathologies. EMERGENCY DEPARTMENT COURSE/PROCEDURES: ECG: Indication was abdominal pain. The ECG shows a sinus rhythm with a first- degree AV block. The rate is 61. There is no ST elevation, no PVCs. The QTc is 461. MEDICAL DECISION MAKING: There is no leukocytosis. A very mild anemia was noted--the patient has a history of anemia. There was a normal platelet count. No renal failure, no significant electrolyte abnormality, no concerning liver enzyme elevation. There is no evidence for pancreatitis. ECG shows a sinus rhythm, no ischemia. Urinalysis does not show infection or worrisome hematuria. COVID test returned negative. Abdominal and pelvis CT shows duodenitis and some inflammation in the area around the pancreas suggestive of potential pancreatitis. There is no bowel obstruction, no evidence for ureteral obstruction. The patient received IV saline, IV Protonix, IV Zofran. He was given IV morphine for pain. He received IV Toradol for pain. The cause for the patient's discomfort is not completely clear but duodenitis or even ulcer disease is a consideration. Gastritis is a consideration. Pancreatitis is a consideration. I did speak with GI. The patient is to be hospitalized. He may require an endoscopy in the a.m. if stable overnight. I spoke with the patient and case management. I spoke with the on-call hospitalist. Patient is currently resting comfortably. Patient is in complete understanding of the reason for the hospital stay. Past Med/Surg History Medical History Acute myocardial infarction Arteriosclerotic cardiovascular disease (ASCVD) B12 deficiency CAD (coronary artery disease) Chest pain Depression Folate deficiency Hematuria, microscopic Hyperlipidemia Hypertension Impaired fasting glucose Insomnia Left bundle branch block (LBBB) Left sided chest pain Macrocytic anemia Macrocytosis Mild intermittent asthma Myocardial infarct, old Need for hepatitis C screening test Right knee DJD Rotator cuff arthropathy Unstable angina Surgical History H/O heart artery stent drug eluting stent placed 05/30/2018 prior balloon angioplasty in 1987 after [place] History of hernia repair History of knee replacement History of total knee arthroplasty Status post reverse total arthroplasty of right shoulder Family History Unknown Acute myocardial infarction Lung cancer Atherosclerosis Father Myocardial infarction Brother Myocardial infarction Sister Myocardial infarction Mother Lung cancer Other Hypertension Denies family history of Ovarian cancer Prostate cancer Diabetes Breast cancer Colorectal cancer Stroke Social History Smoking Status: Never smoker Tobacco Type: Cigarettes Second Hand Exposure: No; Hx Alcohol Use: No Hx Substance Use: No Preferred Language: Nepalese Communication Ability: Effective Visual Impairment: Limited 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: Use of Hearing Aid [employer] Required: No Beliefs That Will Affect Care: None marital status: Current Living Situation: Spouse current occupational status: retired How many Children do You have: 2 Feels Safe at Home: Yes Childhood Exposure to Second-Hand Smoke: Yes caffeine: Yes Dental Care, Regularly: Yes Physical Activity Frequency: 1-2 Times per Week Seatbelt Use: always Sunscreen Use: Yes Assistive Devices: None Allergies Allergies Allergy/AdvReac Type Severity Reaction Status Date / Time Iodinated Contrast Media Allergy Intermediate Hives Verified 10/12/21 17:39 atorvastatin [From Lipitor] AdvReac Intermediate Hives Verified 10/12/21 17:39 simvastatin [From Zocor] AdvReac Intermediate Hives Verified 10/12/21 17:39 Home Meds Home Medications Medication Instructions Recorded Confirmed aspirin 81 mg tablet,delayed 81 mg PO QAM 05/29/18 10/12/21 release (Sonia Low Dose Aspirin) loratadine 10 mg tablet (Claritin) 10 mg PO QAM 05/29/18 10/12/21 amoxicillin 500 mg capsule See Rx Instructions .Route 10/02/18 10/12/21 .COMPLEX PRN Prior to Dental Appointment rosuvastatin 20 mg tablet (Crestor) 20 mg PO HS 04/10/19 10/12/21 coenzyme Q10 400 mg capsule (Co 400 mg PO QAM 10/30/19 10/12/21 Q-10) omega-3 fatty acids 1,000 mg 1,000 mg PO QAM 10/30/19 10/12/21 capsule (Fish Oil Concentrate) escitalopram oxalate 10 mg tablet 15 mg PO HS 10/12/21 10/12/21 lisinopril 5 mg tablet 5 mg PO QAM 10/12/21 10/12/21 metoprolol tartrate 50 mg tablet 50 mg PO QPM 10/12/21 10/12/21 tramadol 50 mg tablet 50 mg PO Q6H PRN Pain 10/12/21 10/12/21 Previous Rx's Medication Instructions Recorded prasugrel 10 mg tablet (Effient) 10 mg PO QAM #90 tabs 12/02/20 isosorbide mononitrate 60 mg 60 mg PO QAM #90 tabs 03/19/21 tablet,extended release 24 hr zolpidem 5 mg tablet 5 mg PO HS PRN sleep #90 tabs 06/07/21 amlodipine 5 mg tablet (Norvasc) 5 mg PO HS #90 tabs 08/10/21 lorazepam 0.5 mg tablet (Ativan) 0.5 mg PO DAILY PRN anxiety #30 09/02/21 tabs pantoprazole 40 mg tablet,delayed 40 mg PO DAILY #90 tabs 10/12/21 release Results & Data (ED) Vital Signs Vital Signs - 24 hr 10/12/21 15:41 10/12/21 16:47 10/12/21 17:02 Temperature 36.8 C Temperature Source Temporal Artery Scan Pulse Rate 81 70 71 Pulse Rate from SpO2 Sensor 71 74 Respiratory Rate 18 14 13 Blood Pressure 131/80 Blood Pressure Mean 97 Pulse Oximetry 97 96 94 Oxygen Delivery Method Room Air Sepsis Recent Fever Within 48 Hours No Sepsis New/Unexplained Change in Mental Status No Sepsis Action Taken by Nursing No Action Required 10/12/21 17:30 10/12/21 18:00 Temperature Temperature Source Pulse Rate 63 65 Pulse Rate from SpO2 Sensor 65 65 Respiratory Rate 23 8 L Blood Pressure Blood Pressure Mean Pulse Oximetry 93 90 Oxygen Delivery Method Sepsis Recent Fever Within 48 Hours Sepsis New/Unexplained Change in Mental Status Sepsis Action Taken by Skilled Nursing Medications Current Medication List: was personally reviewed by me Laboratory Data Attestation: I reviewed the patient's lab results. Result diagrams: 10/12/21 16:05 10/12/21 16:05 Lab Results 10/12/21 10/12/21 10/12/21 Range/Units 16:05 16:05 16:05 WBC 8.96 (4.8-10.8) K/ul RBC 3.96 L (4.63-6.08) M/uL Hgb 13.8 L (14.0-18.0) g/dl Hct 41.0 (40.1-51.0) % MCV 103.5 H (80.0-100.0) fL MCH 34.8 H (25.0-34.0) pg MCHC 33.7 (32.0-36.0) g/dL RDW Std Deviation 45.6 (36.4-46.3) fL RDW Coeff of Chuck 11.9 (11.5-14.5) % Plt Count 185 (130-400) K/uL MPV 9.9 (9.4-12.4) fL Immature Gran % (Auto) 0.3 % Neut % (Auto) 67.9 % Lymph % (Auto) 21.4 % [place] % (Auto) 9.0 % Eos % (Auto) 1.2 % Baso % (Auto) 0.2 % Neut # (Auto) 6.07 (1.4-6.5) K/uL Lymph # (Auto) 1.92 (1.2-3.4) K/uL [place] # (Auto) 0.81 (0.24-0.82) K/uL Eos # (Auto) 0.11 (0-0.50) K/uL Baso # (Auto) 0.02 (0-0.2) K/uL Immature Gran # (Auto) 0.03 H (0.00-0.02) K/uL Sodium 136 (136-145) mmol/L Potassium 4.1 (3.5-5.1) mmol/L Chloride 102 (98-107) mmol/L Carbon Dioxide 26 (21-32) mmol/L Anion Gap 8 (3-11) BUN 13 (6-23) mg/dl Creatinine 0.93 (0.6-1.4) mg/dl Est Cr Clr Drug Dosing 77.7 ml/min Est GFR ( Amer) 96.1 ml/min Est GFR (Non-Af Amer) 82.9 ml/min BUN/Creatinine Ratio 14.0 (10-20) Glucose 102 H (70-99(Fasting)) mg/dl Calcium 9.4 (8.5-10.1) mg/dl Total Bilirubin 0.5 (0.2-1.0) mg/dl AST 14 (13-39) U/L ALT 11 (7-52) U/L Alkaline Phosphatase 77 (34-104) U/L Total Protein 7.1 (6.0-8.3) gm/dl Albumin 4.3 (3.4-5.0) gm/dl Globulin 2.8 (2.5-4.0) gm/dl Albumin/Globulin Ratio 1.5 (0.9-2) Lipase 27 (11-82) U/L Urine Color Yellow Urine Appearance Clear (Clear) Urine pH 5.5 (4.5-7.5) Ur Specific [place] 1.015 (1.000-1.030) Urine Protein Negative (Negative) Urine Glucose (UA) Negative (Negative) Urine Ketones Negative (Negative) Urine Blood Trace H (Negative) Urine Nitrite Negative (Negative) Urine Bilirubin Negative (Negative) Urine Urobilinogen Negative (Negative) Ur Leukocyte Esterase Negative (Negative) Urine WBC (Auto) 0 (0-5) /hpf Urine RBC (Auto) 0-4 (0-4) /hpf U Hyaline Cast (Auto) 0 (0-5) /lpf U Epithel Cells (Auto) 5-10 H (0-5) /lpf Urine Bacteria (Auto) Negative (Negative) SARS-CoV-2, RNA, NAAT (NEGATIVE) 10/12/21 Range/Units 18:15 WBC (4.8-10.8) K/ul RBC (4.63-6.08) M/uL Hgb (14.0-18.0) g/dl Hct (40.1-51.0) % MCV (80.0-100.0) fL MCH (25.0-34.0) pg MCHC (32.0-36.0) g/dL RDW Std Deviation (36.4-46.3) fL RDW Coeff of Chuck (11.5-14.5) % Plt Count (130-400) K/uL MPV (9.4-12.4) fL Immature Gran % (Auto) % Neut % (Auto) % Lymph % (Auto) % [place] % (Auto) % Eos % (Auto) % Baso % (Auto) % Neut # (Auto) (1.4-6.5) K/uL Lymph # (Auto) (1.2-3.4) K/uL [place] # (Auto) (0.24-0.82) K/uL Eos # (Auto) (0-0.50) K/uL Baso # (Auto) (0-0.2) K/uL Immature Gran # (Auto) (0.00-0.02) K/uL Sodium (136-145) mmol/L Potassium (3.5-5.1) mmol/L Chloride (98-107) mmol/L Carbon Dioxide (21-32) mmol/L Anion Gap (3-11) BUN (6-23) mg/dl Creatinine (0.6-1.4) mg/dl Est Cr Clr Drug Dosing ml/min Est GFR ( Amer) ml/min Est GFR (Non-Af Amer) ml/min BUN/Creatinine Ratio (10-20) Glucose (70-99(Fasting)) mg/dl Calcium (8.5-10.1) mg/dl Total Bilirubin (0.2-1.0) mg/dl AST (13-39) U/L ALT (7-52) U/L Alkaline Phosphatase (34-104) U/L Total Protein (6.0-8.3) gm/dl Albumin (3.4-5.0) gm/dl Globulin (2.5-4.0) gm/dl Albumin/Globulin Ratio (0.9-2) Lipase (11-82) U/L Urine Color Urine Appearance (Clear) Urine pH (4.5-7.5) Ur Specific [place] (1.000-1.030) Urine Protein (Negative) Urine Glucose (UA) (Negative) Urine Ketones (Negative) Urine Blood (Negative) Urine Nitrite (Negative) Urine Bilirubin (Negative) Urine Urobilinogen (Negative) Ur Leukocyte Esterase (Negative) Urine WBC (Auto) (0-5) /hpf Urine RBC (Auto) (0-4) /hpf U Hyaline Cast (Auto) (0-5) /lpf U Epithel Cells (Auto) (0-5) /lpf Urine Bacteria (Auto) (Negative) SARS-CoV-2, RNA, NAAT NEGATIVE (NEGATIVE) Administered Medications Amlodipine Besylate (Amlodipine Besylate 5 Mg Tab) 5 mg PO HS [facility] Stop: 11/11/21 20:59 Last Admin: 10/12/21 22:14 Dose: 5 mg Documented By: ELADIO Escitalopram Oxalate (Escitalopram Oxalate 10 Mg Tab) 15 mg PO HS [facility] Stop: 11/11/21 20:59 Last Admin: 10/12/21 22:14 Dose: 15 mg Documented By: ELADIO Pantoprazole Sodium 40 mg/ (Syringe) 10 mls @ 5 mls/min IV BID [facility] Stop: 11/11/21 20:59 Last Admin: 10/12/21 22:14 Dose: 5 mls/min Documented By: ELADIO Lactated Ringer's (Lr) 1,000 mls @ 125 mls/hr IV .Q8H [facility]ID Stop: 10/13/21 12:51 Last Admin: 10/12/21 22:13 Dose: 125 mls/hr Documented By: ELADIO Metoprolol Tartrate (Metoprolol Tartrate 50 Mg Tab) 50 mg PO QPM [facility] Stop: 11/11/21 20:59 Last Admin: 10/12/21 22:14 Dose: 50 mg Documented By: ELADIO Morphine Sulfate (Morphine Sulfate 4 Mg/Ml 1 Ml Carp\Vial) 4 mg IV Q3H PRN PRN Reason: Severe Pain Stop: 10/26/21 20:51 Last Admin: 10/13/21 00:51 Dose: 4 mg Documented By: ELADIO Rosuvastatin Calcium (Rosuvastatin Calcium 20 Mg Tab) 20 mg PO HS DAVID Stop: 11/11/21 20:59 Last Admin: 10/12/21 22:15 Dose: 20 mg Documented By: ELADIO Sucralfate (Sucralfate 1 Gm/10 Ml Udc) 1 gm PO QID [facility]ID Stop: 11/11/21 20:59 Last Admin: 10/12/21 22:15 Dose: 1 gm Documented By: ELADIO Zolpidem Tartrate (Zolpidem Tartrate 5 Mg Tab) 5 mg PO HS PRN PRN Reason: sleep Stop: 11/11/21 20:51 Last Admin: 10/12/21 22:15 Dose: 5 mg Documented By: ELADIO Discontinued Medications Sodium Chloride (Nss 1000ml) 500 mls @ 999 mls/hr IV .Q31M ONE Stop: 10/12/21 17:25 Last Infusion: 10/12/21 18:18 Dose: 0 mls/hr Documented By: Admin: 10/12/21 17:20 Dose: 999 mls/hr Documented By: [id number] Pantoprazole Sodium 80 mg/ (Dextrose) 100 mls @ 400 mls/hr IV ONE STA Stop: 10/12/21 17:41 Last Infusion: 10/12/21 18:39 Dose: 0 mls/hr Documented By: Admin: 10/12/21 18:17 Dose: 400 mls/hr Documented By: AM Ketorolac Tromethamine (Ketorolac Tromethamine 15 Mg/Ml Vial) 15 mg IV NOW STA Stop: 10/12/21 16:56 Last Admin: 10/12/21 17:18 Dose: 15 mg Documented By: [id number] Morphine Sulfate (Morphine Sulfate 2 Mg/Ml Carp) 2 mg IV NOW STA Stop: 10/12/21 16:56 Last Admin: 10/12/21 17:19 Dose: 2 mg Documented By: [id number] Morphine Sulfate (Morphine Sulfate 2 Mg/Ml Carp) Confirm Administered Dose 2 mg .ROUTE .STK-MED ONE Stop: 10/12/21 19:47 Last Admin: 10/12/21 19:47 Dose: 2 mg Documented By: ELADIO Ondansetron HCl (Ondansetron Inj 2 Mg/Ml 2 Ml Vial) 4 mg IV NOW STA Stop: 10/12/21 16:56 Last Admin: 10/12/21 17:18 Dose: 4 mg Documented By: [id number] Imaging Data Radiologist's Impression: Abdomen/Pelvis CT 10/12/21 16:[address] WITHOUT CONTRAST CT DOSE: 688.00 mGy.cm HISTORY: Acute bilateral flank pain flank pain TECHNIQUE: Multiaxial CT images of the abdomen and pelvis were performed without contrast. A dose lowering technique was utilized adhering to the principles of ALARA. COMPARISON STUDY: CTA chest 11/06/2020 FINDINGS: Cardiomegaly with chronic infarct of the apical septal wall the left ventricle. Extensive coronary artery calcifications. Mild bibasilar mucous plugging. There is no pneumatosis or pneumoperitoneum. The unenhanced spleen, adrenal glands and gallbladder appear unremarkable. The liver is also within normal limits. There is minimal inflammatory stranding surrounding the uncinate process, proximal duodenum and pancreaticoduodenal groove. These findings do appear similar to the prior study. There is mild nonspecific bilateral perinephric stranding. Punctate nonobstructing calculus of the inferior pole left kidney. No ureteral calculi or hydronephrosis. Prostamegaly. Urinary bladder wall thickening with partial distention and mild perivesicular stranding. Atherosclerosis of the abdominal aorta and branch vessels. There is ectasia of the infrarenal abdominal aorta measuring 2.7 x 2.8 cm. No lymphadenopathy. Tiny hiatal hernia. Mild wall thickening of the duodenum. There is mild colonic fecal retention. Normal appendix. There is a tiny supra umbilical fat filled ventral abdominal wall hernia with diastases 1.5 cm. Degenerative changes of the spine, pelvis and hips. IMPRESSION: 1. Subtle inflammatory stranding surrounding the uncinate process, proximal duodenum and pancreaticoduodenal groove is suspicious for acute pancreatitis. Correlate with lipase level. 2. Mild wall thickening of the proximal duodenum is likely reactive. A primary duodenitis is considered less likely. 3. No bowel obstruction. 4. Normal appendix. 5. Punctate left renal calculus. 6. Additional findings as above. ACT 112: Negative or not required by law. The above report was generated using voice recognition software. It may contain grammatical, syntax or spelling errors. Electronically signed by: Ravinder Gonzales M.D. 10/12/2021 5:17 PM Discharge Plan Visit Data Chief Complaint: Abdominal Pain Stated Complaint: R SIDE AND ABDOMINAL PAIN ED Provider: Germán Preston Discharge Problem: Right sided abdominal pain, Duodenitis, History of gastric ulcer, Anemia Patient Disposition: Admitted As Inpatient Condition: Fair Discharge Instructions Interventions: ED Discharge Assessment Last Done: 10/12/21 21:04
--- NOTE | 2021-10-12 17:18 | CT Scan Report ---
ABDOMEN AND PELVIS CT WITHOUT CONTRAST CT DOSE: 688.00 mGy.cm HISTORY: Acute bilateral flank pain flank pain TECHNIQUE: Multiaxial CT images of the abdomen and pelvis were performed without contrast. A dose lo wering technique was utilized adhering to the principles of ALARA. COMPARISON STUDY: CTA chest 11/06/2020 FINDINGS: Cardiomegaly with chronic infarct of the apical septal wall the left ventricle. Extensive c oronary artery calcifications. Mild bibasilar mucous plugging. There is no pneumatosis or pneumoperit oneum. The unenhanced spleen, adrenal glands and gallbladder appear unremarkable. The liver is also w ithin normal limits. There is minimal inflammatory stranding surrounding the uncinate process, proxim al duodenum and pancreaticoduodenal groove. These findings do appear similar to the prior study. There is mild nonspecific bilateral perinephric stranding. Punctate nonobstructing calculus of the in ferior pole left kidney. No ureteral calculi or hydronephrosis. Prostamegaly. Urinary bladder wall th ickening with partial distention and mild perivesicular stranding. Atherosclerosis of the abdominal a malik and branch vessels. There is ectasia of the infrarenal abdominal aorta measuring 2.7 x 2.8 cm. N o lymphadenopathy. Tiny hiatal hernia. Mild wall thickening of the duodenum. There is mild colonic fecal retention. Norm al appendix. There is a tiny supra umbilical fat filled ventral abdominal wall hernia with diastases 1.5 cm. Degenerative changes of the spine, pelvis and hips. IMPRESSION: 1. Subtle inflammatory stranding surrounding the uncinate process, proximal duodenum and pancreaticod uodenal groove is suspicious for acute pancreatitis. Correlate with lipase level. 2. Mild wall thickening of the proximal duodenum is likely reactive. A primary duodenitis is consider ed less likely. 3. No bowel obstruction. 4. Normal appendix. 5. Punctate left renal calculus. 6. Additional findings as above. ACT 112: Negative or not required by law. The above report was generated using voice recognition software. It may contain grammatical, syntax o r spelling errors. Electronically signed by: Ravinder Gonzales M.D. 10/12/2021 5:17 PM
[2021-10-12] MEDS ORDERED: PANTOprazole 80 MG in DEXTROSE 5% 100 ML IV STA (17:27)
--- NOTE | 2021-10-12 18:02 | History & Physical Report ---
Date of Service October 12, 2021 Assessment & Plan (1) Duodenal ulcer: Plan: - History of such in the October 2020 requiring urgent EGD and cauterization. Patient presenting with right-sided/epigastric burning abdominal pain and Hgb 13.8, was 13.0 one month ago. No evidence of acute bleed today. Hemodynamically stable. - CT A/P shows findings consistent with pancreatitis and duodenitis, however do not suspect pancreatitis as pain has been present x4 days and lipase normal. More likely duodenitis and possible bleeding duodenal ulcer. - N.p.o., IVF fluids ordered, PPI with bolus ordered, Carafate QID prn. - GI consulted, with plans to scope in AM. - Antiemetics ordered, pain management with Tylenol and morphine, avoiding NSAIDs. - Recheck hemoglobin on a.m. labs, sooner if indicated. No indications for transfusion at this time. - History of B12 and folate deficiencies--will obtain levels tomorrow along with iron panel. (2) CAD (coronary artery disease): Plan: - Chronic, stable, with known LBBB. - Multiple stents, most recently placed in June 2020. On Effient and aspirin. As he is > 1 year out from [place] placement, risk of GI bleed > stent occlusion, therefore will hold his ASA and Effient for now. - Continue beta-saúl, calcium channel saúl, ASPEN, statin, and isosorbide mononitrate. (3) Insomnia: Plan: - Continue zolpidem 5 mg at night as needed. (4) Anxiety and depression: Plan: - Continue Lexapro 15 mg at night, lorazepam 0.5 mg daily as needed. (5) Osteoarthritis: Plan: - Patient has Tylenol and Tramadol for joint pain, also added Voltaren gel as needed. Plan - Admit to med/tele. - SCDs for VTE ppx, cehmoppx contraindicated due to concern for bleeding ulcer. - Full Code. History of Present Illness Chief Complaint: right sided abdominal pain for several days Primary Care Provider: Marcos Calderon MD Emile Zelaya is a 71 y/o male with a PMH significant for CAD with multiple stents, hypertension, hyperlipidemia, depression, anxiety, OA, and known duodenal ulcer who presents today with right-sided abdominal pain for several days. It started 4 days ago on Monday, 10/09 as right sided burning abdominal pain. He took Tylenol periodically throughout the day and this eventually alleviated his symptoms, as of yesterday 10/11 he was pain free. Unfortunately, the pain came back today, and given his history of GI bleed and kidney stones, he was concerned and presented to the ED for further evaluation. He has associated nausea with the pain but no vomiting, diarrhea, constipation, melena, hematochezia, fever, or chills. He does not drink alcohol and uses Tylenol and Tramadol for management of his joint pain, no use of NSAIDs. He has a history of a bleeding duodenal ulcer one year ago, for which he has been on a daily PPI. In ED, his vital signs within normal limits and have been stable since arrival. Labs significant for macrocytic anemia with an Hgb of 13.8, MCV 103.5. Labs otherwise unremarkable, without any electrolyte abnormalities, renal function stable, lipase 27, UA without evidence of infection. CT A/P showed subtle inflammation around the proximal duodenum and pancreaticoduodenal groove, without evidence of bowel obstruction, appendicitis, or obstructing renal stones. Allergies Allergy/AdvReac Type Severity Reaction Status Date / Time Iodinated Contrast Media Allergy Intermediate Hives Verified 10/12/21 17:39 atorvastatin [From Lipitor] AdvReac Intermediate Hives Verified 10/12/21 17:39 simvastatin [From Zocor] AdvReac Intermediate Hives Verified 10/12/21 17:39 Home Medications Medication Instructions Recorded Confirmed Type aspirin 81 mg tablet,delayed 81 mg PO QAM 05/29/18 10/18/21 History release (Sonia Low Dose Aspirin) loratadine 10 mg tablet (Claritin) 10 mg PO QAM 05/29/18 10/18/21 History amoxicillin 500 mg capsule See Rx Instructions .Route 10/02/18 10/18/21 History .COMPLEX PRN Prior to Dental Appointment rosuvastatin 20 mg tablet (Crestor) 20 mg PO HS 04/10/19 10/18/21 History coenzyme Q10 400 mg capsule (Co 400 mg PO QAM 10/30/19 10/18/21 History Q-10) omega-3 fatty acids 1,000 mg 1,000 mg PO QAM 10/30/19 10/18/21 History capsule (Fish Oil Concentrate) prasugrel 10 mg tablet (Effient) 10 mg PO QAM #90 tabs 09/22/21 08/08/22 Rx isosorbide mononitrate 60 mg 60 mg PO QAM #90 tabs 03/19/21 10/18/21 Rx tablet,extended release 24 hr zolpidem 5 mg tablet 5 mg PO HS PRN sleep #90 tabs 06/07/21 10/18/21 Rx lorazepam 0.5 mg tablet (Ativan) 0.5 mg PO DAILY PRN anxiety #30 09/02/21 10/18/21 Rx tabs escitalopram oxalate 10 mg tablet 15 mg PO HS 10/12/21 10/18/21 History lisinopril 5 mg tablet 5 mg PO QAM 10/12/21 10/18/21 History metoprolol tartrate 50 mg tablet 50 mg PO QPM 10/12/21 10/18/21 History tramadol 50 mg tablet 50 mg PO Q6H PRN Pain 10/12/21 10/18/21 History pantoprazole 40 mg tablet,delayed 40 mg PO BID #60 tabs 10/15/21 10/18/21 Rx release Past Med/Surg History Medical History Acute myocardial infarction Arteriosclerotic cardiovascular disease (ASCVD) B12 deficiency CAD (coronary artery disease) Chest pain Depression Folate deficiency Hematuria, microscopic Hyperlipidemia Hypertension Impaired fasting glucose Insomnia Left bundle branch block (LBBB) Left sided chest pain Macrocytic anemia Macrocytosis Mild intermittent asthma Myocardial infarct, old Need for hepatitis C screening test Right knee DJD Rotator cuff arthropathy Unstable angina Surgical History H/O heart artery stent drug eluting stent placed 05/30/2018 prior balloon angioplasty in 1987 after [place] History of hernia repair History of knee replacement History of total knee arthroplasty Status post reverse total arthroplasty of right shoulder Family History Unknown Acute myocardial infarction Lung cancer Atherosclerosis Father Myocardial infarction Brother Myocardial infarction Sister Myocardial infarction Mother Lung cancer Other Hypertension Denies family history of Ovarian cancer Prostate cancer Diabetes Breast cancer Colorectal cancer Stroke Social History Smoking Status: Never smoker Tobacco Type: Cigarettes Second Hand Exposure: No; Hx Alcohol Use: No Hx Substance Use: No Preferred Language: Luxembourgish Communication Ability: Effective Visual Impairment: Limited 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: 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 Beliefs That Will Affect Care: None marital status: Current Living Situation: Spouse current occupational status: retired How many Children do You have: 2 Feels Safe at Home: Yes Childhood Exposure to Second-Hand Smoke: Yes caffeine: Yes Dental Care, Regularly: Yes Physical Activity Frequency: 1-2 Times per Week Seatbelt Use: always Sunscreen Use: Yes Assistive Devices: None Review of Systems Review of Systems: Constitutional: No fever/chills, weakness, fatigue, myalgias, anorexia, night sweats Eyes: No diplopia, no worsening or blurred vision ENT: normal hearing, no trouble swallowing Respiratory: No cough, sputum, dyspnea at rest or on exertion Cardiovascular: No chest pain, tightness or palpitations Abdomen: right sided and central abdominal pain and nausea x 4 days without vomiting, diarrhea or constipation, melena or hematochezia : Denies dysuria, hematuria, increased urgency/frequency, urinary retention Musculoskeletal: No joint pain, calf pain, swelling Neurologic: No weakness, numbness/tingling, or balance problems Psychiatric: No anxiety or depression Skin: No rash or itch Physical Exam Physical Exam: General: awake, alert, no apparent distress Head: Normocephalic, atraumatic ENT: PERRL, EOMI, no pharyngeal exudate, mucous membranes moist Chest: Clear to auscultation, on room air, no adventitious breath sounds Cardiac: Regular rate and rhythm, no murmur, no JVD, normal peripheral pulses, good capillary refill Abdominal: TTP in epigastric and RUQ; NABS x 4 quadrants, soft, nontender to palpation, no rebound, guarding or tenderness Extremities: Normal inspection, no peripheral edema or erythema, calfs nontender to palpation Psych: Normal mood and affect Neuro: AAO x 3, strength intact bilaterally and rated 5/5, no motor deficits, speech is clear, no peripheral sensory deficits Skin: no rash or erythema Results & Data Results & Data ([facility]) Vital Signs (Past 12 Hours) Vital Signs Temp Pulse Resp BP Pulse Ox O2 Del Method 10/12/21 15:41 36.8 C 81 18 131/80 97 Room Air Laboratory Results Abnormal lab results 10/12/21 10/12/21 10/12/21 Range/Units 16:05 16:05 16:05 RBC 3.96 L (4.63-6.08) M/uL Hgb 13.8 L (14.0-18.0) g/dl MCV 103.5 H (80.0-100.0) fL MCH 34.8 H (25.0-34.0) pg Immature Gran # (Auto) 0.03 H (0.00-0.02) K/uL Glucose 102 H (70-99(Fasting)) mg/dl Urine Blood Trace H (Negative) U Epithel Cells (Auto) 5-10 H (0-5) /lpf Diagnostic Findings Abdomen/Pelvis CT 10/12/21 16:[address] WITHOUT CONTRAST CT DOSE: 688.00 mGy.cm HISTORY: Acute bilateral flank pain flank pain TECHNIQUE: Multiaxial CT images of the abdomen and pelvis were performed without contrast. A dose lowering technique was utilized adhering to the principles of ALARA. COMPARISON STUDY: CTA chest 11/06/2020 FINDINGS: Cardiomegaly with chronic infarct of the apical septal wall the left ventricle. Extensive coronary artery calcifications. Mild bibasilar mucous plugging. There is no pneumatosis or pneumoperitoneum. The unenhanced spleen, adrenal glands and gallbladder appear unremarkable. The liver is also within normal limits. There is minimal inflammatory stranding surrounding the uncinate process, proximal duodenum and pancreaticoduodenal groove. These findings do appear similar to the prior study. There is mild nonspecific bilateral perinephric stranding. Punctate nonobstructing calculus of the inferior pole left kidney. No ureteral calculi or hydronephrosis. Prostamegaly. Urinary bladder wall thickening with partial distention and mild perivesicular stranding. Atherosclerosis of the abdominal aorta and branch vessels. There is ectasia of the infrarenal abdominal aorta measuring 2.7 x 2.8 cm. No lymphadenopathy. Tiny hiatal hernia. Mild wall thickening of the duodenum. There is mild colonic fecal retention. Normal appendix. There is a tiny supra umbilical fat filled ventral abdominal wall hernia with diastases 1.5 cm. Degenerative changes of the spine, pelvis and hips. IMPRESSION: 1. Subtle inflammatory stranding surrounding the uncinate process, proximal duodenum and pancreaticoduodenal groove is suspicious for acute pancreatitis. Correlate with lipase level. 2. Mild wall thickening of the proximal duodenum is likely reactive. A primary duodenitis is considered less likely. 3. No bowel obstruction. 4. Normal appendix. 5. Punctate left renal calculus. 6. Additional findings as above. ACT 112: Negative or not required by law. The above report was generated using voice recognition software. It may contain grammatical, syntax or spelling errors. Electronically signed by: Ravinder Gonzales M.D. 10/12/2021 5:17 PM ECG Additional Comments: Sinus rhythm with 1st degree A-V block Left bundle branch block Abnormal ECG When compared with ECG of 07-NOV-2020 10:49, Vent. rate has decreased BY 32 BPM Code Status & VTE Plan Code Status Full Code. Supervising Physician Co-Signing Physician Notes Attending Attestation and Admission Note - Pt seen/examined, chart reviewed, care plan d/w DAVID Guidry. I agree w/ the mcmahon components of her documentation. Pleasant 71yo male with h/o bleeding duodenal ulcer, CAD, HTN, LBBB - presents with several days of severe abdominal pain. Right sided in location. Associated nausea but no emesis. Poor appetite. No fever. Of note - with his duodenal ulcer he did not have abd pain. Denies any recent abdominal pain with eating. PMH/PSH/allergies/meds/sochx/famhx - reviewed VSS, afebrile gen - pleasant, tired appearing, NAD mouth - MM dry neck - no JVD heart - RRR, s1 s2, no murmur lungs - CTA b/l abd - tender epigastric region and just to the right of the epigastric region, BS+, mildly distended, no HSM ext - no edema labs reviewed LFTs and lipase wnl imaging reviewed including CT a/p A/P: 1. duodenitis radiographically - 2nd to pancreatitis? primary? 2. uncinate process inflammation with normal lipase agree with IV PPI carafate NPO formal GI consult in am - ?need for EGD to r/o duodenal ulcer and duodenitis #2 - uncertain etiology plan to repeat lipase and lfts in am pain meds for both issues IV fluids Damir Ferrer MD PG Care Time/CCT Total # of Minutes Spent Total Time Spent with Patient: Total time spent is greater than 50% in coordination of care (as documented) at patient's floor/unit and/or counseling patient: Coding Level of Care Code 68833 Initial Inpt Care Lvl 2 Diagnoses Duodenal ulcer K26.9 CAD (coronary artery disease) I25.10 Insomnia G47.00 Anxiety and depression F41.9; F32.9 Osteoarthritis M19.90
[2021-10-12] MEDS ORDERED: MoRPHine SULFATE 2 MG/ML CARP ONE (19:46)
[2021-10-12] MEDS ORDERED: DICLOFENAC SOD 1% GEL 100 GM TUBE EXT PRN (20:52)
[2021-10-12] MEDS ORDERED: LORazepam 0.5 MG TAB PO PRN (20:52)
[2021-10-12] MEDS ORDERED: traMADol HCL 50 MG TABLET PO PRN (20:52)
[2021-10-12] MEDS ORDERED: MoRPHine SULFATE 2 MG/ML CARP IV PRN (20:52)
[2021-10-12] MEDS ORDERED: ONDANSETRON INJ 2 MG/ML 2 ML VIAL IV PRN (20:52)
[2021-10-12] MEDS ORDERED: POLYETHYLENE (MIRALAX) 17 GM PACK PO PRN (20:52)
[2021-10-12] MEDS ORDERED: ACETAMINOPHEN 1000 MG/100 ML IV IV PRN (20:52)
[2021-10-12] MEDS ORDERED: amLODIPine BESYLATE 5 MG TAB PO SCH ×2 (21:00)
[2021-10-12] MEDS: LACTATED RINGER'S 1,000 ML IV SCH (22:13)
[2021-10-12] MEDS: METOPROLOL TARTRATE 50 MG TAB PO SCH (22:14)
[2021-10-12] MEDS: amLODIPine BESYLATE 5 MG TAB PO SCH (22:14)
[2021-10-12] MEDS: ESCITALOPRAM OXALATE 10 MG TAB PO SCH (22:14)
[2021-10-12] MEDS: PANTOprazole 40 MG in SYRINGE 0 ML IV SCH (22:14)
[2021-10-12] MEDS: SUCRALFATE 1 GM/10 ML UDC PO SCH (22:15)
[2021-10-12] MEDS: ROSUVASTATIN CALCIUM 20 MG TAB PO SCH (22:15)
[2021-10-12] MEDS: ZOLPIDEM TARTRATE 5 MG TAB PO PRN (22:15)
[2021-10-13] MEDS: MoRPHine SULFATE 4 MG/ML 1 ML CARP\\VIAL IV PRN ×7 (00:51→21:20)
[2021-10-13] MEDS: LACTATED RINGER'S 1,000 ML IV SCH ×4 (06:02→19:40)
[2021-10-13] MEDS: LORATADINE 10 MG TAB PO SCH (08:09)
[2021-10-13] MEDS: ISOSORBIDE MONO EXTENDED REL 60 MG TABCR PO SCH (08:09)
[2021-10-13] MEDS: SUCRALFATE 1 GM/10 ML UDC PO SCH ×4 (08:09→21:16)
[2021-10-13] MEDS: PANTOprazole 40 MG in SYRINGE 0 ML IV SCH ×2 (08:09→21:15)
[2021-10-13 08:26] LABS: Basophils # (auto) 0.01 K/uL (0-0.2); Basophils % (auto) 0.1 %; Eosinophils # (auto) 0.16 K/uL (0-0.50); Eosinophils % (auto) 2.1 %; Hematocrit (blood only) 39.4 % (40.1-51.0); Hemoglobin 13.1 g/dl (14.0-18.0); Immature Granulocytes # (auto) 0.03 K/uL (0.00-0.02); Immature Granulocytes % (auto) 0.4 %; Lymphocytes # (auto) 1.24 K/uL (1.2-3.4); Lymphocytes % (auto) 16.4 %; Mean Corpuscular Hemoglobin 35.1 pg (25.0-34.0); Mean Corpuscular Hgb Conc 33.2 g/dL (32.0-36.0); Mean Corpuscular Volume 105.6 fL (80.0-100.0); Monocytes # (auto) 0.67 K/uL (0.24-0.82); Monocytes % (auto) 8.9 %; Neutrophils # (auto) 5.43 K/uL (1.4-6.5); Neutrophils % (auto) 72.1 %; Platelet Count 162 K/uL (130-400); RDW Coefficient of Variation 12.1 % (11.5-14.5); RDW Standard Deviation 47.5 fL (36.4-46.3); Red Blood Count 3.73 M/uL (4.63-6.08); White Blood Count 7.54 K/ul (4.8-10.8)
[2021-10-13 08:50] LABS: Iron 55 mcg/dl (35-175); Total Iron Binding Cap Calc 389 mcg/dl (250-450); Transferrin (FE) Percent Satur 14 % (20-50); Unsaturated Iron Binding Cap 334 mcg/dl (155-355)
[2021-10-13 08:57] LABS: Albumin Globulin Ratio 1.5 (0.9-2); Bilirubin,Total 0.5 mg/dl (0.2-1.0); Calcium 8.8 mg/dl (8.5-10.1); Creatinine Clr Calc Pharmacy 78.1 ml/min; Est GFR (African American) 97.3 ml/min; Globulin 2.7 gm/dl (2.5-4.0); Potassium 4.2 mmol/L (3.5-5.1); Total Protein 6.7 gm/dl (6.0-8.3)
[2021-10-13] MEDS ORDERED: lisinopril 5 MG TAB PO SCH (09:00)
[2021-10-13 09:19] LABS: Folate (Folic Acid) 12.28 ng/ml (>5.38)
--- NOTE | 2021-10-13 09:28 | Gastrointestinal Consultation ---
Date of Consultation October 13, 2021 Assessment & Plan (1) Acute pancreatitis: Per CT and pattern of pain most consistent with acute pancreatitis. Plan IV LR 500cc bolus then 250cc/hr. Analgesics Water/chips po only today. Will continue to follow. Will plan for OP EGD/EUS in approx 8 wks. Supervising Physician Co-Signing Physician Notes I have seen and examined the patient with ANTONIO Uriarte whose note reflects our findings and plan. History of Present Illness Reason for Consultation: "Duodenal Ulcer" Requesting Physician: Evelyn Guidry PA-C Attending Physician: Damir Ferrer History of Present Illness Mr. Ramirez is a 71 y/o male w PMHx of LBBB, NSTEMI, HLD, HTN, CAD s/p placement of multiple cardiac stents, most recently in October 2020 drug eluting stent placements most recently in June 2020 and is maintained on Prasugrel (Effient, a platelet inhibitor) and one ASA 81mg/day. He presented to the ED yesterday for right-sided/epigastric burning abdominal pain. He denies any blood in his BMs, black BMs, hematemesis. GI is consulted for "duodenal ulcer," however, CTAP yesterday is consistent with mild acute pancreatitis. LFTs and lipase are normal. He describes that pain as burning and states that it was "pretty bad," last and Monday, then subsided but returned suddenly yesterday, persisted and he presented to the ED. The location of the pain is mid abdomen, initially on the right side, now also on the left side. He rates the pain as an 8 and says that he hasn't had any improvement since arrival. He is receiving Morphine and has some improvement during the dosing intervals. He denies N/V. Most recent BM yesterday, normal. He denies any OTC NSAID use. Regarding cause of pancreatitis, no gallstones on imaging and LFTs are not elevated. He denies any hx of increased alcohol intake. He admits to drinking about 2 beers/night for a week each fall during hunting season but does not drink any other time of the year. He isn't aware of new medications. He denies a hx of prior pancreatitis He underwent EGD in October [address] Kahlil carr findings of an oozing duodenal ulcer that was injected w epinephrine and clipped. He is maintained on Pantoprazole 40mg daily. Allergies Allergy/AdvReac Type Severity Reaction Status Date / Time Iodinated Contrast Media Allergy Intermediate Hives Verified 10/12/21 17:39 atorvastatin [From Lipitor] AdvReac Intermediate Hives Verified 10/12/21 17:39 simvastatin [From Zocor] AdvReac Intermediate Hives Verified 10/12/21 17:39 Home Medications Medication Instructions Recorded Confirmed Type aspirin 81 mg tablet,delayed 81 mg PO QAM 05/29/18 10/12/21 History release (Sonia Low Dose Aspirin) loratadine 10 mg tablet (Claritin) 10 mg PO QAM 05/29/18 10/12/21 History amoxicillin 500 mg capsule See Rx Instructions .Route 10/02/18 10/12/21 History .COMPLEX PRN Prior to Dental Appointment rosuvastatin 20 mg tablet (Crestor) 20 mg PO HS 04/10/19 10/12/21 History coenzyme Q10 400 mg capsule (Co 400 mg PO QAM 10/30/19 10/12/21 History Q-10) omega-3 fatty acids 1,000 mg 1,000 mg PO QAM 10/30/19 10/12/21 History capsule (Fish Oil Concentrate) prasugrel 10 mg tablet (Effient) 10 mg PO QAM #90 tabs 12/02/20 10/12/21 Rx isosorbide mononitrate 60 mg 60 mg PO QAM #90 tabs 03/19/21 10/12/21 Rx tablet,extended release 24 hr zolpidem 5 mg tablet 5 mg PO HS PRN sleep #90 tabs 06/07/21 10/12/21 Rx amlodipine 5 mg tablet (Norvasc) 5 mg PO HS #90 tabs 08/10/21 10/12/21 Rx lorazepam 0.5 mg tablet (Ativan) 0.5 mg PO DAILY PRN anxiety #30 09/02/21 10/12/21 Rx tabs escitalopram oxalate 10 mg tablet 15 mg PO HS 10/12/21 10/12/21 History lisinopril 5 mg tablet 5 mg PO QAM 10/12/21 10/12/21 History metoprolol tartrate 50 mg tablet 50 mg PO QPM 10/12/21 10/12/21 History pantoprazole 40 mg tablet,delayed 40 mg PO DAILY #90 tabs 10/12/21 10/12/21 Rx release tramadol 50 mg tablet 50 mg PO Q6H PRN Pain 10/12/21 10/12/21 History Patient History Medical History Acute myocardial infarction Arteriosclerotic cardiovascular disease (ASCVD) B12 deficiency CAD (coronary artery disease) Chest pain Depression Folate deficiency Hematuria, microscopic Hyperlipidemia Hypertension Impaired fasting glucose Insomnia Left bundle branch block (LBBB) Left sided chest pain Macrocytic anemia Macrocytosis Mild intermittent asthma Myocardial infarct, old Need for hepatitis C screening test Right knee DJD Rotator cuff arthropathy Unstable angina Surgical History H/O heart artery stent drug eluting stent placed 05/30/2018 prior balloon angioplasty in 1987 after [place] History of hernia repair History of knee replacement History of total knee arthroplasty Status post reverse total arthroplasty of right shoulder Family History Unknown Acute myocardial infarction Lung cancer Atherosclerosis Father Myocardial infarction Brother Myocardial infarction Sister Myocardial infarction Mother Lung cancer Other Hypertension Denies family history of Ovarian cancer Prostate cancer Diabetes Breast cancer Colorectal cancer Stroke Social History Smoking Status: Never smoker Tobacco Type: Cigarettes Second Hand Exposure: No; Hx Alcohol Use: No Hx Substance Use: No Preferred Language: Bermudian Communication Ability: Effective Visual Impairment: Limited 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: 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 Beliefs That Will Affect Care: None marital status: Current Living Situation: Spouse current occupational status: retired How many Children do You have: 2 Other Information That Helps Us Care for You: No Feels Safe at Home: Yes Safety Concerns: Feels Safe At This Time Childhood Exposure to Second-Hand Smoke: Yes caffeine: Yes Dental Care, Regularly: Yes Physical Activity Frequency: 1-2 Times per Week Seatbelt Use: always Sunscreen Use: Yes Assistive Devices: None Review of Systems Review of Systems: ROS: Gen: Denies weakness, fevers, weight loss Eyes: No eye redness, or pain, no recent vision changes Resp: No SOB, no cough Cardio: No palpitations/irregular beats, no chest pain GI: As per HPI, otherwise (-) : Denies pain on urination Skin: No jaundice, itching or new rashes Physical Exam Constitutional: WD/WN, vitals as above Eyes: PERRL, conjunctivae normal, anicteric sclerae Neck: trachea midline, no thyromegaly Respiratory: normal respiratory effort, lungs clear to auscultation Cardiovascular: RRR, no murmur, no edema Gastrointestinal (Abdomen): Inspection/Auscultation: abdomen normal to inspection and + hypoactive bowel sounds; abdomen not distended and no abdominal edema Percussion/Palpation: + abdomen tender (moderately tender over entire abd, worse in the epigastric and mid L/R abdo) and abdomen soft Skin: no rashes, warm and dry Neurologic: PERRL, EOMI, accommodation nl, no face palsy, no dysarthria Psychiatric: A+Ox3, euthymic affect Lymphatic: no cervical or axillary lymphadenopathy Results & Data ([facility]) Vital Signs (Past 12 Hours) Vital Signs Temp Pulse Pulse Resp BP BP Pulse Ox 10/13/21 06:46 37.1 C 65 20 120/66 92 10/13/21 03:29 65 10/13/21 04:31 36.8 C 70 20 116/65 92 10/13/21 02:00 59 L 16 131/65 96 10/12/21 22:00 69 18 127/65 95 O2 Del Method O2 Flow Rate 10/13/21 06:46 Room Air 10/13/21 03:29 10/13/21 04:31 Room Air 10/13/21 02:00 Nasal Cannula 2 10/12/21 22:00 Room Air Laboratory Results WBC 7.4, Hb 13, Hct 38, Plts 162, Na 137, K 4.2, Cl 103, CO2 28, BN 12, Cr 0.92, glucose 102 T Bili 0.5, AST 13, ALT 8, Alk Phos 74, lipase 27. Diagnostic Findings Noncontrast CTAP 10/12/21: 1. Subtle inflammatory stranding surrounding the uncinate process, proximal duodenum and pancreaticoduodenal groove is suspicious for acute pancreatitis. Correlate with lipase level. 2. Mild wall thickening of the proximal duodenum is likely reactive. A primary duodenitis is considered less likely. 3. No bowel obstruction. 4. Normal appendix. 5. Punctate left renal calculus. 6. Additional findings as above.
[2021-10-13] MEDS ORDERED: LACTATED RINGER'S 500 ML IV ONE (09:56)
--- NOTE | 2021-10-13 10:20 | Electrocardiogram Report ---
Test Reason : Blood Pressure : / mmHG Vent. Rate : 061 BPM Atrial Rate : 061 BPM P-R Int : 232 ms QRS Dur : 164 ms QT Int : 458 ms P-R-T Axes : 057 -17 027 degrees QTc Int : 461 ms Sinus rhythm with 1st degree A-V block Left bundle branch block Abnormal ECG When compared with ECG of 07-NOV-2020 10:49, Vent. rate has decreased BY 32 BPM Confirmed by Srini Byers ([id number]) on 10/13/2021 10:20:24 AM Referred By: REFERRED SELF Confirmed By:Oneil Byers
--- NOTE | 2021-10-13 17:52 | Hospitalist Progress Note ---
Date of Service October 13, 2021 Assessment & Plan (1) Acute pancreatitis: Plan: Although lipase x 2 is normal he had inflammation of the uncinate process of the pancreas on admission CT along with duodenal inflammation. [facility] saw in consult this am; does feel he has pancreatitis rather than a primary process in the duodenum (ulcer, etc). If indeed he has pancreatitis .... etiology? No h/o gallstones. No etoh. No recent viral infection or illness. No hypercalcemia or high triglycerides based on records. No offending meds he takes chronically that can cause pancreatitis. This evening he developed fever of 38 degrees and he was very tender in the RUQ. RUQ u/s obtained - no gallstones seen, CBD upper limits of normal, and there is mild gall bladder distension seen. No GB wall thickening. No pericholecystic fluid seen. I did elect to send blood cx's and start IV unasyn to cover the biliary tract. Repeat labs in am. If LFTs rise or RUQ pain persists - MRCP? Appreciate GI consult & recs. Cont LR 250cc/hr. (2) Right sided abdominal pain: Plan: see above (3) Duodenitis: Plan: seen on CT primary vs secondary process ? GI saw in consult - feels that the duodenitis on admission CT is likely secondary. Will continue PPI + carafate given his prior h/o duodenal ulcer, however, to be safe. (4) Fever: Plan: blood cx's x 2 sets dispatched tonight. started Unasyn IV q6h as above to cover biliary tract. if not biliary - pancreatitis itself can cause fever. (5) CAD (coronary artery disease): Plan: Chronic, stable, with known LBBB. Multiple stents, most recently placed in June 2020. On Effient and aspirin. As he is > 1 year out from [place] placement, risk of GI bleed > stent occlusion, therefore will hold his ASA and Effient for now. Continue beta-saúl, statin, and isosorbide mononitrate. Hold ASPEN. Hold amlodipine. (6) Insomnia: Plan: Continue zolpidem 5 mg at night as needed. (7) Anxiety and depression: Plan: Continue Lexapro 15 mg at night, lorazepam 0.5 mg daily as needed. (8) Osteoarthritis: Plan: Patient has Tylenol and Tramadol for joint pain prn Plan left message for pt's family this evening on voicemail Admission and Anticipated Discharge Date Admission Date: October 12, 2021 Subjective patient continues with mod-severe abd pain despite IV fluids, IV pain meds, and bowel rest the pain was epigastric/periumbilical, now seems to be shifting to right side of abdomen and near the costal margin no vomiting but with occasional nausea not passing much flatus late in the day developed fever of 38 C tele overnight wnl Review of Systems Review of Systems: gen - no appetite, feels poorly, tired cv - no chest pain pulm - no dyspnea GI - no diarrhea, minimal to no flatus; see HPI re: pain - no LUTS or dysuria Physical Exam Physical Exam: gen - looks uncomfortable but nontoxic, a/o x 3; c/o abd pain mouth - MMM neck - no JVD heart - RRR, s1 s2, no murmur lungs - CTA b/l abd - very tender RUQ to palpation; minimal tenderness epigastric region; no tenderness LUQ or LLQ or RLQ; no peritoneal signs; mild distension; BS+ ext - no edema, pulses 2+ b/l psych - a/o x 3 Results & Data Results & Data ([facility]) Vital Signs (Past 12 Hours) Vital Signs Temp Pulse Pulse Resp BP Pulse Ox O2 Del Method 10/13/21 15:06 72 10/13/21 15:05 37.4 C 84 20 114/63 96 10/13/21 11:29 37.5 C 71 20 118/64 94 10/13/21 10:26 Room Air 10/13/21 09:44 63 10/13/21 06:46 37.1 C 65 20 120/66 92 Room Air Laboratory Results Laboratory Results - last 24 hr 10/13/21 10/13/21 10/13/21 07:57 07:57 07:57 WBC 7.54 RBC 3.73 L Hgb 13.1 L Hct 39.4 L MCV 105.6 H MCH 35.1 H MCHC 33.2 RDW Std Deviation 47.5 H RDW Coeff of Chuck 12.1 Plt Count 162 MPV 10.0 Immature Gran % (Auto) 0.4 Neut % (Auto) 72.1 Lymph % (Auto) 16.4 [place] % (Auto) 8.9 Eos % (Auto) 2.1 Baso % (Auto) 0.1 Neut # (Auto) 5.43 Lymph # (Auto) 1.24 [place] # (Auto) 0.67 Eos # (Auto) 0.16 Baso # (Auto) 0.01 Immature Gran # (Auto) 0.03 H Sodium 137 Potassium 4.2 Chloride 103 Carbon Dioxide 28 Anion Gap 6 BUN 12 Creatinine 0.92 Est Cr Clr Drug Dosing 78.1 Est GFR ( Amer) 97.3 Est GFR (Non-Af Amer) 84.0 BUN/Creatinine Ratio 13.0 Glucose 102 H Calcium 8.8 Iron TIBC Unsaturated IBC Transferrin % Sat Ferritin 41.0 Total Bilirubin 0.5 AST 13 ALT 9 Alkaline Phosphatase 74 Total Protein 6.7 Albumin 4.0 Globulin 2.7 Albumin/Globulin Ratio 1.5 Lipase Vitamin B12 561 Folate 12.28 10/13/21 10/13/21 07:57 07:57 WBC RBC Hgb Hct MCV MCH MCHC RDW Std Deviation RDW Coeff of Chuck Plt Count MPV Immature Gran % (Auto) Neut % (Auto) Lymph % (Auto) [place] % (Auto) Eos % (Auto) Baso % (Auto) Neut # (Auto) Lymph # (Auto) [place] # (Auto) Eos # (Auto) Baso # (Auto) Immature Gran # (Auto) Sodium Potassium Chloride Carbon Dioxide Anion Gap BUN Creatinine Est Cr Clr Drug Dosing Est GFR ( Amer) Est GFR (Non-Af Amer) BUN/Creatinine Ratio Glucose Calcium Iron 55 TIBC 389 Unsaturated IBC 334 Transferrin % Sat 14 L Ferritin Total Bilirubin AST ALT Alkaline Phosphatase Total Protein Albumin Globulin Albumin/Globulin Ratio Lipase 29 Vitamin B12 Folate Diagnostic Findings Gallbladder Ultrasound 10/13/21 17:50 US gallbladder CLINICAL HISTORY: acute pancreatitis; RUQ abd pain; evaluate gallbladder. COMPARISON STUDY: CT of the abdomen and pelvis October 12, 2021. FINDINGS: Hepatic echogenicity is increased. This represents hepatic steatosis. This exam is compromised by suboptimal penetration. There is no biliary ductal dilatation. Common bile duct measures 6 mm in caliber. No gallstones are identified. There is no gallbladder wall thickening. Mild gallbladder distention. Pancreas is largely obscured. No right hydronephrosis. IMPRESSION: 1. No gallstones or biliary ductal dilatation. 2. Mild gallbladder distention. However, no gallbladder wall thickening. No convincing evidence for acute cholecystitis. 3. Obscured pancreas. 4. Hepatic steatosis. ACT 112: Negative or not required by law. Electronically signed by: Ladarius Garcia M.D. 10/13/2021 7:01 PM PG Care Time/CCT Total # of Minutes Spent Total Time Spent with Patient: Total time spent is greater than 50% in coordination of care (as documented) at patient's floor/unit and/or counseling patient: Coding Level of Care Code 79452 Subseq Hosp Care Lvl 3 Diagnoses Acute pancreatitis K85.90 Right sided abdominal pain R10.9 Duodenitis K29.80 Fever R50.9 CAD (coronary artery disease) I25.10 Insomnia G47.00 Anxiety and depression F41.9; F32.9 Osteoarthritis M19.90
--- NOTE | 2021-10-13 19:02 | Ultrasound Report ---
US gallbladder CLINICAL HISTORY: acute pancreatitis; RUQ abd pain; evaluate gallbladder. COMPARISON STUDY: CT of the abdomen and pelvis October 12, 2021. FINDINGS: Hepatic echogenicity is increased. This represents hepatic steatosis. This exam is compromi sed by suboptimal penetration. There is no biliary ductal dilatation. Common bile duct measures 6 mm in caliber. No gallstones are identified. There is no gallbladder wall thickening. Mild gallbladder d istention. Pancreas is largely obscured. No right hydronephrosis. IMPRESSION: 1. No gallstones or biliary ductal dilatation. 2. Mild gallbladder distention. However, no gallbladder wall thickening. No convincing evidence for a cute cholecystitis. 3. Obscured pancreas. 4. Hepatic steatosis. ACT 112: Negative or not required by law. Electronically signed by: Ladarius Garcia M.D. 10/13/2021 7:01 PM
[2021-10-13] MEDS: METOPROLOL TARTRATE 50 MG TAB PO SCH (21:16)
[2021-10-13] MEDS: ROSUVASTATIN CALCIUM 20 MG TAB PO SCH (21:16)
[2021-10-13] MEDS: ESCITALOPRAM OXALATE 10 MG TAB PO SCH (21:17)
[2021-10-13] MEDS: amLODIPine BESYLATE 5 MG TAB PO SCH (21:17)
[2021-10-13] MEDS: AMPICILLIN/SULBACTAM SOD 3,000 MG in 0.9 % SODIUM CHLORIDE 100 ML IV SCH (21:57)
[2021-10-13] MEDS ORDERED: ACETAMINOPHEN 500 MG TAB PO PRN (23:57)
[2021-10-14] MEDS: LACTATED RINGER'S 1,000 ML IV SCH ×5 (00:32→23:51)
[2021-10-14] MEDS: AMPICILLIN/SULBACTAM SOD 3,000 MG in 0.9 % SODIUM CHLORIDE 100 ML IV SCH ×4 (03:02→20:24)
[2021-10-14 07:45] LABS: Basophils # (auto) 0.01 K/uL (0-0.2); Basophils % (auto) 0.2 %; Eosinophils # (auto) 0.06 K/uL (0-0.50); Eosinophils % (auto) 1.1 %; Hemoglobin 10.6 g/dl (14.0-18.0); Immature Granulocytes # (auto) 0.03 K/uL (0.00-0.02); Immature Granulocytes % (auto) 0.6 %; Lymphocytes # (auto) 0.84 K/uL (1.2-3.4); Lymphocytes % (auto) 15.7 %; Mean Corpuscular Hgb Conc 33.1 g/dL (32.0-36.0); Mean Corpuscular Volume 105.6 fL (80.0-100.0); Monocytes # (auto) 0.66 K/uL (0.24-0.82); Monocytes % (auto) 12.3 %; Neutrophils # (auto) 3.75 K/uL (1.4-6.5); Neutrophils % (auto) 70.1 %; Platelet Count 129 K/uL (130-400); RDW Standard Deviation 46.8 fL (36.4-46.3); Red Blood Count 3.03 M/uL (4.63-6.08); White Blood Count 5.35 K/ul (4.8-10.8)
[2021-10-14 08:55] LABS: Albumin Globulin Ratio 1.4 (0.9-2); Albumin Level 3.2 gm/dl (3.4-5.0); BUN Creatinine Ratio 12.6 (10-20); Bilirubin,Total 0.5 mg/dl (0.2-1.0); Calcium 8.2 mg/dl (8.5-10.1); Creatinine Clr Calc Pharmacy 83.1 ml/min; Est GFR (African American) 101.3 ml/min; Est GFR (Non-African American) 87.4 ml/min; Globulin 2.3 gm/dl (2.5-4.0); Potassium 3.8 mmol/L (3.5-5.1); Total Protein 5.5 gm/dl (6.0-8.3)
[2021-10-14] MEDS: PANTOprazole 40 MG in SYRINGE 0 ML IV SCH ×2 (09:04→20:27)
[2021-10-14] MEDS: ISOSORBIDE MONO EXTENDED REL 60 MG TABCR PO SCH (09:05)
[2021-10-14] MEDS: SUCRALFATE 1 GM/10 ML UDC PO SCH ×4 (09:06→20:26)
[2021-10-14] MEDS: LORATADINE 10 MG TAB PO SCH (09:06)
--- NOTE | 2021-10-14 11:01 | Gastroenterology Progress Note ---
Date of Service October 14, 2021 Assessment & Plan (1) Acute pancreatitis: Plan: Per CT and pattern of pain most consistent with acute pancreatitis. Plan IV LR decreased to 175 cc/h to prevent fluid overload. MRCP to rule out choledocholithiasis. Will consider advancing diet based on MRCP results. With significant improvement or possible resolution of pain this morning, again this looks more like pancreatitis then duodenal ulcer disease. Will plan for OP EGD/EUS in approx 8 wks. Admission and Anticipated Discharge Date Admission Date: October 12, 2021 Supervising Physician Co-Signing Physician Notes Late entry: Patient was seen and examined with ANTONIO Diaz on 10/14. Her note reflects our findings and plan. Subjective Fever x 12 hrs last night. Afebrile again since 3AM. No leukocytosis or elevated LFTs This morning, the patient told me that finally he has not had any pain since his most recent medication 3 hours prior. Review of Systems Review of Systems: ROS: Gen: Denies weakness, fevers, weight loss Eyes: No eye redness, or pain, no recent vision changes Resp: No SOB, no cough Cardio: No palpitations/irregular beats, no chest pain GI: As per HPI, otherwise (-) : Denies pain on urination Skin: No jaundice, itching or new rashes Physical Exam Constitutional: WD/WN, vitals as above Eyes: PERRL, conjunctivae normal, anicteric sclerae Neck: trachea midline, no thyromegaly Respiratory: normal respiratory effort, lungs clear to auscultation Cardiovascular: RRR, no murmur, no edema Gastrointestinal (Abdomen): Inspection/Auscultation: abdomen normal to inspection and + hypoactive bowel sounds; abdomen not distended and no abdominal edema Percussion/Palpation: abdomen soft; abdomen nontender Skin: no rashes, warm and dry Neurologic: PERRL, EOMI, accommodation nl, no face palsy, no dysarthria Psychiatric: A+Ox3, euthymic affect Lymphatic: no cervical or axillary lymphadenopathy Results & Data ([facility]) Vital Signs (Past 12 Hours) Vital Signs Temp Pulse Pulse Resp BP Pulse Ox O2 Del Method 10/14/21 08:02 37.5 C 68 18 116/62 90 Room Air 10/14/21 07:35 68 10/14/21 04:31 36.8 C 72 18 120/65 91 Room Air 10/14/21 03:04 36.6 C 10/14/21 01:05 38 C H 10/13/21 23:41 38.4 C H 75 16 127/65 94 Room Air Laboratory Results WBC 5.3, Hb 10.6, HCT 32, platelets 129, NA 138, K3.8, CL 104, CO2 28, BUN 11, CR 0.87, glucose 96. Diagnostic Findings US 10/12/21: 1. No gallstones or biliary ductal dilatation. 2. Mild gallbladder distention. However, no gallbladder wall thickening. No convincing evidence for acute cholecystitis. 3. Obscured pancreas. 4. Hepatic steatosis. Non contrast CTAP 10/12/21: 1. Subtle inflammatory stranding surrounding the uncinate process, proximal duodenum and pancreaticoduodenal groove is suspicious for acute pancreatitis. Correlate with lipase level. 2. Mild wall thickening of the proximal duodenum is likely reactive. A primary duodenitis is considered less likely. 3. No bowel obstruction. 4. Normal appendix. 5. Punctate left renal calculus. 6. Additional findings as above.
--- NOTE | 2021-10-14 15:57 | Magnetic Resonance Report ---
MRCP CLINICAL HISTORY: Right upper quadrant abdominal pain. Fever. COMPARISON STUDY: Abdominal ultrasound dated 10/13/2021. Abdominal CT dated 10/12/2021. TECHNIQUE: Abdominal MRCP is performed utilizing various T2-weighted sequences in the axial and coron al planes. IV contrast was not administered for this examination. 3-D reformats are created and asses sed. FINDINGS: The gallbladder is mildly distended but otherwise normal in appearance. No gallstones are seen. There is no intra- or extrahepatic biliary ductal dilatation. The common bile duct measures up to 5 mm in diameter. No intraluminal filling defects are seen to indicate choledocholithiasis. The pancreatic du ct is normal in caliber. The unenhanced liver, spleen, adrenal glands, and kidneys are grossly normal. A 6 mm simple cystic fo cus in the pancreatic body seen on axial image #16 is typical for a tiny sidebranch IPMN. Question a 2 cm soft tissue nodule in the inferior aspect of the pancreatic head. This is best seen on axial fie sta image #23. The abdominal aorta is normal in caliber. There is no abdominal ascites. Trace pleural effusions are seen. The heart is enlarged and without pericardial effusion. Spondylotic change is no taylor in the spine. IMPRESSION: 1. Normal MRCP. 2. Question a 2 cm soft tissue nodule in the inferior aspect of the pancreatic head. This could repre sent prominent pancreatic parenchyma versus a true lesion. Correlation with a contrast enhanced pancr [facility] protocol CT is recommended for further assessment. Dictated: 10/14/2021 3:09 PM Transcribed: 10/14/2021 3:34 PM Gali [id number] [facility] Electronically signed by: Germán Gomez M.D. 10/14/2021 3:56 PM
--- NOTE | 2021-10-14 20:23 | Hospitalist Progress Note ---
Date of Service October 14, 2021 Assessment & Plan (1) Acute pancreatitis: Plan: Although lipase x 2 is normal he had inflammation of the uncinate process of the pancreas on admission CT along with duodenal inflammation. Etiology of pancreatitis? RUQ u/s with no gallstones (mild gall bladder distension but otherwise wnl). MRCP without gallstones or CBD stones; ?2cm nodule pancreatic head? No etoh. No recent viral infection or illness. No hypercalcemia or high triglycerides based on records. No offending meds he takes chronically that can cause pancreatitis. Overall he is improved overnight. Blood cx's negative. Pain improved. LFTs stable. Imaging as above. Allow clears. Decrease LR to 100cc/hr. Repeat labs am. Appreciate GI consultation - EGD/EUS in future? If RUQ abd pain continues - HIDA to ensure no acalculous cholecystitis? (2) Right sided abdominal pain: Plan: see above (3) Duodenitis: Plan: seen on CT primary vs secondary process ? GI saw in consult - feels that the duodenitis on admission CT is likely secondary. Will continue PPI + carafate given his prior h/o duodenal ulcer, however, to be safe. EGD/EUS in future. (4) Fever: Plan: blood cx's x 2 sets dispatched last night. started Unasyn IV q6h as above to cover biliary tract. RUQ u/s and MRCP don't show cholecystitis. Cont unasyn at least x 48 hours. follow blood cx's. if not biliary - pancreatitis itself can cause fever. (5) CAD (coronary artery disease): Plan: Chronic, stable, with known LBBB. Multiple stents, most recently placed in June 2020. On Effient and aspirin. As he is > 1 year out from [place] placement, risk of GI bleed > stent occlusion, therefore will hold his ASA and Effient for now. Continue beta-saúl, statin, and isosorbide mononitrate. Hold ASPEN. Hold amlodipine. Resume asa/plavix tomorrow if no invasive procedures are pursued. (6) Insomnia: Plan: Continue zolpidem 5 mg at night as needed. (7) Anxiety and depression: Plan: Continue Lexapro 15 mg at night, lorazepam 0.5 mg daily as needed. (8) Osteoarthritis: Plan: Patient has Tylenol and Tramadol for joint pain prn Plan updated at bedside today Admission and Anticipated Discharge Date Admission Date: October 12, 2021 Subjective RUQ abd pain is improved not 100% resolved but much better no nausea "he is working up an appetite" denies vomiting passing minimal flatus ambulating tele overnight wnl Review of Systems Review of Systems: gen - fever/chills overnight - now resolved cv - no cp, no orthopnea pulm - no dyspnea GI - no diarrhea Physical Exam Physical Exam: gen - looks better today; comfortable mouth - MMM neck - no JVD heart - RRR, s1 s2, no murmur lungs - CTA b/l abd - bar gauger and lubricator tender RUQ but much less than yesterday; no epigastric pain/tenderness; BS+; slight distension; no HSM; no peritoneal signs ext - no edema, pulses 2+ b/l psych - a/o x 3 Results & Data Results & Data ([facility]) Vital Signs (Past 12 Hours) Vital Signs Temp Pulse Pulse Resp BP Pulse Ox O2 Del Method 10/14/21 19:53 37.0 C 71 18 142/70 H 94 Room Air 10/14/21 16:42 88 10/14/21 15:19 37.3 C 80 18 111/62 93 Room Air 10/14/21 12:01 37.3 C 77 18 124/62 95 Room Air Laboratory Results Laboratory Results - last 24 hr 10/14/21 10/14/21 10/14/21 07:17 07:17 07:17 WBC 5.35 RBC 3.03 L Hgb 10.6 L Hct 32.0 L MCV 105.6 H MCH 35.0 H MCHC 33.1 RDW Std Deviation 46.8 H RDW Coeff of Chuck 12.0 Plt Count 129 L MPV 10.0 Immature Gran % (Auto) 0.6 Neut % (Auto) 70.1 Lymph % (Auto) 15.7 [place] % (Auto) 12.3 Eos % (Auto) 1.1 Baso % (Auto) 0.2 Neut # (Auto) 3.75 Lymph # (Auto) 0.84 L [place] # (Auto) 0.66 Eos # (Auto) 0.06 Baso # (Auto) 0.01 Immature Gran # (Auto) 0.03 H Sodium 138 Potassium 3.8 Chloride 104 Carbon Dioxide 28 Anion Gap 6 BUN 11 Creatinine 0.87 Est Cr Clr Drug Dosing 83.1 Est GFR ( Amer) 101.3 Est GFR (Non-Af Amer) 87.4 BUN/Creatinine Ratio 12.6 Glucose 96 Calcium 8.2 L Total Bilirubin 0.5 AST 11 L ALT 8 Alkaline Phosphatase 56 Total Protein 5.5 L Albumin 3.2 L Globulin 2.3 L Albumin/Globulin Ratio 1.4 Triglycerides Procalcitonin < 0.05 10/14/21 07:17 WBC RBC Hgb Hct MCV MCH MCHC RDW Std Deviation RDW Coeff of Chuck Plt Count MPV Immature Gran % (Auto) Neut % (Auto) Lymph % (Auto) [place] % (Auto) Eos % (Auto) Baso % (Auto) Neut # (Auto) Lymph # (Auto) [place] # (Auto) Eos # (Auto) Baso # (Auto) Immature Gran # (Auto) Sodium Potassium Chloride Carbon Dioxide Anion Gap BUN Creatinine Est Cr Clr Drug Dosing Est GFR ( Amer) Est GFR (Non-Af Amer) BUN/Creatinine Ratio Glucose Calcium Total Bilirubin AST ALT Alkaline Phosphatase Total Protein Albumin Globulin Albumin/Globulin Ratio Triglycerides 122 Procalcitonin PG Care Time/CCT Total # of Minutes Spent Total Time Spent with Patient: Total time spent is greater than 50% in coordination of care (as documented) at patient's floor/unit and/or counseling patient: Coding Level of Care Code 29144 Subseq Hosp Care Lvl 2 Diagnoses Acute pancreatitis K85.90 Right sided abdominal pain R10.9 Duodenitis K29.80 Fever R50.9 CAD (coronary artery disease) I25.10 Insomnia G47.00 Anxiety and depression F41.9; F32.9 Osteoarthritis M19.90
[2021-10-14] MEDS: ESCITALOPRAM OXALATE 10 MG TAB PO SCH (20:24)
[2021-10-14] MEDS: ROSUVASTATIN CALCIUM 20 MG TAB PO SCH (20:26)
[2021-10-14] MEDS: METOPROLOL TARTRATE 50 MG TAB PO SCH (20:26)
[2021-10-14] MEDS: ZOLPIDEM TARTRATE 5 MG TAB PO PRN (22:44)
[2021-10-15] MEDS: AMPICILLIN/SULBACTAM SOD 3,000 MG in 0.9 % SODIUM CHLORIDE 100 ML IV SCH ×3 (02:08→16:07)
[2021-10-15 08:13] LABS: Basophils # (auto) 0.01 K/uL (0-0.2); Basophils % (auto) 0.2 %; Eosinophils # (auto) 0.13 K/uL (0-0.50); Eosinophils % (auto) 2.8 %; Hematocrit (blood only) 35.4 % (40.1-51.0); Hemoglobin 11.7 g/dl (14.0-18.0); Immature Granulocytes # (auto) 0.01 K/uL (0.00-0.02); Immature Granulocytes % (auto) 0.2 %; Lymphocytes % (auto) 19.6 %; Mean Corpuscular Hemoglobin 34.8 pg (25.0-34.0); Mean Corpuscular Hgb Conc 33.1 g/dL (32.0-36.0); Mean Corpuscular Volume 105.4 fL (80.0-100.0); Mean Platelet Volume 9.9 fL (9.4-12.4); Monocytes # (auto) 0.44 K/uL (0.24-0.82); Monocytes % (auto) 9.6 %; Neutrophils % (auto) 67.6 %; Platelet Count 150 K/uL (130-400); RDW Coefficient of Variation 11.9 % (11.5-14.5); RDW Standard Deviation 46.1 fL (36.4-46.3); Red Blood Count 3.36 M/uL (4.63-6.08); White Blood Count 4.59 K/ul (4.8-10.8)
[2021-10-15 08:38] LABS: Albumin Globulin Ratio 1.4 (0.9-2); Albumin Level 3.6 gm/dl (3.4-5.0); BUN Creatinine Ratio 10.5 (10-20); Bilirubin,Total 0.4 mg/dl (0.2-1.0); Calcium 8.4 mg/dl (8.5-10.1); Creatinine Clr Calc Pharmacy 95.2 ml/min; Est GFR (African American) 107.1 ml/min; Est GFR (Non-African American) 92.4 ml/min; Globulin 2.5 gm/dl (2.5-4.0); Magnesium 1.9 mg/dl (1.7-2.4); Potassium 3.8 mmol/L (3.5-5.1); Total Protein 6.1 gm/dl (6.0-8.3)
[2021-10-15] MEDS: SUCRALFATE 1 GM/10 ML UDC PO SCH ×2 (09:16→16:07)
[2021-10-15] MEDS: ISOSORBIDE MONO EXTENDED REL 60 MG TABCR PO SCH (09:16)
[2021-10-15] MEDS: PANTOprazole 40 MG in SYRINGE 0 ML IV SCH (09:16)
[2021-10-15] MEDS: LORATADINE 10 MG TAB PO SCH (09:17)
[2021-10-15] MEDS: LACTATED RINGER'S 1,000 ML IV SCH ×2 (11:00→17:20)
--- NOTE | 2021-10-15 12:08 | Gastroenterology Progress Note ---
Date of Service October 15, 2021 Assessment & Plan (1) Acute pancreatitis: Plan: Resolved w IV fluids, bowel rest. Now tolerating regular diet. ? 2cm area of inflammation vs. a soft tissue nodule vs. other mass of the pancreas head on MRI. Plan OP EGD/EUS. Orders placed in [facility]. Our office will be calling the pt to arrange. Low fat diet. OK for DC from a GI perspective. Admission and Anticipated Discharge Date Admission Date: October 12, 2021 Subjective 71, male admitted 10/12 for abd pain MRCP w question early panc and a possible 2cm panc head mass. Feels well today. Review of Systems Review of Systems: ROS: Gen: Denies weakness, fevers, weight loss Eyes: No eye redness, or pain, no recent vision changes Resp: No SOB, no cough Cardio: No palpitations/irregular beats, no chest pain GI:As per HPI, otherwise (-) : Denies pain on urination Skin: No jaundice, itching or new rashes Physical Exam Constitutional: WD/WN, vitals as above ENMT: external ear and nose normal, oropharynx normal Neck: trachea midline, no thyromegaly Respiratory: normal respiratory effort, lungs clear to auscultation Cardiovascular: RRR, no murmur, no edema Gastrointestinal (Abdomen): normal bowel sounds, soft, nontender, no hepatosplenomegaly Skin: no rashes, warm and dry Lymphatic: no cervical or axillary lymphadenopathy Results & Data ([facility]) Vital Signs (Past 12 Hours) Vital Signs Temp Pulse Pulse Resp BP Pulse Ox O2 Del Method 10/15/21 08:30 36.9 C 73 18 138/68 92 Room Air 10/15/21 07:14 69 10/15/21 04:00 36.9 C 67 18 117/64 91 Room Air Laboratory Results WBC 4.5, Hb 11.7, Hct 35.4, Plts 150, Na 139, K 3.8, Cl 103, CO2 30, BUN 8, Cr 0.76, glucose 104. Diagnostic Findings MRCP 10/14/21: 1. Normal MRCP. 2. Question a 2 cm soft tissue nodule in the inferior aspect of the pancreatic head. This could represent prominent pancreatic parenchyma versus a true lesion. Correlation with a contrast enhanced pancreas protocol CT is recommended for further assessment. GB US 10/13/21: 1. No gallstones or biliary ductal dilatation. 2. Mild gallbladder distention. However, no gallbladder wall thickening. No convincing evidence for acute cholecystitis. 3. Obscured pancreas. 4. Hepatic steatosis. Non con CTAP 10/12/21: . Subtle inflammatory stranding surrounding the uncinate process, proximal duodenum and pancreaticoduodenal groove is suspicious for acute pancreatitis. Correlate with lipase level. 2. Mild wall thickening of the proximal duodenum is likely reactive. A primary duodenitis is considered less likely. 3. No bowel obstruction. 4. Normal appendix. 5. Punctate left renal calculus. 6. Additional findings as above.
--- NOTE | 2021-10-15 18:29 | Discharge Summary ---
Date of Service date of admission - October 12, 2021 date of discharge - October 15, 2021 Admission HPI Per Admitting Provider Emile Zelaya is a 71 y/o male with a PMH significant for CAD with multiple stents, hypertension, hyperlipidemia, depression, anxiety, OA, and known duodenal ulcer who presents today with right-sided abdominal pain for several days. It started 4 days ago on Monday, 10/09 as right sided burning abdominal pain. He took Tylenol periodically throughout the day and this eventually alleviated his symptoms, as of yesterday 10/11 he was pain free. Unfortunately, the pain came back today, and given his history of GI bleed and kidney stones, he was concerned and presented to the ED for further evaluation. He has associated nausea with the pain but no vomiting, diarrhea, constipation, melena, hematochezia, fever, or chills. He does not drink alcohol and uses Tylenol and Tramadol for management of his joint pain, no use of NSAIDs. He has a history of a bleeding duodenal ulcer one year ago, for which he has been on a daily PPI. In ED, his vital signs within normal limits and have been stable since arrival. Labs significant for macrocytic anemia with an Hgb of 13.8, MCV 103.5. Labs otherwise unremarkable, without any electrolyte abnormalities, renal function stable, lipase 27, UA without evidence of infection. CT A/P showed subtle inflammation around the proximal duodenum and pancreaticoduodenal groove, without evidence of bowel obstruction, appendicitis, or obstructing renal stones. Principal Diagnosis 1. acute pancreatitis 2. question pancreatic head nodule - [facility] follow-up needed Discharge Exam gen - NAD, comfortable mouth - MMM neck - no JVD heart - RRR, s1 s2, no murmur lungs - CTA b/l abd - no epigastric pain/tenderness; no RUQ pain; BS+; distension resolved; no HSM; no peritoneal signs ext - no edema, pulses 2+ b/l psych - a/o x 3 Discharge Data Allergies Allergy/AdvReac Type Severity Reaction Status Date / Time Iodinated Contrast Media Allergy Intermediate Hives Verified 10/20/21 10:15 atorvastatin [From Lipitor] AdvReac Intermediate Hives Verified 10/20/21 10:15 simvastatin [From Zocor] AdvReac Intermediate Hives Verified 10/20/21 10:15 Consultations [facility] Ordered Studies Abdomen/Pelvis CT 10/12/21 16:[address] WITHOUT CONTRAST CT DOSE: 688.00 mGy.cm HISTORY: Acute bilateral flank pain flank pain TECHNIQUE: Multiaxial CT images of the abdomen and pelvis were performed without contrast. A dose lowering technique was utilized adhering to the principles of ALARA. COMPARISON STUDY: CTA chest 11/06/2020 FINDINGS: Cardiomegaly with chronic infarct of the apical septal wall the left ventricle. Extensive coronary artery calcifications. Mild bibasilar mucous plu gging. There is no pneumatosis or pneumoperitoneum. The unenhanced spleen, adrenal glands and gallbladder appear unremarkable. The liver is also within normal limits. There is minimal inflammatory stranding surrounding the uncinate process, proximal duodenum and pancreaticoduodenal groove. These findings do appear similar to the prior study. There is mild nonspecific bilateral perinephric stranding. Punctate nonobstructing calculus of the inferior pole left kidney. No ureteral calculi or hydronephrosis. Prostamegaly. Urinary bladder wall thickening with partial distention and mild perivesicular stranding. Atherosclerosis of the abdominal aorta and branch vessels. There is ectasia of the infrarenal abdominal aorta measuring 2.7 x 2.8 cm. No lymphadenopathy. Tiny hiatal hernia. Mild wall thickening of the duodenum. There is mild colonic fecal retention. Normal appendix. There is a tiny supra umbilical fat filled ventral abdominal wall hernia with diastases 1.5 cm. Degenerative changes of the spine, pelvis and hips. IMPRESSION: 1. Subtle inflammatory stranding surrounding the uncinate process, proximal duodenum and pancreaticoduodenal groove is suspicious for acute pancreatitis. Correlate with lipase level. 2. Mild wall thickening of the proximal duodenum is likely reactive. A primary duodenitis is considered less likely. 3. No bowel obstruction. 4. Normal appendix. 5. Punctate left renal calculus. 6. Additional findings as above. ACT 112: Negative or not required by law. The above report was generated using voice recognition software. It may contain grammatical, syntax or spelling errors. Electronically signed by: Ravinder Gonzales M.D. 10/12/2021 5:17 PM Gallbladder Ultrasound 10/13/21 17:50 US gallbladder CLINICAL HISTORY: acute pancreatitis; RUQ abd pain; evaluate gallbladder. COMPARISON STUDY: CT of the abdomen and pelvis October 12, 2021. FINDINGS: Hepatic echogenicity is increased. This represents hepatic steatosis. This exam is compromised by suboptimal penetration. There is no biliary ductal dilatation. Common bile duct measures 6 mm in caliber. No gallstones are identified. There is no gallbladder wall thickening. Mild gallbladder distention. Pancreas is largely obscured. No right hydronephrosis. IMPRESSION: 1. No gallstones or biliary ductal dilatation. 2. Mild gallbladder distention. However, no gallbladder wall thickening. No convincing evidence for acute cholecystitis. 3. Obscured pancreas. 4. Hepatic steatosis. ACT 112: Negative or not required by law. Electronically signed by: Ladarius Garcia M.D. 10/13/2021 7:01 PM Cholangiopancreatography MRI 10/14/21 10:08 MRCP CLINICAL HISTORY: Right upper quadrant abdominal pain. Fever. COMPARISON STUDY: Abdominal ultrasound dated 10/13/2021. Abdominal CT dated 10/12/2021. TECHNIQUE: Abdominal MRCP is performed utilizing various T2-weighted sequences in the axial and coronal planes. IV contrast was not administered for this examination. 3-D reformats are created and assessed. FINDINGS: The gallbladder is mildly distended but otherwise normal in appearance. No gallstones are seen. There is no intra- or extrahepatic biliary ductal dilatation. The common bile duct measures up to 5 mm in diameter. No intraluminal filling defects are seen to indicate choledocholithiasis. The pancreatic duct is normal in caliber. The unenhanced liver, spleen, adrenal glands, and kidneys are grossly normal. A 6 mm simple cystic focus in the pancreatic body seen on axial image #16 is typical for a tiny sidebranch IPMN. Question a 2 cm soft tissue nodule in the inferior aspect of the pancreatic head. This is best seen on axial fiesta image #23. The abdominal aorta is normal in caliber. There is no abdominal ascites. Trace pleural effusions are seen. The heart is enlarged and without pericardial effusion. Spondylotic change is noted in the spine. IMPRESSION: 1. Normal MRCP. 2. Question a 2 cm soft tissue nodule in the inferior aspect of the pancreatic head. This could represent prominent pancreatic parenchyma versus a true lesion. Correlation with a contrast enhanced pancreas protocol CT is recommended for further assessment. Dictated: 10/14/2021 3:09 PM Transcribed: 10/14/2021 3:34 PM Gali [id number] [facility] Electronically signed by: Germán Gomez M.D. 10/14/2021 3:56 PM Hospital Course (1) Acute pancreatitis: Although lipase x 2 were normal he had inflammation of the uncinate process of the pancreas on admission CT along with duodenal inflammation. He had abdominal pain that was consistent with pancreatic pain. He was seen by [facility] who helped with pancreatitis management. They also recommended outpatient EGD/EUS in 6-8 weeks post-discharge. Etiology of pancreatitis was uncertain. RUQ u/s with no gallstones (mild gall bladder distension but otherwise wnl). MRCP without gallstones or CBD stones; ?2cm nodule pancreatic head? No etoh usage. No recent viral infection or illness. No hypercalcemia or high triglycerides; triglycerides were <150 while here. No offending meds he takes chronically that can cause pancreatitis. He was treated with copious IV fluids, bowel rest, and pain meds. At one point he developed fever >38 degrees (see below) and was given empiric antibiotics to cover the biliary tract. He ultimately was resumed on a clear liquid diet. Diet was advanced as his abdominal pain resolved. At discharge he is tolerating low-fat diet and was advised to continue on fat restriction for another 2 weeks. If there is a pancreatic head mass confirmed on EUS perhaps that caused his acute pancreatitis? Close follow-up with [facility] needed post-discharge in light of the above. (2) Pancreatic abnormality: Question of 2cm pancreatic head nodule on MRCP. [facility] to perform EGD/EUS in 6 weeks as outpatient. (3) Right sided abdominal pain: 2nd to acute pancreatitis. Acute cholecystitis ruled out based on multiple imaging studies. Pain was resolved about 24 hours prior to discharge. (4) Duodenitis: seen on CT. primary vs secondary process ? GI saw in consult - felt that the duodenitis on admission CT was likely secondary to pancreatic inflammation (as opposed to primary from a duodenal ulcer or other duodenal pathology). As precautionary measure, given his h/o duodenal ulcer in 2020, I recommended he take PPI twice daily for 1 month, then resume once daily PPI thereafter. EGD/EUS by [facility] to be completed in about 6 weeks post-discharge. (5) Fever: Blood cx's x 2 sets negative while here. Received 48 hours of empiric antibiotics - these were stopped after negative blood cultures and imaging not showing acute cholecystits. The acute pancreatitis itself may have caused his low-grade fevers. Of note - COVID testing was negative. (6) CAD (coronary artery disease): Chronic, stable, with known LBBB. No ischemic symptoms while here. Multiple stents, most recently placed in June 2020. Continue beta-saúl, statin, and isosorbide mononitrate. Continue aspirin and prasugrel. Continue lisinopril. Amlodipine was held while here due to low-normal BPs, and was held upon discharge. (7) Insomnia: Continue zolpidem 5 mg at night as needed. (8) Anxiety and depression: Continue Lexapro 15 mg at night, lorazepam 0.5 mg daily as needed. (9) Osteoarthritis: Patient has Tylenol and Tramadol for joint pain prn (10) Hypertension: He remains on metoprolol and lisinopril. Amlodipine held upon discharge due to low-normal BPs throughout the visit. f/u with PCP for HTN management. (11) History of duodenal ulcer: 2020. Duodenal findings on CT this admission felt secondary to pancreatic inflammation. H/H remained stable on serial CBCs. No signs of any overt GI bleeding durnig the visit. At discharge he was asked to take PPI twice daily x 1 month, then return to once daily thereafter. He will have outpatient EGD/EUS in 6-8 weeks post-discharge by [facility]. Total Time Total Time Spent Total Time Spent (In Minutes): 45 Discharge Plan Discharge Items Patient Disposition: Home - Self-Care Reason For Visit: ABDOMINAL PAIN Discharge Diagnosis: 1. suspected acute pancreatitis 2. abdominal pain - due to #1 - resolved 3. possible focal area of inflammation or nodule in the head of the pancreas - follow-up needed; outpatient "EUS" to be performed by [facility] in 6-8 weeks to investigate this further 4. fever - resolved, likely due to #1 5. history of ulcer in 2020 Activity: As commented below Activity Comment: gradually increase your activities over the next 5 days Non-emergency contact: Primary Care Provider and [employer] Call non-emergency contact if: you have any medication questions, your symptoms worsen, your pain is unusual for you, your pain is concerning for you and you have a fever Follow-up/Referrals: Marcos Calderon MD [Primary Care Provider] - 10/27/21 11:00 am (Appointment with Cathy Ron PA-C) Danii Moyer DO [Physician] - (see Dr Moyer or one of his partners in ~8 weeks for EUS procedure; [facility] office will contact you with appointment date/time) Diet: Heart Healthy and Low Fat Addtl Attending Provider Instructions: Mr Zelaya, You were hospitalized for severe abdominal pain. Initially there was concern that perhaps you had another ulcer much like the one you had in 2020. You were treated with bowel rest, IV fluids, and pain medications. [facility] saw you in consult, and after looking at all of your CT scans and films, it was felt that your pain was likely coming from pancreatitis rather than an ulcer. It appeared that the pancreatitis (see handout) was mainly confined to the "head" of the pancreas. There are various causes of pancreatitis. The top 2 causes of such are alcohol in large quantities and gallstones. We performed both an ultrasound as well as an MRI to look at your gall bladder. We did not see gallstones or gall bladder sludge, and the studies did not show sick/inflamed gall bladder. At this time it is not fully certain what caused the head of the pancreas to become sick. In addition, there is a small, 2cm area in the pancreatic head that could be a small nodule. If there is indeed a nodule present perhaps this caused the pancreas to become sick. [facility] plans to perform an endoscopic ultrasound ("EUS") in about 8 weeks to look at your pancreas more fully. They will also be able to rule out ulcers and other abnormalities at that time. [facility] will be calling you to set this up. Recommendations - 1. please STOP your amlodipine at this time. Continue your other heart medications as previous. 2. please INCREASE your pantoprazole to 40mg TWICE daily for 1 month, then resume once daily dosing thereafter. I sent a prescription in to your pharmacy for you for the higher dose for the next month. 3. please follow a LOW FAT diet for 2 weeks - see handout. Follow-up - see separate section. Return to [facility] if - * you have recurrent fevers over 100 degrees * you have recurrent abdominal pains * you develop significant nausea and/or vomiting * you develop severe back pain, especially if associated with abdominal pain * you have shortness of breath * any other concerns It was our pleasure to care for you at [facility]! Continue to feel better, Dr Ferrer Pending Studies at Discharge: Yes Studies:: blood cultures, but thus far negative (no bacterial infection in the blood) Stand-Alone Forms: My [facility], Smoking Cessation Medications and DC Order Prescriptions: Continued isosorbide mononitrate 60 mg tablet extended release 24 hr 60 mg PO QAM Qty: 90 3RF zolpidem 5 mg tablet 5 mg PO HS PRN (Reason: sleep) Qty: 90 1RF lorazepam [Ativan] 0.5 mg tablet 0.5 mg PO DAILY PRN (Reason: anxiety) Qty: 30 0RF rosuvastatin [Crestor] 20 mg tablet 20 mg PO HS prasugrel [Effient] 10 mg tablet 10 mg PO QAM Qty: 90 3RF amoxicillin 500 mg capsule See Rx Instructions .ROUTE .COMPLEX PRN (Reason: Prior to Dental Appointment) Label Comments: TAKE 4 CAPSULES 1 HOUR PRIOR TO DENTAL APPOINTMENT ; Rx Instructions: TAKE 4 CAPSULES 1 HOUR PRIOR TO DENTAL APPOINTMENT omega-3 fatty acids [Fish Oil Concentrate] 1,000 mg capsule 1,000 mg PO QAM aspirin [Sonia Low Dose Aspirin] 81 mg Tablet,Delayed Release (Dr/Ec) 81 mg PO QAM loratadine [Claritin] 10 mg Tablet 10 mg PO QAM coenzyme Q10 [Co Q-10] 400 mg capsule 400 mg PO QAM tramadol 50 mg tablet 50 mg PO Q6H PRN (Reason: Pain) metoprolol tartrate 50 mg tablet 50 mg PO QPM Rx Instructions: TAKE 1 TABLET BY MOUTH EVERY EVENING lisinopril 5 mg tablet 5 mg PO QAM Rx Instructions: TAKE 1 TABLET BY MOUTH EVERY MORNING escitalopram oxalate 10 mg tablet 15 mg PO HS Rx Instructions: TAKE 1 AND 1/2 TABLETS BY MOUTH AT BEDTIME Changed pantoprazole 40 mg tablet,delayed release (DR/EC) 40 mg PO BID Qty: 60 0RF Discontinued amlodipine [Norvasc] 5 mg tablet 5 mg PO HS Qty: 90 3RF Discharge Orders: Discharge Order (Routine); Ordered 10/15/21 Ordered By: Damir Redd/Other Patient Handouts: Understanding Pancreatitis, ED Diet, Low Fat Admission Data Admit Date/Time: 10/12/21 18:39 Attending Provider: Damir Ferrer Admit Provider: Damir Ferrer Primary Care Provider: Marcos Calderon Other Providers: Damir Ferrer ; Jh Bermeo Other Interventions: Discharge Summary Assessment (RN) Last Done: 10/15/21 18:31 Coding Level of Care Code D/C DAY MANAGEMENT >30 MINS Diagnoses Acute pancreatitis K85.90 Pancreatic abnormality Q45.3 Right sided abdominal pain R10.9 Duodenitis K29.80 Fever R50.9 CAD (coronary artery disease) I25.10 Insomnia G47.00 Anxiety and depression F41.9; F32.9 Osteoarthritis M19.90 Hypertension I10 Hypertension type: essential hypertension History of duodenal ulcer Z87.19
== END 2021-10-15 19:00 | disposition home or self-care (01) | DRG 440 ==
LOC: ED 15:22 → EDINP 18:39 → 2W 21:04

== ENCOUNTER 2023-02-16 16:37 | Observation (INO) ==
--- NOTE | 2023-02-16 16:43 | ED Triage Note ---
Date of Service February 16, 2023 Provider in Triage Author: Christie Bay History of Present Illness This patient was briefly evaluated while in triage. An abbreviated physical exam was performed. This patient is a 72-year-old Male who presents to the ED for evaluation of chest pain, shob, diaphoresis, starting after lunch today. Previous hx stent placements with [facility]. Physical Exam CONSTITUTIONAL: in acute pain, no distress, resting comfortably SKIN: pink, warm, dry CARDIAC: regular rate and rhythm RESPIRATORY: in no respiratory distress, lungs clear to auscultation ABDOMEN: no ttp MSK: 5/5 strength throughout NEURO: no neuro deficits, alert and oriented x 3 Initial orders for labs and / or imaging were placed and patient was placed in the waiting area until a bed is available. Please see further documentation for the full ED course.
[2023-02-16] MEDS ORDERED: NITROGLYCERIN 2% OINTMENT 30GM TUBE EXT ONE (16:56)
[2023-02-16] MEDS ORDERED: ONDANSETRON INJ 2 MG/ML 2 ML VIAL ONE (16:57)
[2023-02-16] MEDS ORDERED: ASPIRIN 300 MG SUPP PR ONE (16:57)
[2023-02-16 17:03] LABS: Basophils # (auto) 0.02 K/uL (0.00-0.20); Basophils % (auto) 0.3 %; Eosinophils % (auto) 1.6 %; Hematocrit (blood only) 40.9 % (42.0-52.0); Hemoglobin 13.7 g/dl (14.0-18.0); Immature Granulocytes # (auto) 0.01 K/uL (0.01-0.20); Immature Granulocytes % (auto) 0.2 %; Lymphocytes # (auto) 1.46 K/uL (1.20-3.40); Lymphocytes % (auto) 23.8 %; Mean Corpuscular Hgb Conc 33.5 g/dL (32.0-36.0); Mean Corpuscular Volume 104.6 fL (80.0-100.0); Mean Platelet Volume 9.8 fL (9.4-12.4); Monocytes # (auto) 0.68 K/uL (0.11-0.59); Monocytes % (auto) 11.1 %; Neutrophils # (auto) 3.86 K/uL (1.40-6.50); Platelet Count 204 K/uL (130-400); RDW Coefficient of Variation 12.5 % (11.5-14.5); RDW Standard Deviation 48.1 fL (36.4-46.3); Red Blood Count 3.91 M/uL (4.70-6.10); White Blood Count 6.13 K/ul (4.8-10.8)
[2023-02-16] MEDS ORDERED: FAMOTIDINE 20MG IV PUSH 20 MG/5 ML SYR IV STA ×2 (17:17→18:11)
[2023-02-16] MEDS ORDERED: ASPIRIN CHEW 324 MG PO STA (17:17)
[2023-02-16 17:18] LABS: Albumin Globulin Ratio 1.7 (0.9-2); Albumin Level 4.3 gm/dl (3.4-5.0); BUN Creatinine Ratio 15.5 (10-20); Bilirubin,Total 0.4 mg/dl (0.2-1.0); Calcium 8.9 mg/dl (8.6-10.3); Creatinine Clr Calc Pharmacy 69.1 ml/min; Est GFR (African American) 84.3 ml/min; Est GFR (Non-African American) 72.7 ml/min; Globulin 2.5 gm/dl (2.5-4.0); Total Protein 6.8 gm/dl (6.0-8.3)
--- NOTE | 2023-02-16 17:22 | XRay Report ---
XR chest 1V portable CLINICAL HISTORY: Chest pain, nonspecific TECHNIQUE: Single frontal radiograph of the chest was obtained. Comparison: Comparison is made to chest radiograph 02/06/2022 FINDINGS: No lines and tubes are seen. Cardiomegaly is noted. The aortic arch is calcified. The lungs are clear . No evidence of pleural effusion or pneumothorax. IMPRESSION: No acute chest disease. ACT 112: Negative or not required by law. Electronically signed by: Brian Anand M.D. 02/16/2023 5:21 PM
[2023-02-16 17:24] LABS: Troponin I High Sensitivity 5.5 pg/ml (0-20)
[2023-02-16] MEDS ORDERED: ONDANSETRON INJ 2 MG/ML 2 ML VIAL IV STA (18:44)
[2023-02-16] MEDS ORDERED: ALUMINUM/MAGNESIUM SUSP 30 ML UDC PO STA (18:44)
[2023-02-16] MEDS ORDERED: LIDOCAINE VISCOUS 2% 15 ML UDC PO ONE (18:44)
[2023-02-16] MEDS ORDERED: diphenhydrAMINE 50 MG/ML VIAL IV ONE (18:48)
[2023-02-16] MEDS ORDERED: PANTOprazole 40 MG in SYRINGE 0 ML IV ONE (18:55)
--- NOTE | 2023-02-16 19:08 | History & Physical Report ---
Date of Service February 16, 2023 Assessment & Plan (1) Chest pain: Plan: ddx angina vs upper GI vs aortic -given long duration and negative troponin, upper GI most likely; however, cannot dismiss cardiovascular pathology given symptoms nearly identical (less L arm/jaw pain) from his classic angina and hard to discount symptoms given pressure like someone sitting on his chest with dyspnea/sweats and preceding fatigue ddx angina: serial troponins, echo, cardiology eval. if troponin rises add heparin gtt/escalate nitrates ddx aortic: CT angio ordered stat (premedicate w steroids/benadryl - he's aware/has had this before/did well), given time of day signed out to overnight team to follow results ddx UGI: pepcid/protonix/carafate/GI cocktail/zofran full code continue home meds History of Present Illness Chief Complaint: Chest pain Primary Care Provider: Maryjo Kaur, DO very pleasant 72-year-old male with extensive coronary disease/vascular disease history, he believes he is about 11 stents. Has been feeling chest pressure like somebody sitting on his chest with a little bit of shortness of breath some diaphoresis since roughly 1:00 today unremitting. It is waxed and waned a little bit has absolutely never gotten to where it was tolerable or definitely has never gotten to a 0. Came on after lunch. No other exacerbating or alleviating factors. reviewed old records and old CT scans. Allergies Allergy/AdvReac Type Severity Reaction Status Date / Time Iodinated Contrast Media Allergy Intermediate Hives Verified 02/16/23 17:32 atorvastatin [From Lipitor] AdvReac Intermediate Muscle Pain Verified 02/16/23 17:32 simvastatin [From Zocor] AdvReac Intermediate Muscle Pain Verified 02/16/23 17:32 Home Medications Medication Instructions Recorded Confirmed Type aspirin 81 mg tablet,delayed 81 mg PO QAM 05/29/18 02/16/23 History release (Sonia Low Dose Aspirin) loratadine 10 mg tablet (Claritin) 10 mg PO QAM 05/29/18 02/16/23 History rosuvastatin 20 mg tablet (Crestor) 20 mg PO HS 04/10/19 02/16/23 History coenzyme Q10 400 mg capsule (Co 400 mg PO QAM 10/30/19 02/16/23 History Q-10) acetaminophen 325 mg capsule 325 mg PO QID PRN Pain 11/18/21 02/16/23 History (Tylenol) prasugrel 10 mg tablet (Effient) 10 mg PO QAM #90 tabs 02/17/22 02/16/23 Rx isosorbide mononitrate 60 mg 60 mg PO QAM #90 tabs 03/15/22 02/16/23 Rx tablet,extended release 24 hr pantoprazole 40 mg tablet,delayed 40 mg PO QAM 07/15/22 02/16/23 History release escitalopram oxalate 10 mg tablet 15 mg (1.5 x 10 mg) PO HS #45 tabs 08/30/22 02/16/23 Rx zolpidem 5 mg tablet 5 mg PO HS PRN sleep #90 tabs 12/07/22 02/16/23 Rx tramadol 50 mg tablet 50 mg PO Q6H PRN Pain #100 tabs 01/05/23 02/16/23 Rx lorazepam 0.5 mg tablet (Ativan) 0.5 mg PO DAILY PRN anxiety #30 01/16/23 02/16/23 Rx tabs amoxicillin 500 mg capsule 2,000 mg PO DIRECTED PRN Prior 02/16/23 02/16/23 History to Dental Appointment lisinopril 5 mg tablet 5 mg PO QAM 02/16/23 02/16/23 History metoprolol tartrate 50 mg tablet 50 mg PO QPM 02/16/23 02/16/23 History omega-3 fatty acids 1,000 mg 1,000 mg PO QAM 02/16/23 02/16/23 History capsule Past Med/Surg History Medical History (Updated 02/16/23 @ 19:17 by Washington Guerra DO) Chest pain History of anemia Pancreatitis Admitted at [facility] 10/2021 Osteoarthritis Duodenal ulcer hemorrhage Bleeding ulcer 10/2020 Mild intermittent asthma Insomnia Hyperlipidemia Arteriosclerotic cardiovascular disease (ASCVD) Anxiety and depression Hypertension CAD (coronary artery disease) 11 stents total, most recent 2018 Left bundle branch block (LBBB) Rotator cuff arthropathy Right knee DJD Myocardial infarct, old Follows with S cardio (Branden Aparicio) Surgical History History of left cataract surgery History of esophagogastroduodenoscopy (EGD) Hx of colonoscopy History of knee replacement b/l History of hernia repair umbilical History of total knee arthroplasty Status post reverse total arthroplasty of right shoulder H/O heart artery stent 11 stents total, most recent 2018 Family History Unknown Atherosclerosis Acute myocardial infarction Lung cancer Father Myocardial infarction Brother Myocardial infarction Sister Myocardial infarction Mother Lung cancer Other Hypertension No family history of adverse response to anesthesia Denies family history of Ovarian cancer Prostate cancer Diabetes Breast cancer Colorectal cancer Stroke Social History Smoking Status: Former smoker Tobacco Type: Cigarettes Second Hand Exposure: Yes; Do You Dip or Chew Tobacco: No; Hx Alcohol Use: Yes Alcohol Intake Frequency: Monthly or Less Hx Substance Use: No Preferred Language: Thai Communication Ability: Effective Visual Impairment: Limited 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: Use of Hearing Aid 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 Required: No Beliefs That Will Affect Care: None marital status: Current Living Situation: Spouse current occupational status: retired How many Children do You have: 2 Feels Safe at Home: Yes Childhood Exposure to Second-Hand Smoke: Yes caffeine: Yes Dental Care, Regularly: Yes Physical Activity Frequency: 1-2 Times per Week Seatbelt Use: always Sunscreen Use: Yes Assistive Devices: Denture - Upper, Glasses and Hearing Aid - Bilateral Physical Exam Physical Exam: gen aaox3 pleasant nad heent nc at mmm cardio reg no r/m/g lungs cta bl no r/r/w good effort skin no rashes no pallor or icterus abd soft nd nt no epigastric tenderness no guarding no rebound ext no c/c/e no calf tenderness neuro no focal deficits Results & Data Results & Data Vital Signs (Past 12 Hours) Vital Signs Temp Pulse Pulse Resp BP BP Pulse Ox 02/16/23 18:24 61 16 127/76 94 02/16/23 17:04 98 02/16/23 17:04 68 18 159/93 H 94 02/16/23 17:00 75 02/16/23 16:37 97.9 F 81 18 169/77 H 94 O2 Del Method 02/16/23 18:24 Room Air 02/16/23 17:04 Room Air 02/16/23 17:04 Room Air 02/16/23 17:00 02/16/23 16:37 Code Status & VTE Plan VTE Prophylaxis Plan VTE Prophylaxis will be ordered: Yes PG Care Time/CCT Total # of Minutes Spent Total Time Spent with Patient: Total time spent is greater than 50% in coordination of care (as documented) at patient's floor/unit and/or counseling patient: Coding Level of Care Code 60985 INT INP/OBS CARE 3/75MIN Diagnoses Chest pain R07.9 Chest pain type: unspecified (1) Chest pain Chest pain type: unspecified Qualified Code(s): R07.9 - Chest pain, unspecified
--- NOTE | 2023-02-16 20:02 | Emergency Department Note ---
Impression & Plan Left bundle branch block (LBBB), Substernal chest pain, CAD (coronary artery disease), History of heart artery stent ED Provider Note CHIEF COMPLAINT: Chest pain HISTORY OF PRESENT ILLNESS: This 72-year-old male patient past medical history of CAD and multiple cardiac stents, duodenal ulcer, hypertension, left bundle branch block, hyperlipidemia presents to the emergency department with complaints of substernal chest discomfort. He states it feels slightly different Mehdi than his previous MIs as the pain does not radiate. He did describe somebody sitting on his chest however the pain does not radiate to the arms, neck or back. Patient did take 1 baby aspirin this morning. He is quite nauseated at this time. Patient states he has a known history of left bundle branch block. REVIEW OF SYSTEMS: A review of systems was performed with positives and pertinent negatives listed in the history of present illness. 10 systems were reviewed and are otherwise negative. ALLERGIES: see below MEDICATIONS: see below PMH: see below SOCIAL HISTORY: see below DDx: Acute coronary syndrome, PE, peptic ulcer disease, pancreatitis, aortic dissection, GERD among others. PHYSICAL EXAM: Vital signs reviewed. General: Somewhat ill-appearing 72-year-old male, diaphoretic and holding an emesis bag, in no significant distress. HEENT: No scleral icterus, PERRLA, neck supple. Moist mucous membranes Cardiovascular: Regular rate and rhythm, no extra sounds. Pulmonary: Clear to auscultation bilaterally, normal work of breathing. Abdomen: Soft, nontender, nondistended, positive bowel sounds. Musculoskeletal: Atraumatic, no peripheral edema. Neurologic: Patient awake alert and oriented x 3, speech is clear Skin: Warm, dry, no rash EMERGENCY DEPARTMENT COURSE/MDM: This patient was evaluated and appeared to be in no significant distress. IV access was obtained and laboratory work was drawn. Patient was given aspirin by mouth as he refused a rectal suppository. He did receive IV Zofran and IV Pepcid. Given the patient's extensive past medical history and complaints of chest discomfort, EKG was performed and is noted to be a left bundle branch block which is unchanged. I did speak with Dr. Patten of cardiology who recommended speaking with Dr. Owen of interventional cardiology. Patient's troponin had not resulted however Dr. Owen was nearby. He did evaluate the patient in the emergency department, first troponin was noted to be normal. He felt medical management and consultation with cardiology was warranted. Patient was given IV Pepcid due to history of duodenal ulcer with hemorrhage. The patient is on daily baby aspirin therapy and thus this could be related to gastritis. However given the patient's cardiac history, patient will be evaluated by the hospitalist service for admission and further management. Patient and his were made aware of plan and agreed. MONITORING: An order for cardiac monitoring was placed and the patient is noted to be in a normal sinus rhythm at 75 beats per minute. RADIOLOGY: Chest x-ray to my interpretation reveals no evidence of focal lung consolidation or failure, otherwise defer to radiology below. EKG: To my interpretation reveals a sinus rhythm with first-degree AV block at 75 bpm. Left bundle branch block QTc of 460. No PVC, no PAC. Normal ST segments. EKG #2 to my interpretation reveals a sinus bradycardia with first-degree AV block at 58 bpm. Left bundle branch block. Normal ST segments. QTc of 449. No significant change. DISPOSITION: Admission Past Med/Surg History Medical History Chest pain History of anemia Pancreatitis Admitted at [facility] 10/2021 Osteoarthritis Duodenal ulcer hemorrhage Bleeding ulcer 10/2020 Mild intermittent asthma Insomnia Hyperlipidemia Arteriosclerotic cardiovascular disease (ASCVD) Anxiety and depression Hypertension CAD (coronary artery disease) 11 stents total, most recent 2019 Left bundle branch block (LBBB) Rotator cuff arthropathy Right knee DJD Myocardial infarct, old Follows with [facility] cardio (Branden Aparicio) Surgical History History of left cataract surgery History of esophagogastroduodenoscopy (EGD) Hx of colonoscopy History of knee replacement b/l History of hernia repair umbilical History of total knee arthroplasty Status post reverse total arthroplasty of right shoulder H/O heart artery stent 11 stents total, most recent 2019 Family History Unknown Atherosclerosis Acute myocardial infarction Lung cancer Father Myocardial infarction Brother Myocardial infarction Sister Myocardial infarction Mother Lung cancer Other Hypertension No family history of adverse response to anesthesia Denies family history of Ovarian cancer Prostate cancer Diabetes Breast cancer Colorectal cancer Stroke Social History Smoking Status: Never smoker Tobacco Type: Cigarettes Second Hand Exposure: No; Do You Dip or Chew Tobacco: No; Hx Alcohol Use: No Hx Substance Use: No Preferred Language: Serbian Communication Ability: Effective Visual Impairment: Limited 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: 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 of 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 Beliefs That Will Affect Care: None marital status: Current Living Situation: Spouse current occupational status: retired How many Children do You have: 2 Feels Safe at Home: Yes Childhood Exposure to Second-Hand Smoke: Yes caffeine: Yes Dental Care, Regularly: Yes Physical Activity Frequency: 1-2 Times per Week Seatbelt Use: always Sunscreen Use: Yes Assistive Devices: None Allergies Allergies Allergy/AdvReac Type Severity Reaction Status Date / Time Iodinated Contrast Media Allergy Intermediate Hives Verified 02/16/23 17:32 atorvastatin [From Lipitor] AdvReac Intermediate Muscle Pain Verified 02/16/23 17:32 simvastatin [From Zocor] AdvReac Intermediate Muscle Pain Verified 02/16/23 17:32 Home Meds Home Medications Medication Instructions Recorded Confirmed aspirin 81 mg tablet,delayed 81 mg PO QAM 05/29/18 02/16/23 release (Sonia Low Dose Aspirin) loratadine 10 mg tablet (Claritin) 10 mg PO QAM 05/29/18 02/16/23 rosuvastatin 20 mg tablet (Crestor) 20 mg PO HS 04/10/19 02/16/23 coenzyme Q10 400 mg capsule (Co 400 mg PO QAM 10/30/19 02/16/23 Q-10) acetaminophen 325 mg capsule 325 mg PO QID PRN Pain 11/18/21 02/16/23 (Tylenol) pantoprazole 40 mg tablet,delayed 40 mg PO QAM 07/15/22 02/16/23 release amoxicillin 500 mg capsule 2,000 mg PO DIRECTED PRN Prior 02/16/23 02/16/23 to Dental Appointment lisinopril 5 mg tablet 5 mg PO QAM 02/16/23 02/16/23 metoprolol tartrate 50 mg tablet 50 mg PO QPM 02/16/23 02/16/23 omega-3 fatty acids 1,000 mg 1,000 mg PO QAM 02/16/23 02/16/23 capsule Previous Rx's Medication Instructions Recorded prasugrel 10 mg tablet (Effient) 10 mg PO QAM #90 tabs 02/17/22 isosorbide mononitrate 60 mg 60 mg PO QAM #90 tabs 03/15/22 tablet,extended release 24 hr escitalopram oxalate 10 mg tablet 15 mg (1.5 x 10 mg) PO HS #45 tabs 08/30/22 zolpidem 5 mg tablet 5 mg PO HS PRN sleep #90 tabs 12/07/22 tramadol 50 mg tablet 50 mg PO Q6H PRN Pain #100 tabs 01/05/23 lorazepam 0.5 mg tablet (Ativan) 0.5 mg PO DAILY PRN anxiety #30 01/16/23 tabs Results & Data (ED) Vital Signs Vital Signs - 24 hr 02/16/23 16:37 02/16/23 17:00 02/16/23 17:04 Temperature 36.6 C Temperature Source Temporal Artery Scan Pulse Rate 81 75 Pulse Rate [Apical] 68 Respiratory Rate 18 18 Respiratory Effort / Characteristics Non-Labored Spontaneous Respiratory Depth Normal Respiratory Pattern Regular Blood Pressure 169/77 H Blood Pressure [Right Arm] 159/93 H Blood Pressure Mean 107 Blood Pressure Mean [Right Arm] 115 Blood Pressure Position [Right Arm] Sitting Pulse Oximetry 94 94 Oxygen Delivery Method Room Air Sepsis Recent Fever Within 48 Hours No Sepsis New/Unexplained Change in Mental Status N/A Sepsis Action Taken by Nursing No Action Required 02/16/23 17:04 02/16/23 18:24 Temperature Temperature Source Pulse Rate Pulse Rate [Apical] 61 Respiratory Rate 16 Respiratory Effort / Characteristics Non-Labored Spontaneous Respiratory Depth Normal Respiratory Pattern Regular Blood Pressure Blood Pressure [Right Arm] 127/76 Blood Pressure Mean Blood Pressure Mean [Right Arm] 93 Blood Pressure Position [Right Arm] Sitting Pulse Oximetry 98 94 Oxygen Delivery Method Room Air Room Air Sepsis Recent Fever Within 48 Hours Sepsis New/Unexplained Change in Mental Status Sepsis Action Taken by Group Home Medications Current Medication List: was personally reviewed by me Laboratory Data Attestation: I reviewed the patient's lab results. 02/16/23 16:45 02/16/23 16:45 Lab Results 02/16/23 02/16/23 Range/Units 16:45 17:56 WBC 6.13 (4.8-10.8) K/ul RBC 3.91 L (4.70-6.10) M/uL Hgb 13.7 L (14.0-18.0) g/dl Hct 40.9 L (42.0-52.0) % MCV 104.6 H (80.0-100.0) fL MCH 35.0 H (25.0-34.0) pg MCHC 33.5 (32.0-36.0) g/dL RDW Std Deviation 48.1 H (36.4-46.3) fL RDW Coeff of Chuck 12.5 (11.5-14.5) % Plt Count 204 (130-400) K/uL MPV 9.8 (9.4-12.4) fL Immature Gran % (Auto) 0.2 % Neut % (Auto) 63.0 % Lymph % (Auto) 23.8 % [place] % (Auto) 11.1 % Eos % (Auto) 1.6 % Baso % (Auto) 0.3 % Neut # (Auto) 3.86 (1.40-6.50) K/uL Lymph # (Auto) 1.46 (1.20-3.40) K/uL [place] # (Auto) 0.68 H (0.11-0.59) K/uL Eos # (Auto) 0.10 (0.00-0.50) K/uL Baso # (Auto) 0.02 (0.00-0.20) K/uL Immature Gran # (Auto) 0.01 (0.01-0.20) K/uL Sodium 138 (136-145) mmol/L Potassium 4.0 (3.5-5.1) mmol/L Chloride 103 (98-107) mmol/L Carbon Dioxide 28 (21-32) mmol/L Anion Gap 7 (3-11) BUN 16 (6-23) mg/dl Creatinine 1.03 (0.6-1.4) mg/dl Est Cr Clr Drug Dosing 69.1 ml/min Est GFR ( Amer) 84.3 ml/min Est GFR (Non-Af Amer) 72.7 ml/min BUN/Creatinine Ratio 15.5 (10-20) Glucose 102 H (70-99(Fasting)) mg/dl Calcium 8.9 (8.6-10.3) mg/dl Total Bilirubin 0.4 (0.2-1.0) mg/dl AST 15 (13-39) U/L ALT 12 (7-52) U/L Alkaline Phosphatase 68 (34-104) U/L Troponin I High Sens 5.5 5.3 (0-20) pg/ml Total Protein 6.8 (6.0-8.3) gm/dl Albumin 4.3 (3.4-5.0) gm/dl Globulin 2.5 (2.5-4.0) gm/dl Albumin/Globulin Ratio 1.7 (0.9-2) Lipase 23 (11-82) U/L Administered Medications Discontinued Medications Acetaminophen (Acetaminophen 325 Mg Tab) 650 mg PO Q4H PRN PRN Reason: Pain or Fever Stop: 03/18/23 21:15 Last Admin: 02/17/23 06:09 Dose: 650 mg Documented By: Admin: 02/17/23 00:37 Dose: 650 mg Documented By: MED Al Hydrox/Mg Hydrox/Simethicone (Aluminum/Magnesium Susp 30 Ml Udc) 15 ml PO NOW STA Stop: 02/16/23 18:45 Last Admin: 02/16/23 19:12 Dose: 15 ml Documented By: SHONDA Aspirin (Aspirin 300 Mg Supp) 300 mg WI ONE ONE Stop: 02/16/23 16:58 Last Admin: 02/16/23 17:20 Dose: Not Given Documented By: CHRISTA Aspirin (Aspirin Chew 324 Mg) 241 mg PO NOW STA Stop: 02/16/23 17:18 Last Admin: 02/16/23 17:24 Dose: 243 mg Documented By: CHRISTA Aspirin (Aspirin 81 Mg Ectab) 81 mg PO QAM [facility] Stop: 03/19/23 08:59 Last Admin: 02/17/23 09:30 Dose: 81 mg Documented By: OL Diphenhydramine HCl (Diphenhydramine 50 Mg/Ml Vial) 50 mg IV NOW ONE Stop: 02/16/23 18:49 Last Admin: 02/16/23 19:07 Dose: 50 mg Documented By: MED Diphenhydramine HCl (Diphenhydramine 50 Mg/Ml Vial) Confirm Administered Dose 50 mg .ROUTE .STK-MED ONE Stop: 02/17/23 15:24 Last Admin: 02/17/23 16:01 Dose: 25 mg Documented By: EARLEK Enoxaparin Sodium (Enoxaparin Inj 40 Mg/0.4 Ml Syr) 40 mg SQ Q24H DAVID Stop: 03/18/23 21:15 Last Admin: 12/07/23 23:20 Dose: 40 mg Documented By: SHONDA Escitalopram Oxalate (Escitalopram Oxalate 10 Mg Tab) 15 mg PO HS [facility] Stop: 03/18/23 21:15 Last Admin: 02/16/23 23:10 Dose: 15 mg Documented By: SHONDA Famotidine (Famotidine 20 Mg Tab) 20 mg PO BID DAVID Stop: 03/18/23 21:15 Last Admin: 02/17/23 09:30 Dose: 20 mg Documented By: Admin: 02/16/23 23:08 Dose: 20 mg Documented By: SHONDA Famotidine (Famotidine 20mg/5ml Iv Push) Confirm Administered Dose 20 mg IV .STK-MED ONE Stop: 02/17/23 15:25 Last Admin: 02/17/23 16:02 Dose: 20 mg Documented By: JOLIE Fentanyl Citrate (Fentanyl Citrate Pf 100 Mcg/2 Ml Vial) Confirm Administered Dose 100 mcg .ROUTE .STK-MED ONE Stop: 02/17/23 15:20 Last Increment: 02/17/23 16:00 Dose: 50 mcg Documented By: JOLIE Fish Oil (Marcella-3 (Purified Fish Oil) 1 Gm Cap) 1 gm PO QAM [facility] Stop: 03/19/23 08:59 Last Admin: 02/17/23 09:30 Dose: 1 gm Documented By: JARETH Heparin Sodium (Porcine) (Heparin (Porcine) 1000 Unit/Ml 10 Ml (Disc Inspector Use Only)) Confirm Administered Dose 10,000 units .ROUTE .STK-MED ONE Stop: 02/17/23 15:20 Last Admin: 02/17/23 16:00 Dose: 5,000 units Documented By: JOLIE Heparin Sodium/Sodium Chloride (Heparin In Nss Infusion 1000 Unit/500 Ml (2 U/Ml) Bag) Confirm Administered Dose 3,000 units IV .STK-MED ONE Stop: 02/17/23 15:20 Last Admin: 02/17/23 16:01 Dose: 3,000 units Documented By: JUD Famotidine (Pepcid 20mg Iv Push) 20 mg in 5 mls @ 2.5 mls/min IV NOW STA Stop: 02/16/23 17:18 Last Admin: 02/16/23 17:25 Dose: 2.5 mls/min Documented By: CHRISTA Famotidine (Pepcid 20mg Iv Push) 20 mg in 5 mls @ 2.5 mls/min IV NOW STA Stop: 02/16/23 18:12 Last Admin: 02/16/23 18:24 Dose: 2.5 mls/min Documented By: CHRISTA Pantoprazole Sodium 40 mg/ (Syringe) 10 mls @ 5 mls/min IV NOW ONE Stop: 02/16/23 18:56 Last Admin: 02/16/23 19:04 Dose: 5 mls/min Documented By: SHONDA Ioversol (Optiray 320 125ml) 119 ml IV ONCE ONE Stop: 02/16/23 20:24 Last Admin: 02/16/23 20:24 Dose: 119 ml Documented By: BENITA Ioversol (Optiray 350) Confirm Administered Dose 1 ml .ROUTE .STK-MED [facility] Stop: 02/17/23 15:51 Last Admin: 02/17/23 16:02 Dose: 100 ml Documented By: JOLIE Isosorbide Mononitrate (Isosorbide [place] Extended Rel 60 Mg Tabcr) 60 mg PO [facility] Stop: 03/19/23 08:59 Last Admin: 02/17/23 09:30 Dose: 60 mg Documented By: JARETH Lidocaine HCl (Lidocaine Viscous 2% 15 Ml Udc) 15 ml PO NOW ONE Stop: 02/16/23 18:45 Last Admin: 02/16/23 19:12 Dose: 15 ml Documented By: SHONDA Lisinopril (Lisinopril 5 Mg Tab) 5 mg PO [facility] Stop: 03/19/23 08:59 Last Admin: 02/17/23 09:30 Dose: 5 mg Documented By: OL Loratadine (Loratadine 10 Mg Tab) 10 mg PO [facility] Stop: 03/19/23 08:59 Last Admin: 02/17/23 09:30 Dose: 10 mg Documented By: OL Methylprednisolone (Methylprednisolone 40 Mg/Ml Vial) 40 mg IV NOW ONE Stop: 02/16/23 18:43 Last Admin: 02/16/23 19:09 Dose: 40 mg Documented By: SHONDA Methylprednisolone (Methylprednisolone 125 Mg/2 Ml Vial) Confirm Administered Dose 125 mg .ROUTE .STK-MED ONE Stop: 02/17/23 15:24 Last Admin: 02/17/23 16:02 Dose: 125 mg Documented By: JOLIE Metoprolol Tartrate (Metoprolol Tartrate 50 Mg Tab) 50 mg PO QPM [facility] Stop: 03/18/23 21:15 Last Admin: 02/16/23 23:08 Dose: 50 mg Documented By: SHONDA Midazolam HCl (Midazolam Hcl 1 Mg/Ml 2ml Vial) Confirm Administered Dose 2 mg .ROUTE .STK-MED ONE Stop: 02/17/23 15:20 Last Increment: 02/17/23 16:01 Dose: 1 mg Documented By: JOLIE Morphine Sulfate (Morphine Sulfate 2 Mg/Ml [place]) 2 mg IV NOW STA Stop: 02/16/23 21:17 Last Admin: 02/16/23 23:18 Dose: Not Given Documented By: SHONDA Nicardipine HCl (Nicardipine Hcl Inj 2.5 Mg/Ml 10 Ml Amp) Confirm Administered Dose 25 mg .ROUTE .STK-MED ONE Stop: 02/17/23 15:20 Last Admin: 02/17/23 16:01 Dose: 25 mg Documented By: JUD Nitroglycerin (Nitroglycerin 2% Ointment 30gm Tube) Confirm Administered Dose 18 inch EXT .STK-MED ONE Stop: 02/16/23 16:57 Last Admin: 02/16/23 16:58 Dose: 1 inch Documented By: SUSAN Nitroglycerin (Nitroglycerin 2% Ointment 30gm Tube) 1 inch EXT Q6 [facility] Stop: 03/19/23 00:00 Last Admin: 02/17/23 13:37 Dose: 1 inch Documented By: Admin: 02/17/23 06:06 Dose: Not Given Documented By: Admin: 02/17/23 00:33 Dose: 1 inch Documented By: SHONDA Nitroglycerin/Dextrose (Nitroglycerin/D5w 100mcg/Ml 20ml Syr) Confirm Administered Dose 2,000 mcg .ROUTE .STK-MED ONE Stop: 02/17/23 15:20 Last Admin: 02/17/23 16:01 Dose: 2,000 mcg Documented By: JUD Ondansetron HCl (Ondansetron Inj 2 Mg/Ml 2 Ml Vial) Confirm Administered Dose 4 mg .ROUTE .STK-MED ONE Stop: 02/16/23 16:58 Last Admin: 02/16/23 16:58 Dose: 4 mg Documented By: SUSAN Ondansetron HCl (Ondansetron Inj 2 Mg/Ml 2 Ml Vial) 4 mg IV NOW STA Stop: 02/16/23 18:45 Last Admin: 02/16/23 19:19 Dose: 4 mg Documented By: MED Pantoprazole Sodium (Pantoprazole 40 Mg Tab) 40 mg PO QAM [facility] Stop: 03/19/23 08:59 Last Admin: 02/17/23 09:30 Dose: 40 mg Documented By: OL Prasugrel (Prasugrel Tab 10 Mg Tab) 10 mg PO QAM [facility] Stop: 03/19/23 08:59 Last Admin: 02/17/23 09:29 Dose: 10 mg Documented By: OL Rosuvastatin Calcium (Rosuvastatin Calcium 20 Mg Tab) 20 mg PO HS DAVID Stop: 03/18/23 21:15 Last Admin: 02/16/23 23:09 Dose: 20 mg Documented By: MED Sucralfate (Sucralfate 1 Gm/10 Ml Udc) 1 gm PO QID DAVID Stop: 03/18/23 21:15 Last Admin: 02/17/23 13:38 Dose: 1 gm Documented By: Admin: 02/17/23 09:29 Dose: 1 gm Documented By: Admin: 02/16/23 23:10 Dose: 1 gm Documented By: MED Zolpidem Tartrate (Zolpidem Tartrate 5 Mg Tab) 5 mg PO HS PRN PRN Reason: sleep Stop: 03/18/23 21:15 Last Admin: 02/16/23 23:12 Dose: 5 mg Documented By: MED Imaging Data Radiologist's Impression: Chest X-Ray 02/16/23 16:57 XR chest 1V portable CLINICAL HISTORY: Chest pain, nonspecific TECHNIQUE: Single frontal radiograph of the chest was obtained. Comparison: Comparison is made to chest radiograph 02/06/2022 FINDINGS: No lines and tubes are seen. Cardiomegaly is noted. The aortic arch is calcified. The lungs are clear. No evidence of pleural effusion or pneumothorax. IMPRESSION: No acute chest disease. ACT 112: Negative or not required by law. Electronically signed by: Brian Anand M.D. 02/16/2023 5:21 PM Discharge Plan Visit Data Chief Complaint: Chest Pain Stated Complaint: SOB, CHEST PAIN/PRESSURE ED Provider: Bhavya Eubanks Discharge Problem: Left bundle branch block (LBBB), Substernal chest pain, CAD (coronary artery disease), History of heart artery stent Patient Disposition: Admitted As Inpatient Discharge Instructions Interventions: ED Discharge Assessment Last Done: 02/16/23 21:16 Discharge Problem: CAD (coronary artery disease) Qualifiers: Coronary Disease-Associated Artery/Lesion type: [place] artery [place] vs. transplanted heart: [place] heart Associated angina: with stable angina Qualified Code(s): I25.118 - Atherosclerotic heart disease of [place] coronary artery with other forms of angina pectoris
[2023-02-16] MEDS ORDERED: OPTIRAY 320 125ml IV ONE (20:23)
--- NOTE | 2023-02-16 21:00 | CT Scan Report ---
Exam(s): CTA CHEST W/WO Contrast IV Amt: 119 ml optiray 320 EXAM: CT Angiography Chest Without and With Intravenous Contrast CLINICAL HISTORY: Reason for exam: chest pain, vascular disease, ?dissection. TECHNIQUE: Axial computed tomographic angiography images of the chest without and with intravenous contrast. CTDI is 64.97 mGy and DLP is 1505.84 mGy-cm. Automated exposure control was utilized for the study. A dose lowering technique was utilized adhering to the principles of ALARA. MIP reconstructed images were created and reviewed. CONTRAST: Patient received 119 ml optiray 320 of IV contrast COMPARISON: No relevant prior studies available. FINDINGS: Pulmonary arteries: Unremarkable. No pulmonary embolism. Aorta: No acute findings. No thoracic aortic aneurysm. Celiac trunk: Moderate stenosis seen at the region of the superior mesenteric and celiac artery due to the presence of calcified atherosclerotic plaque. Lungs: Unremarkable. No mass. No consolidation. Pleural space: Unremarkable. No significant effusion. No pneumothorax. Heart: Unremarkable. No cardiomegaly. No significant pericardial effusion. No evidence of RV dysfunction. Bones/joints: No acute fracture. No dislocation. Soft tissues: Unremarkable. Lymph nodes: Unremarkable. No enlarged lymph nodes. IMPRESSION: No evidence of aortic dissection Electronically signed by: Richie Simon MD 02/16/23 20:59 PM
[2023-02-16] MEDS ORDERED: ZOLPIDEM TARTRATE 5 MG TAB PO PRN (21:16)
[2023-02-16] MEDS ORDERED: LORazepam 0.5 MG TAB PO PRN (21:16)
[2023-02-16] MEDS ORDERED: ALUMINUM/MAGNESIUM SUSP 30 ML UDC PO PRN (21:16)
[2023-02-16] MEDS ORDERED: NITROGLYCERIN SL 0.4 MG/TAB TAB SL PRN (21:16)
[2023-02-16] MEDS ORDERED: traMADol HCL 50 MG TABLET PO PRN (21:16)
[2023-02-16] MEDS ORDERED: ONDANSETRON INJ 2 MG/ML 2 ML VIAL IV PRN (21:16)
[2023-02-16] MEDS ORDERED: ESCITALOPRAM OXALATE 10 MG TAB PO SCH (21:16)
[2023-02-16] MEDS ORDERED: MoRPHine SULFATE 2 MG/ML CARP IV STA (21:16)
[2023-02-16] MEDS ORDERED: NON-FORMULARY MEDICATION (Acetaminophen [Tylenol] 325 mg Capsule) PO PRN (21:16)
[2023-02-16] MEDS ORDERED: MAGNESIUM HYDROXIDE SUSP 30 ML UDC PO PRN (21:16)
[2023-02-16] MEDS ORDERED: POLYETHYLENE (MIRALAX) 17 GM PACK PO PRN (21:16)
[2023-02-16] MEDS ORDERED: ENOXAPARIN INJ 40 MG/0.4 ML SYR SQ SCH (21:16)
[2023-02-16] MEDS ORDERED: ROSUVASTATIN CALCIUM 20 MG TAB PO SCH (21:16)
[2023-02-16] MEDS ORDERED: METOPROLOL TARTRATE 50 MG TAB PO SCH (21:16)
[2023-02-16] MEDS: FAMOTIDINE 20 MG TAB PO SCH (23:08)
[2023-02-16] MEDS: SUCRALFATE 1 GM/10 ML UDC PO SCH (23:10)
[2023-02-17] MEDS: NITROGLYCERIN 2% OINTMENT 30GM TUBE EXT SCH ×3 (00:33→13:37)
[2023-02-17] MEDS: ACETAMINOPHEN 325 MG TAB PO PRN ×2 (00:37→06:09)
[2023-02-17] MEDS ORDERED: lisinopril 5 MG TAB PO SCH (09:00)
[2023-02-17] MEDS ORDERED: ISOSORBIDE MONO EXTENDED REL 60 MG TABCR PO SCH (09:00)
[2023-02-17] MEDS ORDERED: OMEGA-3 (PURIFIED FISH OIL) 1 GM CAP PO SCH (09:00)
[2023-02-17] MEDS ORDERED: PRASugrel TAB 10 MG TAB PO SCH (09:00)
[2023-02-17] MEDS ORDERED: LORATADINE 10 MG TAB PO SCH (09:00)
[2023-02-17] MEDS ORDERED: ASPIRIN 81 MG ECTAB PO SCH (09:00)
[2023-02-17] MEDS ORDERED: PANTOprazole 40 MG TAB PO SCH (09:00)
[2023-02-17] MEDS: SUCRALFATE 1 GM/10 ML UDC PO SCH ×2 (09:29→13:38)
[2023-02-17] MEDS: FAMOTIDINE 20 MG TAB PO SCH (09:30)
--- NOTE | 2023-02-17 09:45 | Cardiology Consultation ---
Date of Consultation February 17, 2023 Assessment & Plan (1) Chest pain at rest: (2) Arteriosclerotic cardiovascular disease (ASCVD): (3) Left bundle branch block (LBBB): (4) Hypertension: Plan Complex 72 year old male presenting with reduced exercise tolerance (since being diagnosed with Covid in December 2022), resting chest discomfort around noon on 02/16/2023, substernal chest pressure associated with shortness of breath, diaphoresis, nausea. Symptoms somewhat reminiscent of those previously associated with unstable angina/NH though without radiating discomfort into the neck and arm as before. EKG difficult to discern in the setting of a chronic left bundle branch block though with new inferior T wave abnormality. High- sensitivity troponin high negative x 3 - 5.5 -> 5.3 -> 3.9 pg/mL. Resting echocardiography pending. Chest x-ray and CT without acute process though with moderate stenosis at the region of the superior mesenteric and celiac artery due to presence of calcified atherosclerotic plaque observed. Options of management discussed with patient and . Recommend NPO status (ate breakfast at 09:45 AM) pending resting echocardiography and evaluation by Dr. Patten. Supervising Physician Co-Signing Physician Notes Patient was seen and examined, chart, medications, telemetry reviewed. Complex 72-year-old male with diffuse coronary disease, chronic left bundle branch block Patient presented with persistent symptoms of greater than 5 hours duration that without any troponin elevation. Symptoms have since resolved EKG unhelpful Echocardiogram with no acute changes Impression: Acute event of chest pain and chest pressure without evidence of myocardial injury or ischemia by enzyme. Findings suggest nonischemic etiology the patient's prior history and presentations difficult. Patient has already had breakfast and received IV contrast last night and remains hemodynamically stable and asymptomatic Recommendations: Discharge to home on current medications. Given decline functionally however with exercise over the last several months repeat cardiac catheterization probably warranted we will discuss outpatient study to be scheduled History of Present Illness Reason for Consultation: Chest pain, known diffuse CAD Requesting Physician: Dr. Washington Guerra DO Attending Physician: Dr. Washington Guerra, History of Present Illness Mr. Emile Zelaya is a very pleasant 72-year-old male who presented to the [facility] ER on February 16, 2023 for evaluation of chest discomfort. at bedside. Patient notes lack of energy and fatigue with reduced exercise tolerance since having COVID in December. Yesterday around noon, while sitting in his recliner, patient felt a substernal pressure on the chest that was associated with shortness of breath, diaphoresis, nausea. Symptoms were somewhat reminiscent of those previously associated with angina though not radiating into the neck and arm as before. Presentation was via personal vehicl e, drove. In the ER patient was seen by Dr. Eubanks, receiving IV Zofran and IV Pepcid without relief, eventually resolving late last evening spontaneously. EKGs revealed sinus rhythm with first-degree AV block and a chronic left bundle branch block with new inferior T wave changes. High- sensitivity troponin high negative x 3 - 5.5 -> 5.3 -> 3.9 pg/mL. Resting echocardiography pending. Chest x-ray without acute chest disease, CT without aortic catastrophe, notable for moderate stenosis at the region of the superior mesenteric and celiac artery due to presence of calcified atherosclerotic plaque. Past Medical/Surgical History: Ischemic heart disease. - Anterior wall myocardial infarction in 1987, status post PTCA without stent of the LAD. - RCA stenting in 1992 and 1998. - LAD and diagonal stenting in July 2002. - April 25, 2013 spermatocele surgery, after holding ASA and Plavix for 10 days, complicated postoperatively an inferior wall STEMI s/p PCI with 2 drug elu ting stents to the RCA. Course complicated by atrial fibrillation with a RVR during the procedure then ventricular fibrillation arrest treated with defibrillation and CPR. Episodes of nonsustained ventricular tachycardia observed in the ICU necessitating transient use of amiodarone therapy. - Presentation to [facility] May 2018 with unstable angina, status post PCI of the LAD with 2 drug-eluting stents and PCI of the left circumflex with 1 drug-eluting stent. - Presentation in February 2020 unstable angina, NSTEMI. Catheterization revealed a 60% hazy early-mid segment thrombotic LAD lesion for which he underwent successful complex PCI of the proximal to mid LAD with a single drug eluting stent, overlapping the proximal aspect of the previously placed stent. The previously placed LAD, diagonal, circumflex and RCA stents were notably patent. Coronary artery (distal LAD) spasm noted at time of catheterization. Coronary Angiography summary and resting echocardiography obtained at [facility] are summarized below. - Presentation to [facility] in June 2020, with chest, neck, and arm discomfort similar to his prior angina. EKG was without acute change, chronically with a left bundle branch block. Troponin was not undetectable but not elevated (0.016 ng/mL, 0.033 ng/L). Emergent cardiac catheterization revealed a thrombotic mid LAD lesion consistent with acute plaque rupture, status post drug-eluting stenting using a 3.0 x 15 mm Medtronic Pilo stent. Spasm was noted distal to the newly deployed stent, resolving with intracoronary nitroglycerin. The prior RCA stents, circumflex stents, and proximal LAD stents were noted to be patent. Recommendations on discharge were to replace clopidogrel with Brilinta 90 mg twice per day. Brilinta replaced with Effient due to life-limiting dyspnea in July 2020 - Hospitalization in October 2020 with chest discomfort highly reminiscent of prior angina. Diagnostic cardiac catheterization performed by Dr. Owen on November 06, 2020 revealed stable multivessel coronary artery disease with widely patent proximal to mid LAD stents, patent D2 stent, widely patent mid circumflex stent, and widely patent proximal and mid RCA stents. 30% ostial left main stenosis noted. Normal intracardiac filling pressure observed. - Chronic left bundle branch block. - Hypertension - Dyslipidemia. LDL goal < 70 mg/dL. - Abdominal aortic aneurysm per documentation. Abdominal CT scan in April, at [facility] revealed advance atherosclerotic calcification and ectasia of the abdominal aorta measuring up to 2.6 cm in d iameter. July 2017 aortic duplex with no evidence of an abdominal aortic aneurysm. Calcified ectatic abdominal aorta measuring up to 2.[address] via December 2021 CT - Mild bilateral internal carotid artery disease. - Hospitalization at [facility] on November 06, 2020 to November 09, 2020, presenting at that time with chest discomfort radiating to the left arm highly reminiscent of prior angina, profound weakness, near syncope. In the ER, he was noted to have melanotic stool. Urgent EGD on November 06, 2020 revealed an oozing duodenal ulcer that was injected with epi, treated with bipolar cautery, MR conditional clips placed. Hemoglobin dropped as low as 7.1 g/dL on November 08, 2020. Patient received 2 units of packed red blood cells during the hospitalization. Recommendations on discharge were to take pantoprazole twice a day x2 months then daily indefinitely, Carafate x2 weeks. Repeat EGD was not felt to be indicated for surveillance. He also notably had chest discomfort that was reproducible during the course of his hospitalization. Troponin I negative throughout, less than 0.015 ng/mL. - Asthma. - Nephrolithiasis - B12 deficiency, diagnosed September 2021 - Osteoarthritis - s/p total knee arthroplasty of the left knee, August 2008. - Status post August 05, 2016 right reverse total shoulder arthroplasty - Status post May 04, 2017 right knee replacement by Dr. Fowler. - Hernia surgeries in 2000 and 2003. - Hospitalization in November 2021 with acute pancreatitis. 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 Family History: Mother with lung cancer. Father had his first NH at 36. 18 siblings in total. Positive heart problems multiple siblings including a brother who was s/p heart transplant, passing with cancer in June 2013. Social History: Reformed smoker, 1/2 ppd x 25 years. Quit in 1987. No smokeless tobacco abuse. Rare alcohol. No illegal drug use. . Retired in September 2014 after 45+ years with the [employer]. Complete Review of Systems: Reading glasses. Bilateral hearing aids. Dental implants. Top dentures. Enlarged prostate. Covid 19 in December 2022. Anxiety. Depression. Chronic back pain. Allergies Allergy/AdvReac Type Severity Reaction Status Date / Time Iodinated Contrast Media Allergy Intermediate Hives Verified 02/16/23 17:32 atorvastatin [From Lipitor] AdvReac Intermediate Muscle Pain Verified 02/16/23 17:32 simvastatin [From Zocor] AdvReac Intermediate Muscle Pain Verified 02/16/23 17:32 Home Medications Medication Instructions Recorded Confirmed Type aspirin 81 mg tablet,delayed 81 mg PO QAM 05/29/18 02/16/23 History release (Sonia Low Dose Aspirin) loratadine 10 mg tablet (Claritin) 10 mg PO QAM 05/29/18 02/16/23 History rosuvastatin 20 mg tablet (Crestor) 20 mg PO HS 04/10/19 02/16/23 History coenzyme Q10 400 mg capsule (Co 400 mg PO QAM 10/30/19 02/16/23 History Q-10) acetaminophen 325 mg capsule 325 mg PO QID PRN Pain 11/18/21 02/16/23 History (Tylenol) prasugrel 10 mg tablet (Effient) 10 mg PO QAM #90 tabs 02/17/22 02/16/23 Rx isosorbide mononitrate 60 mg 60 mg PO QAM #90 tabs 03/15/22 02/16/23 Rx tablet,extended release 24 hr pantoprazole 40 mg tablet,delayed 40 mg PO QAM 07/15/22 02/16/23 History release escitalopram oxalate 10 mg tablet 15 mg (1.5 x 10 mg) PO HS #45 tabs 08/30/22 02/16/23 Rx zolpidem 5 mg tablet 5 mg PO HS PRN sleep #90 tabs 12/07/22 02/16/23 Rx tramadol 50 mg tablet 50 mg PO Q6H PRN Pain #100 tabs 01/05/23 02/16/23 Rx lorazepam 0.5 mg tablet (Ativan) 0.5 mg PO DAILY PRN anxiety #30 01/16/23 02/16/23 Rx tabs amoxicillin 500 mg capsule 2,000 mg PO DIRECTED PRN Prior 02/16/23 02/16/23 History to Dental Appointment lisinopril 5 mg tablet 5 mg PO QAM 02/16/23 02/16/23 History metoprolol tartrate 50 mg tablet 50 mg PO QPM 02/16/23 02/16/23 History omega-3 fatty acids 1,000 mg 1,000 mg PO QAM 02/16/23 02/16/23 History capsule Patient History Medical History Chest pain History of anemia Pancreatitis Admitted at [facility] 10/2021 Osteoarthritis Duodenal ulcer hemorrhage Bleeding ulcer 10/2020 Mild intermittent asthma Insomnia Hyperlipidemia Arteriosclerotic cardiovascular disease (ASCVD) Anxiety and depression Hypertension CAD (coronary artery disease) 11 stents total, most recent 2019 Left bundle branch block (LBBB) Rotator cuff arthropathy Right knee DJD Myocardial infarct, old Follows with S cardio (Branden Aparicio) Surgical History History of left cataract surgery History of esophagogastroduodenoscopy (EGD) Hx of colonoscopy History of knee replacement b/l History of hernia repair umbilical History of total knee arthroplasty Status post reverse total arthroplasty of right shoulder H/O heart artery stent 11 stents total, most recent 2019 Family History Unknown Atherosclerosis Acute myocardial infarction Lung cancer Father Myocardial infarction Brother Myocardial infarction Sister Myocardial infarction Mother Lung cancer Other Hypertension No family history of adverse response to anesthesia Denies family history of Ovarian cancer Prostate cancer Diabetes Breast cancer Colorectal cancer Stroke Social History Smoking Status: Never smoker Tobacco Type: Cigarettes Second Hand Exposure: No; Do You Dip or Chew Tobacco: No; Hx Alcohol Use: No Hx Substance Use: No Preferred Language: Urdu Communication Ability: Effective Visual Impairment: Limited 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: Use of Hearing Aid Hotel Administrative Assistant Required: No Beliefs That Will Affect Care: None marital status: Current Living Situation: Spouse current occupational status: retired How many Children do You have: 2 Feels Safe at Home: Yes Childhood Exposure to Second-Hand Smoke: Yes caffeine: Yes Dental Care, Regularly: Yes Physical Activity Frequency: 1-2 Times per Week Seatbelt Use: always Sunscreen Use: Yes Assistive Devices: None Review of Systems Review of Systems: Complete review of systems is otherwise as stated above, negative, or noncontributory Physical Exam Physical Exam: General: NAD. HENT: Normocephalic. Atraumatic. Eyes: PER. Conjunctiva pink, sclera clear. Neck: Right carotid bruit versus transmitted systolic murmur. No JVD. Heart: RRR, 60 bpm. Grade I-II/ systolic ejection murmur. No diastolic murmur. No rub. Lungs: Clear to auscultation. Abdomen: +BS. Soft. Nontender. No masses or organomegaly. Extremities: No clubbing, cyanosis, or edema. Pulses: radial=2/4, posterior tibial=2/4. Results & Data Vital Signs (Past 12 Hours) Vital Signs Temp Pulse Pulse Resp BP Pulse Ox Pulse Ox 02/17/23 07:09 63 02/17/23 07:01 57 L 18 123/58 L 95 02/17/23 06:21 36.7 C 73 18 118/67 99 02/17/23 06:02 60 16 105/48 L 93 02/17/23 01:13 65 17 122/67 95 02/17/23 01:12 96 02/17/23 01:11 89 L 02/16/23 23:25 67 12 136/77 93 02/16/23 23:10 71 O2 Del Method O2 Del Method O2 Flow Rate O2 Flow Rate 02/17/23 07:09 02/17/23 07:01 Room Air 02/17/23 06:21 Nasal Cannula 3 02/17/23 06:02 Room Air 3 02/17/23 01:13 Nasal Cannula 2 02/17/23 01:12 Nasal Cannula 2 02/17/23 01:11 Room Air 02/16/23 23:25 Room Air 02/16/23 23:10 Laboratory Results Cardiac Enzymes 02/16/23 02/16/23 02/17/23 Range/Units 16:45 17:56 03:03 AST 15 (13-39) U/L Troponin I High Sens 5.5 5.3 3.9 (0-20) pg/ml CBC 02/16/23 Range/Units 16:45 WBC 6.13 (4.8-10.8) K/ul RBC 3.91 L (4.70-6.10) M/uL Hgb 13.7 L (14.0-18.0) g/dl Hct 40.9 L (42.0-52.0) % Plt Count 204 (130-400) K/uL Neut # (Auto) 3.86 (1.40-6.50) K/uL Lymph # (Auto) 1.46 (1.20-3.40) K/uL Sandoval # (Auto) 0.68 H (0.11-0.59) K/uL Eos # (Auto) 0.10 (0.00-0.50) K/uL Baso # (Auto) 0.02 (0.00-0.20) K/uL Comprehensive Metabolic Panel 02/16/23 Range/Units 16:45 Sodium 138 (136-145) mmol/L Potassium 4.0 (3.5-5.1) mmol/L Chloride 103 (98-107) mmol/L Carbon Dioxide 28 (21-32) mmol/L BUN 16 (6-23) mg/dl Creatinine 1.03 (0.6-1.4) mg/dl Glucose 102 H (70-99(Fasting)) mg/dl Calcium 8.9 (8.6-10.3) mg/dl AST 15 (13-39) U/L ALT 12 (7-52) U/L Alkaline Phosphatase 68 (34-104) U/L Total Protein 6.8 (6.0-8.3) gm/dl Albumin 4.3 (3.4-5.0) gm/dl Intake and Output 02/16/23 02/17/23 02/17/23 22:59 06:59 14:59 Intake Total 0 / 0 Balance 0 / 0 Intake: Oral 0 / 0 Other: # Unmeasured Voids 3 Weight 90.1 kg 89.8 kg Weight Measurement Method Built in [facility] Diagnostic Findings Telemetry: Sinus. + Five beat run of wide complex tachycardia. (4) Hypertension Hypertension type: essential hypertension Qualified Code(s): I10 - Essential (primary) hypertension
--- NOTE | 2023-02-17 12:27 | Electrocardiogram Report ---
Test Reason : Blood Pressure : / mmHG Vent. Rate : 075 BPM Atrial Rate : 075 BPM P-R Int : 214 ms QRS Dur : 148 ms QT Int : 412 ms P-R-T Axes : 035 053 -05 degrees QTc Int : 460 ms Sinus rhythm with 1st degree A-V block Left bundle branch block Abnormal ECG When compared with ECG of 06-FEB-2022 20:37, T wave inversion now evident in Inferior leads Nonspecific T wave abnormality no longer evident in Lateral leads Confirmed by Joon Wallace ([id number]) on 02/17/2023 12:27:09 PM Referred By: REFERRED SELF Confirmed By:Joon Wallace
--- NOTE | 2023-02-17 12:31 | Electrocardiogram Report ---
Test Reason : Blood Pressure : / mmHG Vent. Rate : 058 BPM Atrial Rate : 058 BPM P-R Int : 226 ms QRS Dur : 148 ms QT Int : 458 ms P-R-T Axes : 034 -08 036 degrees QTc Int : 449 ms Sinus bradycardia with 1st degree A-V block Left bundle branch block Abnormal ECG When compared with ECG of 16-FEB-2023 16:46, (unconfirmed) Questionable change in QRS axis Confirmed by Joon Wallace ([id number]) on 02/17/2023 12:30:49 PM Referred By: REFERRED SELF Confirmed By:Joon Wallace
--- NOTE | 2023-02-17 12:32 | Electrocardiogram Report ---
Test Reason : Blood Pressure : / mmHG Vent. Rate : 062 BPM Atrial Rate : 062 BPM P-R Int : 242 ms QRS Dur : 160 ms QT Int : 470 ms P-R-T Axes : 032 -09 041 degrees QTc Int : 477 ms Sinus rhythm with 1st degree A-V block Left bundle branch block Abnormal ECG When compared with ECG of 16-FEB-2023 18:16, (unconfirmed) No significant change was found Confirmed by Joon Wallace ([id number]) on 02/17/2023 12:32:34 PM Referred By: REFERRED SELF Confirmed By:Joon Wallace
[2023-02-17] MEDS ORDERED: niCARdipine HCL INJ 2.5 MG/ML 10 ML AMP ONE (15:19)
[2023-02-17] MEDS ORDERED: HEPARIN (PORCINE) 1000 UNIT/ML 10 ML (CATH LAB USE ONLY) ONE (15:19)
[2023-02-17] MEDS ORDERED: MIDAZOLAM HCL 1 MG/ML 2ML VIAL ONE (15:19)
[2023-02-17] MEDS ORDERED: NITROGLYCERIN/D5W 100MCG/ML 20ML SYR ONE (15:19)
[2023-02-17] MEDS ORDERED: fentaNYL citrate PF 100 MCG/2 ML VIAL ONE (15:19)
[2023-02-17] MEDS ORDERED: diphenhydrAMINE 50 MG/ML VIAL ONE (15:23)
[2023-02-17] MEDS ORDERED: methylPREDNISolone 125 MG/2 ML VIAL ONE (15:23)
[2023-02-17] MEDS ORDERED: FAMOTIDINE 20MG/5ML IV PUSH IV ONE (15:24)
[2023-02-17] MEDS ORDERED: OPTIRAY 350 ONE (15:50)
[2023-02-17] MEDS ORDERED: NITROGLYCERIN 2% OINTMENT 30GM TUBE EXT SCH (18:00)
--- NOTE | 2023-02-17 19:27 | Discharge Summary ---
Date of Service February 17, 2023 Admission HPI Per Admitting Provider very pleasant 72-year-old male with extensive coronary disease/vascular disease history, he believes he is about 11 stents. Has been feeling chest pressure like somebody sitting on his chest with a little bit of shortness of breath some diaphoresis since roughly 1:00 today unremitting. It is waxed and waned a little bit has absolutely never gotten to where it was tolerable or definitely has never gotten to a 0. Came on after lunch. No other exacerbating or alleviating factors. reviewed old records and old CT scans. Principal Diagnosis chest pain - most likely upper GI Discharge Exam In general he is awake and alert pleasant no distress. Breathing unlabored no accessory muscle use good effort. Skin shows no rashes no pallor or icterus. Neuro without focal deficits. Discharge Data Allergies Allergy/AdvReac Type Severity Reaction Status Date / Time Iodinated Contrast Media Allergy Intermediate Hives Verified 02/16/23 17:32 atorvastatin [From Lipitor] AdvReac Intermediate Muscle Pain Verified 02/16/23 17:32 simvastatin [From Zocor] AdvReac Intermediate Muscle Pain Verified 02/16/23 17:32 Consultations 02/16/23 18:16 ED Decision to Admit Stat 02/16/23 18:39 Consult Cardiology Routine Procedures Performed Operation Date: 02/17/23 15:00 Actual Procedures s Cineradiography w/Routine Exam - Srini Owen MD p Cath, Right and Left Heart - Srini Owen MD Ordered Studies 02/16/23 18:42 CT angio chest dissec wo/w con Stat 02/17/23 14:14 CL Cath Imgs for PACS use only Stat Hospital Course (1) Chest pain: ddx angina vs upper GI vs aortic -Fortunately appears to have been upper GI. Cardiac enzymes were negative, heart cath was stable. CT angio showed no dissection. Symptoms resolved. Safe/stable for home. Outpatient PCP and cardiology follow-up. no med changes at this time. Total Time Total Time Spent Total Time Spent (In Minutes): Less than 30 Discharge Plan Discharge Items Patient Disposition: Home - Self-Care Reason For Visit: CHEST PAIN Discharge Diagnosis: chest pain - most likely GI related Activity: Resume your previous activity Non-emergency contact: Primary Care Provider and [employer] Set Up Operator Call non-emergency contact if: you have any medication questions Follow-up/Referrals: Basedow,Shyann, DO [Primary Care Provider] - Diet: Heart Healthy Addtl Attending Provider Instructions: fortunately with your cardiac workup (including cath) looking so reassuring, it's almost certain that the pain you were feeling was from your stomach/esophagus. Pending Studies at Discharge: No Stand-Alone Forms: My [facility], Smoking Cessation Medications and DC Order Prescriptions: Continued prasugrel [Effient] 10 mg tablet 10 mg PO QAM Qty: 90 3RF isosorbide mononitrate 60 mg tablet extended release 24 hr 60 mg PO QAM Qty: 90 3RF escitalopram oxalate 10 mg tablet 15 mg PO HS Qty: 45 6RF Rx Instructions: TAKE 1 AND 1/2 TABLETS BY MOUTH AT BEDTIME zolpidem 5 mg tablet 5 mg PO HS PRN (Reason: sleep) Qty: 90 0RF tramadol 50 mg tablet 50 mg PO Q6H PRN (Reason: Pain) Qty: 100 1RF rosuvastatin [Crestor] 20 mg tablet 20 mg PO HS lorazepam [Ativan] 0.5 mg tablet 0.5 mg PO DAILY PRN (Reason: anxiety) Qty: 30 0RF aspirin [Sonia Low Dose Aspirin] 81 mg Tablet,Delayed Release (Dr/Ec) 81 mg PO QAM loratadine [Claritin] 10 mg Tablet 10 mg PO QAM coenzyme Q10 [Co Q-10] 400 mg capsule 400 mg PO QAM acetaminophen [Tylenol] 325 mg Capsule 325 mg PO QID PRN (Reason: Pain) pantoprazole 40 mg tablet,delayed release (DR/EC) 40 mg PO QAM omega-3 fatty acids 1,000 mg Capsule 1,000 mg PO QAM amoxicillin 500 mg capsule 2,000 mg PO DIRECTED PRN (Reason: Prior to Dental Appointment) Rx Instructions: TAKE 4 CAPSULES 1 HOUR PRIOR TO DENTAL APPOINTMENT metoprolol tartrate 50 mg tablet 50 mg PO QPM Rx Instructions: TAKE 1 TABLET BY MOUTH EVERY EVENING lisinopril 5 mg tablet 5 mg PO QAM Rx Instructions: TAKE 1 TABLET BY MOUTH EVERY MORNING Discharge Orders: Discharge Order (Routine); Ordered 02/17/23 Ordered By: Washington Redd/Other Patient Handouts: Coronary Angiography, Cardiac Catheterization Dc Admission Data Admit Date/Time: 02/16/23 18:39 Attending Provider: Washington Guerra Admit Provider: Washington Guerra Primary Care Provider: Maryjo Kaur Other Providers: Washington Guerra; Philippe Patten Other Interventions: Discharge Summary Assessment (RN) Last Done: 02/17/23 18:42 Coding Level of Care Code 11327 IN/OBS DISCH 30 MIN/LESS Diagnoses Chest pain R07.9 Chest pain type: unspecified
--- NOTE | 2023-02-17 23:11 | Pre Anesthesia Assessment ---
Date of Service February 17, 2023 Pre Sedation Assessment Vital Signs Temp Pulse Pulse Resp BP Pulse Ox Pulse Ox 02/17/23 18:42 98.2 F 66 18 106/61 95 02/17/23 18:00 62 18 122/69 96 02/17/23 17:13 66 18 106/61 95 02/17/23 16:41 98.2 F 66 18 112/62 93 02/17/23 16:08 61 20 133/52 L 93 02/17/23 14:37 69 18 132/59 L 92 02/17/23 14:34 59 L 02/17/23 14:00 69 21 109/58 L 92 02/17/23 11:22 65 15 117/59 L 91 02/17/23 07:09 63 02/17/23 07:01 57 L 18 123/58 L 95 02/17/23 06:21 98.1 F 73 18 118/67 99 02/17/23 06:02 60 16 105/48 L 93 02/17/23 01:13 65 17 122/67 95 02/17/23 01:12 96 02/17/23 01:11 89 L 02/16/23 23:25 67 12 136/77 93 O2 Del Method O2 Del Method O2 Flow Rate O2 Flow Rate 02/17/23 18:42 02/17/23 18:00 Room Air 02/17/23 17:13 Room Air 02/17/23 16:41 Room Air 02/17/23 16:08 Room Air 02/17/23 14:37 Room Air 02/17/23 14:34 02/17/23 14:00 Room Air 02/17/23 11:22 Room Air 02/17/23 07:09 02/17/23 07:01 Room Air 02/17/23 06:21 Nasal Cannula 3 02/17/23 06:02 Room Air 3 02/17/23 01:13 Nasal Cannula 2 02/17/23 01:12 Nasal Cannula 2 02/17/23 01:11 Room Air 02/16/23 23:25 Room Air Cardiovascular + regular rate Respiratory + respiratory effort normal Pre-Sedation Airway Assessment Smoking Status: Never smoker Hx Sleep Apnea: No Hx Difficult Intubation: No Short, Thick Neck: No Thyromental Distance: > or= 3.5 Finger Breadths Oral Cavity: + Dentures Mallampati Class: I ASA: ASA4 NPO Status Date of Last Intake of Fluids: 02/17/23 Time of Last Intake of Fluids: :30 Date of Last Intake of Solid Food: 02/17/23 Time of Last Intake of Solid Foods: 07:30 Procedure Planning Contraindications for Sedation: none Current Medications Reviewed: Yes Notes The planned sedation has been discussed with the patient. Informed Consent was obtained. I have identified the patient, determined the appropriateness of sedation and have assessed the patient immediately prior to the procedure. All medicine(s) and interventions are by my order.
--- NOTE | 2023-02-17 23:12 | Post Anesthesia Assessment ---
Date of Service February 17, 2023 Post Sedation Assessment Vital Signs Temp Pulse Pulse Resp BP Pulse Ox Pulse Ox 02/17/23 18:42 98.2 F 66 18 106/61 95 02/17/23 18:00 62 18 122/69 96 02/17/23 17:13 66 18 106/61 95 02/17/23 16:41 98.2 F 66 18 112/62 93 02/17/23 16:08 61 20 133/52 L 93 02/17/23 14:37 69 18 132/59 L 92 02/17/23 14:34 59 L 02/17/23 14:00 69 21 109/58 L 92 02/17/23 11:22 65 15 117/59 L 91 02/17/23 07:09 63 02/17/23 07:01 57 L 18 123/58 L 95 02/17/23 06:21 98.1 F 73 18 118/67 99 02/17/23 06:02 60 16 105/48 L 93 02/17/23 01:13 65 17 122/67 95 02/17/23 01:12 96 02/17/23 01:11 89 L 02/16/23 23:25 67 12 136/77 93 O2 Del Method O2 Del Method O2 Flow Rate O2 Flow Rate 02/17/23 18:42 02/17/23 18:00 Room Air 02/17/23 17:13 Room Air 02/17/23 16:41 Room Air 02/17/23 16:08 Room Air 02/17/23 14:37 Room Air 02/17/23 14:34 02/17/23 14:00 Room Air 02/17/23 11:22 Room Air 02/17/23 07:09 02/17/23 07:01 Room Air 02/17/23 06:21 Nasal Cannula 3 02/17/23 06:02 Room Air 3 02/17/23 01:13 Nasal Cannula 2 02/17/23 01:12 Nasal Cannula 2 02/17/23 01:11 Room Air 02/16/23 23:25 Room Air Recovery Score Activity: Moves 4 extremities Respiration: Deep Breath/Cough Circulation: +/-20% PreAnes Value Consciousness: Fully Awake Oxygen Saturation: > 92% On Room Air Post Anesthesia Score: 10 Discharge Sedation Level of Care: Fast Track Phase II Post Sedation Plan On clinical assessment, the patient appears to have tolerated the sedation without complications. Patient is recovering as anticipated. Patient will continue to be monitored by nursing and may be discharged when sedation discharge criteria are met per below protocol. Upon Completions of procedure up to 15 minutes continue every 5 minute vital signs and the P.A.R. score; then discharge to a Phase I or Fast Track to Phase II per the following guidelines: * Discharge Patient to appropriate Phase II area if PAR is 8 or greater or return to pre- procedure baseline. The post - procedure orders will be as directed. * If PAR score is less than 8 or not return to pre-procedure baseline then patient will follow Phase I monitoring till PAR is reached for Phase II. The Phase I may be done in procedure room or may call to secure a Phase I area. * If naloxone or flumazenil are used for reversal, hold in Phase I for continued monitoring from when last reversal dose was given for a minimum of 60 minutes or longer pending the nurse and/or physician discretion of patient condition before discharge to Phase II. Please call the Sedation Physician to re-evaluate and complete post-note for discharge to Phase II area. Do NOT discharge from procedure sedation or Phase 1 until post- sedation evaluation note is complete by procedure /sedation MD Sedation Discharge Instructions to be given to the patient at discharge to home.
--- NOTE | 2023-02-17 23:23 | Cardiac Catheterization ---
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 [employer] Cardiac Status Clinical evaluation leading to the procedure CAD Presenation: Unstable angina Anginal Classification: CCS IV Diagnostic Physicians Name: Srini Owen MD Closure Device Recommendations: Medical Therapy and/or Counseling Cardiac Cath Procedure Full Procedure Date February 17, 2023 Pre-Procedure Diagnosis Pre-Procedure Diagnosis: Angina AUC Score AUC Score: 8 Post-Procedure Diagnosis Post-Procedure Diagnosis: Moderate CAD and Normal Intracardiac Pressures Procedure(s) Performed Procedure(s) Performed: Coronary Angiography and Left Heart Cath Donor Center Technician Srini Owen MD Fishing Game Warden(s) Showers Estimated Blood Loss Estimated Blood Loss: 5 Medication(s) Medication(s): Fentanyl, Heparin, Lidocaine 1%, Nicardipine, Nitroglycerin and Versed Summary of Findings Indication: unstable angina Access: 6 Fr slender right radial artery Catheters: [place] LM -calcified, medium caliber, eccentric calcified ostial plaque with 20% stenosis LAD -medium caliber vessel, proximal to mid stents patent. 40-50% mid in-stent restenosis at angulated segment. 20-30% ISR in late-mid stents. Distal vessel without significant disease. Medium D1 without disease. D2 stent widely patent. Circumflex -large caliber vessel, proximal irregularities, mid segment stent with minimal in-stent restenosis, large left PLB without significant disease. RCA -dominant, large caliber, widely patent proximal stent, latemid stent with 20 to 30% in-stent restenosis, 40 to 50% distal stenosis prior to bifurcation with PDA. PDA, PLBs without significant disease. LVEDP - 7 Arterial Closure: TR Band Summary: 1. Non-obstructive multivessel coronary artery disease - 40-50% mid LAD in-stent restenosis, 20-30% latemid in-stent restenosis. D2 stent patent. - Mid circumflex stent widely patent - Proximal, mid RCA stents widely patent. - 20% ostial left main 2. Normal intracardiac filling pressure Recommendations: Patient has new (from 11/06/2020) moderate in-stent restenosis in mid LAD stent but no obstructive disease to explain presenting persistent rest pain. Recommend continued medical management extended DAPT with aspirin, prasugrel. If recurrent exertional anginal symptoms repeat FFR/PCI of mid LAD ISR could be considered. Hemodynamics Rest Ao:: 93/49/67 Final Ao: 120/54/78 LV: 107/7 Recommendations Recommendations: Medical Therapy and/or Counseling Specimens Specimens: None Radiation Exposure (mGy) 1240 Contrast (mls) 100 Anesthesia Moderate 5254-0268 Procedural Complication(s) None Disposition PCU I attest to the content of the Intraoperative Record and any orders documented therein. Any exceptions are noted below. [facility] Card Cath Procedure Codes Cardiac Catheterization Procedure 1: Cardiovascular Cath Procedures: 95372 Coronaries and LHC (+/-LV) Moderate Sedation Procedure 1: Sedation/Anesthesia: 40125 Mod Sedation by the same physician;Init15 Min Child Age 5 & Up PG Care Time/CCT Total # of Minutes Spent Total Time Spent with Patient: Total time spent is greater than 50% in coordination of care (as documented) at patient's floor/unit and/or counseling patient:
== END 2023-02-17 19:25 | disposition home or self-care (01) ==
LOC: ED 16:37 → EDINP 16:37 → 4W 02-17 16:33